=== PATIENT | male | born 1960 | race Caucasian/White ===

== ENCOUNTER → 2019-11-09 08:27 | Outpatient (BNVA) | payer OTHER, SELFPAY | PROVIDERS: PCP Internal Medicine; Referring Provider Internal Medicine; Visit Provider Nurse Practitioner Gerontology | DX: Z76.89 Persons encountering health services in other specified circumstances (principal) ==

== ENCOUNTER 2019-11-09 09:15 | Outpatient (REF) | payer OTHER, SELFPAY | END 2019-11-09 09:16 | disposition home or self-care (01) | LOC: HO.LNP 09:15 | PROVIDERS: Visit Provider Nurse Practitioner Gerontology | DX: E11.21 Type 2 diabetes mellitus with diabetic nephropathy (principal) | CPT/HCPCS: 82947 ==

== ENCOUNTER → 2020-02-12 09:04 | Outpatient (BNVA) | payer OTHER, SELFPAY | PROVIDERS: PCP Internal Medicine; Visit Provider Nurse Practitioner Gerontology | DX: Z76.89 Persons encountering health services in other specified circumstances (principal) ==

== ENCOUNTER 2020-02-20 08:28 | Outpatient (REF) | payer OTHER, SELFPAY ==
[2020-02-20 09:41] LABS: Estimated Average Glucose 255 mg/dL; Hemoglobin A1c % 10.5 %
== END 2020-02-20 08:29 | disposition home or self-care (01) ==
LOC: HO.LAB 08:28
PROVIDERS: PCP Internal Medicine; Visit Provider Nurse Practitioner Gerontology
DX: E11.21 Type 2 diabetes mellitus with diabetic nephropathy (principal)
CPT/HCPCS: 36415; 83036

== ENCOUNTER 2020-05-04 08:01 | Outpatient (REF) | payer OTHER, SELFPAY ==
[2020-05-04 08:38] LABS: MANUAL DIFF FLAG NO
[2020-05-04 08:43] LABS: Basophils Percent Auto 0.5 % (0-2); Eosinophils Absolute Auto 0.2 X10*3/uL (0.0-0.4); Eosinophils Percent Auto 2.2 % (0-4); Hematocrit 41.5 % (42-52); Hemoglobin 13.7 g/dl (14.0-18.0); Imm Gran Abs Auto 0.02 X10*3/uL (0.00-0.03); Imm Gran Pct Auto 0.2 % (0.0-0.4); Lymphocytes Absolute Auto 3.4 X10*3/uL (1.2-4.9); Lymphocytes Percent Auto 40.7 % (20-40); Mean Corpuscular Hemoglobin 28.6 pg (27.0-33.0); Mean Corpuscular Volume 86.6 fL (80-98); Mean Platelet Volume 10.6 fL (9.4-12.4); Monocytes Absolute Auto 0.8 X10*3/uL (0.1-1.2); Monocytes Percent Auto 9.2 % (2-11); Neutrophils Absolute Auto 3.9 X10*3/uL (2.0-8.3); Neutrophils Percent Auto 47.2 % (45-73); Platelet Count 188 X10*3/uL (160-400); Red Blood Count 4.79 X10*6/uL (4.60-5.80); Red Cell Distribution Width 12.8 % (11.0-16.0); White Blood Count 8.2 X10*3/uL (4.8-10.8)
[2020-05-04 08:52] LABS: Appearance Urine CLEAR; Color Urine YELLOW; Glucose Urine UA NEG (NEG); Leukocyte Esterase Urine NEG (NEG); Nitrite Urine NEG (NEG); PH 5.5 (5.0-8.0); Specific Gravity - Urine 1.015 (1.005-1.025); Urine Blood NEG (NEG); Urine Ketones NEG (NEG); Urine Protein TRACE MG/DL (NEG-TRACE)
[2020-05-04 08:53] LABS: Estimated Average Glucose 255 mg/dL; Hemoglobin A1c % 10.5 %
[2020-05-04 09:20] LABS: Alanine Aminotransferase 40 U/L (0-40); Albumin Level 4.3 g/dL (3.5-5.0); Alkaline Phosphatase 46 U/L (39-117); Anion Gap 13 (12-20); Aspartate Amino Transferase 23 U/L (5-37); Bilirubin Total 0.7 mg/dL (0.0-1.0); Blood Urea Nitrogen 16 mg/dL (9-16); Calcium 9.8 mg/dL (8.4-10.2); Carbon Dioxide 29 mmol/L (22-29); Chloride 102 mmol/L (96-108); Cholesterol 109 mg/dL; Estimated Glomerular Filt Rate > 60; Glucose Fasting 145 mg/dL (60-99); HDL Cholesterol 43 mg/dL; LDL Cholesterol Calculated 52 mg/dl; Potassium 4.4 mmol/L (3.3-5.1); Sodium 140 mmol/L (135-145); Triglycerides 72 mg/dL
[2020-05-04 09:21] LABS: Creatinine Urine 66.56 mg/dL; Microalbum/Creatinine Ratio Ur 297.4 ug/mg cr
[2020-05-04 09:23] LABS: Alanine Aminotransferase 41 U/L (0-40); Albumin Level 4.4 g/dL (3.5-5.0); Alkaline Phosphatase 44 U/L (39-117); Anion Gap 14 (12-20); Aspartate Amino Transferase 23 U/L (5-37); Bilirubin Total 0.7 mg/dL (0.0-1.0); Blood Urea Nitrogen 16 mg/dL (9-16); Carbon Dioxide 27 mmol/L (22-29); Chloride 103 mmol/L (96-108); Cholesterol 109 mg/dL; Creatinine Urine 66.09 mg/dL; Estimated Glomerular Filt Rate > 60; Glucose Fasting 150 mg/dL (60-99); HDL Cholesterol 44 mg/dL; LDL Cholesterol Calculated 50 mg/dl; Microalbum/Creatinine Ratio Ur 304.1 ug/mg cr; Potassium 4.4 mmol/L (3.3-5.1); Sodium 140 mmol/L (135-145); Total Protein 7.1 g/dL (6.5-8.0); Triglycerides 75 mg/dL
[2020-05-04 09:41] LABS: Vitamin D 25-OH Total 29.8 ng/mL (>30)
== END 2020-05-04 08:02 | disposition home or self-care (01) ==
LOC: HO.LAB 08:01
PROVIDERS: Absent Provider Internal Medicine; PCP Internal Medicine; Visit Provider Nurse Practitioner Gerontology
DX: E11.21 Type 2 diabetes mellitus with diabetic nephropathy (principal); E11.29 Type 2 diabetes mellitus with other diabetic kidney complication; I10 Essential (primary) hypertension; K21.9 Gastro-esophageal reflux disease without esophagitis; I25.10 Atherosclerotic heart disease of native coronary artery without angina pectoris; E78.00 Pure hypercholesterolemia, unspecified; E55.9 Vitamin D deficiency, unspecified; E66.9 Obesity, unspecified
CPT/HCPCS: 36415; 80053; 80061; 81003; 82043; 82306; 83036; 84443; 85025

== ENCOUNTER → 2020-05-13 09:45 | Outpatient (BNVA) | payer OTHER, SELFPAY | PROVIDERS: PCP Internal Medicine; Visit Provider Nurse Practitioner Gerontology | DX: E11.21 Type 2 diabetes mellitus with diabetic nephropathy (principal); E78.5 Hyperlipidemia, unspecified; I10 Essential (primary) hypertension; E66.9 Obesity, unspecified | CPT/HCPCS: 82947 ==

== ENCOUNTER → 2020-06-04 07:37 | Outpatient (BNVA) | payer OTHER, SELFPAY | PROVIDERS: Visit Provider Nurse Practitioner Gerontology ==

== ENCOUNTER → 2020-06-24 09:23 | Outpatient (BNVA) | payer OTHER, SELFPAY | PROVIDERS: PCP Internal Medicine; Visit Provider Nurse Practitioner Gerontology | DX: E11.21 Type 2 diabetes mellitus with diabetic nephropathy (principal); E78.5 Hyperlipidemia, unspecified; I10 Essential (primary) hypertension; E66.9 Obesity, unspecified | CPT/HCPCS: 82947 ==

== ENCOUNTER 2020-08-13 08:00 | Outpatient (REF) | payer OTHER, SELFPAY ==
[2020-08-13 09:09] LABS: MANUAL DIFF FLAG NO
[2020-08-13 09:13] LABS: Basophils Percent Auto 0.4 % (0-2); Eosinophils Absolute Auto 0.2 X10*3/uL (0.0-0.4); Eosinophils Percent Auto 2.5 % (0-4); Hemoglobin 13.3 g/dl (14.0-18.0); Imm Gran Abs Auto 0.01 X10*3/uL (0.00-0.03); Imm Gran Pct Auto 0.1 % (0.0-0.4); Lymphocytes Absolute Auto 3.2 X10*3/uL (1.2-4.9); Lymphocytes Percent Auto 40.2 % (20-40); Mean Corpuscular HGB Conc 33.3 g/dl (31.0-36.0); Mean Corpuscular Hemoglobin 28.4 pg (27.0-33.0); Mean Corpuscular Volume 85.3 fL (80-98); Mean Platelet Volume 10.5 fL (9.4-12.4); Monocytes Absolute Auto 0.6 X10*3/uL (0.1-1.2); Monocytes Percent Auto 7.6 % (2-11); Neutrophils Absolute Auto 3.9 X10*3/uL (2.0-8.3); Neutrophils Percent Auto 49.2 % (45-73); Platelet Count 191 X10*3/uL (160-400); Red Blood Count 4.69 X10*6/uL (4.60-5.80); Red Cell Distribution Width 13.2 % (11.0-16.0)
[2020-08-13 09:19] LABS: Estimated Average Glucose 214 mg/dL; Hemoglobin A1c % 9.1 %
[2020-08-13 09:37] LABS: Alanine Aminotransferase 39 U/L (0-40); Albumin Level 4.2 g/dL (3.5-5.0); Alkaline Phosphatase 51 U/L (39-117); Anion Gap 14 (12-20); Aspartate Amino Transferase 23 U/L (5-37); Bilirubin Total 0.7 mg/dL (0.0-1.0); Blood Urea Nitrogen 12 mg/dL (9-16); Calcium 9.9 mg/dL (8.4-10.2); Carbon Dioxide 25 mmol/L (22-29); Chloride 104 mmol/L (96-108); Cholesterol 114 mg/dL; Estimated Glomerular Filt Rate > 60; Glucose Fasting 158 mg/dL (60-99); HDL Cholesterol 43 mg/dL; LDL Cholesterol Calculated 58 mg/dl; Potassium 4.4 mmol/L (3.3-5.1); Sodium 139 mmol/L (135-145); Triglycerides 67 mg/dL
[2020-08-13 09:48] LABS: TSH reflex Free T4 1.19 uIU/mL (0.32-4.0); Vitamin D 25-OH Total 42.4 ng/mL (>30)
[2020-08-13 10:46] LABS: Glucose Urine UA NEG (NEG); Leukocyte Esterase Urine NEG (NEG); Nitrite Urine NEG (NEG); Specific Gravity - Urine 1.015 (1.005-1.025); Urine Blood NEG (NEG); Urine Ketones NEG (NEG); Urine Protein 1+ MG/DL (NEG-TRACE)
[2020-08-13 10:47] LABS: Creatinine Urine 66.45 mg/dL; Microalbum/Creatinine Ratio Ur 440.9 ug/mg cr
[2020-08-13 10:49] LABS: Appearance Urine CLEAR; Color Urine YELLOW
[2020-08-13 11:04] LABS: RBC Urine 0-2 /HPF (0); WBC Urine 0-2 /HPF (0-4)
== END 2020-08-13 08:01 | disposition home or self-care (01) ==
LOC: HO.LAB 08:00
PROVIDERS: PCP Internal Medicine; Visit Provider Internal Medicine
DX: Z00.00 Encounter for general adult medical examination without abnormal findings (principal); Z12.5 Encounter for screening for malignant neoplasm of prostate; I10 Essential (primary) hypertension; I25.10 Atherosclerotic heart disease of native coronary artery without angina pectoris; K21.9 Gastro-esophageal reflux disease without esophagitis; E55.9 Vitamin D deficiency, unspecified; E78.00 Pure hypercholesterolemia, unspecified; N40.0 Benign prostatic hyperplasia without lower urinary tract symptoms; E11.29 Type 2 diabetes mellitus with other diabetic kidney complication
CPT/HCPCS: 36415; 80053; 80061; 81001; 82043; 82306; 83036; 84153; 84443; 85025

== ENCOUNTER → 2020-09-06 10:12 | Outpatient (BNVA) | payer OTHER, SELFPAY | PROVIDERS: PCP Internal Medicine; Visit Provider Nurse Practitioner Gerontology ==

== ENCOUNTER → 2020-10-07 09:20 | Outpatient (BNVA) | payer OTHER, SELFPAY | PROVIDERS: PCP Internal Medicine; Visit Provider Nurse Practitioner Gerontology | DX: E11.21 Type 2 diabetes mellitus with diabetic nephropathy (principal); E78.5 Hyperlipidemia, unspecified; E66.9 Obesity, unspecified; I10 Essential (primary) hypertension | CPT/HCPCS: 82947 ==

== ENCOUNTER → 2021-02-12 10:28 | Outpatient (BNVA) | payer OTHER, SELFPAY | PROVIDERS: PCP Internal Medicine; Visit Provider Nurse Practitioner Gerontology | DX: E11.21 Type 2 diabetes mellitus with diabetic nephropathy (principal); E78.5 Hyperlipidemia, unspecified; E66.9 Obesity, unspecified; I10 Essential (primary) hypertension; Z68.30 Body mass index [BMI] 30.0-30.9, adult | CPT/HCPCS: 82947 ==

== ENCOUNTER 2021-05-05 07:57 | Outpatient (REF) | payer OTHER, SELFPAY ==
[2021-05-05 08:30] LABS: MANUAL DIFF FLAG NO
[2021-05-05 08:44] LABS: Basophils Percent Auto 0.3 % (0-2); Eosinophils Absolute Auto 0.2 X10*3/uL (0.0-0.4); Eosinophils Percent Auto 2.1 % (0-4); Hematocrit 41.1 % (42.0-52.0); Hemoglobin 13.3 g/dl (14.0-18.0); Imm Gran Abs Auto 0.01 X10*3/uL (0.00-0.03); Imm Gran Pct Auto 0.1 % (0.0-0.4); Lymphocytes Absolute Auto 2.7 X10*3/uL (1.2-4.9); Lymphocytes Percent Auto 35.5 % (20-40); Mean Corpuscular HGB Conc 32.4 g/dl (31.0-36.0); Mean Corpuscular Volume 86.5 fL (80.0-98.0); Mean Platelet Volume 10.4 fL (9.4-12.4); Monocytes Absolute Auto 0.7 X10*3/uL (0.1-1.2); Monocytes Percent Auto 8.7 % (2-11); Neutrophils Absolute Auto 4.1 x10*3/uL (2.0-8.3); Neutrophils Percent Auto 53.3 % (45-73); Platelet Count 187 X10*3/uL (160-400); Red Blood Count 4.75 X10*6/uL (4.60-5.80); Red Cell Distribution Width 13.2 % (11.0-16.0); White Blood Count 7.6 X10*3/uL (4.8-10.8)
[2021-05-05 08:51] LABS: Estimated Average Glucose 246 mg/dL; Hemoglobin A1c % 10.2 %
[2021-05-05 09:30] LABS: Appearance Urine CLEAR; Color Urine YELLOW; Glucose Urine UA 500 MG/DL (NEG); Leukocyte Esterase Urine NEG (NEG); Nitrite Urine NEG (NEG); Specific Gravity - Urine >= 1.030 (1.005-1.025); UACC Culture Trigger NO; Urine Blood NEG (NEG); Urine Ketones NEG (NEG); Urine Protein 2+ MG/DL (NEG-TRACE)
[2021-05-05 09:39] LABS: RBC Urine 0 /HPF (0); WBC Urine 0 /HPF (0-4)
[2021-05-05 10:13] LABS: Creatinine Urine 118.96 mg/dL
[2021-05-05 10:23] LABS: Microalbum/Creatinine Ratio Ur 554.8 ug/mg cr
[2021-05-05 14:51] LABS: Alanine Aminotransferase 48 U/L (0-40); Albumin Level 4.3 g/dL (3.5-5.0); Alkaline Phosphatase 48 U/L (39-117); Anion Gap 12 (12-20); Aspartate Amino Transferase 32 U/L (5-37); Bilirubin Total 0.7 mg/dL (0.0-1.0); Blood Urea Nitrogen 18 mg/dL (9-16); Calcium 9.7 mg/dL (8.4-10.2); Carbon Dioxide 26 mmol/L (22-29); Chloride 104 mmol/L (96-108); Cholesterol 149 mg/dL; Estimated Glomerular Filt Rate > 60; Glucose Fasting 163 mg/dL (60-99); HDL Cholesterol 47 mg/dL; LDL Cholesterol Calculated 84 mg/dl; Potassium 4.2 mmol/L (3.3-5.1); Sodium 138 mmol/L (135-145); Total Protein 7.1 g/dL (6.5-8.0); Triglycerides 93 mg/dL
[2021-05-05 15:12] LABS: TSH reflex Free T4 1.95 uIU/mL (0.32-4.0); Vitamin D 25-OH Total 32.1 ng/mL (>30)
== END 2021-05-05 07:58 | disposition home or self-care (01) ==
LOC: HO.LAB 07:57
PROVIDERS: PCP Internal Medicine; Visit Provider Internal Medicine
DX: I10 Essential (primary) hypertension (principal); E78.00 Pure hypercholesterolemia, unspecified; E11.9 Type 2 diabetes mellitus without complications; E55.9 Vitamin D deficiency, unspecified
CPT/HCPCS: 36415; 80053; 80061; 81001; 82043; 82306; 83036; 84443; 85025

== ENCOUNTER → 2021-05-07 10:57 | Outpatient (BNVA) | payer OTHER, SELFPAY | PROVIDERS: PCP Internal Medicine; Visit Provider Registered Nurse Diabetes Educator | DX: E11.9 Type 2 diabetes mellitus without complications (principal) | CPT/HCPCS: 95250 ==

== ENCOUNTER → 2021-05-21 10:50 | Outpatient (BNVA) | payer OTHER, SELFPAY | PROVIDERS: PCP Internal Medicine; Visit Provider Nurse Practitioner Gerontology | DX: E11.21 Type 2 diabetes mellitus with diabetic nephropathy (principal); E11.29 Type 2 diabetes mellitus with other diabetic kidney complication; R80.9 Proteinuria, unspecified; I21.4 Non-ST elevation (NSTEMI) myocardial infarction; I10 Essential (primary) hypertension; E78.5 Hyperlipidemia, unspecified; E78.00 Pure hypercholesterolemia, unspecified; E55.9 Vitamin D deficiency, unspecified; E66.3 Overweight; K21.9 Gastro-esophageal reflux disease without esophagitis; Z68.30 Body mass index [BMI] 30.0-30.9, adult; Z98.890 Other specified postprocedural states; Z79.82 Long term (current) use of aspirin; Z79.4 Long term (current) use of insulin; Z79.899 Other long term (current) drug therapy | CPT/HCPCS: 82947 ==

== ENCOUNTER 2021-08-12 08:29 | Outpatient (REF) | payer OTHER, SELFPAY ==
[2021-08-12 08:45] LABS: MANUAL DIFF FLAG NO
[2021-08-12 09:16] LABS: Basophils Percent Auto 0.5 % (0-2); Eosinophils Absolute Auto 0.2 X10*3/uL (0.0-0.4); Hematocrit 41.4 % (42.0-52.0); Hemoglobin 13.8 g/dl (14.0-18.0); Imm Gran Abs Auto 0.02 X10*3/uL (0.00-0.03); Imm Gran Pct Auto 0.2 % (0.0-0.4); Lymphocytes Absolute Auto 3.2 X10*3/uL (1.2-4.9); Mean Corpuscular HGB Conc 33.3 g/dl (31.0-36.0); Mean Corpuscular Hemoglobin 28.3 pg (27.0-33.0); Mean Platelet Volume 11.2 fL (9.4-12.4); Monocytes Absolute Auto 0.7 X10*3/uL (0.1-1.2); Monocytes Percent Auto 8.4 % (2-11); Neutrophils Absolute Auto 4.3 x10*3/uL (2.0-8.3); Neutrophils Percent Auto 50.9 % (45-73); Platelet Count 201 X10*3/uL (160-400); Red Blood Count 4.87 X10*6/uL (4.60-5.80); Red Cell Distribution Width 13.7 % (11.0-16.0); White Blood Count 8.5 X10*3/uL (4.8-10.8)
[2021-08-12 09:33] LABS: Estimated Average Glucose 255 mg/dL; Hemoglobin A1c % 10.5 %
[2021-08-12 09:48] LABS: Alanine Aminotransferase 30 U/L (0-40); Albumin Level 4.5 g/dL (3.5-5.0); Alkaline Phosphatase 49 U/L (39-117); Anion Gap 12 (12-20); Aspartate Amino Transferase 21 U/L (5-37); Bilirubin Total 0.5 mg/dL (0.0-1.0); Blood Urea Nitrogen 20 mg/dL (9-16); Calcium 9.8 mg/dL (8.4-10.2); Carbon Dioxide 25 mmol/L (22-29); Chloride 104 mmol/L (96-108); Cholesterol 100 mg/dL; Estimated Glomerular Filt Rate > 60; Glucose Fasting 147 mg/dL (60-99); HDL Cholesterol 43 mg/dL; LDL Cholesterol Calculated 41 mg/dl; Potassium 4.3 mmol/L (3.3-5.1); Sodium 137 mmol/L (135-145); Total Protein 7.4 g/dL (6.5-8.0); Triglycerides 82 mg/dL
[2021-08-12 09:59] LABS: TSH reflex Free T4 1.79 uIU/mL (0.32-4.0); Vitamin D 25-OH Total 35.3 ng/mL (>30)
[2021-08-12 10:02] LABS: Appearance Urine CLEAR; Color Urine YELLOW; Glucose Urine UA >=1000 MG/DL (NEG); Leukocyte Esterase Urine NEG (NEG); Nitrite Urine NEG (NEG); PH 5.5 (5.0-8.0); UACC Culture Trigger NO; Urine Blood NEG (NEG); Urine Ketones NEG (NEG); Urine Protein 2+ MG/DL (NEG-TRACE)
[2021-08-12 10:16] LABS: Microalbum/Creatinine Ratio Ur 558.6 ug/mg cr; RBC Urine 0-2 /HPF (0); Squamous Epithelial Cell Urine TRACE /LPF; WBC Urine 0 /HPF (0-4)
== END 2021-08-12 08:30 | disposition home or self-care (01) ==
LOC: HO.LAB 08:29
PROVIDERS: PCP Internal Medicine; Visit Provider Internal Medicine
DX: I10 Essential (primary) hypertension (principal); E78.00 Pure hypercholesterolemia, unspecified; E55.9 Vitamin D deficiency, unspecified; E11.9 Type 2 diabetes mellitus without complications
CPT/HCPCS: 36415; 80053; 80061; 81001; 81003; 82043; 82306; 83036; 84443; 85025

== ENCOUNTER → 2021-10-20 10:04 | Outpatient (BNVA) | payer OTHER, SELFPAY | PROVIDERS: PCP Internal Medicine; Visit Provider Dietitian, Registered | DX: E11.29 Type 2 diabetes mellitus with other diabetic kidney complication (principal) | CPT/HCPCS: 97802 ==

== ENCOUNTER 2021-10-29 08:25 | Outpatient (REF) | payer OTHER, SELFPAY ==
[2021-10-29 09:01] LABS: COVID-19 Test Positive (Negative); IDNOW Serial# 9DB6401D
== END 2021-10-29 08:26 | disposition home or self-care (01) ==
LOC: HO.LAB 08:25
PROVIDERS: Visit Provider Internal Medicine
DX: Z20.822 Contact with and (suspected) exposure to COVID-19 (principal)
CPT/HCPCS: 87635; C9803

== ENCOUNTER 2021-12-13 08:08 | Outpatient (REF) | payer OTHER, SELFPAY ==
[2021-12-13 08:31] LABS: MANUAL DIFF FLAG NO
[2021-12-13 08:47] LABS: Basophils Percent Auto 0.4 % (0-2); Eosinophils Absolute Auto 0.2 X10*3/uL (0.0-0.4); Eosinophils Percent Auto 2.2 % (0-4); Hematocrit 41.1 % (42.0-52.0); Hemoglobin 13.4 g/dl (14.0-18.0); Imm Gran Abs Auto 0.02 X10*3/uL (0.00-0.03); Imm Gran Pct Auto 0.3 % (0.0-0.4); Lymphocytes Absolute Auto 2.6 X10*3/uL (1.2-4.9); Lymphocytes Percent Auto 34.3 % (20-40); Mean Corpuscular HGB Conc 32.6 g/dl (31.0-36.0); Mean Corpuscular Hemoglobin 27.6 pg (27.0-33.0); Mean Corpuscular Volume 84.6 fL (80.0-98.0); Mean Platelet Volume 10.4 fL (9.4-12.4); Monocytes Absolute Auto 0.6 X10*3/uL (0.1-1.2); Monocytes Percent Auto 8.1 % (2-11); Neutrophils Absolute Auto 4.1 x10*3/uL (2.0-8.3); Neutrophils Percent Auto 54.7 % (45-73); Platelet Count 202 X10*3/uL (160-400); Red Blood Count 4.86 X10*6/uL (4.60-5.80); Red Cell Distribution Width 14.2 % (11.0-16.0); White Blood Count 7.6 X10*3/uL (4.8-10.8)
[2021-12-13 08:54] LABS: Estimated Average Glucose 200 mg/dL; Hemoglobin A1c % 8.6 %
[2021-12-13 09:07] LABS: Appearance Urine Clear; Color Urine Yellow; Glucose Urine UA Negative (Negative); Leukocyte Esterase Urine Negative (Negative); Nitrite Urine Negative (Negative); PH 5.5 (5.0-9.0); UMIC TRIGGER UACC YES; Urine Blood Negative (Negative); Urine Ketones Negative (Negative); Urine Protein 30 (1+) mg/dL (Neg-Trace)
[2021-12-13 09:10] LABS: Alanine Aminotransferase 41 U/L (0-40); Albumin Level 4.5 g/dL (3.5-5.0); Alkaline Phosphatase 49 U/L (39-117); Anion Gap 16 (12-20); Aspartate Amino Transferase 24 U/L (5-37); Bilirubin Total 0.4 mg/dL (0.0-1.0); Blood Urea Nitrogen 13 mg/dL (9-16); Carbon Dioxide 24 mmol/L (22-29); Chloride 105 mmol/L (96-108); Cholesterol 181 mg/dL; Estimated Glomerular Filt Rate > 60; Glucose Fasting 148 mg/dL (60-99); HDL Cholesterol 49 mg/dL; LDL Cholesterol Calculated 110 mg/dl; Potassium 4.6 mmol/L (3.3-5.1); Sodium 140 mmol/L (135-145); Total Protein 7.4 g/dL (6.5-8.0); Triglycerides 110 mg/dL
[2021-12-13 09:24] LABS: Bacteria Urine None Seen (None Seen); Hyaline Casts Urine 0-2 /LPF (0-2); RBC Urine 0-2 /HPF (0-2); Squamous Epithelial Cell Urine 0-2 /HPF (0-2); WBC Urine 0-5 /HPF (0-5)
[2021-12-13 09:33] LABS: TSH reflex Free T4 1.93 uIU/mL (0.32-4.0); Vitamin D 25-OH Total 29.5 ng/mL (>30)
[2021-12-13 09:37] LABS: Microalbum/Creatinine Ratio Ur 442.2 ug/mg cr
== END 2021-12-13 08:09 | disposition home or self-care (01) ==
LOC: HO.LAB 08:08
PROVIDERS: PCP Internal Medicine; Visit Provider Internal Medicine
DX: I10 Essential (primary) hypertension (principal); E55.9 Vitamin D deficiency, unspecified; E11.9 Type 2 diabetes mellitus without complications; E78.00 Pure hypercholesterolemia, unspecified
CPT/HCPCS: 36415; 80053; 80061; 81001; 81003; 82043; 82306; 83036; 84443; 85025

== ENCOUNTER → 2021-12-19 08:56 | Outpatient (BNVA) | payer OTHER, SELFPAY | PROVIDERS: PCP Internal Medicine; Visit Provider Dietitian, Registered | DX: E11.29 Type 2 diabetes mellitus with other diabetic kidney complication (principal); E11.21 Type 2 diabetes mellitus with diabetic nephropathy; Z79.4 Long term (current) use of insulin; Z71.3 Dietary counseling and surveillance | CPT/HCPCS: 97803 ==

== ENCOUNTER → 2021-12-25 14:58 | Outpatient (BNVA) | payer OTHER, SELFPAY | PROVIDERS: PCP Internal Medicine; Visit Provider Internal Medicine Endocrinology, Diabetes & Metabolism | DX: E11.65 Type 2 diabetes mellitus with hyperglycemia (principal); E11.21 Type 2 diabetes mellitus with diabetic nephropathy; E78.5 Hyperlipidemia, unspecified; E55.9 Vitamin D deficiency, unspecified; K21.9 Gastro-esophageal reflux disease without esophagitis; I10 Essential (primary) hypertension; I21.4 Non-ST elevation (NSTEMI) myocardial infarction; Z79.4 Long term (current) use of insulin | CPT/HCPCS: 82947 ==

== ENCOUNTER 2022-01-02 10:07 | Outpatient (REF) | payer OTHER, SELFPAY ==
[2022-01-02 10:51] LABS: COVID-19 Test Negative (Negative); IDNOW Serial# 16C4AD1C
== END 2022-01-02 10:08 | disposition home or self-care (01) ==
LOC: HO.LAB 10:07
PROVIDERS: Visit Provider Internal Medicine
DX: Z20.822 Contact with and (suspected) exposure to COVID-19 (principal)
CPT/HCPCS: 87635; C9803

== ENCOUNTER 2022-01-02 17:56 | Emergency (ER) | payer OTHER, SELFPAY ==
--- NOTE | ~2022-01-02 | XR_ITS ---
EXAMINATION: XR CHEST CLINICAL INFORMATION: Chest pain and shortness of breath COMPARISON: Chest x-ray on 07/19/2019 TECHNIQUE: 2 views of the chest were obtained. FINDINGS: No significant abnormality is noted involving the heart, lungs, mediastinum, bony thorax or soft tissues. XR/XR chest 2V IMPRESSION: Unremarkable examination.
--- NOTE | 2022-01-02 19:06 | ED_ITS ---
HPI - SOB/Dyspnea General Chief Complaint: Upper Respiratory Symptoms <Christel Dooley CNP - Last Filed: 01/02/22 19:12> Stated Complaint: sob, Fever,cough,bodyaches,chest pain <Christel Dooley CNP - Last Filed: 01/02/22 19:12> Time Seen by Provider: 01/02/22 21:49 <Christel Dooley CNP - Last Filed: 01/02/22 19:12> Source: patient <Len Cervantes MD - Last Filed: 01/02/22 22:57> Mode of arrival: ambulatory <Len Cervantes MD - Last Filed: 01/02/22 22:57> Limitations: no limitations <Len Cervantes MD - Last Filed: 01/02/22 22:57> History of Present Illness HPI Narrative: Patient been feeling sick with upper respiratory symptoms cough fever for last 1 week worse for the last few days has not received flu shot no other family members seen his PCP who gave him Tessalon patient is still coughing <Len Cervantes MD - Last Filed: 01/02/22 22:57> Related Data Home Medications: Home Medications Medication Instructions Recorded Confirmed aspirin 81 mg tablet,delayed 81 mg PO DAILY 11/09/19 12/25/21 release (Adult Low Dose Aspirin) insulin aspart U-100 100 unit/mL 8 unit subcut TID 08/22/21 12/25/21 (3 mL) subcutaneous pen (Novolog Flexpen U-100 Insulin aspart) Previous Rx's Medication Instructions Recorded pen needle, diabetic 32 gauge x #150 ea 02/12/20 benzonatate 200 mg capsule 200 mg PO BID PRN cough 15 days 05/24/20 #30 caps nystatin-triamcinolone 100,000 1 appl topical BID 10 days #30 06/05/20 unit/g-0.1 % topical cream grams lancets 28 gauge (FreeStyle 28 gauge topical TID #100 caps 08/05/20 Lancets) clobetasol 0.05 % topical cream 1 appl topical BID PRN rash #60 10/17/20 grams insulin glargine 100 unit/mL (3 28 unit (0.28 mL) subcut QPM #15 mL 02/12/21 mL) subcutaneous pen (Lantus Solostar U-100 Insulin) omeprazole 20 mg capsule,delayed 20 mg PO DAILY #90 caps 02/18/21 release amlodipine 2.5 mg tablet 2.5 mg PO DAILY #90 tabs 06/12/21 dulaglutide 4.5 mg/0.5 mL 4.5 mg (0.5 mL) subcut QWEEK #2 mL 07/04/21 subcutaneous pen injector (Trulicity) metformin 1,000 mg tablet 1,000 mg PO BID 90 days #180 tabs 08/20/21 rosuvastatin 40 mg tablet 40 mg PO DAILY #90 tabs 09/12/21 blood sugar diagnostic (FreeStyle See Rx Instructions .Route TID 09/30/21 Lite Strips) #300 strips isosorbide mononitrate 30 mg 30 mg PO DAILY #90 tabs 10/01/21 tablet,extended release 24 hr metoprolol succinate 50 mg 50 mg PO DAILY #90 tabs 10/15/21 tablet,extended release 24 hr benzonatate 100 mg capsule 100 mg PO BID-TID PRN cough 30 10/29/21 days #90 caps ergocalciferol (vitamin D2) 1,250 1,250 mcg PO QWEEK #12 caps 11/21/21 mcg (50,000 unit) capsule losartan 100 mg tablet 100 mg PO DAILY #90 tabs 11/21/21 Jardiance 25 mg tablet 25 mg PO QAM 90 days #90 tabs 12/19/21 (empagliflozin) flash glucose scanning reader #1 ea 12/22/21 (FreeStyle Senait 14 Day [place]) flash glucose sensor (FreeStyle #1 ea 12/22/21 Senait 14 Day Sensor kit) codeine 10 mg-guaifenesin 100 mg/5 10 ml PO Q6H PRN cough #237 mL 01/02/22 mL oral liquid <Christel Dooley CNP - Last Filed: 01/02/22 19:12> Allergies/Adverse Reactions: Allergies Allergy/AdvReac Type Severity Reaction Status Date / Time No Known Allergies Allergy Verified 12/25/21 15:06 [No Known Allergies*] <Christel Dooley CNP - Last Filed: 01/02/22 19:12> Review of Systems Review of Systems: Yes all other systems are reviewed and are negative <Len Cervantes MD - Last Filed: 01/02/22 22:57> [facility] Past Medical History Medical History: Medical History Atherosclerotic heart disease of [place] coronary artery without angina pectoris Benign essential hypertension Cataract Coronary artery disease Depression Dermatosis External hemorrhoid GERD (gastroesophageal reflux disease) GERD without esophagitis Hyperlipidemia Hyperlipidemia LDL goal <70 Hypertension NSTEMI (non-ST elevated myocardial infarction) Obesity (BMI 30-39.9) Overweight Psoriasis Pure hypercholesterolemia 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 Mother Diabetes mellitus CVD (cardiovascular disease) Hypertension <Christel Dooley CNP - Last Filed: 01/02/22 19:12> Social History Social History: Social History Household Members: Spouse Housing: House Alcohol intake: never Patient Tobacco Use Status: Never used Tobacco Second Hand Smoke Exposure: No Advance Directives: No Advance Directives Information Provided: No service: No Current occupational status: employed Cognitive needs: No Hearing needs: No Vision needs: Yes <Christel Dooley CNP - Last Filed: 01/02/22 19:12> Physical Exam Vital Signs: Vital Signs: Last Vital Signs Temp 99.2 F 01/02/22 20:45 Pulse 88 01/02/22 20:45 Resp 15 01/02/22 20:45 BP 150/82 H 01/02/22 20:45 Pulse Ox 95 01/02/22 20:45 O2 Del Method 01/02/22 20:45 BMI result Body Mass Index 31.0 <Christel Dooley CNP - Last Filed: 01/02/22 19:12> Vital Signs: Last Vital Signs Temp 99.2 F 01/02/22 20:45 Pulse 88 01/02/22 20:45 Resp 15 01/02/22 20:45 BP 150/82 H 01/02/22 20:45 Pulse Ox 95 01/02/22 20:45 O2 Del Method 01/02/22 20:45 BMI result Body Mass Index 31.0 <Len Cervantes MD - Last Filed: 01/02/22 22:57> Appearance: Alert. Oriented X3. No acute distress. ENT: Pharynx normal. Oral Mucosa moist Neck: Normal inspection. Neck supple. CVS: Normal heart rate and rhythm. Pulses normal. Respiratory: No respiratory distress. Equal air entry bilateral, no wheezing/rales/rhonchi Abdomen: Soft and nontender. Bowel sounds are present, Skin: Skin warm and dry. Normal skin color. Normal skin turgor. Extremities: No lower extremity edema. No calf tenderness Neuro: Oriented X 3. No motor deficit. <Len Cervantes MD - Last Filed: 01/02/22 22:57> Course Course Course Narrative: RME: Patient is a 61-year-old male with a past medical history hypertension, hypercholesterolemia, ASCVD, GERD, type 2 diabetes neuropathy hypertension who presents department for evaluation of upper respiratory symptoms. symptoms onset 3-4 days ago; cough, diffuse chest pain that is reproducible to cough, movement, body aches. Had COVID-19 testing outpatient today which was negative. PE: LS diminished at bases, no rales. rhonchi, wheezing. No increased work of breathing. Mildly tachycardic without hypoxia or tachypnea. Plan: Influenza testing, CBC, CMP, EKG, troponin, BNP, chest x-ray <Christel Dooley CNP - Last Filed: 01/02/22 19:12> MDM - SOB/Dyspnea MDM Narrative Medical decision making narrative: Patient with influenza a discharge on codeine cough syrup patient has seen his PCP 2 days ago taking Tessalon which was not working, chest x-ray negative <Len Cervantes MD - Last Filed: 01/02/22 22:57> Lab Data Attestation: I reviewed the patient's lab results. <Len Cervantes MD - Last Filed: 01/02/22 22:57> Result diagrams: : 01/02/22 19:30 01/02/22 19:30 <Christel Dooley CNP - Last Filed: 01/02/22 19:12> Labs: Lab Results 01/02/22 01/02/22 01/02/22 Range/Units 19:30 19:30 19:30 WBC 6.3 (4.8-10.8) X10*3/uL RBC 4.63 (4.60-5.80) X10*6/uL Hgb 12.9 L (14.0-18.0) g/dl Hct 37.9 L (42.0-52.0) % MCV 81.9 (80.0-98.0) fL MCH 27.9 (27.0-33.0) pg MCHC 34.0 (31.0-36.0) g/dl RDW 14.1 (11.0-16.0) % Plt Count 195 (160-400) X10*3/uL MPV 9.9 (9.4-12.4) fL Immature Gran % (Auto) 0.2 (0.0-0.4) % Neut % (Auto) 67.7 (45-73) % Lymph % (Auto) 20.8 (20-40) % [place] % (Auto) 10.5 (2-11) % Eos % (Auto) 0.5 (0-4) % Baso % (Auto) 0.3 (0-2) % Lymph # (Auto) 1.3 (1.2-4.9) X10*3/uL [place] # (Auto) 0.7 (0.1-1.2) X10*3/uL Eos # (Auto) 0.0 (0.0-0.4) X10*3/uL Baso # (Auto) 0.0 (0.0-0.2) X10*3/uL Abs Immat Gran (auto) 0.01 (0.00-0.03) X10*3/uL Absolute Neuts (auto) 4.3 (2.0-8.3) x10*3/uL Absolute Nucleated RBC 0.000 (0.0-0.012) X10*3/uL Nucleated RBC % (auto) 0.0 (0.0-0.2) /100WBC Sodium 131 L (135-145) mmol/L Potassium 4.3 (3.3-5.1) mmol/L Chloride 99 (96-108) mmol/L Carbon Dioxide 23 (22-29) mmol/L Anion Gap 13 (12-20) BUN 11 (9-16) mg/dL Creatinine 0.83 (0.5-1.4) mg/dL Estim Creat Clear Calc 88.0 Estimated GFR > 60 Random Glucose 165 H (60-115) mg/dL Calcium 9.0 D (8.4-10.2) mg/dL Total Bilirubin 0.5 (0.0-1.0) mg/dL AST 22 (5-37) U/L ALT 30 (0-40) U/L Alkaline Phosphatase 37 L (39-117) U/L Troponin I High Sens 5.2 (<3.5-35.0) ng/L B-Natriuretic Peptide (<100) pg/mL Total Protein 6.7 (6.5-8.0) g/dL Albumin 4.0 (3.5-5.0) g/dL Influenza Type A (ARIK) (Negative) Influenza Type B (ARIK) (Negative) Influenza A & B Note 01/02/22 01/02/22 Range/Units 19:30 19:30 WBC (4.8-10.8) X10*3/uL RBC (4.60-5.80) X10*6/uL Hgb (14.0-18.0) g/dl Hct (42.0-52.0) % MCV (80.0-98.0) fL MCH (27.0-33.0) pg MCHC (31.0-36.0) g/dl RDW (11.0-16.0) % Plt Count (160-400) X10*3/uL MPV (9.4-12.4) fL Immature Gran % (Auto) (0.0-0.4) % Neut % (Auto) (45-73) % Lymph % (Auto) (20-40) % [place] % (Auto) (2-11) % Eos % (Auto) (0-4) % Baso % (Auto) (0-2) % Lymph # (Auto) (1.2-4.9) X10*3/uL [place] # (Auto) (0.1-1.2) X10*3/uL Eos # (Auto) (0.0-0.4) X10*3/uL Baso # (Auto) (0.0-0.2) X10*3/uL Abs Immat Gran (auto) (0.00-0.03) X10*3/uL Absolute Neuts (auto) (2.0-8.3) x10*3/uL Absolute Nucleated RBC (0.0-0.012) X10*3/uL Nucleated RBC % (auto) (0.0-0.2) /100WBC Sodium (135-145) mmol/L Potassium (3.3-5.1) mmol/L Chloride (96-108) mmol/L Carbon Dioxide (22-29) mmol/L Anion Gap (12-20) BUN (9-16) mg/dL Creatinine (0.5-1.4) mg/dL Estim Creat Clear Calc Estimated GFR Random Glucose (60-115) mg/dL Calcium (8.4-10.2) mg/dL Total Bilirubin (0.0-1.0) mg/dL AST (5-37) U/L ALT (0-40) U/L Alkaline Phosphatase (39-117) U/L Troponin I High Sens (<3.5-35.0) ng/L B-Natriuretic Peptide 19 (<100) pg/mL Total Protein (6.5-8.0) g/dL Albumin (3.5-5.0) g/dL Influenza Type A (ARIK) Positive A (Negative) Influenza Type B (ARIK) Negative (Negative) Influenza A & B Note See Note <Christel Dooley CNP - Last Filed: 01/02/22 19:12> Lab Results 01/02/22 01/02/22 01/02/22 Range/Units 19:30 19:30 19:30 WBC 6.3 (4.8-10.8) X10*3/uL RBC 4.63 (4.60-5.80) X10*6/uL Hgb 12.9 L (14.0-18.0) g/dl Hct 37.9 L (42.0-52.0) % MCV 81.9 (80.0-98.0) fL MCH 27.9 (27.0-33.0) pg MCHC 34.0 (31.0-36.0) g/dl RDW 14.1 (11.0-16.0) % Plt Count 195 (160-400) X10*3/uL MPV 9.9 (9.4-12.4) fL Immature Gran % (Auto) 0.2 (0.0-0.4) % Neut % (Auto) 67.7 (45-73) % Lymph % (Auto) 20.8 (20-40) % [place] % (Auto) 10.5 (2-11) % Eos % (Auto) 0.5 (0-4) % Baso % (Auto) 0.3 (0-2) % Lymph # (Auto) 1.3 (1.2-4.9) X10*3/uL [place] # (Auto) 0.7 (0.1-1.2) X10*3/uL Eos # (Auto) 0.0 (0.0-0.4) X10*3/uL Baso # (Auto) 0.0 (0.0-0.2) X10*3/uL Abs Immat Gran (auto) 0.01 (0.00-0.03) X10*3/uL Absolute Neuts (auto) 4.3 (2.0-8.3) x10*3/uL Absolute Nucleated RBC 0.000 (0.0-0.012) X10*3/uL Nucleated RBC % (auto) 0.0 (0.0-0.2) /100WBC Sodium 131 L (135-145) mmol/L Potassium 4.3 (3.3-5.1) mmol/L Chloride 99 (96-108) mmol/L Carbon Dioxide 23 (22-29) mmol/L Anion Gap 13 (12-20) BUN 11 (9-16) mg/dL Creatinine 0.83 (0.5-1.4) mg/dL Estim Creat Clear Calc 88.0 Estimated GFR > 60 Random Glucose 165 H (60-115) mg/dL Calcium 9.0 D (8.4-10.2) mg/dL Total Bilirubin 0.5 (0.0-1.0) mg/dL AST 22 (5-37) U/L ALT 30 (0-40) U/L Alkaline Phosphatase 37 L (39-117) U/L Troponin I High Sens 5.2 (<3.5-35.0) ng/L B-Natriuretic Peptide (<100) pg/mL Total Protein 6.7 (6.5-8.0) g/dL Albumin 4.0 (3.5-5.0) g/dL Influenza Type A (ARIK) (Negative) Influenza Type B (ARIK) (Negative) Influenza A & B Note 01/02/22 01/02/22 Range/Units 19:30 19:30 WBC (4.8-10.8) X10*3/uL RBC (4.60-5.80) X10*6/uL Hgb (14.0-18.0) g/dl Hct (42.0-52.0) % MCV (80.0-98.0) fL MCH (27.0-33.0) pg MCHC (31.0-36.0) g/dl RDW (11.0-16.0) % Plt Count (160-400) X10*3/uL MPV (9.4-12.4) fL Immature Gran % (Auto) (0.0-0.4) % Neut % (Auto) (45-73) % Lymph % (Auto) (20-40) % [place] % (Auto) (2-11) % Eos % (Auto) (0-4) % Baso % (Auto) (0-2) % Lymph # (Auto) (1.2-4.9) X10*3/uL [place] # (Auto) (0.1-1.2) X10*3/uL Eos # (Auto) (0.0-0.4) X10*3/uL Baso # (Auto) (0.0-0.2) X10*3/uL Abs Immat Gran (auto) (0.00-0.03) X10*3/uL Absolute Neuts (auto) (2.0-8.3) x10*3/uL Absolute Nucleated RBC (0.0-0.012) X10*3/uL Nucleated RBC % (auto) (0.0-0.2) /100WBC Sodium (135-145) mmol/L Potassium (3.3-5.1) mmol/L Chloride (96-108) mmol/L Carbon Dioxide (22-29) mmol/L Anion Gap (12-20) BUN (9-16) mg/dL Creatinine (0.5-1.4) mg/dL Estim Creat Clear Calc Estimated GFR Random Glucose (60-115) mg/dL Calcium (8.4-10.2) mg/dL Total Bilirubin (0.0-1.0) mg/dL AST (5-37) U/L ALT (0-40) U/L Alkaline Phosphatase (39-117) U/L Troponin I High Sens (<3.5-35.0) ng/L B-Natriuretic Peptide 19 (<100) pg/mL Total Protein (6.5-8.0) g/dL Albumin (3.5-5.0) g/dL Influenza Type A (ARIK) Positive A (Negative) Influenza Type B (ARIK) Negative (Negative) Influenza A & B Note See Note <Len Cervantes MD - Last Filed: 01/02/22 22:57> Discharge Plan Discharge Clinical Impression: Influenza <Christel Dooley CNP - Last Filed: 01/02/22 19:12> Patient Disposition: Home, Self-Care <Christel Dooley CNP - Last Filed: 01/02/22 19:12> Instructions: Influenza (ED) <Christel Dooley CNP - Last Filed: 01/02/22 19:12> Additional Instructions: Drink plenty of fluids Cough syrup advised Tylenol/Motrin for fever and body aches <Christel Dooley CNP - Last Filed: 01/02/22 19:12> Prescriptions: New codeine-guaifenesin 10-100 mg/5 mL liquid 10 ml PO Q6H PRN (Reason: cough) Qty: 237 0RF No Action nystatin-triamcinolone 100,000-0.1 unit/g-% cream 1 appl topical BID 10 Days Qty: 30 1RF lancets [FreeStyle Lancets] 28 gauge misc 28 gauge topical TID Qty: 100 11RF clobetasol 0.05 % cream 1 appl topical BID PRN (Reason: rash) Qty: 60 1RF omeprazole 20 mg capsule,delayed release(DR/EC) 20 mg PO DAILY Qty: 90 1RF amlodipine 2.5 mg tablet 2.5 mg PO DAILY Qty: 90 1RF Trulicity 4.5 mg/0.5 mL pen injector 4.5 mg subcut QWEEK Qty: 2 6RF metformin 1,000 mg tablet 1,000 mg PO BID 90 Days Qty: 180 1RF rosuvastatin 40 mg tablet 40 mg PO DAILY Qty: 90 1RF FreeStyle Lite Strips Strip See Rx Instructions .ROUTE TID Qty: 300 11RF Rx Instructions: 3 times a day; isosorbide mononitrate 30 mg tablet extended release 24 hr 30 mg PO DAILY Qty: 90 0RF metoprolol succinate 50 mg tablet extended release 24 hr 50 mg PO DAILY Qty: 90 3RF benzonatate 100 mg capsule 100 mg PO BID-TID PRN (Reason: cough) 30 Days Qty: 90 0RF losartan 100 mg tablet 100 mg PO DAILY Qty: 90 1RF (DME) FreeStyle Senait 14 Day Sensor Kit See Rx Instructions .Route Qty: 1 5RF Rx Instructions: As directed (DME) FreeStyle Senait 14 Day [place] Misc See Rx Instructions .Route Qty: 1 5RF Rx Instructions: As directed benzonatate 200 mg capsule 200 mg PO BID PRN (Reason: cough) 15 Days Qty: 30 0RF insulin aspart U-100 [Novolog Flexpen U-100 Insulin] 100 unit/mL (3 mL) insulin pen 8 unit subcut TID Jardiance 25 mg tablet 25 mg PO QAM 90 Days Qty: 90 1RF ergocalciferol (vitamin D2) 1,250 mcg (50,000 unit) capsule 1,250 mcg PO QWEEK Qty: 12 0RF aspirin [Adult Low Dose Aspirin] 81 mg tablet,delayed release (DR/EC) 81 mg PO DAILY (DME) pen needle, diabetic 32 gauge x 5/32 needle See Rx Instructions subcut TID Qty: 150 11RF Rx Instructions: As directed five times a day Lantus Solostar U-100 Insulin 100 unit/mL (3 mL) insulin pen 28 unit subcut QPM Qty: 15 4RF <Christel Dooley, ADIA - Last Filed: 01/02/22 19:12>
[2022-01-02 19:07] VITALS: BP 129/79; PULSE 105; RESP 16; TEMP 37.2; O2SAT 95; BMI 31.0
--- NOTE | 2022-01-02 19:12 | ECG_ITS ---
Test Reason : SOB Blood Pressure : / mmHG Vent. Rate : 097 BPM Atrial Rate : 097 BPM P-R Int : 132 ms QRS Dur : 096 ms QT Int : 330 ms P-R-T Axes : 044 -23 044 degrees QTc Int : 419 ms Sinus rhythm with occasional Premature ventricular complexes poor R-wave progress Left axis deviation Abnormal ECG When compared with ECG of 21-JUL-2019 13:05, Premature ventricular complexes are now Present Heart rate has increased Referred By: Christel Dooley Electronically Signed By:LEVAR BHAT MD
[2022-01-02 19:37] LABS: MANUAL DIFF FLAG NO
[2022-01-02 19:44] LABS: Basophils Percent Auto 0.3 % (0-2); Eosinophils Percent Auto 0.5 % (0-4); Hematocrit 37.9 % (42.0-52.0); Hemoglobin 12.9 g/dl (14.0-18.0); Imm Gran Abs Auto 0.01 X10*3/uL (0.00-0.03); Imm Gran Pct Auto 0.2 % (0.0-0.4); Lymphocytes Absolute Auto 1.3 X10*3/uL (1.2-4.9); Lymphocytes Percent Auto 20.8 % (20-40); Mean Corpuscular Hemoglobin 27.9 pg (27.0-33.0); Mean Corpuscular Volume 81.9 fL (80.0-98.0); Mean Platelet Volume 9.9 fL (9.4-12.4); Monocytes Absolute Auto 0.7 X10*3/uL (0.1-1.2); Monocytes Percent Auto 10.5 % (2-11); Neutrophils Absolute Auto 4.3 x10*3/uL (2.0-8.3); Neutrophils Percent Auto 67.7 % (45-73); Platelet Count 195 X10*3/uL (160-400); Red Blood Count 4.63 X10*6/uL (4.60-5.80); Red Cell Distribution Width 14.1 % (11.0-16.0); White Blood Count 6.3 X10*3/uL (4.8-10.8)
[2022-01-02 20:01] LABS: IDNOW Serial# 9DB6401D; Influenza A Positive (Negative); Influenza B2 Negative (Negative)
[2022-01-02 20:03] LABS: Alanine Aminotransferase 30 U/L (0-40); Alkaline Phosphatase 37 U/L (39-117); Anion Gap 13 (12-20); Aspartate Amino Transferase 22 U/L (5-37); Bilirubin Total 0.5 mg/dL (0.0-1.0); Blood Urea Nitrogen 11 mg/dL (9-16); Carbon Dioxide 23 mmol/L (22-29); Chloride 99 mmol/L (96-108); Estimated Glomerular Filt Rate > 60; Glucose Random 165 mg/dL (60-115); Potassium 4.3 mmol/L (3.3-5.1); Sodium 131 mmol/L (135-145); Total Protein 6.7 g/dL (6.5-8.0)
[2022-01-02 20:10] LABS: B Type Natriuretic Peptide 19 pg/mL (<100); Troponin-I High Sensitivity 5.2 ng/L (<3.5-35.0)
[2022-01-02 20:45] VITALS: BP 150/82; PULSE 88; RESP 15; TEMP 37.3; O2SAT 95
--- NOTE | 2022-01-02 22:47 | ED.URI ---
HPI - URI/Sore Throat General Chief Complaint: Upper Respiratory Symptoms Stated Complaint: sob, Fever,cough,bodyaches,chest pain Time Seen by Provider: 01/02/22 21:49 Source: patient Mode of arrival: ambulatory Limitations: no limitations History of Present Illness HPI Narrative: Patient coughing been sick for last 1 week other family member also sick feel tired low-grade fever saturating 95% at room air Related Data Home Medications Medication Instructions Recorded Confirmed aspirin 81 mg tablet,delayed 81 mg PO DAILY 11/09/19 12/25/21 release (Adult Low Dose Aspirin) insulin aspart U-100 100 unit/mL 8 unit subcut TID 08/22/21 12/25/21 (3 mL) subcutaneous pen (Novolog Flexpen U-100 Insulin aspart) Previous Rx's Medication Instructions Recorded pen needle, diabetic 32 gauge x #150 ea 02/12/20 benzonatate 200 mg capsule 200 mg PO BID PRN cough 15 days 05/24/20 #30 caps nystatin-triamcinolone 100,000 1 appl topical BID 10 days #30 06/05/20 unit/g-0.1 % topical cream grams lancets 28 gauge (FreeStyle 28 gauge topical TID #100 caps 08/05/20 Lancets) clobetasol 0.05 % topical cream 1 appl topical BID PRN rash #60 10/17/20 grams insulin glargine 100 unit/mL (3 28 unit (0.28 mL) subcut QPM #15 mL 02/12/21 mL) subcutaneous pen (Lantus Solostar U-100 Insulin) omeprazole 20 mg capsule,delayed 20 mg PO DAILY #90 caps 02/18/21 release amlodipine 2.5 mg tablet 2.5 mg PO DAILY #90 tabs 06/12/21 dulaglutide 4.5 mg/0.5 mL 4.5 mg (0.5 mL) subcut QWEEK #2 mL 07/04/21 subcutaneous pen injector (Trulicity) metformin 1,000 mg tablet 1,000 mg PO BID 90 days #180 tabs 08/20/21 rosuvastatin 40 mg tablet 40 mg PO DAILY #90 tabs 09/12/21 blood sugar diagnostic (FreeStyle See Rx Instructions .Route TID 09/30/21 Lite Strips) #300 strips isosorbide mononitrate 30 mg 30 mg PO DAILY #90 tabs 10/01/21 tablet,extended release 24 hr metoprolol succinate 50 mg 50 mg PO DAILY #90 tabs 10/15/21 tablet,extended release 24 hr benzonatate 100 mg capsule 100 mg PO BID-TID PRN cough 30 10/29/21 days #90 caps ergocalciferol (vitamin D2) 1,250 1,250 mcg PO QWEEK #12 caps 11/21/21 mcg (50,000 unit) capsule losartan 100 mg tablet 100 mg PO DAILY #90 tabs 11/21/21 Jardiance 25 mg tablet 25 mg PO QAM 90 days #90 tabs 12/19/21 (empagliflozin) flash glucose scanning reader #1 ea 12/22/21 (FreeStyle Senait 14 Day [place]) flash glucose sensor (FreeStyle #1 ea 12/22/21 Senait 14 Day Sensor kit) codeine 10 mg-guaifenesin 100 mg/5 10 ml PO Q6H PRN cough #237 mL 01/02/22 mL oral liquid Allergies Allergy/AdvReac Type Severity Reaction Status Date / Time No Known Allergies Allergy Verified 12/25/21 15:06 [No Known Allergies*] Review of Systems Review of Systems: Yes all other systems are reviewed and are negative [facility] Past Medical History Medical History Atherosclerotic heart disease of [place] coronary artery without angina pectoris Benign essential hypertension Cataract Coronary artery disease Depression Dermatosis External hemorrhoid GERD (gastroesophageal reflux disease) GERD without esophagitis Hyperlipidemia Hyperlipidemia LDL goal <70 Hypertension NSTEMI (non-ST elevated myocardial infarction) Obesity (BMI 30-39.9) Overweight Psoriasis Pure hypercholesterolemia 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 Mother Diabetes mellitus CVD (cardiovascular disease) Hypertension Social History Social History Household Members: Spouse Housing: House Alcohol intake: never Patient Tobacco Use Status: Never used Tobacco Second Hand Smoke Exposure: No Advance Directives: No Advance Directives Information Provided: No service: No Current occupational status: employed Cognitive needs: No Hearing needs: No Vision needs: Yes Physical Exam Vital Signs: Vital Signs: Last Vital Signs Temp 99.2 F 01/02/22 20:45 Pulse 88 01/02/22 20:45 Resp 15 01/02/22 20:45 BP 150/82 H 01/02/22 20:45 Pulse Ox 95 01/02/22 20:45 O2 Del Method 01/02/22 20:45 BMI result Body Mass Index 31.0 Appearance: Alert. Oriented X3. No acute distress. Eyes: PERRLA, No Nystagmus ENT: Pharynx normal. Oral Mucosa moist clear rhinorrhea Neck: Normal inspection. Neck supple. CVS: Normal heart rate and rhythm. Pulses normal. Respiratory: No respiratory distress. Equal air entry bilateral, but did prolonged expiration frequent cough Abdomen: Soft and nontender. Bowel sounds are present, no mass palpable, no CVA tenderness Skin: Skin warm and dry. Normal skin color. Normal skin turgor. Extremities: No lower extremity edema. No calf tenderness Neuro: Oriented X 3. No motor deficit. No sensory deficit.No cerebellar signs , cranial nerves II-XII intact Medications Administered Discontinued Medications Generic Name Dose Route Start Last Admin Trade Name Freq PRN Reason Stop Dose Admin Guaifenesin/Codeine Phosphate 10 ml 01/02/22 22:36 01/02/22 23:07 Guaifen/Codeine Sf 200/20/10ml 10 Ml Liquid PO 01/02/22 22:37 10 ml ONCE ONE Administration MDM - URI/Sore Throat MDM Narrative Medical decision making narrative: Patient with influenza a been sick for last 7 days will discharge patient home on cough syrup chest x-ray negative for any infiltrate Differential Diagnosis Differential diagnosis: Likely upper respiratory infection Lab Data Attestation: I reviewed the patient's lab results. Result diagrams: 01/02/22 19:30 01/02/22 19:30 Labs: Lab Results 01/02/22 01/02/22 01/02/22 Range/Units 19:30 19:30 19:30 WBC 6.3 (4.8-10.8) X10*3/uL RBC 4.63 (4.60-5.80) X10*6/uL Hgb 12.9 L (14.0-18.0) g/dl Hct 37.9 L (42.0-52.0) % MCV 81.9 (80.0-98.0) fL MCH 27.9 (27.0-33.0) pg MCHC 34.0 (31.0-36.0) g/dl RDW 14.1 (11.0-16.0) % Plt Count 195 (160-400) X10*3/uL MPV 9.9 (9.4-12.4) fL Immature Gran % (Auto) 0.2 (0.0-0.4) % Neut % (Auto) 67.7 (45-73) % Lymph % (Auto) 20.8 (20-40) % [place] % (Auto) 10.5 (2-11) % Eos % (Auto) 0.5 (0-4) % Baso % (Auto) 0.3 (0-2) % Lymph # (Auto) 1.3 (1.2-4.9) X10*3/uL [place] # (Auto) 0.7 (0.1-1.2) X10*3/uL Eos # (Auto) 0.0 (0.0-0.4) X10*3/uL Baso # (Auto) 0.0 (0.0-0.2) X10*3/uL Abs Immat Gran (auto) 0.01 (0.00-0.03) X10*3/uL Absolute Neuts (auto) 4.3 (2.0-8.3) x10*3/uL Absolute Nucleated RBC 0.000 (0.0-0.012) X10*3/uL Nucleated RBC % (auto) 0.0 (0.0-0.2) /100WBC Sodium 131 L (135-145) mmol/L Potassium 4.3 (3.3-5.1) mmol/L Chloride 99 (96-108) mmol/L Carbon Dioxide 23 (22-29) mmol/L Anion Gap 13 (12-20) BUN 11 (9-16) mg/dL Creatinine 0.83 (0.5-1.4) mg/dL Estim Creat Clear Calc 88.0 Estimated GFR > 60 Random Glucose 165 H (60-115) mg/dL Calcium 9.0 D (8.4-10.2) mg/dL Total Bilirubin 0.5 (0.0-1.0) mg/dL AST 22 (5-37) U/L ALT 30 (0-40) U/L Alkaline Phosphatase 37 L (39-117) U/L Troponin I High Sens 5.2 (<3.5-35.0) ng/L B-Natriuretic Peptide (<100) pg/mL Total Protein 6.7 (6.5-8.0) g/dL Albumin 4.0 (3.5-5.0) g/dL Influenza Type A (ARIK) (Negative) Influenza Type B (ARIK) (Negative) Influenza A & B Note 01/02/22 01/02/22 Range/Units 19:30 19:30 WBC (4.8-10.8) X10*3/uL RBC (4.60-5.80) X10*6/uL Hgb (14.0-18.0) g/dl Hct (42.0-52.0) % MCV (80.0-98.0) fL MCH (27.0-33.0) pg MCHC (31.0-36.0) g/dl RDW (11.0-16.0) % Plt Count (160-400) X10*3/uL MPV (9.4-12.4) fL Immature Gran % (Auto) (0.0-0.4) % Neut % (Auto) (45-73) % Lymph % (Auto) (20-40) % [place] % (Auto) (2-11) % Eos % (Auto) (0-4) % Baso % (Auto) (0-2) % Lymph # (Auto) (1.2-4.9) X10*3/uL [place] # (Auto) (0.1-1.2) X10*3/uL Eos # (Auto) (0.0-0.4) X10*3/uL Baso # (Auto) (0.0-0.2) X10*3/uL Abs Immat Gran (auto) (0.00-0.03) X10*3/uL Absolute Neuts (auto) (2.0-8.3) x10*3/uL Absolute Nucleated RBC (0.0-0.012) X10*3/uL Nucleated RBC % (auto) (0.0-0.2) /100WBC Sodium (135-145) mmol/L Potassium (3.3-5.1) mmol/L Chloride (96-108) mmol/L Carbon Dioxide (22-29) mmol/L Anion Gap (12-20) BUN (9-16) mg/dL Creatinine (0.5-1.4) mg/dL Estim Creat Clear Calc Estimated GFR Random Glucose (60-115) mg/dL Calcium (8.4-10.2) mg/dL Total Bilirubin (0.0-1.0) mg/dL AST (5-37) U/L ALT (0-40) U/L Alkaline Phosphatase (39-117) U/L Troponin I High Sens (<3.5-35.0) ng/L B-Natriuretic Peptide 19 (<100) pg/mL Total Protein (6.5-8.0) g/dL Albumin (3.5-5.0) g/dL Influenza Type A (ARIK) Positive A (Negative) Influenza Type B (ARIK) Negative (Negative) Influenza A & B Note See Note Discharge Plan Discharge Clinical Impression: Influenza Patient Disposition: Home, Self-Care Instructions: Influenza (ED) Additional Instructions: Drink plenty of fluids Cough syrup advised Tylenol/Motrin for fever and body aches Prescriptions: New codeine-guaifenesin 10-100 mg/5 mL liquid 10 ml PO Q6H PRN (Reason: cough) Qty: 237 0RF No Action nystatin-triamcinolone 100,000-0.1 unit/g-% cream 1 appl topical BID 10 Days Qty: 30 1RF lancets [FreeStyle Lancets] 28 gauge misc 28 gauge topical TID Qty: 100 11RF clobetasol 0.05 % cream 1 appl topical BID PRN (Reason: rash) Qty: 60 1RF omeprazole 20 mg capsule,delayed release(DR/EC) 20 mg PO DAILY Qty: 90 1RF amlodipine 2.5 mg tablet 2.5 mg PO DAILY Qty: 90 1RF Trulicity 4.5 mg/0.5 mL pen injector 4.5 mg subcut QWEEK Qty: 2 6RF metformin 1,000 mg tablet 1,000 mg PO BID 90 Days Qty: 180 1RF rosuvastatin 40 mg tablet 40 mg PO DAILY Qty: 90 1RF FreeStyle Lite Strips Strip See Rx Instructions .ROUTE TID Qty: 300 11RF Rx Instructions: 3 times a day; isosorbide mononitrate 30 mg tablet extended release 24 hr 30 mg PO DAILY Qty: 90 0RF metoprolol succinate 50 mg tablet extended release 24 hr 50 mg PO DAILY Qty: 90 3RF benzonatate 100 mg capsule 100 mg PO BID-TID PRN (Reason: cough) 30 Days Qty: 90 0RF losartan 100 mg tablet 100 mg PO DAILY Qty: 90 1RF (DME) FreeStyle Senait 14 Day Sensor Kit See Rx Instructions .Route Qty: 1 5RF Rx Instructions: As directed (DME) FreeStyle Senait 14 Day [place] Misc See Rx Instructions .Route Qty: 1 5RF Rx Instructions: As directed benzonatate 200 mg capsule 200 mg PO BID PRN (Reason: cough) 15 Days Qty: 30 0RF insulin aspart U-100 [Novolog Flexpen U-100 Insulin] 100 unit/mL (3 mL) insulin pen 8 unit subcut TID Jardiance 25 mg tablet 25 mg PO QAM 90 Days Qty: 90 1RF ergocalciferol (vitamin D2) 1,250 mcg (50,000 unit) capsule 1,250 mcg PO QWEEK Qty: 12 0RF aspirin [Adult Low Dose Aspirin] 81 mg tablet,delayed release (DR/EC) 81 mg PO DAILY (DME) pen needle, diabetic 32 gauge x 5/32 needle See Rx Instructions subcut TID Qty: 150 11RF Rx Instructions: As directed five times a day Lantus Solostar U-100 Insulin 100 unit/mL (3 mL) insulin pen 28 unit subcut QPM Qty: 15 4RF Stand Alone Forms: Work/School Release Interventions: ED Discharge Assessment Last Done: 01/02/22 23:14 Discharge Date/Time: 01/02/22 23:15
[2022-01-02] MEDS: guaiFEN/Codeine SF 200/20/10ML 10 ML LIQUID PO (23:07)
== END 2022-01-02 23:15 | disposition home or self-care (01) ==
PROVIDERS: Nurse Practitioner Family; Emergency Provider Internal Medicine; PCP Internal Medicine
DX: J11.1 Influenza due to unidentified influenza virus with other respiratory manifestations (principal); R50.9 Fever, unspecified; E11.9 Type 2 diabetes mellitus without complications; I10 Essential (primary) hypertension; E78.5 Hyperlipidemia, unspecified; E66.9 Obesity, unspecified; Z68.31 Body mass index [BMI] 31.0-31.9, adult; Z79.4 Long term (current) use of insulin; Z79.82 Long term (current) use of aspirin; Z79.02 Long term (current) use of antithrombotics/antiplatelets
CPT/HCPCS: 71046; 80053; 83880; 84484; 85025; 87502; 93005; 99283; 99284

== ENCOUNTER → 2022-02-11 07:52 | Outpatient (BNVA) | payer OTHER, SELFPAY | PROVIDERS: PCP Internal Medicine; Visit Provider Registered Nurse Diabetes Educator | DX: E11.29 Type 2 diabetes mellitus with other diabetic kidney complication (principal) ==

== ENCOUNTER 2022-03-24 07:45 | Outpatient (REF) | payer OTHER, SELFPAY ==
[2022-03-24 07:58] LABS: MANUAL DIFF FLAG NO
[2022-03-24 09:19] LABS: Basophils Percent Auto 0.5 % (0-2); Eosinophils Absolute Auto 0.1 X10*3/uL (0.0-0.4); Eosinophils Percent Auto 1.7 % (0-4); Hematocrit 40.9 % (42.0-52.0); Imm Gran Abs Auto 0.02 X10*3/uL (0.00-0.03); Imm Gran Pct Auto 0.2 % (0.0-0.4); Lymphocytes Absolute Auto 3.3 X10*3/uL (1.2-4.9); Lymphocytes Percent Auto 39.5 % (20-40); Mean Corpuscular HGB Conc 31.8 g/dl (31.0-36.0); Mean Corpuscular Hemoglobin 27.2 pg (27.0-33.0); Mean Corpuscular Volume 85.6 fL (80.0-98.0); Mean Platelet Volume 11.2 fL (9.4-12.4); Monocytes Absolute Auto 0.7 X10*3/uL (0.1-1.2); Monocytes Percent Auto 8.4 % (2-11); Neutrophils Absolute Auto 4.2 x10*3/uL (2.0-8.3); Neutrophils Percent Auto 49.7 % (45-73); Platelet Count 214 X10*3/uL (160-400); Red Blood Count 4.78 X10*6/uL (4.60-5.80); Red Cell Distribution Width 14.4 % (11.0-16.0); White Blood Count 8.5 X10*3/uL (4.8-10.8)
[2022-03-24 09:31] LABS: Estimated Average Glucose 189 mg/dL; Hemoglobin A1c % 8.2 %
[2022-03-24 10:30] LABS: Appearance Urine Clear; Color Urine Yellow; Glucose Urine UA >=1000 mg/dL (Negative); Leukocyte Esterase Urine Negative (Negative); Nitrite Urine Negative (Negative); PH 6.5 (5.0-9.0); UMIC TRIGGER UACC YES; Urine Blood Negative (Negative); Urine Ketones Negative (Negative); Urine Protein 30 (1+) mg/dL (Neg-Trace)
[2022-03-24 10:31] LABS: Alanine Aminotransferase 31 U/L (0-40); Albumin Level 4.2 g/dL (3.5-5.0); Alkaline Phosphatase 42 U/L (39-117); Anion Gap 13 (12-20); Aspartate Amino Transferase 22 U/L (5-37); Bilirubin Total 0.6 mg/dL (0.0-1.0); Blood Urea Nitrogen 17 mg/dL (9-16); Calcium 9.4 mg/dL (8.4-10.2); Carbon Dioxide 25 mmol/L (22-29); Chloride 106 mmol/L (96-108); Cholesterol 91 mg/dL; Estimated Glomerular Filt Rate > 60; Glucose Fasting 118 mg/dL (60-99); HDL Cholesterol 39 mg/dL; LDL Cholesterol Calculated 40 mg/dl; Potassium 4.4 mmol/L (3.3-5.1); Sodium 140 mmol/L (135-145); TSH reflex Free T4 2.82 uIU/mL (0.32-4.0); Total Protein 6.6 g/dL (6.5-8.0); Triglycerides 60 mg/dL; Vitamin D 25-OH Total 25.9 ng/mL (>30)
[2022-03-24 10:36] LABS: Bacteria Urine None Seen (None Seen); Hyaline Casts Urine 0-2 /LPF (0-2); RBC Urine 0-2 /HPF (0-2); Squamous Epithelial Cell Urine 0-2 /HPF (0-2); WBC Urine 0-5 /HPF (0-5)
[2022-03-24 11:33] LABS: Creatinine Urine 41.33 mg/dL; Microalbum/Creatinine Ratio Ur 353.2 ug/mg cr
== END 2022-03-24 07:46 | disposition home or self-care (01) ==
LOC: HO.LAB 07:45
PROVIDERS: PCP Internal Medicine; Visit Provider Internal Medicine
DX: E11.9 Type 2 diabetes mellitus without complications (principal); R30.0 Dysuria; I10 Essential (primary) hypertension; E78.00 Pure hypercholesterolemia, unspecified; E55.9 Vitamin D deficiency, unspecified
CPT/HCPCS: 36415; 80053; 80061; 81001; 82043; 82306; 83036; 84443; 85025

== ENCOUNTER → 2022-03-27 09:30 | Outpatient (BNVA) | payer OTHER, SELFPAY | PROVIDERS: PCP Internal Medicine; Visit Provider Internal Medicine Endocrinology, Diabetes & Metabolism | DX: E11.21 Type 2 diabetes mellitus with diabetic nephropathy (principal) | CPT/HCPCS: 82947 ==

== ENCOUNTER → 2022-04-06 09:48 | Outpatient (BNVA) | payer OTHER, SELFPAY | PROVIDERS: PCP Internal Medicine; Visit Provider Dietitian, Registered | DX: E11.29 Type 2 diabetes mellitus with other diabetic kidney complication (principal) | CPT/HCPCS: 97803 ==

== ENCOUNTER → 2022-05-06 14:51 | Outpatient (BNVA) | payer OTHER, SELFPAY | PROVIDERS: PCP Internal Medicine; Visit Provider Internal Medicine Cardiovascular Disease | DX: R07.9 Chest pain, unspecified (principal) | CPT/HCPCS: 93005 ==

== ENCOUNTER → 2022-05-13 07:50 | Outpatient (REF) | payer OTHER, SELFPAY ==
--- NOTE | 2022-05-13 07:53 | CA_ITS ---
Transthoracic Echocardiogram Amended Patient (Last, First, Middle): Tomas Flores, Gender: Male Date of : 1960 Age: 62 Procedure Date: 05/13/2022 Procedure Type: Transthoracic Echocardiogram Location: OP Height: 162.56 cm Weight: 77.57 kg BSA: 1.83 m2 Heart Rate: bpm BP: 124 / 80 mmHg Transcription Manager: Referring MD: Karl Franco MD Orthopaedic Technologist: Karl Franco MD Symptoms: R07.9 - Chest pain, unspecified Study Quality: Adequate ECG Rhythm: Sinus with extra beats Conclusions: - 1. Normal LV systolic function with impaired relaxation filling pattern 2. Trivial aortic regurgitation 3. Normal RV systolic pressure 4. No pericardial effusion Findings Left Ventricle Normal left ventricular size, thickness, and systolic function. The visually estimated ejection fraction is between 55-60%. Spectral Doppler is indicative of an impaired relaxation filling pattern. E/E prime ratio is between 8 and 15 consistent with indeterminate filling pressures. Peak GLS is -17%, borderline normal Right Ventricle Normal right ventricular cavity size and systolic function. Atria The left atrium is likely dilated. There is no evidence of interatrial shunt. The right atrium is normal in size. Aortic Valve Normal aortic valve structure and function. There is no aortic valve stenosis. There is trace (trivial) aortic valve regurgitation. Mitral Valve Normal mitral valve structure and function. There is trace mitral valve regurgitation. There is no mitral valve stenosis. Pulmonic Valve The pulmonic valve is likely normal. Tricuspid Valve Normal tricuspid valve structure. There is trace tricuspid valve regurgitation. The right ventricular systolic pressure is normal. The right ventricular systolic pressure is 16 mmHg. Normal right atrial pressure. Great Vessels All visible segments of the aorta are normal in size. The pulmonary artery was not well visualized. Venous The inferior vena cava is normal in size and collapses greater than 50% with inspiration. Pericardium/Pleural There is no evidence of pericardial effusion. Prior Study Comparison No significant change compared to prior study dated: 07/30/2015. Measurements 2D Linear Measurements IVSd: 1.12 0.6-0.9/0.6-1.0 cm LVIDd: 3.97 3.9-5.3/4.2-5.9 cm LVIDd Index: 2.17 2.4-3.2/2.2-3.1 cm/m2 LVIDs: 2.91 2.0-3.6 cm LVPWd: 1.18 0.7-1.1 cm Ao Root: 3.40 2.1-3.5 cm LA Diam: 3.90 2.7-3.8/3.0-4.0 cm LAIDs Index: 2.13 1.5-2.3 cm/m2 LV Mass: 191.28 67-162/88-224 g LV Mass Index: 104.52 43-95/49-115 g/m2 LVOT Diam: 2.00 3.0+(-)1.3 cm 2D Volumes LA Vol: 30.50 2D Systolic Function EF 4C: 58.80 >55% EF 2C: 61.90 >55% EF BiP: 59.70 >55% Mitral Valve MV Pk E: 0.91 MV PK A: 1.14 MV Decel Time: 99.00 E/A: 0.80 E'Lateral: 9.90 E'Medial: 7.83 E/E' Med: 11.70 E/E' Lat: 9.20 PHT: 29.00 MVA PHT: 7.59 Decel [place]: 9.26 Aortic Valve AoV Pk [place]: 1.25 AoV Mn [place]: 0.77 AoV VTI: 0.30 AoV Pk Grad: 6.00 Aov Mn Grad: 3.00 SILVIA Cont.VTI: 2.37 LVOT LVOT Pk [place]: 0.89 LVOT Mn [place]: 0.54 LVOT VTI: 0.22 LVOT Pk Grad: 3.00 LVOT Mn Grad: 2.00 LVOT Diam: 2.00 LVOT Area: 3.14 Diastolic Function MV Pk E: 0.91 MV Pk A: 1.14 E/A: 0.80 E'Medial: 7.83 E/E' Med: 11.70 E' Laterial: 9.90 E/E' Lat: 9.20 Right Ventricle TAPSE (mm): 20.00 TVS' Jaylan: 10.00 Tricuspid Valve TR Pk Jaylan: 1.81 TR Pk Grad: 13.00 RA Press: 3.00 RVSP: 16.00 Great Vessels Aorta Ao Root-2D: 3.40 2.0-3.7 cm Ao Asc: 3.10 2.1-3.4 cm Pulmonary Valve PV Pk [place]: 0.87 Peak PV Grad: 3.00 Updated in Other Vendor System with Status of Final Karl Franco MD electronically signed on 05/13/2022 12:17:18 PM with status of Final
== END ==
LOC: HO.CARD 07:50
PROVIDERS: PCP Internal Medicine; Visit Provider Internal Medicine Cardiovascular Disease
DX: R07.9 Chest pain, unspecified (principal)
CPT/HCPCS: 93306; 93356

== ENCOUNTER → 2022-05-18 08:23 | Outpatient (REF) | payer OTHER, SELFPAY ==
--- NOTE | ~2022-05-18 | NM_ITS ---
EXERCISE MYOCARDIAL PERFUSION STUDY INDICATION: Chest pain, assess for coronary disease and ischemia TECHNIQUE: The patient was brought in for an exercise perfusion study on 05/18/2022. Patient performed exercise as per Romaine protocol and was injected 25 mCi of sestamibi once target heart rate was achieved. Images were obtained using the SPECT gamma camera interlaced with the gating device. Images were obtained in supine position. Resting perfusion study was performed on 05/25/2022. Patient was administered 25 mCi of sestamibi intravenously at rest. Images were then obtained in supine position. Images were processed with the software and compared side to side in short axis, horizontal long axis and vertical long axis views. Total DLP 93mGy-cm. FINDINGS: Raw images were reviewed. The stress perfusion study showed diminished tracer uptake along the basal to mid anteroseptal wall and basal inferior wall. There is improvement with CT attenuation correction and hence could have components of soft tissue or diaphragmatic attenuation artifact. The gated study shows normal low LV systolic function with calculated LVEF of 51%. LV cavity is normal in size. The gated study shows diminished wall thickening and contractility in the basal anterior/anteroseptal wall. Resting study shows diminished tracer uptake along the inferior wall. There is also reduced uptake in the distal anteroseptal wall. Overall, there is improvement with CT attenuation correction and hence could all be artifactual. Gating at rest reveals normal wall motion with ejection fraction at 59%. The findings are consistent with reversible defect in the basal part of anteroseptal wall. Fixed inferior defect, possibly artifactual. NM/NM cardiolite stress test IMPRESSION: 1. Myocardial perfusion imaging study shows probable ischemia of mild to moderate intensity in the basal anteroseptal wall. Less likely artifactual. 2. Gated LVEF is 51% during stress and 59% during rest. 3. Transient ischemic dilatation not present. EKG component of the test reported separately.
--- NOTE | 2022-05-18 08:25 | CA_ITS ---
Acquisition Time: 2022-05-18 08:52:00 Total Exercise Time: 00:04:31 Test Indications: CHEST PAIN Medications: ALBUTEROL AMLODIPINE ASA Protocol: ROMERO Max HR: 162 BPM 103% of Pred: 156 BPM Max BP: 168/090 mmHG Max Work Load: 4.6 METS Exercise stress test with exercise 4 min 31 sec of Romero stage 1 ( stage held due to reported5 inability to walk at faster speed), achieving 103% of MPHR, with mild sob, no chest discomfort, with isolated PVC and ventricular cuplets, with normotensive response to exercise, with EKG changes meeting criteria for ischemia, [address] V3- V5 which improves in recovery. Nuclear images pending. Test reviewed with Dr Franco Referred By: Karl Franco Overread By: JUD BUSTILLOS
== END ==
LOC: HO.CARD 08:23
PROVIDERS: PCP Internal Medicine; Visit Provider Internal Medicine Cardiovascular Disease
DX: R07.9 Chest pain, unspecified (principal)
CPT/HCPCS: 78452; 93017; A9500; J0280; J2785

== ENCOUNTER → 2022-06-03 10:23 | Outpatient (BNVA) | payer OTHER, SELFPAY | PROVIDERS: PCP Internal Medicine; Referring Provider Internal Medicine; Visit Provider Internal Medicine Cardiovascular Disease | DX: Z13.89 Encounter for screening for other disorder (principal) ==

== ENCOUNTER → 2022-06-17 07:53 | Outpatient (BNVA) | payer OTHER, SELFPAY | PROVIDERS: PCP Internal Medicine; Visit Provider Registered Nurse Diabetes Educator ==

== ENCOUNTER 2022-07-29 07:25 | Outpatient (REF) | payer OTHER, SELFPAY ==
[2022-07-29 07:36] LABS: MANUAL DIFF FLAG NO
[2022-07-29 08:37] LABS: Basophils Percent Auto 0.5 % (0-2); Eosinophils Absolute Auto 0.2 X10*3/uL (0.0-0.4); Eosinophils Percent Auto 1.7 % (0-4); Hematocrit 38.8 % (42.0-52.0); Hemoglobin 12.8 g/dl (14.0-18.0); Imm Gran Abs Auto 0.03 X10*3/uL (0.00-0.03); Imm Gran Pct Auto 0.3 % (0.0-0.4); Lymphocytes Percent Auto 33.9 % (20-40); Mean Corpuscular Volume 84.9 fL (80.0-98.0); Monocytes Absolute Auto 0.7 X10*3/uL (0.1-1.2); Monocytes Percent Auto 7.9 % (2-11); Neutrophils Percent Auto 55.7 % (45-73); Platelet Count 207 X10*3/uL (160-400); Red Blood Count 4.57 X10*6/uL (4.60-5.80); White Blood Count 8.9 X10*3/uL (4.8-10.8)
[2022-07-29 09:06] LABS: Estimated Average Glucose 200 mg/dL; Hemoglobin A1c % 8.6 %
[2022-07-29 09:20] LABS: Alanine Aminotransferase 27 U/L (0-40); Albumin Level 4.2 g/dL (3.5-5.0); Alkaline Phosphatase 42 U/L (39-117); Anion Gap 15 (12-20); Aspartate Amino Transferase 21 U/L (5-37); Bilirubin Total 0.4 mg/dL (0.0-1.0); Blood Urea Nitrogen 19 mg/dL (9-16); Calcium 10.1 mg/dL (8.4-10.2); Carbon Dioxide 25 mmol/L (22-29); Chloride 106 mmol/L (96-108); Cholesterol 197 mg/dL; Estimated Glomerular Filt Rate > 60; Glucose Fasting 104 mg/dL (60-99); HDL Cholesterol 43 mg/dL; LDL Cholesterol Calculated 135 mg/dl; Potassium 3.7 mmol/L (3.3-5.1); Sodium 142 mmol/L (135-145); Total Protein 7.3 g/dL (6.5-8.0); Triglycerides 98 mg/dL
[2022-07-29 09:30] LABS: Appearance Urine Clear; Color Urine Yellow; Glucose Urine UA >=1000 mg/dL (Negative); Leukocyte Esterase Urine Negative (Negative); Nitrite Urine Negative (Negative); UMIC TRIGGER UACC YES; Urine Blood Negative (Negative); Urine Ketones Negative (Negative); Urine Protein 30 (1+) mg/dL (Neg-Trace)
[2022-07-29 09:36] LABS: Bacteria Urine None Seen (None Seen); Hyaline Casts Urine 0-2 /LPF (0-2); RBC Urine 0-2 /HPF (0-2); Squamous Epithelial Cell Urine 0-2 /HPF (0-2); WBC Urine 0-5 /HPF (0-5)
[2022-07-29 09:39] LABS: TSH reflex Free T4 1.82 uIU/mL (0.32-4.0); Vitamin D 25-OH Total 31.9 ng/mL (>30)
[2022-07-29 09:49] LABS: Creatinine Urine 57.03 mg/dL; Microalbum/Creatinine Ratio Ur 248.9 ug/mg cr
== END 2022-07-29 07:26 | disposition home or self-care (01) ==
LOC: HO.LAB 07:25
PROVIDERS: PCP Internal Medicine; Visit Provider Internal Medicine
DX: E11.9 Type 2 diabetes mellitus without complications (principal); E55.9 Vitamin D deficiency, unspecified; E78.00 Pure hypercholesterolemia, unspecified; I10 Essential (primary) hypertension; R30.0 Dysuria
CPT/HCPCS: 36415; 80053; 80061; 81001; 82043; 82306; 83036; 84443; 85025

== ENCOUNTER → 2022-08-12 09:45 | Outpatient (BNVA) | payer OTHER, SELFPAY | PROVIDERS: PCP Internal Medicine; Visit Provider Registered Nurse Diabetes Educator ==

== ENCOUNTER 2022-08-16 21:56 | Inpatient (IN) | payer OTHER, SELFPAY ==
[2022-08-16 22:02] VITALS: BP 158/93; PULSE 77; RESP 18; TEMP 36.5; O2SAT 97; BMI 29.2
[2022-08-16 23:39] VITALS: BP 157/86; PULSE 68; RESP 13; TEMP 36.8; O2SAT 96
--- NOTE | 2022-08-16 23:43 | PC.NURSE ---
Pt aox4 with family at the bedside. Reports intermittent chest pain, 0/10, for the past 3 days. Denies sob or radiating pain. VSS. NSR on monitor with PVC'S. HR 68. Breaths even regular and unlabored. No apparent distress noted. Pending physician eval.
--- NOTE | 2022-08-16 23:54 | ED.CHESTPAIN ---
HPI - Chest Pain General Chief Complaint: Chest Pain Stated Complaint: Chest Pain Time Seen by Provider: 08/16/22 23:53 Source: patient Mode of arrival: ambulatory Limitations: no limitations History of Present Illness HPI narrative: Patient is 62 years old diabetic high cholesterol hypertension with history of coronary artery disease had cardiac catheterization 5 years ago which showed occluded ramus decided not to any procedure advise medical treatment in 04/30 in 05/18/2022 patient had a stress test which showed septal infarct, patient did not have any exertional chest pain for last 2 months since he was started on metoprolol and amlodipine for last 3 days patient has been having left-sided chest pain on exertion while mowing the lawn. Since early today patient noticed pain even while resting and not doing any exertion dull pain lasting for several minutes no diaphoresis no shortness of breath no nausea vomiting Related Data Home Medications Medication Instructions Recorded Confirmed aspirin 81 mg tablet,delayed 81 mg PO DAILY 11/09/19 08/03/22 release (Adult Low Dose Aspirin) tamsulosin 0.4 mg capsule 0.4 mg PO BEDTIME 06/03/22 08/03/22 Previous Rx's Medication Instructions Recorded pen needle, diabetic 32 gauge x #150 ea 02/12/20 nystatin-triamcinolone 100,000 1 appl topical BID 10 days #30 06/05/20 unit/g-0.1 % topical cream grams lancets 28 gauge (FreeStyle 28 gauge topical TID #100 caps 08/05/20 Lancets) clobetasol 0.05 % topical cream 1 appl topical BID PRN rash #60 10/17/20 grams dulaglutide 4.5 mg/0.5 mL 4.5 mg (0.5 mL) subcut QWEEK #2 mL 07/04/21 subcutaneous pen injector (treadalong) blood sugar diagnostic (FreeStyle See Rx Instructions .Route TID 09/30/21 Lite Strips) #300 strips metoprolol succinate 50 mg 50 mg PO DAILY #90 tabs 10/15/21 tablet,extended release 24 hr losartan 100 mg tablet 100 mg PO DAILY #90 tabs 11/21/21 flash glucose scanning reader #1 ea 12/22/21 (FreeStyle Senait 14 Day [place]) flash glucose sensor (FreeStyle #1 ea 12/22/21 Senait 14 Day Sensor kit) Flexichamber (inhalational spacing #1 ea 01/09/22 device) ergocalciferol (vitamin D2) 1,250 1,250 mcg PO QWEEK #12 caps 01/21/22 mcg (50,000 unit) capsule insulin glargine 100 unit/mL (3 28 unit (0.28 mL) subcut QPM #15 mL 02/20/22 mL) subcutaneous pen (Lantus Solostar U-100 Insulin) omeprazole 20 mg capsule,delayed 20 mg PO DAILY #90 caps 02/21/22 release isosorbide mononitrate 30 mg 30 mg PO DAILY #90 tabs 03/30/22 tablet,extended release 24 hr nitroglycerin 0.4 mg sublingual 0.4 mg sublingual Q5M PRN chest 05/06/22 tablet pain #20 tabs metformin 1,000 mg tablet 1,000 mg PO BID 90 days #180 tabs 05/07/22 Ozempic 2 mg/dose (8 mg/3 mL) 2 mg (0.75 mL) subcut QWEEK 4 05/25/22 subcutaneous pen injector weeks #3 mL (semaglutide) amlodipine 2.5 mg tablet 2.5 mg PO DAILY #90 tabs 06/29/22 insulin aspart U-100 100 unit/mL 8 unit (0.08 mL) subcut TID #15 mL 07/17/22 (3 mL) subcutaneous pen (Novolog FlexPen U-100 Insulin aspart) Humalog KwikPen Insulin 100 See Rx Instructions subcut 07/24/22 unit/mL subcutaneous (insulin .COMPLEX 30 days #15 mL lispro) rosuvastatin 40 mg tablet 40 mg PO DAILY #90 tabs 08/03/22 Allergies Allergy/AdvReac Type Severity Reaction Status Date / Time No Known Allergies Allergy Verified 08/03/22 10:13 [No Known Allergies*] Review of Systems Review of Systems: Yes all other systems are reviewed and are negative PMFSH Past Medical History Medical History Atherosclerotic heart disease of [place] coronary artery without angina pectoris Benign essential hypertension Cataract Coronary artery disease Depression Dermatosis External hemorrhoid GERD (gastroesophageal reflux disease) GERD without esophagitis Hyperlipidemia Hyperlipidemia LDL goal <70 Hypertension NSTEMI (non-ST elevated myocardial infarction) Obesity (BMI 30-39.9) Overweight Psoriasis Pure hypercholesterolemia 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 Mother Diabetes mellitus CVD (cardiovascular disease) Hypertension Social History Social History Household Members: Spouse Housing: House Alcohol intake: never Patient Tobacco Use Status: Never used Tobacco Smoked in Last 30 Days: No e-Cigarette/Vaping Use: Never Used Second Hand Smoke Exposure: No Use of substances other than those prescribed or required for medical reasons: No Advance Directives: No Advance Directives Information Provided: No service: No Current occupational status: employed Cognitive needs: No Hearing needs: No Vision needs: Yes Physical Exam Vital Signs: Vital Signs: Last Vital Signs Temp 98.2 F 08/16/22 23:39 Pulse 68 08/16/22 23:39 Resp 13 08/16/22 23:39 BP 157/86 H 08/16/22 23:39 Pulse Ox 96 08/16/22 23:39 O2 Del Method Room Air 08/16/22 23:39 BMI result Body Mass Index 29.2 Appearance: Alert. Oriented X3. No acute distress. Eyes: PERRLA, No Nystagmus ENT: Pharynx normal. Oral Mucosa moist Neck: Normal inspection. Neck supple. CVS: Normal heart rate and rhythm. Pulses normal. Respiratory: No respiratory distress. Equal air entry bilateral, no wheezing/rales/rhonchi Abdomen: Soft and nontender. Bowel sounds are present, no mass palpable, no CVA tenderness Skin: Skin warm and dry. Normal skin color. Normal skin turgor. Extremities: No lower extremity edema. No calf tenderness Neuro: Oriented X 3. No motor deficit. No sensory deficit.No cerebellar signs , cranial nerves II-XII intact Medications Administered Discontinued Medications Generic Name Dose Route Start Last Admin Trade Name Freq PRN Reason Stop Dose Admin Aspirin 162 mg 08/17/22 00:13 08/17/22 00:19 Aspirin 81 Mg Tab.Chew PO 08/17/22 00:14 162 mg ONCE ONE Administration Medical Decision Making Medical Decision Making [facility] Narrative: Patient with chest pain with background of CAD with occluded ramus and septal infarct with delta change in troponin no significant ST elevation will admit patient for further evaluation patient chest pain-free while in the ER vital stable. Will start patient on heparin drip with serial EKGs and troponin Consult Healthcare Provider Management of the patient was discussed with: Hospitalist Lab Data [facility] Lab Attestation statement: I reviewed the patient's lab results. 08/16/22 22:13 08/16/22 22:13 Labs: Lab Results 08/16/22 08/16/22 08/16/22 Range/Units 22:13 22:13 22:13 WBC 8.9 (4.8-10.8) X10*3/uL RBC 4.55 L (4.60-5.80) X10*6/uL Hgb 12.6 L (14.0-18.0) g/dl Hct 38.1 L (42.0-52.0) % MCV 83.7 (80.0-98.0) fL MCH 27.7 (27.0-33.0) pg MCHC 33.1 (31.0-36.0) g/dl RDW 14.1 (11.0-16.0) % Plt Count 213 (160-400) X10*3/uL MPV 9.7 (9.4-12.4) fL Immature Gran % (Auto) 0.2 (0.0-0.4) % Neut % (Auto) 53.9 (45-73) % Lymph % (Auto) 35.3 (20-40) % [place] % (Auto) 8.5 (2-11) % Eos % (Auto) 1.8 (0-4) % Baso % (Auto) 0.3 (0-2) % Lymph # (Auto) 3.2 (1.2-4.9) X10*3/uL [place] # (Auto) 0.8 (0.1-1.2) X10*3/uL Eos # (Auto) 0.2 (0.0-0.4) X10*3/uL Baso # (Auto) 0.0 (0.0-0.2) X10*3/uL Abs Immat Gran (auto) 0.02 (0.00-0.03) X10*3/uL Absolute Neuts (auto) 4.8 (2.0-8.3) x10*3/uL Absolute Nucleated RBC 0.000 (0.0-0.012) X10*3/uL Nucleated RBC % (auto) 0.0 (0.0-0.2) /100WBC Sodium 134 L (135-145) mmol/L Potassium 4.6 D (3.3-5.1) mmol/L Chloride 103 (96-108) mmol/L Carbon Dioxide 23 (22-29) mmol/L Anion Gap 13 (12-20) BUN 20 H (9-16) mg/dL Creatinine 0.87 (0.5-1.4) mg/dL Estim Creat Clear Calc 80.5 Estimated GFR > 60 Random Glucose 224 H (60-115) mg/dL Calcium 10.1 (8.4-10.2) mg/dL Troponin I High Sens 24.1 (<3.5-35.0) ng/L 08/17/22 Range/Units 01:07 WBC (4.8-10.8) X10*3/uL RBC (4.60-5.80) X10*6/uL Hgb (14.0-18.0) g/dl Hct (42.0-52.0) % MCV (80.0-98.0) fL MCH (27.0-33.0) pg MCHC (31.0-36.0) g/dl RDW (11.0-16.0) % Plt Count (160-400) X10*3/uL MPV (9.4-12.4) fL Immature Gran % (Auto) (0.0-0.4) % Neut % (Auto) (45-73) % Lymph % (Auto) (20-40) % [place] % (Auto) (2-11) % Eos % (Auto) (0-4) % Baso % (Auto) (0-2) % Lymph # (Auto) (1.2-4.9) X10*3/uL [place] # (Auto) (0.1-1.2) X10*3/uL Eos # (Auto) (0.0-0.4) X10*3/uL Baso # (Auto) (0.0-0.2) X10*3/uL Abs Immat Gran (auto) (0.00-0.03) X10*3/uL Absolute Neuts (auto) (2.0-8.3) x10*3/uL Absolute Nucleated RBC (0.0-0.012) X10*3/uL Nucleated RBC % (auto) (0.0-0.2) /100WBC Sodium (135-145) mmol/L Potassium (3.3-5.1) mmol/L Chloride (96-108) mmol/L Carbon Dioxide (22-29) mmol/L Anion Gap (12-20) BUN (9-16) mg/dL Creatinine (0.5-1.4) mg/dL Estim Creat Clear Calc Estimated GFR Random Glucose (60-115) mg/dL Calcium (8.4-10.2) mg/dL Troponin I High Sens 56.9 H D (<3.5-35.0) ng/L Independent Interpretation I performed an independent interpretation of an: EKG Interpretation: Normal sinus rhythm heart rate 75 per minute occasional PVCs no acute ST wave changes no acute ischemia Critical Care Time Critical Care Time Critical Care Time: Yes Total Critical Care Time: 45 Attestation: The patient was critically ill with a high probability of imminent or life threatening deterioration. I spent greater than 55 minutes of discontinuous time evaluating the patient,delivering critical care at the bedside, discussing and evaluating pertinent data with consultants. Critical care time does not include time spent performing separately billable procedures or teaching. Total time spent performing critical care was 45 minutes. Discharge Plan Discharge Clinical Impression: Non-ST elevated myocardial infarction (non-STEMI) Patient Disposition: Admitted As Inpatient
--- NOTE | 2022-08-17 00:21 | PC.NURSE ---
Medicated po as ordered. Tolerated well. Able to ambulate to the restroom independently.
--- NOTE | 2022-08-17 01:59 | PM.IMHP ---
History of Present Illness Date of Service: 08/17/22 Chief Complaint: Chest pain This is a 62-year-old male with pertinent history of insulin-dependent diabetes mellitus, essential hypertension, mixed hyperlipidemia, BPH, gastroesophageal reflux disease, coronary artery disease presents to the emergency department for evaluation of chest discomfort. Patient states he has been having exertional chest pain for the last 3 days. It is better with rest and sublingual nitroglycerin. On the day of presentation, patient had chest pain even at rest and hence decided to present to the ER. Patient states he had a cardiac catheterization 5 years ago which revealed coronary artery disease but no intervention was done. Patient had a stress test done about 3 months ago which showed ischemia and he was initiated on beta-stepan. He denies fever, chills, palpitations, shortness of breath, abdominal pain, changes in urinary or bowel habits. In the emergency department, troponin was found to be elevated and patient was initiated on IV heparin Review of Systems Constitutional: Constitutional: Reports no additional constitutional complaints Cardiovascular: Cardiovascular: Reports chest pain at rest and Reports chest pain with activity Respiratory: Respiratory: Reports no additional respiratory complaints Gastrointestinal: Gastrointestinal: Reports no additional gastrointestinal complaints Genitourinary: Genitourinary: Reports no additional male genitourinary complaints [facility] Medical History Atherosclerotic heart disease of [place] coronary artery without angina pectoris Benign essential hypertension Cataract Coronary artery disease Depression Dermatosis External hemorrhoid GERD (gastroesophageal reflux disease) GERD without esophagitis Hyperlipidemia Hyperlipidemia LDL goal <70 Hypertension NSTEMI (non-ST elevated myocardial infarction) Obesity (BMI 30-39.9) Overweight Psoriasis Pure hypercholesterolemia 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 Mother Diabetes mellitus CVD (cardiovascular disease) Hypertension Surgical History Hx of cardiac catheterization Hx of circumcision Hx of colonoscopy Hx of right cataract extraction Social History Household Members: Spouse Housing: House Alcohol intake: never Patient Tobacco Use Status: Never used Tobacco e-Cigarette/Vaping Use: Never Used Second Hand Smoke Exposure: No service: No Current occupational status: employed Cognitive needs: No Hearing needs: No Vision needs: Yes Meds Allergies Allergy/AdvReac Type Severity Reaction Status Date / Time No Known Allergies Allergy Verified 08/03/22 10:13 [No Known Allergies*] Active Medications: Current Medications Heparin Sodium (Porcine) (Heparin Sodium,Porcine 5,000 Unit/Ml Vial) 3,100 unit 40 unit/kg (3100 unit) IVPUSH PROTOCOL BOLUS PRN; Protocol PRN Reason: 40 unit/kg - Heparin Protocol Heparin Sodium (Porcine) (Heparin Sodium,Porcine 5,000 Unit/Ml Vial) 6,200 unit 80 unit/kg (6200 unit) IVPUSH PROTOCOL BOLUS PRN; Protocol PRN Reason: 80 unit/kg - Heparin Protocol Heparin Sodium/Sodium Chloride (Heparin Sodium,Porcine/1/2ns) 25,000 unit in 250 mls @ 0 mls/hr IVCONT .Q0M LOLY; Protocol Home Medications Medication Instructions Recorded Confirmed Last Taken Type aspirin 81 mg tablet,delayed 81 mg PO DAILY 11/09/19 08/03/22 Unknown History release (Adult Low Dose Aspirin) tamsulosin 0.4 mg capsule 0.4 mg PO BEDTIME 06/03/22 08/03/22 Unknown History Physical Exam Vital Signs and Narrative: Vital Signs: Last Vital Signs Temp 98.2 F 08/16/22 23:39 Pulse 68 08/16/22 23:39 Resp 13 08/16/22 23:39 BP 157/86 H 08/16/22 23:39 Pulse Ox 96 08/16/22 23:39 O2 Del Method Room Air 08/16/22 23:39 BMI result Body Mass Index 29.2 Middle-aged male lying in bed in no distress Neck supple, no JVD Regular rate and rhythm, S1-S2 heard Regular breath sounds bilaterally, no wheezing or crackles appreciated Abdomen soft nontender, no guarding, no rigidity Patient is awake, alert and oriented to self, place, time and person ; no focal motor deficit Psych: Normal mood No pedal edema Results Labs 08/16/22 22:13 08/16/22 22:13 Labs: Laboratory Results - last 24 hr 08/16/22 08/16/22 08/16/22 22:13 22:13 22:13 MCV 83.7 MCH 27.7 MCHC 33.1 RDW 14.1 Plt Count 213 MPV 9.7 Immature Gran % (Auto) 0.2 Neut % (Auto) 53.9 Lymph % (Auto) 35.3 Ray % (Auto) 8.5 Eos % (Auto) 1.8 Baso % (Auto) 0.3 Lymph # (Auto) 3.2 Ray # (Auto) 0.8 Eos # (Auto) 0.2 Baso # (Auto) 0.0 Abs Immat Gran (auto) 0.02 Absolute Neuts (auto) 4.8 Absolute Nucleated RBC 0.000 Nucleated RBC % (auto) 0.0 Anion Gap 13 Estim Creat Clear Calc 80.5 Estimated GFR > 60 Random Glucose 224 H Calcium 10.1 Troponin I High Sens 24.1 08/17/22 01:07 MCV MCH MCHC RDW Plt Count MPV Immature Gran % (Auto) Neut % (Auto) Lymph % (Auto) Ray % (Auto) Eos % (Auto) Baso % (Auto) Lymph # (Auto) Ray # (Auto) Eos # (Auto) Baso # (Auto) Abs Immat Gran (auto) Absolute Neuts (auto) Absolute Nucleated RBC Nucleated RBC % (auto) Anion Gap Estim Creat Clear Calc Estimated GFR Random Glucose Calcium Troponin I High Sens 56.9 H D Assessment and Plan (1) Non-ST elevated myocardial infarction (non-STEMI): Status: Acute Plan This is a 62-year-old male with pertinent history of insulin-dependent diabetes mellitus, essential hypertension, mixed hyperlipidemia, BPH, gastroesophageal reflux disease, coronary artery disease presents to the emergency department for evaluation of chest discomfort. #. NSTEMI. Will admit patient with library monitor. Initiated IV heparin. Patient received aspirin in the ER. On beta-stepan. Consulting Cardiology, appreciate assistance. Obtaining repeat echocardiogram #. Insulin-dependent diabetes mellitus with hyperglycemia. Initiating Accu-Cheks with sliding scale insulin. Reduce home basal regimen #. Essential hypertension. Continue home antihypertensives #. Mixed hyperlipidemia. On statin #. BPH. On Flomax #. Gastroesophageal reflux disease. On PPI Med rec pending DVT prophylaxis: Heparin Full code Cardiac diet Admit as inpatient and will require two night minimum hospital stay for IV heparin. Specialist consult pending Time Spent With Patient Time: Total time managing care of this patient today ____ minutes. Quality Stroke Does the patient have a stroke diagnosis?: No VTE Prior VTE?: No VTE Risk Level:: Medical - moderate - high VTE Device Contraindication: Treatment Not Indicated VTE Drug Contraindication: N/A - Med Ordered
[2022-08-17 02:26] VITALS: BMI 30.4
[2022-08-17 02:39] LABS: Anion Gap 14 (12-20); Blood Urea Nitrogen 19 mg/dL (9-16); Calcium 10.7 mg/dL (8.4-10.2); Carbon Dioxide 28 mmol/L (22-29); Chloride 104 mmol/L (96-108); Estimated Glomerular Filt Rate > 60; Glucose Random 125 mg/dL (60-115); Potassium 4.6 mmol/L (3.3-5.1); Sodium 141 mmol/L (135-145)
--- NOTE | 2022-08-17 03:22 | PC.NURSE ---
Heparin drip started at 12u/kg/hr as ordered per protocol. Tolerating well. Pt reports no pain at this time. No bleeding noted. VSS. Next PTT-HD ordered for 914 today. Pt is aware of plan of care and is waiting for a bed assignment.
[2022-08-17 03:25] VITALS: BP 143/88; PULSE 67; RESP 14; O2SAT 96
[2022-08-17 05:45] VITALS: BP 144/85; PULSE 69; RESP 17; TEMP 36.6; O2SAT 95
--- NOTE | 2022-08-17 06:51 | PC.NURSE ---
Med req completed
--- NOTE | 2022-08-17 07:00 | CA_ITS ---
Transthoracic Echocardiogram Patient (Last, First, Middle): Tomas Flores, Gender: Male Date of : 1960 Age: 62 Procedure Date: 08/17/2022 Procedure Type: Transthoracic Echocardiogram Location: ER Height: 162.56 cm Weight: 80.29 kg BSA: 1.86 m2 Heart Rate: 76 bpm BP: 129 / 74 mmHg Director Of Enterprise Strategy: CELINA Referring MD: Annabel Ly MD Adult School Teacher: Karl Franco MD Symptoms: ACS Study Quality: Adequate/Contrast ECG Rhythm: Sinus Conclusions: - 1. [id number] LV systolic dysfunction with LVEF of 40-45% with regional wall motion abnormality 2. Normal cardiac valvular Doppler 3. Mildly dilated ascending aorta at 3.8 cm 4. No gross pericardial effusion Findings Left Ventricle Normal left ventricular cavity size. There is normal left ventricular wall thickness. The left ventricular systolic function is mild to moderately decreased. The visually estimated ejection fraction is between 40-45%. Spectral Doppler is indicative of an impaired relaxation filling pattern. E/E prime ratio is between 8 and 15 consistent with indeterminate filling pressures. Wall Motion Rest Echo Findings The apex, apical anterior, apical septum, basal anterolateral, and basal inferolateral segments are hypokinetic. All other scored wall segments showed normal motion. Right Ventricle Normal right ventricular cavity size and systolic function. Atria Both atria are normal in size. There is no evidence of interatrial shunt. Aortic Valve Normal aortic valve structure and function. There is no aortic valve stenosis. There is no aortic valve regurgitation. Mitral Valve Normal mitral valve structure and function. There is trace mitral valve regurgitation. There is no mitral valve stenosis. Pulmonic Valve The pulmonic valve is likely normal. Tricuspid Valve Normal tricuspid valve structure. Tricuspid regurgitation envelope is inadequate for calculation of right ventricular systolic pressure. Normal right atrial pressure. Great Vessels
--- NOTE | 2022-08-17 07:14 | PC.NURSE ---
assumed care of pt at 0700. heparin drip running at 12 units-confirmed with overnight nurse, breakfast given to pt, pt reports no chest pain at this time.
[2022-08-17 08:25] VITALS: BP 135/80; PULSE 79; RESP 17; TEMP 36.7; O2SAT 96
--- NOTE | 2022-08-17 08:44 | PHA.MEDREC ---
Pharmacy Consult ? Medication Reconciliation Pharmacy has completed the medication reconciliation. spoke with patient and . Patient was prescribed Ozempic in May however he has not used it in a couple of weeks. The told me it did not make him feel well and they're waiting to see the doctor. They both confirmed tamsulosin and vitamin D2 despite claim history showing last fills in January.
--- NOTE | 2022-08-17 09:03 | PM.DS ---
DS: Providers Provider Date of Service: 08/17/22 Date of admission: 08/17/22 01:57 Date of discharge: 08/17/22 Primary care physician: Aram Murphy MD Consults: 08/17/22 02:01 Consult to Cardiology Routine Consulting Provider: [facility] [place] Cardiovascular Services Reason for consultation: NSTEMI DS: Diagnosis Discharge Diagnosis (1) Non-ST elevated myocardial infarction (non-STEMI): Status: Acute (2) Atherosclerotic heart disease of [place] coronary artery without angina pectoris: Status: Acute DS: Summary Hospital Course Hospital Course: from admission H+P by hospitalist Federico Ly MD, 08/17/22: This is a 62-year-old male with pertinent history of insulin-dependent diabetes mellitus, essential hypertension, mixed hyperlipidemia, BPH, gastroesophageal reflux disease, coronary artery disease presents to the emergency department for evaluation of chest discomfort.? Patient states he has been having exertional chest pain for the last 3 days.? It is better with rest and sublingual nitroglycerin.? On the day of presentation, patient had chest pain even at rest and hence decided to present to the ER.? Patient states he had a cardiac catheterization 5 years ago which revealed coronary artery disease but no intervention was done.? Patient had a stress test done about 3 months ago which showed ischemia and he was initiated on beta-stepan.? He denies fever, chills, palpitations, shortness of breath, abdominal pain, changes in urinary or bowel habits. In the emergency department, troponin was found to be elevated and patient was initiated on IV heparin 62yo M with DM2, HTN, HLD, and prior UT with nonobstructive disease in the past, followed by Dr Franco, with recent stress test positive for ischemia by EKG criteria and septal ischemia by nuclear study. Symptoms previously resolved on anti-anginal thearpy with metoprolol and amlodipine but then developed exertional and rest chest pain over the past 3 days. Found to have troponin-leak and started on heparin drip. Seen by Dr Franco and transferred to [facility] for cardiac catheterization. Time Spent with Patient Time attestation: Total time managing care of this patient today __40__ minutes. Discharge coordination time: Greater than 30 minutes Quality: Safe Use of Opioids Does Pt have an Active Cancer Diagnosis on the Problem List?: No Quality: Stroke Does the patient have a stroke diagnosis?: No Physical Exam Vital Signs: Vital Signs: Last Vital Signs Temp 98.1 F 08/17/22 08:25 Pulse 79 08/17/22 08:25 Resp 17 08/17/22 08:25 BP 135/80 08/17/22 08:25 Pulse Ox 96 08/17/22 08:25 O2 Del Method Room Air 08/17/22 08:25 BMI result Body Mass Index 30.4 Gen: in no acute distress HEENT: sclera anicteric, moist mucus membranes Neck: supple Lungs: clear to auscultation bilaterally Heart: regular rate and rhythm, no murmurs Abd: soft, non-tender, non-distended Ext: no edema Skin: warm/well-perfused Neuro: alert and oriented x3, no focal findings Psych: appropriate affect DS: Data Data Completed and Pending Completed studies during hospitalization [Text1]: Laboratory Results WBC 8.2 X10*3/uL (4.8-10.8) 08/17/22 02:16 RBC 4.83 X10*6/uL (4.60-5.80) 08/17/22 02:16 Hgb 13.3 g/dl (14.0-18.0) L 08/17/22 02:16 Hct 40.7 % (42.0-52.0) L 08/17/22 02:16 MCV 84.3 fL (80.0-98.0) 08/17/22 02:16 MCH 27.5 pg (27.0-33.0) 08/17/22 02:16 MCHC 32.7 g/dl (31.0-36.0) 08/17/22 02:16 RDW 14.1 % (11.0-16.0) 08/17/22 02:16 Plt Count 220 X10*3/uL (160-400) 08/17/22 02:16 MPV 9.5 fL (9.4-12.4) 08/17/22 02:16 Immature Gran % (Auto) 0.2 % (0.0-0.4) 08/17/22 02:16 Neut % (Auto) 52.6 % (45-73) 08/17/22 02:16 Lymph % (Auto) 36.1 % (20-40) 08/17/22 02:16 [place] % (Auto) 8.9 % (2-11) 08/17/22 02:16 Eos % (Auto) 1.7 % (0-4) 08/17/22 02:16 Baso % (Auto) 0.5 % (0-2) 08/17/22 02:16 Lymph # (Auto) 3.0 X10*3/uL (1.2-4.9) 08/17/22 02:16 [place] # (Auto) 0.7 X10*3/uL (0.1-1.2) 08/17/22 02:16 Eos # (Auto) 0.1 X10*3/uL (0.0-0.4) 08/17/22 02:16 Baso # (Auto) 0.0 X10*3/uL (0.0-0.2) 08/17/22 02:16 Abs Immat Gran (auto) 0.02 X10*3/uL (0.00-0.03) 08/17/22 02:16 Absolute Neuts (auto) 4.3 x10*3/uL (2.0-8.3) 08/17/22 02:16 Absolute Nucleated RBC 0.000 X10*3/uL (0.0-0.012) 08/17/22 02:16 Nucleated RBC % (auto) 0.0 /100WBC (0.0-0.2) 08/17/22 02:16 PT 10.6 SEC (10.0-13.1) 08/17/22 02:16 INR 0.9 (0.9-1.1) 08/17/22 02:16 APTT 26.7 SEC (26.0-36.4) 08/17/22 02:16 Sodium 141 mmol/L (135-145) 08/17/22 02:16 Potassium 4.6 mmol/L (3.3-5.1) 08/17/22 02:16 Chloride 104 mmol/L (96-108) 08/17/22 02:16 Carbon Dioxide 28 mmol/L (22-29) 08/17/22 02:16 Anion Gap 14 (12-20) 08/17/22 02:16 BUN 19 mg/dL (9-16) H 08/17/22 02:16 Creatinine 0.86 mg/dL (0.5-1.4) 08/17/22 02:16 Estim Creat Clear Calc 83.0 08/17/22 02:16 Estimated GFR > 60 08/17/22 02:16 POC Glucose 197 mg/dL (60-115) H 08/17/22 08:23 Random Glucose 125 mg/dL (60-115) H 08/17/22 02:16 Calcium 10.7 mg/dL (8.4-10.2) H 08/17/22 02:16 Troponin I High Sens 144.8 ng/L (<3.5-35.0) H* D 08/17/22 05:59 Discharge Plan Discharge Anticipated Discharge Date/Time: 08/17/22 09:00 Patient Disposition: Xfer Acute Care Hospital Discharge Diagnosis: NSTEMI, CAD Referrals: Aram Murphy MD [Primary Care Provider] - 1 Week Karl Franco MD [Physician] - 1 Week Discharge Medications: New heparin (porcine) 5,000 unit/mL Solution 6,400 unit IVPUSH PROTOCOL BOLUS PRN (Reason: 80 Unit/Kg - Heparin Protocol) Qty: 1 0RF heparin (porcine) 5,000 unit/mL Solution 3,200 unit IVPUSH PROTOCOL BOLUS PRN (Reason: 40 Unit/Kg - Heparin Protocol) Qty: 1 0RF heparin(porcine) in 0.45% NaCl 25,000 unit/250 mL Parenteral Solution 25,000 unit continuous IV infusion .Q0M Qty: 1 0RF Continued metoprolol succinate 50 mg tablet extended release 24 hr 50 mg PO DAILY Qty: 90 3RF losartan 100 mg tablet 100 mg PO DAILY Qty: 90 1RF (DME) FreeStyle Senait 14 Day Sensor Kit See Rx Instructions .Route Qty: 1 5RF Rx Instructions: As directed (DME) FreeStyle Senait 14 Day [place] Misc See Rx Instructions .Route Qty: 1 5RF Rx Instructions: As directed (DME) Flexichamber Spacer See Rx Instructions .Route Qty: 1 0RF Rx Instructions: use with Albuterol inhaler as directed ergocalciferol (vitamin D2) 1,250 mcg (50,000 unit) capsule 1,250 mcg PO QWEEK Qty: 12 3RF Lantus Solostar U-100 Insulin 100 unit/mL (3 mL) insulin pen 28 unit subcut QPM Qty: 15 3RF omeprazole 20 mg capsule,delayed release(DR/EC) 20 mg PO DAILY Qty: 90 1RF isosorbide mononitrate 30 mg tablet extended release 24 hr 30 mg PO DAILY Qty: 90 1RF Ozempic 2 mg/dose (8 mg/3 mL) pen injector 2 mg subcut QWEEK 28 Days Qty: 3 5RF amlodipine 2.5 mg tablet 2.5 mg PO DAILY Qty: 90 1RF insulin lispro [Humalog KwikPen Insulin] 100 unit/mL insulin pen See Rx Instructions subcut .COMPLEX 30 Days Qty: 15 3RF Rx Instructions: Inject 10 to 12 units as instructed 3 times a day with meals dosed per sliding scale subcutaneously; Jardiance 25 mg tablet 25 mg PO QAM multivitamin Tablet 1 tab PO DAILY [place]-3 350 mg-235 mg- 90 mg-597 mg Capsule,Delayed Release(Dr/Ec) 1 cap PO DAILY rosuvastatin 40 mg tablet 40 mg PO DAILY Qty: 90 1RF aspirin [Adult Low Dose Aspirin] 81 mg tablet,delayed release (DR/EC) 81 mg PO DAILY (DME) pen needle, diabetic 32 gauge x 5/32 needle See Rx Instructions subcut TID Qty: 150 11RF Rx Instructions: As directed five times a day tamsulosin 0.4 mg capsule 0.4 mg PO BEDTIME nitroglycerin 0.4 mg tablet, sublingual 0.4 mg sublingual Q5M PRN (Reason: chest pain) Qty: 20 1RF Rx Instructions: do not exceed 3 doses per episode Discontinued metformin 1,000 mg tablet 1,000 mg PO BID 90 Days Qty: 180 1RF Discharge Orders: Discharge Order (Routine); Ordered 08/17/22 Ordered By: René Silver Diet: Diabetic diet Activity on Discharge: As tolerated Stand Alone Forms: Patient Portal Discharge page Care Plan Goals: cardiac health Health Concerns: NSTEMI Plan of Treatment: transfer to [facility] for cardiac catheterization Assessment: See Discharge Summary.
[2022-08-17 09:11] VITALS: BP 129/74; PULSE 79; RESP 15; O2SAT 94
--- NOTE | 2022-08-17 09:16 | PC.NURSE ---
morning meds given to pt per order, vss BP 129/74 HR 79. pts reports no pain at this time.
--- NOTE | 2022-08-17 10:15 | PM.CNCAR ---
History of Present Illness History of Present Illness Date of Service: 08/17/22 Requesting physician: René Silver Consult reason: other (Acute coronary syndrome) Chief complaint: Chest Pain Narrative: I was consulted to see Tomas in cardiology consultation today for symptoms consistent with acute coronary syndrome. He is a 62-year-old pleasant male with prior history of exertional chest pain being seen by him in the clinic with abnormal stress test with septal ischemia being managed medically with symptoms resolve with dual antianginal therapy. 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 Subsequently he was working and then was relaxing many at rest had chest discomfort which resolved after 10 minutes. The event home and after 21:00 while he was resting had another episode of chest discomfort where he decided to come to the emergency room put in in the emergency room the EKG is unrevealing for ischemia. However symptoms had resolved however is cardiac markers of positives consistent with myocardial injury. He has been admitted for acute coronary syndrome start on IV heparin. His remained chest pain-free. Cardiology consult was sought for further management plan. Review of Systems Constitutional: Constitutional: Reports no additional constitutional complaints ENT: Reports system reviewed and no additional complaints, except as documented Cardiovascular: Cardiovascular: Reports chest pain at rest, Reports chest pain with activity, Denies leg edema, Denies lightheadedness, Denies Loss of Consciousness, Denies palpitations and Denies dyspnea Respiratory: Respiratory: Reports no additional respiratory complaints and Denies dyspnea Gastrointestinal: Gastrointestinal: Reports no additional gastrointestinal complaints Genitourinary: Genitourinary: Reports no additional male genitourinary complaints Musculoskeletal: Musculoskeletal: Reports no additional musculoskeletal complaints Integumentary/Breasts: Skin/Breast: Reports system reviewed and no additional complaints, except as docu Neurologic: Reports system reviewed and no additional complaints, except as documented Psychiatric: Psychiatric: Reports no additional psychiatric complaints Endocrine: Endocrine: Denies palpitations PMFSH Past Medical History Medical History Atherosclerotic heart disease of [place] coronary artery without angina pectoris Benign essential hypertension Cataract Coronary artery disease Depression Dermatosis External hemorrhoid GERD (gastroesophageal reflux disease) GERD without esophagitis Hyperlipidemia Hyperlipidemia LDL goal <70 Hypertension NSTEMI (non-ST elevated myocardial infarction) Obesity (BMI 30-39.9) Overweight Psoriasis Pure hypercholesterolemia 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 Mother Diabetes mellitus CVD (cardiovascular disease) Hypertension Surgical History Surgical History Hx of cardiac catheterization Hx of circumcision Hx of colonoscopy Hx of right cataract extraction Social History Social History Household Members: Spouse Housing: House Alcohol intake: never Patient Tobacco Use Status: Never used Tobacco Smoked in Last 30 Days: No e-Cigarette/Vaping Use: Never Used Second Hand Smoke Exposure: No Use of substances other than those prescribed or required for medical reasons: No Advance Directives: No Advance Directives Information Provided: No Nutrition Risks: No Nutritional Risk service: No Current occupational status: employed Cognitive needs: No Hearing needs: No Vision needs: Yes Meds Allergies Allergy/AdvReac Type Severity Reaction Status Date / Time No Known Allergies Allergy Verified 08/03/22 10:13 [No Known Allergies*] Active Medications: Current Medications Acetaminophen (Acetaminophen 325 Mg Tablet) 650 mg PO Q6H PRN PRN Reason: Pain, Mild (Pain Scale 1-3) Amlodipine Besylate (Amlodipine Besylate 2.5 Mg Tablet) 2.5 mg PO DAILY [facility]; Protocol Last Admin: 08/17/22 09:13 Dose: 2.5 mg Aspirin (Aspirin Enteric Coated 81 Mg Tablet.) 81 mg PO DAILY [facility] Last Admin: 08/17/22 09:12 Dose: 81 mg Atorvastatin Calcium (Atorvastatin Calcium 80 Mg Tablet) 80 mg PO BEDTIME [facility] Dextrose (Dextrose 50 % 25 Gm/50 Ml Syringe) 25 gm IVPUSH Q15M PRN; Protocol PRN Reason: per Hypoglycemia Standing Ord. Empagliflozin (Empagliflozin 25 Mg Tablet) 25 mg PO DAILY [facility] Glucose (Glucose Gel 15 Gm Gel..Gram.) 15 gm PO Q15M PRN; Protocol PRN Reason: per Hypoglycemia Standing Ord. Heparin Sodium (Porcine) (Heparin Sodium,Porcine 5,000 Unit/Ml Vial) 3,200 unit IVPUSH PROTOCOL BOLUS PRN; Protocol PRN Reason: 40 unit/kg - Heparin Protocol Heparin Sodium (Porcine) (Heparin Sodium,Porcine 5,000 Unit/Ml Vial) 6,400 unit IVPUSH PROTOCOL BOLUS PRN; Protocol PRN Reason: 80 unit/kg - Heparin Protocol Heparin Sodium/Sodium Chloride (Heparin Sodium,Porcine/1/2ns) 25,000 unit in 250 mls @ 0 mls/hr IVCONT .Q0M [facility]; Protocol Last Admin: 08/17/22 03:14 Dose: 12 units/kg/hr, 9.65 mls/hr Insulin Glargine (Insulin Glargine,Hum.Rec.Anlog 100 Unit/Ml 10 Ml Vial) 20 unit SUBCUT BEDTIME [facility] Last Admin: 08/17/22 03:40 Dose: 20 unit Insulin Human Lispro (Insulin Lispro 100 Unit/Ml 3 Ml Vial) 0 unit SUBCUT QIDACHS [facility]; Protocol Last Admin: 08/17/22 07:28 Dose: Not Given Isosorbide Mononitrate (Isosorbide Mononitrate 30 Mg Tab.Er.24h) 30 mg PO DAILY [facility]; Protocol Last Admin: 08/17/22 09:13 Dose: 30 mg Losartan Potassium (Losartan Potassium 50 Mg Tablet) 100 mg PO DAILY [facility]; Protocol Last Admin: 08/17/22 09:13 Dose: 100 mg Melatonin (Melatonin 3 Mg Tablet) 6 mg PO BEDTIME PRN PRN Reason: Insomnia Metoprolol Succinate (Metoprolol Succinate Er 50 Mg Tab.Er.24h) 50 mg PO DAILY [facility]; Protocol Last Admin: 08/17/22 09:13 Dose: 50 mg Nitroglycerin (Nitroglycerin 0.4 Mg Tab.Subl) 0.4 mg SUBLINGUAL Q5MX3 PRN PRN Reason: Chest Pain Omeprazole (Omeprazole 20 Mg Capsule.Dr) 20 mg PO DAILY@0630 [facility] Last Admin: 08/17/22 09:13 Dose: 20 mg Ondansetron HCl (Ondansetron Hcl 4 Mg/2 Ml Vial) 4 mg IVPUSH Q8H PRN PRN Reason: Nausea and Vomiting Pharmacy Consult (Consult Rx Perform Med Rec) 1 each MISCELLANE ONCE PRN PRN Reason: Consult order Sodium Chloride (0.9 % Sodium Chloride Flush 3 Ml Syringe) 3 ml IVFLUSH QSHIFT [facility] Last Admin: 08/17/22 07:29 Dose: Not Given Tamsulosin HCl (Tamsulosin Hcl 0.4 Mg Capsule) 0.4 mg PO BEDTIME [facility] Home Medications Medication Instructions Recorded Confirmed Last Taken Type aspirin 81 mg tablet,delayed 81 mg PO DAILY 11/09/19 08/17/22 Unknown History release (Adult Low Dose Aspirin) tamsulosin 0.4 mg capsule 0.4 mg PO BEDTIME 06/03/22 08/17/22 Unknown History empagliflozin 25 mg tablet 25 mg PO QAM 08/17/22 08/17/22 Unknown History (Jardiance) multivitamin 1 tab PO DAILY 08/17/22 08/17/22 Unknown History omega 3 350 mg-dha 235 mg-epa 90 1 cap PO DAILY 08/17/22 08/17/22 Unknown History mg-fish oil 597 mg capsule,delay rel ([place]-3) Physical Exam Vital Signs: Vital Signs: Last Vital Signs Temp 98.1 F 08/17/22 08:25 Pulse 79 08/17/22 09:11 Resp 15 08/17/22 09:11 BP 129/74 08/17/22 09:11 Pulse Ox 94 08/17/22 09:11 O2 Del Method Room Air 08/17/22 09:11 BMI result Body Mass Index 30.4 Const: General: cooperative, comfortable, no acute distress, alert and awake Nutritional Appearance: overweight Orientation/consciousness: patient oriented x3 Limitations: no limitations HEENT: Head: Yes normocephalic and Yes atraumatic Neck: Neck: Yes trachea midline, Yes supple and Yes no JVD Resp: Effort & Inspection: normal respiratory effort Auscultation: clear to auscultation bilaterally Cardio: Jugular venous distension: no JVD Palpation: normal PMI Rate: regular rate Rhythm: regular rhythm Heart sounds: S1 normal heart sound present, S2 normal heart sound present, no click, no gallops, no murmurs and no rubs GI: Auscultation: normal bowel sounds Skin: General skin exam: no rashes or lesions noted Neuro: General: patient oriented x3 and no focal motor deficits Extrem: General: Yes no clubbing, cyanosis or edema Psych: Appearance: grossly normal Objective Labs and Meds 08/17/22 02:16 08/17/22 02:16 Lab results: Laboratory Results - last 24 hr 08/16/22 08/16/22 08/16/22 22:13 22:13 22:13 WBC 8.9 RBC 4.55 L Hgb 12.6 L Hct 38.1 L MCV 83.7 MCH 27.7 MCHC 33.1 RDW 14.1 Plt Count 213 MPV 9.7 Immature Gran % (Auto) 0.2 Neut % (Auto) 53.9 Lymph % (Auto) 35.3 [place] % (Auto) 8.5 Eos % (Auto) 1.8 Baso % (Auto) 0.3 Lymph # (Auto) 3.2 [place] # (Auto) 0.8 Eos # (Auto) 0.2 Baso # (Auto) 0.0 Abs Immat Gran (auto) 0.02 Absolute Neuts (auto) 4.8 Absolute Nucleated RBC 0.000 Nucleated RBC % (auto) 0.0 PT INR APTT aPTT Heparin Protocol Sodium 134 L Potassium 4.6 D Chloride 103 Carbon Dioxide 23 Anion Gap 13 BUN 20 H Creatinine 0.87 Estim Creat Clear Calc 80.5 Estimated GFR > 60 POC Glucose Random Glucose 224 H Calcium 10.1 Troponin I High Sens 24.1 COVID-19 (BIRD) COVID-appssavvy 08/17/22 08/17/22 08/17/22 01:07 02:16 02:16 WBC 8.2 RBC 4.83 Hgb 13.3 L Hct 40.7 L MCV 84.3 MCH 27.5 MCHC 32.7 RDW 14.1 Plt Count 220 MPV 9.5 Immature Gran % (Auto) 0.2 Neut % (Auto) 52.6 Lymph % (Auto) 36.1 [place] % (Auto) 8.9 Eos % (Auto) 1.7 Baso % (Auto) 0.5 Lymph # (Auto) 3.0 [place] # (Auto) 0.7 Eos # (Auto) 0.1 Baso # (Auto) 0.0 Abs Immat Gran (auto) 0.02 Absolute Neuts (auto) 4.3 Absolute Nucleated RBC 0.000 Nucleated RBC % (auto) 0.0 PT INR APTT aPTT Heparin Protocol Sodium 141 Potassium 4.6 Chloride 104 Carbon Dioxide 28 Anion Gap 14 BUN 19 H Creatinine 0.86 Estim Creat Clear Calc 83.0 Estimated GFR > 60 POC Glucose Random Glucose 125 H Calcium 10.7 H Troponin I High Sens 56.9 H D COVID-19 (BIRD) COVID-19 IPexpert 08/17/22 08/17/2208/17/23 02:16 05:59 07:23 WBC RBC Hgb Hct MCV MCH MCHC RDW Plt Count MPV Immature Gran % (Auto) Neut % (Auto) Lymph % (Auto) [place] % (Auto) Eos % (Auto) Baso % (Auto) Lymph # (Auto) [place] # (Auto) Eos # (Auto) Baso # (Auto) Abs Immat Gran (auto) Absolute Neuts (auto) Absolute Nucleated RBC Nucleated RBC % (auto) PT 10.6 INR 0.9 APTT 26.7 aPTT Heparin Protocol Sodium Potassium Chloride Carbon Dioxide Anion Gap BUN Creatinine Estim Creat Clear Calc Estimated GFR POC Glucose 113 Random Glucose Calcium Troponin I High Sens 144.8 H* D COVID-19 (BIRD) COVID-19 IPexpert 08/17/22 08/17/22 08/17/22 08:23 09:27 09:27 WBC RBC Hgb Hct MCV MCH MCHC RDW Plt Count MPV Immature Gran % (Auto) Neut % (Auto) Lymph % (Auto) [place] % (Auto) Eos % (Auto) Baso % (Auto) Lymph # (Auto) [place] # (Auto) Eos # (Auto) Baso # (Auto) Abs Immat Gran (auto) Absolute Neuts (auto) Absolute Nucleated RBC Nucleated RBC % (auto) PT INR APTT aPTT Heparin Protocol 75.8 Sodium Potassium Chloride Carbon Dioxide Anion Gap BUN Creatinine Estim Creat Clear Calc Estimated GFR POC Glucose 197 H Random Glucose Calcium Troponin I High Sens COVID-19 (BIRD) Negative COVID-19 Clin [facility] See Note Assessment and Plan (1) Non-ST elevated myocardial infarction (non-STEMI): Status: Acute Patient present with symptoms at rest with findings consistent with high risk for acute coronary syndrome. He has prior coronary artery disease with remote seclusion. Was him exertional symptoms with recent stress test which is abnormal both by electrocardiography and with septal ischemia suggestive LAD territory ischemia. He is currently chest pain-free. He needs cardiac catheterization to evaluate for coronary anatomy and further treatment with stenting if so mm nipple. Continue IV heparin drip. Continue aspirin. Continue high-intensity statin therapy. Continue current dual antianginal therapy with amlodipine and metoprolol. Discussed with him the need for cardiac catheterization. Discussed in details about the procedure including risk, benefits, alternatives. He is agreeable. Arrangements have been made to be transferred to [facility]. Please perform a COVID rapid testing. Will follow-up as outpatient after discharge from [facility] Time Spent With Patient Time: Total time managing care of this patient today ____ minutes. Procedures Date of Service Date of Service: 08/17/22
--- NOTE | 2022-08-17 10:25 | MHC.CM.PN ---
Met with patient in regards to discharge planning. Patient lives with his , ambulates independently and had no services prior to coming to the hospital. No services anticipated to be needed because patient is not homebound. PCP verified. Patient received 4 Pfizer vaccines. Patient will be transferred to [facility] for cardiac cath. Patient's , Tasneem, made aware via telephone at [phone] at patient's request. Continue to monitor for d/c needs.
--- NOTE | 2022-08-17 10:46 | PC.NURSE ---
Jardiance given late due to down time, aPTT 75.8 no bolus, no rate change per protocol, next PTT-HD due in 6 hours.
--- NOTE | 2022-08-17 13:15 | PC.NURSE ---
pt POC 129. No insulin coverage needed.
[2022-08-17 14:54] VITALS: BP 131/80; PULSE 76; RESP 17; TEMP 36.7; O2SAT 95
--- NOTE | 2022-08-17 17:03 | PC.NURSE ---
report given to EMS for transport to [facility]. Called [phone] for nurse to nurse, no answer.
== END 2022-08-17 18:00 | disposition short-term general hospital (02) | DRG 190 ==
LOC: HO.ED 08-17 01:57 → HO.EDOVER 08-17 02:02
PROVIDERS: Admitting Provider Student in an Organized Health Care Education/Training Program; Emergency Provider Internal Medicine; PCP Internal Medicine; Visit Provider Family Medicine
DX: I21.4 Non-ST elevation (NSTEMI) myocardial infarction (principal); E11.9 Type 2 diabetes mellitus without complications; E78.2 Mixed hyperlipidemia; K21.9 Gastro-esophageal reflux disease without esophagitis; I25.2 Old myocardial infarction; Z20.822 Contact with and (suspected) exposure to COVID-19; I10 Essential (primary) hypertension; N40.0 Benign prostatic hyperplasia without lower urinary tract symptoms; Z79.4 Long term (current) use of insulin; Z79.82 Long term (current) use of aspirin; Z79.899 Other long term (current) drug therapy
CPT/HCPCS: 36415; 80048; 82947; 84484; 85025; 85610; 85730; 87635; 93005; 93306; 99285; J1643; Q9957

== ENCOUNTER → 2022-08-16 22:04 | Outpatient (BNV) | payer OTHER, SELFPAY | PROVIDERS: Admitting Provider Student in an Organized Health Care Education/Training Program; Emergency Provider Internal Medicine; PCP Internal Medicine; Visit Provider Internal Medicine Cardiovascular Disease | DX: I49.3 Ventricular premature depolarization (principal) | CPT/HCPCS: 93010 ==

== ENCOUNTER → 2022-08-17 01:57 | Outpatient (BNV) | payer OTHER, SELFPAY | PROVIDERS: Admitting Provider Student in an Organized Health Care Education/Training Program; Emergency Provider Internal Medicine; PCP Internal Medicine; Visit Provider Internal Medicine Cardiovascular Disease | DX: I21.4 Non-ST elevation (NSTEMI) myocardial infarction (principal) | CPT/HCPCS: 93306; 99222 ==

== ENCOUNTER → 2022-08-18 23:59 | Outpatient (BNV) | payer OTHER, SELFPAY | PROVIDERS: PCP Internal Medicine; Visit Provider Internal Medicine Cardiovascular Disease | DX: I21.4 Non-ST elevation (NSTEMI) myocardial infarction (principal) | CPT/HCPCS: 93458; 93571; 93572; 99152 ==

== ENCOUNTER 2022-09-08 10:12 | Outpatient (AMB) | payer OTHER, SELFPAY ==
--- NOTE | 2022-09-08 11:34 | AM.OFFWIN_ITS ---
Intake Vital Signs 09/08/22 11:42 Height 5 ft 4 in BP 118/64 Blood Pressure Location Lt brachial Position Sitting Pulse 90 Pulse Source Pulse Oximeter Temp 97.7 F Temp Source Temporal Artery Scan Pulse Oximetry (%) 97 Oxygen Delivery Method Room Air Intake Visit Reasons: EP LT Middle finger swelling [phone] Intake Note: Pt is here c/o left middle finger swelling for the last three days. Pt states no injuries or bangs. Patient Tobacco Use Status: Never used Tobacco Allergies No Known Allergies [No Known Allergies*] Allergy (Verified 09/08/22 12:19) Medication List - Last Reconciled 09/08/22 by Jose Miguel Blakely MD amlodipine 2.5 mg PO DAILY aspirin (Adult Low Dose Aspirin) 81 mg PO DAILY empagliflozin (Jardiance) 25 mg PO QAM ergocalciferol (vitamin D2) 1,250 mcg PO QWEEK flash glucose scanning reader (Vtag[employer]tyle Senait 14 Day [place]) As directed flash glucose sensor (FreeStyle Senait 14 Day Sensor kit) As directed Flexichamber (inhalational spacing device) use with Albuterol inhaler as directed NS heparin (porcine) 6,400 units (1.28 mL) IVPUSH PROTOCOL BOLUS PRN heparin (porcine) 3,200 units (0.64 mL) IVPUSH PROTOCOL BOLUS PRN heparin(porcine) in 0.45% NaCl 25,000 unit/250 mL 25,000 units (250 mL) continuous IV infusion .Q0M Humalog KwikPen Insulin (insulin lispro) Inject 10 to 12 units as instructed 3 times a day with meals dosed per sliding scale subcutaneously; 30 days NS insulin glargine (Lantus Solostar U-100 Insulin) 28 units (0.28 mL) subcut QPM isosorbide mononitrate ER 30 mg PO DAILY losartan 100 mg PO DAILY metoprolol succinate ER 50 mg PO DAILY multivitamin 1 tab PO DAILY nitroglycerin 0.4 mg sublingual Q5M PRN omega 7-ogu-bse-fish oil 350 mg-235 mg- 90 mg-597 mg ([place]-3) 1 cap PO DAILY omeprazole 20 mg PO DAILY Ozempic (semaglutide) 2 mg (0.75 mL) subcut QWEEK 4 weeks NS pen needle, diabetic As directed five times a day rosuvastatin 40 mg PO DAILY sulfamethoxazole-trimethoprim 800-160 mg (Bactrim DS) 1 tab PO BID 7 days tamsulosin 0.4 mg PO BEDTIME Do you need a note to return to daycare/school/sports/work: Yes HPI EP LT Middle finger swelling [phone] HPI Details 62-year-old male presents to the office for a sick visit. Patient has a swollen finger in the left hand. He is a diabetic. 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 Mother Diabetes mellitus CVD (cardiovascular disease) Hypertension Social History Household Members: Spouse Housing: House Alcohol intake: never Patient Tobacco Use Status: Never used Tobacco e-Cigarette/Vaping Use: Never Used Second Hand Smoke Exposure: No service: No Current occupational status: employed Cognitive needs: No Hearing needs: No Vision needs: Yes Physical Exam Vital Signs: Last Vital Signs Temp 97.7 F 09/08/22 11:42 Pulse 90 09/08/22 11:42 BP 118/64 09/08/22 11:42 Pulse Ox 97 09/08/22 11:42 Oxygen Delivery Method Room Air 09/08/22 11:42 Extrem Other: Left hand: 3rd digit: Erythema at the base of the nail with tenderness and slight purulent discharge. Assessment & Plan Assessment & Plan (1) Paronychia of finger: Code(s): L03.019 - Cellulitis of unspecified finger Plan: Bactrim twice a day. If sx not better to follow up here. Medications: New sulfamethoxazole-trimethoprim 800-160 mg (Bactrim DS) 1 tab PO BID 7 days 14 tabs 0RF Discontinued insulin aspart U-100 8 units (0.08 mL) subcut TID 15 mL 0RF E11.21 - Type 2 diabetes mellitus with diabetic nephropathy, E11.29 - Type 2 diabetes mellitus with other diabetic kidney complication Coding Level of Care Code Est Pt Level 3 (57873) Diagnoses Paronychia of finger L03.019
[2022-09-08 11:42] VITALS: BP 118/64; PULSE 90; TEMP 36.5; O2SAT 97
== END 2022-09-08 12:37 | disposition home or self-care (01) ==
PROVIDERS: PCP Internal Medicine; Visit Provider Internal Medicine
DX: L03.019 Cellulitis of unspecified finger (principal)
CPT/HCPCS: 99213

== ENCOUNTER 2022-09-21 14:46 | Outpatient (AMB) | payer OTHER, SELFPAY ==
[2022-09-21 14:52] VITALS: BP 118/76; PULSE 78; BMI 29.9
--- NOTE | 2022-09-21 14:52 | A.OFFVIS_ITS ---
Intake Vital Signs 09/21/22 14:52 Height 5 ft 4 in Weight 174 lb 2.643 oz BMI 29.9 BP 118/76 Blood Pressure Location Lt brachial Position Sitting Pulse 78 Intake Visit Reasons: follow up testing Intake Note: Follow-up after cardiac cath c/o chest pressure at times [employer]er Required: No Allergies No Known Allergies [No Known Allergies*] Allergy (Verified 09/08/22 12:19) Medication List - Last Reconciled 09/21/22 by Karl Franco MD amlodipine 2.5 mg PO DAILY aspirin (Adult Low Dose Aspirin) 81 mg PO DAILY clopidogrel 75 mg PO DAILY empagliflozin (Jardiance) 25 mg PO QAM ergocalciferol (vitamin D2) 1,250 mcg PO QWEEK flash glucose scanning reader ([employer]af[employer]Style Senait 14 Day [place]) As directed flash glucose sensor ([employer]Style Senait 14 Day Sensor kit) As directed Flexichamber (inhalational spacing device) use with Albuterol inhaler as directed NS Humalog KwikPen Insulin (insulin lispro) Inject 10 to 12 units as instructed 3 times a day with meals dosed per sliding scale subcutaneously; 30 days NS insulin glargine (Lantus Solostar U-100 Insulin) 28 units (0.28 mL) subcut QPM isosorbide mononitrate ER 30 mg PO DAILY losartan 100 mg PO DAILY metformin 1,000 mg PO BID metoprolol succinate ER 50 mg PO DAILY multivitamin 1 tab PO DAILY nitroglycerin 0.4 mg sublingual Q5M PRN omega 0-yum-wtf-fish oil 350 mg-235 mg- 90 mg-597 mg ([place]-3) 1 cap PO DAILY omeprazole 20 mg PO DAILY Ozempic (semaglutide) 2 mg (0.75 mL) subcut QWEEK 4 weeks NS pen needle, diabetic As directed five times a day rosuvastatin 40 mg PO DAILY tamsulosin 0.4 mg PO BEDTIME HPI HPI Comments History of Present Illness Details Tomas comes for follow-up after cardiac catheterization after recent admission with acute coronary syndrome. He came with symptoms at rest. Subsequently noted to have elevated troponin subsequently was transferred due to prior abnormal myocardial perfusion imaging for cardiac catheterization. Patient id cardiac catheterization which showed subtotal occlusion of the 1st diagonal branch with moderate disease in the LAD and circumflex which were both FFR negative. He was therefore prescribed medical therapy including dual antiplatelet therapy. No interventions were performed. He has been taking all his medications. Taking high-intensity statin therapy as well as aggressive diabetes management. Since discharge he has had no recurrent symptoms. He is currently on triple antianginal therapy with isosorbide, amlodipine as well as metoprolol. 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 Mother Diabetes mellitus CVD (cardiovascular disease) Hypertension Social History Household Members: Spouse Housing: House Alcohol intake: never Patient Tobacco Use Status: Never used Tobacco e-Cigarette/Vaping Use: Never Used Second Hand Smoke Exposure: No service: No Current occupational status: employed Cognitive needs: No Hearing needs: No Vision needs: Yes Review of Systems Const Denies chills, Denies fatigue, Denies fever(s), Denies frequent falls, Denies weakness, Denies weight gain and Denies weight loss ENT Denies dizziness Card Denies chest pain, Denies leg edema, Denies lightheadedness, Denies palpitations, Denies dyspnea, Denies dyspnea on exertion, Denies orthopnea and Denies other (loss of consciousness) Resp Denies cough, Denies dyspnea and Denies dyspnea on exertion GI Denies hematochezia and Denies change in stool character Musc Denies abnormal gait, Denies muscle weakness, Denies numbness, Denies radiating pain into limb and Denies tingling Neuro Denies Abnormal speech present, Denies abnormal gait, Denies dizziness, Denies frequent falls, Denies numbness, Denies tingling and Denies weakness Endo Denies fatigue and Denies palpitations Physical Exam Vital Signs: Last Vital Signs Pulse 78 09/21/22 14:52 BP 118/76 09/21/22 14:52 BMI result Body Mass Index 29.9 Const General: cooperative, comfortable, no acute distress, well developed, alert, awake and Physically active Nutritional Appearance: overweight Orientation/consciousness: patient oriented x3 Limitations: no limitations Neck Neck: Yes trachea midline, Yes supple and Yes no JVD Carotids: no bruits Resp Effort & Inspection: normal respiratory effort Auscultation: clear to auscultation bilaterally Cardio Jugular venous distension: no JVD Palpation: normal PMI Rate: regular rate Rhythm: regular rhythm Heart sounds: S1 normal heart sound present, S2 normal heart sound present, no c lick, no gallops, no murmurs and no rubs GI Auscultation: normal bowel sounds Neuro General: patient oriented x3 and no focal motor deficits Speech: No Abnormal speech present Extrem General: Yes no clubbing, cyanosis or edema Assessment & Plan Assessment & Plan (1) Atherosclerotic heart disease of [place] coronary artery without angina pectoris: Comment: S/P STEMI in 2016 - cardiac cath showed a non-intervenable lesion and recommended aggressive medical Mx to modify risk factors as much as possible Code(s): I25.10 - Atherosclerotic heart disease of [place] coronary artery without angina pectoris Qualifiers: [place] vs. transplanted heart: [place] heart Qualified Code(s): I25.10 - Atherosclerotic heart disease of [place] coronary artery without angina pectoris Plan: CAD with recurrent recent acute coronary syndrome without any intervenable lesion. He has significant stenosis in the branch was in the diagonal territory. Nonobstructive disease in the LAD and the OM territory. To be treated medically. Continue dual antiplatelet therapy for total of 6 months. Consider cardiac rehabilitation. Continue aggressive risk factor modification. Currently having no clear symptoms of angina on triple antianginal therapy. Blood pressure is well optimized see below. Continue aggressive risk factor modification. Goal hemoglobin A1c less than 7% being pursue through office. Goal LDL closer to 60 mg/dL. Follow-up lipid panel near future. (2) Hypertension: Code(s): I10 - Essential (primary) hypertension Qualifiers: Hypertension type: essential hypertension Qualified Code(s): I10 - Essential (primary) hypertension Plan: Hypertension which is currently well optimized advised to monitor blood pressure at home maintain a log. Goal blood pressure less than 130/84. Advised low-salt diet. Advised to maintain activity level as tolerated. Continue current therapy. Importance of medical therapy was discussed. Follow up in the clinic in 6 months time, sooner p.r.n.. Thank you for allowing me to partake in his care Medications: New isosorbide mononitrate ER 60 mg PO DAILY 30 tabs 5RF Discontinued isosorbide mononitrate ER Discontinued Reason: Doctor's Order 30 mg PO DAILY 90 tabs 1RF insulin aspart U-100 8 units (0.08 mL) subcut TID 15 mL 0RF E11.21 - Type 2 diabetes mellitus with diabetic nephropathy, E11.29 - Type 2 diabetes mellitus with other diabetic kidney complication Coding Level of Care Code Est Pt Level 4 (98250) Diagnoses Atherosclerotic heart disease of [place] coronary artery without angina pectoris I25.10 [place] vs. transplanted heart: [place] heart Hypertension I10 Hypertension type: essential hypertension
== END 2022-09-21 15:18 | disposition home or self-care (01) ==
PROVIDERS: PCP Internal Medicine; Referring Provider Internal Medicine; Visit Provider Internal Medicine Cardiovascular Disease
DX: I25.10 Atherosclerotic heart disease of native coronary artery without angina pectoris (principal); I10 Essential (primary) hypertension
CPT/HCPCS: 99214

== ENCOUNTER → 2022-09-21 14:46 | Outpatient (BNVA) | payer OTHER, SELFPAY | PROVIDERS: PCP Internal Medicine; Referring Provider Internal Medicine; Visit Provider Internal Medicine Cardiovascular Disease ==

== ENCOUNTER 2022-10-01 19:48 | Emergency (ER) | payer OTHER, SELFPAY ==
[2022-10-01] VITALS (9 sets, daily range): BP systolic 140–165; BP diastolic 71–90; PULSE 79–88; RESP 15–19; TEMP 36.8–36.9; O2SAT 96–98; BMI 29.3
--- NOTE | ~2022-10-01 | XR_ITS ---
EXAMINATION: XR CHEST CLINICAL INFORMATION: Chest pain. COMPARISON: Chest radiograph 01/02/2022. TECHNIQUE: Frontal view of the chest was obtained. FINDINGS: Stable appearance of the cardiomediastinal silhouette. Low lung volumes with mild diffuse bronchovascular crowding. No new focal airspace opacities, pleural effusion or pneumothorax. No acute osseous findings. The visualized upper abdomen is within normal limits. XR/XR chest 1V IMPRESSION: No acute cardiopulmonary findings.
--- NOTE | 2022-10-01 19:53 | ECG_ITS ---
Test Reason : ELEVATED TROP Blood Pressure : / mmHG Vent. Rate : 089 BPM Atrial Rate : 089 BPM P-R Int : 118 ms QRS Dur : 096 ms QT Int : 370 ms P-R-T Axes : 051 -05 076 degrees QTc Int : 450 ms Sinus rhythm with occasional Premature ventricular complexes Otherwise normal ECG When compared with ECG of 01-OCT-2022 19:53, No significant change was found Referred By: Africa Hudson Electronically Signed By:JOHNSON HSU
--- NOTE | 2022-10-01 19:57 | ED.GENADULT ---
HPI - General Adult General Chief complaint: Chest Pain Stated complaint: chest pain Time Seen by Provider: 10/01/22 20:58 Source: patient and family () Mode of arrival: ambulatory History of Present Illness HPI narrative: 62-year-old male with history of diabetes and hypertension you presents with transient substernal chest pain 2 days ago while exerting himself and resolved with rest and then states that today at 11:00 he began experiencing substernal chest pain that occasionally radiates into the right neck and is not associated with dizziness, headache, shortness of breath but has remained constant since 11:00. He states that the pain would not go way by 1600 this afternoon which prompted him to be seen in the emergency room. Patient still reports significant chest discomfort. Related Data Home Medications Medication Instructions Recorded Confirmed aspirin 81 mg tablet,delayed 81 mg PO DAILY 11/09/19 09/21/22 release (Adult Low Dose Aspirin) tamsulosin 0.4 mg capsule 0.4 mg PO BEDTIME 06/03/22 09/21/22 empagliflozin 25 mg tablet 25 mg PO QAM 08/17/22 09/21/22 (Jardiance) multivitamin 1 tab PO DAILY 08/17/22 09/21/22 omega 3 350 mg-dha 235 mg-epa 90 1 cap PO DAILY 08/17/22 09/21/22 mg-fish oil 597 mg capsule,delay rel ([place]-3) Previous Rx's Medication Instructions Recorded pen needle, diabetic 32 gauge x #150 ea 02/12/20 metoprolol succinate 50 mg 50 mg PO DAILY #90 tabs 10/15/21 tablet,extended release 24 hr flash glucose scanning reader #1 ea 12/22/21 (FreeStyle Senait 14 Day [place]) flash glucose sensor (FreeStyle #1 ea 12/22/21 Senait 14 Day Sensor kit) Flexichamber (inhalational spacing #1 ea 01/09/22 device) ergocalciferol (vitamin D2) 1,250 1,250 mcg PO QWEEK #12 caps 01/21/22 mcg (50,000 unit) capsule insulin glargine 100 unit/mL (3 28 unit (0.28 mL) subcut QPM #15 mL 02/20/22 mL) subcutaneous pen (Lantus Solostar U-100 Insulin) nitroglycerin 0.4 mg sublingual 0.4 mg sublingual Q5M PRN chest 05/06/22 tablet pain #20 tabs Ozempic 2 mg/dose (8 mg/3 mL) 2 mg (0.75 mL) subcut QWEEK 4 05/25/22 subcutaneous pen injector weeks #3 mL (semaglutide) amlodipine 2.5 mg tablet 2.5 mg PO DAILY #90 tabs 06/29/22 Humalog KwikPen Insulin 100 See Rx Instructions subcut 07/24/22 unit/mL subcutaneous (insulin .COMPLEX 30 days #15 mL lispro) rosuvastatin 40 mg tablet 40 mg PO DAILY #90 tabs 08/03/22 omeprazole 20 mg capsule,delayed 20 mg PO DAILY #90 caps 08/19/22 release losartan 100 mg tablet 100 mg PO DAILY #90 tabs 08/24/22 isosorbide mononitrate 60 mg 60 mg PO DAILY #30 tabs 09/21/22 tablet,extended release 24 hr metformin 1,000 mg tablet 1,000 mg PO BID #180 tabs 09/21/22 clopidogrel 75 mg tablet 75 mg PO DAILY #30 tabs 09/24/22 Allergies Allergy/AdvReac Type Severity Reaction Status Date / Time No Known Allergies Allergy Verified 09/08/22 12:19 [No Known Allergies*] Review of Systems Review of Systems: Pertinent positives and negatives as stated in HPI [facility] Past Medical History Source: nursing notes reviewed Medical History Atherosclerotic heart disease of [place] coronary artery without angina pectoris Benign essential hypertension Cataract Coronary artery disease Depression Dermatosis External hemorrhoid GERD (gastroesophageal reflux disease) GERD without esophagitis Hyperlipidemia Hyperlipidemia LDL goal <70 Hypertension NSTEMI (non-ST elevated myocardial infarction) Obesity (BMI 30-39.9) Overweight Psoriasis Pure hypercholesterolemia 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 Mother Diabetes mellitus CVD (cardiovascular disease) Hypertension Social History Social History Household Members: Spouse Housing: House Alcohol intake: never Patient Tobacco Use Status: Never used Tobacco Smoked in Last 30 Days: No e-Cigarette/Vaping Use: Never Used Second Hand Smoke Exposure: No Use of substances other than those prescribed or required for medical reasons: No Advance Directives: No Advance Directives Information Provided: Yes service: No Current occupational status: employed Cognitive needs: No Hearing needs: No Vision needs: Yes Physical Exam ED Vital Signs: Vital Signs - 24 hr 10/01/22 20:00 10/01/22 21:16 10/01/22 21:37 Temperature 98.3 F 98.5 F Pulse Rate 86 79 83 Respiratory Rate 16 18 Blood Pressure 165/90 H 142/71 H 153/85 H Pulse Oximetry 98 96 Oxygen Delivery Method Room Air Room Air 10/01/22 21:41 10/01/22 22:21 10/01/22 22:23 Temperature Pulse Rate 83 81 83 Respiratory Rate Blood Pressure 153/85 H 144/80 H 144/80 H Pulse Oximetry Oxygen Delivery Method 10/01/22 22:24 10/01/22 23:06 10/01/22 23:07 Temperature 98.2 F Pulse Rate 81 88 84 Respiratory Rate 15 19 Blood Pressure 146/82 H 140/78 H 140/79 H Pulse Oximetry 96 Oxygen Delivery Method Room Air BMI result Body Mass Index 29.3 VITAL SIGNS: Reviewed. GENERAL: Well developed, well nourished, in no acute distress. HEAD: Normocephalic/atraumatic EYES: PERRLA, EOMI EARS: Ext canals without abnormality NOSE: Nares patent bilateral OROPHARYNX: no oral lesions noted, posterior pharynx clear NECK: Supple, no adenopathy LUNGS: Normal breath sounds. No adventitious sounds or accessory muscle use. SpO2<98> CARDIOVASCULAR: Regular rate and rhythm without noted murmurs, no JVD or lower extremity edema. ABDOMEN: Soft, non-tender, non-distended with bowel sounds. MUSCULOSKELETAL: No tenderness, deformities, or effusions noted on gross inspection. EXTREMITIES: No cyanosis, clubbing or edema. SKIN: Inspection of the skin reveals no rashes NEUROLOGIC: Alert and oriented x 4. Strength and sensation to light touch were grossly intact x 4. Course Course Course Narrative: 62-year-old male past medical history significant for coronary artery disease, diabetes, GERD, hypertension, hyperlipidemia presents for evaluation of chest pain x2 days. Plan for EKG, labs, chest x-ray. Patient was admitted to the [facility] the beginning of August, a month and half ago for NSTEMI Medications Administered Generic Name Dose Route Start Last Admin Trade Name Freq PRN Reason Stop Dose Admin Heparin Sodium/Sodium Chloride 25,000 unit in 250 mls @ 0 mls/hr 10/01/22 21:30 10/01/22 21:51 Heparin Sodium,Porcine/1/2ns IVCONT 12 units/kg/hr .Q0M LOLY 9.29 mls/hr Administration Protocol Per Protocol Discontinued Medications Generic Name Dose Route Start Last Admin Trade Name Freq PRN Reason Stop Dose Admin Nitroglycerin 0.5 inch 10/01/22 21:27 10/01/22 21:41 Nitroglycerin 2 % Oint 1 Gm Packet TRANSDERMA 10/01/22 21:28 0.5 inch ONCE ONE Administration Nitroglycerin 0.4 mg 10/01/22 21:27 10/01/22 21:37 Nitroglycerin 0.4 Mg Tab.Subl SUBLINGUAL 10/01/22 21:28 0.4 mg ONCE ONE Administration Nitroglycerin 0.4 mg 10/01/22 22:08 10/01/22 22:21 Nitroglycerin 0.4 Mg Tab.Subl SUBLINGUAL 10/01/22 22:09 0.4 mg ONCE ONE Administration Nitroglycerin 2 inch 10/01/22 22:17 10/01/22 22:23 Nitroglycerin 2 % Oint 1 Gm Packet TRANSDERMA 10/01/22 22:18 2 inch ONCE ONE Administration Nitroglycerin 0.4 mg 10/01/22 23:01 10/01/22 23:07 Nitroglycerin 0.4 Mg Tab.Subl SUBLINGUAL 10/01/22 23:02 0.4 mg ONCE ONE Administration Medical Decision Making Medical Decision Making [facility] Narrative: 2105: this is a 62-year-old male with history and clinical presentation, DDX: ACS, unstable angina, NSTEMI and low likelihood for PE/ dissection. HEART Score: 8 I was notified that troponin is 1916 and on review of EKG there is no ST elevation, will repeat EKG obtain weight of patient an start on heparin. There is a call out to senior consumer insights consultant but patient will be transferred to [facility]. 2110: I reviewed all investigations and there is no leukocytosis/left shift, there is a stable normocytic anemia likely of chronic disease, no thrombocytopenia. Coagulation studies are not at the upper limits of derangement. Chemistry studies are negative for electrolyte derangements, there is no UGO, liver enzyme values show mild elevation of AST -58 of unclear significance. 2114: I discussed case with Dr. Avila, cardiology, who agrees with initiating heparin drip and transfer to [facility]. Patient and are aware of the plan. 2119: I spoke with [facility] transfer center who will be contacting the clerical support specialist with patient's information. 2124: I spoke with Dr Haynes who recommends attempting to control chest pain and will call back in 15 minutes with results after 1/2 inch nitro and 1 sublingual. If not chest pain control pt will go on nitro drip and transfer to PCU. 2140: Lab called to inform me that patient's 2nd troponin is 3430. 2218: Dr Haynes recommend 2 inches nitro and an additional SL 0.4mg 2300: Chest pain 2/10, giving a 3rd SL nitro. 2348: I discussed the patient with [facility] cardiology once again who recommends initiating nitro drip and starting at 30 mics, patient will be transferred to PCU and we are awaiting bed placement. Patient's pain is currently 2/10 and he states that he is feeling much better. Differential Diagnosis Differential Diagnoses: The differential diagnosis associated with the presentation includes Please see the discussion above Admission/Observation Consideration of admission/observation: Escalation of care including admission/observation considered please see the discussion above Consult Healthcare Provider Management of the patient was discussed with: Media Arts Professor please see the discussion above Lab Data MDM Lab Attestation statement: I reviewed the patient's lab results. please see the discussion above 10/01/22 20:12 10/01/22 20:12 Labs: Lab Results 10/01/22 10/01/22 10/01/22 Range/Units 20:12 20:12 20:12 WBC 9.0 (4.8-10.8) X10*3/uL RBC 4.86 (4.60-5.80) X10*6/uL Hgb 13.2 L (14.0-18.0) g/dl Hct 40.5 L (42.0-52.0) % MCV 83.3 (80.0-98.0) fL MCH 27.2 (27.0-33.0) pg MCHC 32.6 (31.0-36.0) g/dl RDW 13.2 (11.0-16.0) % Plt Count 221 (160-400) X10*3/uL MPV 9.7 (9.4-12.4) fL Immature Gran % (Auto) 0.3 (0.0-0.4) % Neut % (Auto) 61.6 (45-73) % Lymph % (Auto) 28.3 (20-40) % [place] % (Auto) 8.2 (2-11) % Eos % (Auto) 1.3 (0-4) % Baso % (Auto) 0.3 (0-2) % Lymph # (Auto) 2.6 (1.2-4.9) X10*3/uL [place] # (Auto) 0.7 (0.1-1.2) X10*3/uL Eos # (Auto) 0.1 (0.0-0.4) X10*3/uL Baso # (Auto) 0.0 (0.0-0.2) X10*3/uL Abs Immat Gran (auto) 0.03 (0.00-0.03) X10*3/uL Absolute Neuts (auto) 5.6 (2.0-8.3) x10*3/uL Absolute Nucleated RBC 0.000 (0.0-0.012) X10*3/uL Nucleated RBC % (auto) 0.0 (0.0-0.2) /100WBC PT 10.7 L (11.1-13.3) SEC INR 0.9 (0.9-1.1) APTT 25.3 L (26.0-36.4) SEC aPTT Heparin Protocol (53-77.9) SEC Sodium 139 (135-145) mmol/L Potassium 4.3 (3.3-5.1) mmol/L Chloride 104 (96-108) mmol/L Carbon Dioxide 25 (22-29) mmol/L Anion Gap 14 (12-20) BUN 16 (9-16) mg/dL Creatinine 0.88 (0.5-1.4) mg/dL Estim Creat Clear Calc 79.6 Estimated GFR > 60 Random Glucose 192 H (60-115) mg/dL Calcium 9.7 D (8.4-10.2) mg/dL Total Bilirubin 0.5 (0.0-1.0) mg/dL AST 58 H (5-37) U/L ALT 39 (0-40) U/L Alkaline Phosphatase 50 (39-117) U/L Troponin I High Sens (<3.5-35.0) ng/L B-Natriuretic Peptide (<100) pg/mL Total Protein 7.2 (6.5-8.0) g/dL Albumin 4.0 (3.5-5.0) g/dL Lipase 29 (8-78) U/L COVID-19 (BIRD) (Negative) COVID-19 Clin Com 10/01/22 10/01/22 10/01/22 Range/Units 20:12 20:12 21:07 WBC (4.8-10.8) X10*3/uL RBC (4.60-5.80) X10*6/uL Hgb (14.0-18.0) g/dl Hct (42.0-52.0) % MCV (80.0-98.0) fL MCH (27.0-33.0) pg MCHC (31.0-36.0) g/dl RDW (11.0-16.0) % Plt Count (160-400) X10*3/uL MPV (9.4-12.4) fL Immature Gran % (Auto) (0.0-0.4) % Neut % (Auto) (45-73) % Lymph % (Auto) (20-40) % [place] % (Auto) (2-11) % Eos % (Auto) (0-4) % Baso % (Auto) (0-2) % Lymph # (Auto) (1.2-4.9) X10*3/uL [place] # (Auto) (0.1-1.2) X10*3/uL Eos # (Auto) (0.0-0.4) X10*3/uL Baso # (Auto) (0.0-0.2) X10*3/uL Abs Immat Gran (auto) (0.00-0.03) X10*3/uL Absolute Neuts (auto) (2.0-8.3) x10*3/uL Absolute Nucleated RBC (0.0-0.012) X10*3/uL Nucleated RBC % (auto) (0.0-0.2) /100WBC PT (11.1-13.3) SEC INR (0.9-1.1) APTT (26.0-36.4) SEC aPTT Heparin Protocol (53-77.9) SEC Sodium (135-145) mmol/L Potassium (3.3-5.1) mmol/L Chloride (96-108) mmol/L Carbon Dioxide (22-29) mmol/L Anion Gap (12-20) BUN (9-16) mg/dL Creatinine (0.5-1.4) mg/dL Estim Creat Clear Calc Estimated GFR Random Glucose (60-115) mg/dL Calcium (8.4-10.2) mg/dL Total Bilirubin (0.0-1.0) mg/dL AST (5-37) U/L ALT (0-40) U/L Alkaline Phosphatase (39-117) U/L Troponin I High Sens 1913.0 H* D 3430.9 H* D (<3.5-35.0) ng/L B-Natriuretic Peptide 77 (<100) pg/mL Total Protein (6.5-8.0) g/dL Albumin (3.5-5.0) g/dL Lipase (8-78) U/L COVID-19 (BIRD) (Negative) COVID-19 Clin Com 10/01/22 10/01/22 10/01/22 Range/Units 21:26 21:26 21:26 WBC 8.2 (4.8-10.8) X10*3/uL RBC 4.69 (4.60-5.80) X10*6/uL Hgb 12.7 L (14.0-18.0) g/dl Hct 38.9 L (42.0-52.0) % MCV 82.9 (80.0-98.0) fL MCH 27.1 (27.0-33.0) pg MCHC 32.6 (31.0-36.0) g/dl RDW 13.3 (11.0-16.0) % Plt Count 200 (160-400) X10*3/uL MPV 9.7 (9.4-12.4) fL Immature Gran % (Auto) (0.0-0.4) % Neut % (Auto) (45-73) % Lymph % (Auto) (20-40) % [place] % (Auto) (2-11) % Eos % (Auto) (0-4) % Baso % (Auto) (0-2) % Lymph # (Auto) (1.2-4.9) X10*3/uL [place] # (Auto) (0.1-1.2) X10*3/uL Eos # (Auto) (0.0-0.4) X10*3/uL Baso # (Auto) (0.0-0.2) X10*3/uL Abs Immat Gran (auto) (0.00-0.03) X10*3/uL Absolute Neuts (auto) (2.0-8.3) x10*3/uL Absolute Nucleated RBC 0.000 (0.0-0.012) X10*3/uL Nucleated RBC % (auto) 0.0 (0.0-0.2) /100WBC PT 10.6 L (11.1-13.3) SEC INR 0.9 (0.9-1.1) APTT (26.0-36.4) SEC aPTT Heparin Protocol 27.6 L D (53-77.9) SEC Sodium (135-145) mmol/L Potassium (3.3-5.1) mmol/L Chloride (96-108) mmol/L Carbon Dioxide (22-29) mmol/L Anion Gap (12-20) BUN (9-16) mg/dL Creatinine (0.5-1.4) mg/dL Estim Creat Clear Calc Estimated GFR Random Glucose (60-115) mg/dL Calcium (8.4-10.2) mg/dL Total Bilirubin (0.0-1.0) mg/dL AST (5-37) U/L ALT (0-40) U/L Alkaline Phosphatase (39-117) U/L Troponin I High Sens (<3.5-35.0) ng/L B-Natriuretic Peptide (<100) pg/mL Total Protein (6.5-8.0) g/dL Albumin (3.5-5.0) g/dL Lipase (8-78) U/L COVID-19 (BIRD) Negative (Negative) COVID-19 Clin Com See Note 10/01/22 Range/Units 21:35 WBC (4.8-10.8) X10*3/uL RBC (4.60-5.80) X10*6/uL Hgb (14.0-18.0) g/dl Hct (42.0-52.0) % MCV (80.0-98.0) fL MCH (27.0-33.0) pg MCHC (31.0-36.0) g/dl RDW (11.0-16.0) % Plt Count (160-400) X10*3/uL MPV (9.4-12.4) fL Immature Gran % (Auto) (0.0-0.4) % Neut % (Auto) (45-73) % Lymph % (Auto) (20-40) % [place] % (Auto) (2-11) % Eos % (Auto) (0-4) % Baso % (Auto) (0-2) % Lymph # (Auto) (1.2-4.9) X10*3/uL [place] # (Auto) (0.1-1.2) X10*3/uL Eos # (Auto) (0.0-0.4) X10*3/uL Baso # (Auto) (0.0-0.2) X10*3/uL Abs Immat Gran (auto) (0.00-0.03) X10*3/uL Absolute Neuts (auto) (2.0-8.3) x10*3/uL Absolute Nucleated RBC (0.0-0.012) X10*3/uL Nucleated RBC % (auto) (0.0-0.2) /100WBC PT (11.1-13.3) SEC INR (0.9-1.1) APTT (26.0-36.4) SEC aPTT Heparin Protocol 24.2 L (53-77.9) SEC Sodium (135-145) mmol/L Potassium (3.3-5.1) mmol/L Chloride (96-108) mmol/L Carbon Dioxide (22-29) mmol/L Anion Gap (12-20) BUN (9-16) mg/dL Creatinine (0.5-1.4) mg/dL Estim Creat Clear Calc Estimated GFR Random Glucose (60-115) mg/dL Calcium (8.4-10.2) mg/dL Total Bilirubin (0.0-1.0) mg/dL AST (5-37) U/L ALT (0-40) U/L Alkaline Phosphatase (39-117) U/L Troponin I High Sens (<3.5-35.0) ng/L B-Natriuretic Peptide (<100) pg/mL Total Protein (6.5-8.0) g/dL Albumin (3.5-5.0) g/dL Lipase (8-78) U/L COVID-19 (BIRD) (Negative) COVID-19 Clin Com Independent Interpretation I performed an independent interpretation of an: EKG Interpretation: 1952: sinus rhythm with PVCs, ST changes which when compared to 08/16/2022 are changed in V2/V3, DE/QRS /QTC is within normal limits. 2109: Sinus rhythm with PVCs, no acute ST changes from 1912, DE/QRS /QTC remains within normal limits. Radiology Impression Radiologist Impression: No evidence pneumonia and otherwise my interpretation is in agreement with radiology's impression. External Record Review External record reviewed: Inpatient record, Outpatient record, Prior outpatient labs and Prior outpatient radiology Chronic Conditions Patient?s care impacted by: Diabetes and Hypertension Critical Care Time Critical Care Time Critical Care Time: Yes Total Critical Care Time: 45 Attestation: I personally attest to this time spent taking care of the patient. Discharge Plan Discharge Clinical Impression: Myocardial infarction Patient Disposition: Xfer Acute Care Hospital Transfer Details: urgent cardiology intervention Prescriptions: No Action metoprolol succinate 50 mg tablet extended release 24 hr 50 mg PO DAILY Qty: 90 3RF (DME) FreeStyle Senait 14 Day Sensor Kit See Rx Instructions .Route Qty: 1 5RF Rx Instructions: As directed (DME) FreeStyle Senait 14 Day [place] Misc See Rx Instructions .Route Qty: 1 5RF Rx Instructions: As directed (DME) Flexichamber Spacer See Rx Instructions .Route Qty: 1 0RF Rx Instructions: use with Albuterol inhaler as directed ergocalciferol (vitamin D2) 1,250 mcg (50,000 unit) capsule 1,250 mcg PO QWEEK Qty: 12 3RF Lantus Solostar U-100 Insulin 100 unit/mL (3 mL) insulin pen 28 unit subcut QPM Qty: 15 3RF Ozempic 2 mg/dose (8 mg/3 mL) pen injector 2 mg subcut QWEEK 28 Days Qty: 3 5RF amlodipine 2.5 mg tablet 2.5 mg PO DAILY Qty: 90 1RF insulin lispro [Humalog KwikPen Insulin] 100 unit/mL insulin pen See Rx Instructions subcut .COMPLEX 30 Days Qty: 15 3RF Rx Instructions: Inject 10 to 12 units as instructed 3 times a day with meals dosed per sliding scale subcutaneously; omeprazole 20 mg capsule,delayed release(DR/EC) 20 mg PO DAILY Qty: 90 1RF losartan 100 mg tablet 100 mg PO DAILY Qty: 90 1RF metformin 1,000 mg tablet 1,000 mg PO BID Qty: 180 1RF clopidogrel 75 mg tablet 75 mg PO DAILY Qty: 30 0RF Jardiance 25 mg tablet 25 mg PO QAM multivitamin Tablet 1 tab PO DAILY [place]-3 350 mg-235 mg- 90 mg-597 mg Capsule,Delayed Release(Dr/Ec) 1 cap PO DAILY rosuvastatin 40 mg tablet 40 mg PO DAILY Qty: 90 1RF aspirin [Adult Low Dose Aspirin] 81 mg tablet,delayed release (DR/EC) 81 mg PO DAILY (DME) pen needle, diabetic 32 gauge x 5/32 needle See Rx Instructions subcut TID Qty: 150 11RF Rx Instructions: As directed five times a day tamsulosin 0.4 mg capsule 0.4 mg PO BEDTIME isosorbide mononitrate 60 mg tablet extended release 24 hr 60 mg PO DAILY Qty: 30 5RF nitroglycerin 0.4 mg tablet, sublingual 0.4 mg sublingual Q5M PRN (Reason: chest pain) Qty: 20 1RF Rx Instructions: do not exceed 3 doses per episode
[2022-10-01 20:21] LABS: MANUAL DIFF FLAG NO
[2022-10-01 20:26] LABS: Basophils Percent Auto 0.3 % (0-2); Eosinophils Absolute Auto 0.1 X10*3/uL (0.0-0.4); Eosinophils Percent Auto 1.3 % (0-4); Hematocrit 40.5 % (42.0-52.0); Hemoglobin 13.2 g/dl (14.0-18.0); Imm Gran Abs Auto 0.03 X10*3/uL (0.00-0.03); Imm Gran Pct Auto 0.3 % (0.0-0.4); Lymphocytes Absolute Auto 2.6 X10*3/uL (1.2-4.9); Lymphocytes Percent Auto 28.3 % (20-40); Mean Corpuscular HGB Conc 32.6 g/dl (31.0-36.0); Mean Corpuscular Hemoglobin 27.2 pg (27.0-33.0); Mean Corpuscular Volume 83.3 fL (80.0-98.0); Mean Platelet Volume 9.7 fL (9.4-12.4); Monocytes Absolute Auto 0.7 X10*3/uL (0.1-1.2); Monocytes Percent Auto 8.2 % (2-11); Neutrophils Absolute Auto 5.6 x10*3/uL (2.0-8.3); Neutrophils Percent Auto 61.6 % (45-73); Platelet Count 221 X10*3/uL (160-400); Red Blood Count 4.86 X10*6/uL (4.60-5.80); Red Cell Distribution Width 13.2 % (11.0-16.0)
[2022-10-01 20:39] LABS: Alanine Aminotransferase 39 U/L (0-40); Alkaline Phosphatase 50 U/L (39-117); Anion Gap 14 (12-20); Aspartate Amino Transferase 58 U/L (5-37); Bilirubin Total 0.5 mg/dL (0.0-1.0); Blood Urea Nitrogen 16 mg/dL (9-16); Calcium 9.7 mg/dL (8.4-10.2); Carbon Dioxide 25 mmol/L (22-29); Chloride 104 mmol/L (96-108); Creatinine Clr Calc Pharmacy 79.6; Estimated Glomerular Filt Rate > 60; Glucose Random 192 mg/dL (60-115); Lipase 29 U/L (8-78); Potassium 4.3 mmol/L (3.3-5.1); Sodium 139 mmol/L (135-145); Total Protein 7.2 g/dL (6.5-8.0)
[2022-10-01 20:41] LABS: B Type Natriuretic Peptide 77 pg/mL (<100)
[2022-10-01 20:43] LABS: INTERNATIONAL NORM RATIO 0.9 (0.9-1.1); Prothrombin Time 10.7 SEC (11.1-13.3)
[2022-10-01 20:45] LABS: Partial Thromboplastin Time 25.3 SEC (26.0-36.4)
--- NOTE | 2022-10-01 21:03 | ECG_ITS ---
Test Reason : Chest pain Blood Pressure : / mmHG Vent. Rate : 091 BPM Atrial Rate : 091 BPM P-R Int : 134 ms QRS Dur : 090 ms QT Int : 352 ms P-R-T Axes : 046 -20 080 degrees QTc Int : 432 ms Sinus rhythm with occasional Premature ventricular complexes Otherwise normal ECG When compared with ECG of 16-AUG-2022 22:04, No significant change was found Referred By: [facility] Electronically Signed By:JOHNSON HSU
--- NOTE | 2022-10-01 21:24 | PC.NURSE ---
Pt a&ox3, pt looks pale, skin is cool and dry, no sign of distress able to speak in full sentences, pt reports 6/10 CP that radiates to the back. IVs placed 20G LAC, 20G left forearm. Will medicate per MAR. Pt aware of plan of care.
[2022-10-01 21:36] LABS: Hematocrit 38.9 % (42.0-52.0); Hemoglobin 12.7 g/dl (14.0-18.0); Mean Corpuscular HGB Conc 32.6 g/dl (31.0-36.0); Mean Corpuscular Hemoglobin 27.1 pg (27.0-33.0); Mean Corpuscular Volume 82.9 fL (80.0-98.0); Mean Platelet Volume 9.7 fL (9.4-12.4); Platelet Count 200 X10*3/uL (160-400); Red Blood Count 4.69 X10*6/uL (4.60-5.80); Red Cell Distribution Width 13.3 % (11.0-16.0); White Blood Count 8.2 X10*3/uL (4.8-10.8)
[2022-10-01] MEDS: Nitroglycerin 0.4 MG TAB.SUBL SUBLINGUAL ×3 (21:37→23:07)
[2022-10-01] MEDS: Nitroglycerin 2 % Oint 1 GM Packet 0.5 INCH TRANSDERMA (21:41)
[2022-10-01 21:42] LABS: Troponin-I High Sensitivity 3430.9 ng/L (<3.5-35.0)
[2022-10-01 21:45] LABS: INTERNATIONAL NORM RATIO 0.9 (0.9-1.1); Prothrombin Time 10.6 SEC (11.1-13.3)
[2022-10-01 21:47] LABS: PTT Heparin Drip 27.6 SEC (53-77.9)
[2022-10-01 21:48] LABS: COVID-19 Test Negative (Negative); IDNOW Serial# BCCEAD1C
[2022-10-01] MEDS: Heparin Sodium,Porcine/1/2NS 25,000 UNIT/250 ML IV.SOLN 9.29 UNIT IVCONT (21:51)
[2022-10-01 21:55] LABS: PTT Heparin Drip 24.2 SEC (53-77.9)
--- NOTE | 2022-10-01 22:08 | PC.NURSE ---
Pt a&ox3, resting with no apparent distress, normal sinus rythm with occasional PVCs, VSS, Pt reports CP 4/10 after nitro given. Meds given per mar, morphine not given per provider, bolus of heparin cancel due to pt being on anticoag therpy, per Doctor [facility]. Heparin drip started at 12 units/kg as per protocol, pt tolerating well. Per Dr. Jon order removed 0.5 in nitro and replaced with 2 in nitro patch. PT aware of plan.
[2022-10-01] MEDS: Nitroglycerin 2 % Oint 1 GM Packet 2 INCH TRANSDERMA (22:23)
--- NOTE | 2022-10-01 23:10 | PC.NURSE ---
Pt aox4 resting at the bedside. No apparent distress noted. Medicated as ordered. Tolerated well. Reports improved chest pain, 2/. Will continue to monitor. Pt aware of plan of care.
--- NOTE | 2022-10-02 00:02 | MHC.EDTECH ---
Call out to [facility] transfer line @[phone], requested to speak to accepting provider .
[2022-10-02 00:04] VITALS: BP 144/78; PULSE 81
[2022-10-02] MEDS: Nitroglycerin/D5W 100 MG/250 ML INFUS..BTL IVCONT (00:04)
--- NOTE | 2022-10-02 00:07 | MHC.EDTECH ---
[facility]5 ROOM 3 NURSE to NURSE [phone] Accepting
--- NOTE | 2022-10-02 00:08 | PC.NURSE ---
Addendum entered by Krystle Auguste 10/02/22 00:13: Nitro patch removed per Dr. Jon order. Original Note: Pt a&ox3, resting quietly in no apparent distress, Pt reports CP 2/10, Nitroglycerin drip infusion started at 30 mcg/min, per Dr. [facility]'s order. Pt tolerating well.
--- NOTE | 2022-10-02 00:42 | MHC.EDTECH ---
Call out to [facility] @0016, to book ALS transport to [facility]. Spoke to Anne from dispatch who gave me an ETA of [phone]
[2022-10-02 01:08] VITALS: BP 126/81; PULSE 83; RESP 18; O2SAT 96
--- NOTE | 2022-10-02 01:18 | PC.NURSE ---
RN to RN report given to Earl at [facility]. Ambulance on there way for 013, Pt aware of plan, family notified.
== END 2022-10-02 01:29 | disposition short-term general hospital (02) ==
PROVIDERS: Physician Assistant; Emergency Provider Student in an Organized Health Care Education/Training Program; PCP Internal Medicine
DX: I21.9 Acute myocardial infarction, unspecified (principal); Z20.822 Contact with and (suspected) exposure to COVID-19; R06.02 Shortness of breath; I10 Essential (primary) hypertension; E78.5 Hyperlipidemia, unspecified; Z79.82 Long term (current) use of aspirin; Z79.899 Other long term (current) drug therapy; Z79.4 Long term (current) use of insulin
CPT/HCPCS: 36415; 71045; 80053; 83690; 83880; 84484; 85025; 85027; 85610; 85730; 87635; 93005; 96374; 96375; 99285; J1643

== ENCOUNTER 2022-10-06 09:46 | Outpatient (AMB) | payer OTHER, SELFPAY ==
--- NOTE | 2022-10-06 09:47 | MHC.OFFVIS ---
Intake Vital Signs 10/06/22 09:48 Height 5 ft 4 in Weight 173 lb 4.533 oz BMI 29.7 BP 112/60 Blood Pressure Location Lt brachial Position Sitting Pulse 73 Pulse Source Pulse Oximeter Intake Visit Reasons: F/Up T2DM Intake Note: Patient present today to follow up on Type 2 Diabetes Mellitus. 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 Required: No Accompanied by: Spouse Allergies No Known Allergies [No Known Allergies*] Allergy (Verified 10/06/22 09:53) Medication List - Last Reconciled 10/06/22 by Vargas Calvillo MD amlodipine 2.5 mg PO DAILY aspirin (Adult Low Dose Aspirin) 81 mg PO DAILY clopidogrel 75 mg PO DAILY empagliflozin (Jardiance) 25 mg PO QAM ergocalciferol (vitamin D2) 1,250 mcg PO QWEEK flash glucose scanning reader (Makepolo.comStyle Senait 14 Day [place]) As directed flash glucose sensor (FreeStyle Senait 14 Day Sensor kit) As directed Flexichamber (inhalational spacing device) use with Albuterol inhaler as directed NS Humalog KwikPen Insulin (insulin lispro) Inject 10 to 12 units as instructed 3 times a day with meals dosed per sliding scale subcutaneously; 30 days NS insulin glargine (Lantus Solostar U-100 Insulin) 28 units (0.28 mL) subcut QPM isosorbide mononitrate ER 60 mg PO DAILY losartan 100 mg PO DAILY metformin 1,000 mg PO BID metoprolol succinate ER 50 mg PO DAILY multivitamin 1 tab PO DAILY nitroglycerin 0.4 mg sublingual Q5M PRN omega 0-rzg-ehu-fish oil 350 mg-235 mg- 90 mg-597 mg ([place]-3) 1 cap PO DAILY omeprazole 20 mg PO DAILY Ozempic (semaglutide) 2 mg (0.75 mL) subcut QWEEK 4 weeks NS pen needle, diabetic As directed five times a day rosuvastatin 40 mg PO DAILY tamsulosin 0.4 mg PO BEDTIME HPI HPI Comments History of Present Illness Details Patient is a 62 year old male with DM type 2 diagnosed approximately 15 years ago who presents for continued management of diabetes. Past medical history includes : HLD, vitamin D deficiency, GERD, hypertension, non-ST elevated AL. Micro and macrovascular complications: + retinopathy, + nephropathy, + neuropathy, + CAD, Diabetes medications: Lantus 22 units Humalog 10 units small meals, 12 units large meals , metformin 500 er 2 pills twice daily, Invokana 300mg,Ozempic 2 mg . Could not tolerate Invenshure download from 2022-2022 shows average glucose to be 202 with G mi of 8.1%. 36% are in range with 46% hyperglycemia and 18% very hyperglycemic and no hypoglycemia but tends to trend overnight downward with post-prandial increases after breakfast and supper Symptoms reported: no numbness, tingling and cramping in lower extremities Hypoglycemia: No Hyperglycemia: denies polyuria . 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 Eye exam: 2 wks ago - ou preproliferative diabetic retinopathy Laboratory Tests 01/21/21 05/05/21 05/05/21 14:28 08:02 08:25 Creatinine 0.83 Estimated GFR > 60 Hgb A1c (Clinic) 8.5 H Hemoglobin A1c % Triglycerides 93 Cholesterol 149 D LDL Cholesterol, C alc 84 HDL Cholesterol 47 25-OH Vitamin D To darrell 32.1 TSH 1.95 Microalb/Creat Rat io 554.8 05/05/21 08:28 Creatinine Estimated GFR Hgb A1c (Clinic) Hemoglobin A1c % 10.2 Triglycerides Cholesterol LDL Cholesterol, C alc HDL Cholesterol 25-OH Vitamin D To darrell TSH Microalb/Creat Rat io 08/13/20 08/13/20 08/13/20 08:16 08:16 Unknown Creatinine 0.82 Estimated GFR > 60 Hemoglobin A1c % 9.1 Triglycerides 67 Cholesterol 114 LDL Cholesterol, C alc 58 HDL Cholesterol 43 25-OH Vitamin D To darrell 42.4 TSH 1.19 Microalb/Creat Rat io 440.9 [facility] Medical History (Updated 10/03/22 @ 00:01 by Background Daemon) Atherosclerotic heart disease of [place] coronary artery without angina pectoris Benign essential hypertension Cataract Coronary artery disease Depression Dermatosis External hemorrhoid GERD (gastroesophageal reflux disease) GERD without esophagitis Hyperlipidemia Hyperlipidemia LDL goal <70 Hypertension NSTEMI (non-ST elevated myocardial infarction) Obesity (BMI 30-39.9) Overweight Psoriasis Pure hypercholesterolemia Type 2 diabetes mellitus with other diabetic kidney complication Type 2 diabetes with nephropathy Vitamin D deficiency Surgical History H/O heart surgery Hx of cardiac catheterization Hx of circumcision Hx of colonoscopy Hx of right cataract extraction Family History Father No problems noted. Mother Diabetes mellitus CVD (cardiovascular disease) Hypertension Social History Household Members: Spouse Housing: House Alcohol intake: never Patient Tobacco Use Status: Never used Tobacco e-Cigarette/Vaping Use: Never Used Second Hand Smoke Exposure: No service: No Current occupational status: employed Cognitive needs: No Hearing needs: No Vision needs: Yes Physical Exam Vital Signs: Last Vital Signs Pulse 73 10/06/22 09:48 BP 112/60 10/06/22 09:48 BMI result Body Mass Index 29.7 Absence of Cushingoid features. Absence of acromegalic features. Neck exam reveals nl size thyroid about 15 gms. No thyroid nodules palpable. No carotid bruits present. Lungs CTA. Heart S1 S2, Reg R/R. No M/R/ G. Skin exam reveals absence of vitiligo or acanthosis nigricans. Abdominal exam reveals Soft NT/ND with NA BS. No organomegaly present. Neck Other: . Extrem Other: Visual exam of foot performed. No ulcerations or open lesions. No onchomycosis, no callouses.Pulses 2 + distally Sensation intact to monofilament exam. Vibratory sensation sensed is intact with 128 Hz tuning fork Assessment & Plan Assessment & Plan (1) Type 2 diabetes with nephropathy: Comment: (+) proteinuria Code(s): E11.21 - Type 2 diabetes mellitus with diabetic nephropathy Plan: This 61-year-old male with history of type 2 diabetes being treated with metformin, Trulicity, Jardiance and basal-bolus insulin with poor deteriorated glycemic control and known microvascular and macrovascular complication namely: + retinopathy, + nephropathy, + neuropathy, + CAD, The plan is switch the Ozempic to Mounjaro 2.5 mg Qwkly. Technically, patient has a history of CAD and my in general has a secondary cardiac prevention indication but patient needs Mounjaro for additional glycemic control as he is not optimized on either Trulicity or Ozempic.. Patient will follow up with certified breastfeeding educator. He was advised to report any hypoglycemia for adjustment of the insulin. Side effects of Mounjaro were discussed including but not limited to nausea, vomiting rare risk pancreatitis Mounjaro 2.5 mg samples were given to the patient lot number [id number] C expiration date 02/12/2024 Medications: Discontinued insulin aspart U-100 8 units (0.08 mL) subcut TID 15 mL 0RF E11.21 - Type 2 diabetes mellitus with diabetic nephropathy, E11.29 - Type 2 diabetes mellitus with other diabetic kidney complication Coding Level of Care Code Est Pt Level 4 (41613) Diagnoses Type 2 diabetes with nephropathy E11.21
[2022-10-06 09:48] VITALS: BP 112/60; PULSE 73; BMI 29.7
[2022-10-06 10:05] LABS: Glucose, Whole Blood 209 mg/dL (60-115)
== END 2022-10-06 10:30 | disposition home or self-care (01) ==
PROVIDERS: PCP Internal Medicine; Visit Provider Internal Medicine Endocrinology, Diabetes & Metabolism
DX: E11.21 Type 2 diabetes mellitus with diabetic nephropathy (principal)
CPT/HCPCS: 99214

== ENCOUNTER → 2022-10-06 09:46 | Outpatient (BNVA) | payer OTHER, SELFPAY | PROVIDERS: Visit Provider Internal Medicine Endocrinology, Diabetes & Metabolism | DX: E11.65 Type 2 diabetes mellitus with hyperglycemia (principal); E11.21 Type 2 diabetes mellitus with diabetic nephropathy; E11.29 Type 2 diabetes mellitus with other diabetic kidney complication; E11.3593 Type 2 diabetes mellitus with proliferative diabetic retinopathy without macular edema, bilateral; Z79.4 Long term (current) use of insulin | CPT/HCPCS: 82947 ==

== ENCOUNTER 2022-10-16 10:50 | Outpatient (AMB) | payer OTHER, SELFPAY ==
[2022-10-16 10:56] VITALS: BP 110/78; PULSE 85; O2SAT 96; BMI 29.6
--- NOTE | 2022-10-16 10:56 | MHC.PC.OV ---
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 Required: No Accompanied by: Self / Same As Patient Allergies No Known Allergies [No Known Allergies*] Allergy (Verified 10/19/22 02:58) Medication List - Last Reconciled 10/19/22 by Aram Murphy MD amlodipine 2.5 mg PO DAILY aspirin (Adult Low Dose Aspirin) 81 mg PO DAILY clobetasol 0.05% 1 appl topical BID PRN clopidogrel 75 mg PO DAILY empagliflozin (Jardiance) 25 mg PO QAM ergocalciferol (vitamin D2) 1,250 mcg PO QWEEK flash glucose scanning reader (Bootstrap SoftwareStyle Senait 14 Day [place]) As directed flash glucose sensor (Bootstrap SoftwareStyle Senait 14 Day Sensor kit) As directed Flexichamber (inhalational spacing device) use with Albuterol inhaler as directed NS Humalog KwikPen Insulin (insulin lispro) Inject 10 to 12 units as instructed 3 times a day with meals dosed per sliding scale subcutaneously; 30 days NS insulin glargine (Lantus Solostar U-100 Insulin) 28 units (0.28 mL) subcut QPM isosorbide mononitrate ER 60 mg PO DAILY losartan 100 mg PO DAILY metformin 1,000 mg PO BID metoprolol succinate ER 50 mg PO DAILY multivitamin 1 tab PO DAILY nitroglycerin 0.4 mg sublingual ONCE omega 8-dzz-fur-fish oil 350 mg-235 mg- 90 mg-597 mg ([place]-3) 1 cap PO DAILY pen needle, diabetic As directed five times a day rosuvastatin 40 mg PO DAILY tamsulosin 0.4 mg PO BEDTIME tirzepatide (Mounjaro) 2.5 mg subcut QWEEK Tobacco use date assessed: 10/16/22 Fall risk assessment: No Falls in past year Last assessed Fall Risk: 10/16/22 Dental Screening Dental Screen Date: 10/16/22 Did you have a dental visit in the last 12 months?: No Did you have a dental problem in the last 6 months where you did not have access to dental care?: No Was dental information given to patient?: No HPI [facility] [facility] [place]Chest pain HPI Details Patient comes in today for his HDF follow up visit Patient initially presented to the ER here at [facility] a couple of weeks ago on 10/01/2022 for substernal chest pains Workups done revealed elevated serum troponin level; EKG showed no acute changes Patient was started on heparin drip and arrangements were made to immediately transfer him to [facility] for further management of his NSTEMI Patient underwent cardiac catheterization which revealed 50% stenosis at the proximal RCA, 60% stenosis of the proximal circumflex and 70% ostial OM1 stenosis; there is severe 100% stenosis of diagonal 1 branch of the left anterior descending coronary arteries which is likely the culprit lesion and which was stented Patient also underwent cardiac catheterization a couple of months ago on 08/17/2022 also for NSTEMI - procedure at the time revealed multivessel disease with 99% stenosis at the ostial high diagonal that was occluded on previous CT in 2012 and this was deemed to be a non-intervenable vessel Patient was started on Ticagrelor 90 mg BID x 12 months, continued on all his other previous medications and was emphasized that he needs to control his risk factors, including blood pressure, cholesterol and blood sugar He is currently also still going to cardiac rehab His last HgbA1c back on 10/02/2022 was at 8.4% He was last seen by Dr. Calvillo for his diabetes last week and was switch from Ozempic to Mounjaro 2.5 mg once a week He is continued on his Jardiance 25 mg once a day, Metformin 1000 mg BID and Lantus 28 units Q PM He was also advised to continue following with the hospital educator to help him control his blood sugar better Patient states that he currently feels okay and has noticed that his blood sugar has been gradually improving since he was started on Mounjaro by Dr. Calvillo last week He denies any headaches or dizziness Denies any chest pains or increased shortness of breath at present No nausea / vomiting, no abdominal pain no line no change in bowel habits noted Needs his Clobetasol 0.05% cream Rx refilled He is also scheduled to undergo cataract extraction on November [address] Malone [facility] Medical History (Updated 10/19/22 @ 03:50 by Aram Murphy MD) Overweight (BMI 25.0-29.9) Cataract Obesity (BMI 30-39.9) Dermatosis GERD without esophagitis Benign essential hypertension Pure hypercholesterolemia Atherosclerotic heart disease of [place] coronary artery without angina pectoris Type 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 Mother Diabetes mellitus CVD (cardiovascular disease) Hypertension Social History Household Members: Spouse Housing: House Alcohol intake: never Patient Tobacco Use Status: Never used Tobacco e-Cigarette/Vaping Use: Never Used Second Hand Smoke Exposure: No service: No Current occupational status: employed Cognitive needs: No Hearing needs: No Vision needs: Yes Questionnaire PHQ-9 Over the last 2 weeks, how often have you been bothered by any of the following problems? 1. Little interest or pleasure in doing things: not at all 2. Feeling down, depressed, or hopeless: not at all 3. Trouble falling or staying asleep, or sleeping too much: not at all 4. Feeling tired or having little energy: not at all 5. Poor appetite or overeating: not at all 6. Feeling bad about yourself - or that you are a failure or have let yourself or your family down: not at all 7. Trouble concentrating on things, such as reading the newspaper or watching television: not at all 8. Moving or speaking so slowly that other people could have noticed. Or the opposite - being so fidgety or restless that you have been moving around a lot more than usual: not at all 9. Thoughts that you would be better off or of hurting yourself in some way: not at all Total score: 0 Depression Screening Interpretation: Negative 33825 - PHQ-9 Billing: Yes Source: Developed by Drs. Vargas Pope, Harjinder Marie and colleagues, with an educational aubree from [employer]. Thrive Questionnaire Date Thrive assessed: 10/16/22 I am a: Patient What is your living situation today?: I have a steady place to live Within the past 12 months, did the food you bought not last and you didn't have the money to get more?: Never true Within the past 12 months, did you worry whether your food would run out before you got money to buy more?: Never true Do you have trouble paying for medicines?: No Do you have trouble getting transportation to medical appointments?: No Do you have trouble paying your heating and electricity bill?: No Do you have trouble taking care of your child, family member or friend?: No Do you have trouble with day-to-day activities such as bathing, preparing meals, shopping, managing finances, etc.?: No Are you currently unemployed and looking for a job?: No Are you interested in more education?: No Please select the resources that you would like help with: None Currently or been in a relationship where the following occur: no concerns reported AUDIT C Alcohol Use Questionnaire (AUDIT-C) 1. How often do you have a drink containing alcohol?: Never 3. How often do you have six or more drinks on one occasion?: Never Total Score: 0 Score Reviewed/Action Taken: Yes SHIREEN-7 AMB Questionnaire SHIREEN-7 Date SHIREEN - 7 assessed: 10/16/22 Feeling nervous, anxious, or on edge: 0 = Not at all Not being able to stop or control worryin = Not at all Worrying too much about different things: 0 = Not at all Trouble relaxin = Not at all Being so restless that it is hard to sit still: 0 = Not at all Becoming easily annoyed or irritable: 0 = Not at all Feeling afraid as if something awful might happen: 0 = Not at all Total SHIREEN-7 score (0-4 normal; 5-9 mild; 10-14 moderate; 15-21 severe): 0 Source: Developed by Valerie Prince Kurt Kroenke and colleagues, with an educational aubree from [employer]. Review of Systems Const Denies fatigue, Denies fever(s) and Denies headache(s) ENT Denies dysphagia, Denies dizziness, Denies otalgia, Denies headache(s), Denies neck pain, Denies odynophagia and Denies sore throat Card Denies chest pain, Denies chest pain with activity, Denies palpitations and Reports dyspnea on exertion (mild, chronic) Resp Denies chest congestion, Denies cough, Reports dyspnea on exertion (mild, chronic) and Denies wheezing GI Denies abdominal pain, Denies constipation, Denies dysphagia, Denies heartburn, Denies diarrhea, Denies nausea, Denies odynophagia and Denies vomiting Denies dysuria, Denies nocturia and Reports urinary frequency Musc Denies neck pain Neuro Denies dizziness and Denies headache(s) Endo Denies fatigue and Denies palpitations Aller/Immun Denies wheezing Physical exam (Primary Care) Vital Signs: Last Vital Signs Pulse 85 10/16/22 10:56 BP 110/78 10/16/22 10:56 Pulse Ox 96 10/16/22 10:56 Oxygen Delivery Method Room Air 10/16/22 10:56 BMI result Body Mass Index 29.6 Tobacco/Smoking Status: Tobacco use Status Tobacco use date assessed 10/16/22 10/16/22 11:02 Patient Tobacco Use Status Never used Tobacco 10/16/22 11:02 e-Cigarette/Vaping Use Never Used 10/16/22 11:02 PHQ-9: PHQ-9 Score PHQ-9: Total score 0 10/16/22 11:51 Depression Screening Interpretation: Negative Thrive Assessment: Date of Thrive Assessment Date Thrive assessed 10/16/22 10/16/22 11:02 Currently or been in a relationship where the following occur: no concerns reported Const General: no acute distress and alert HENMT Ears: TM's normal bilaterally and EAC's normal Throat: Yes posterior oropharynx normal and Yes tonsils normal (no TP congestion noted) Neck Neck: Yes no lymphadenopathy and Yes supple Resp Auscultation: clear to auscultation bilaterally, no rales and no wheezes Cardio Rate: regular rate Rhythm: regular rhythm Heart sounds: no murmurs GI Palpation (GI): Soft to palpation and nontender Auscultation: normal bowel sounds Extrem General: Yes no clubbing, cyanosis or edema Right upper extremity: Extremity exam: right hand Details: tenderness (over the fingers) and swelling (over the IP joints of several fingers) Left upper extremity: hand Details: tenderness (over the fingers) and swelling (over the IP joints of multiple fingers) Assessment and Plan Assessment & Plan (1) Atherosclerotic heart disease of [place] coronary artery without angina pectoris: Comment: S/P STEMI in 2016 - cardiac cath showed a non-intervenable lesion and recommended aggressive medical Mx to modify risk factors as much as possible Code(s): I25.10 - Atherosclerotic heart disease of [place] coronary artery without angina pectoris Qualifiers: [place] vs. transplanted heart: [place] heart Qualified Code(s): I25.10 - Atherosclerotic heart disease of [place] coronary artery without angina pectoris Plan: Patient had NSTEMI last week and [place] [facility] [place] [facility] [place] Cardiac cath revealed severe stenosis at diagnonal 1 and he underwent PCI of culprit lesion Continue low dose Aspirin 81 mg QD, Isosorbide Mononitrate ER 30 mg QD, Metoprolol ER 50 mg QD and Ticagrelor 90 mg BID Patient has sublingual Nitroglycerin tablets that he takes as needed for chest pain He is currently still going to cardiac rehab Follow up with cardiology as scheduled (2) Type 2 diabetes with nephropathy: Comment: (+) proteinuria Code(s): E11.21 - Type 2 diabetes mellitus with diabetic nephropathy Plan: HgbA1c was at 8.4% when last checked at [facility] a couple of weeks ago - goal is <7.0% Reinforced diabetic diet Continue Lantus 20 units Q HS, Humalog 10 units with small meals and 12 units with large meals 3 times a day, Metformin ER 1000 mg BID and Jardiance 25 mg QD (insurance previously denied covering Invokana) He was switched from Trulicity over to Mounjaro 2.5 mg once a week by Dr. Calvillo last week Follow up with endocrinology (Dr. 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 (3) Diabetic nephropathy: Code(s): E11.21 - Type 2 diabetes mellitus with diabetic nephropathy Qualifiers: Diabetes mellitus type: type 2 Qualified Code(s): E11.21 - Type 2 diabetes mellitus with diabetic nephropathy Plan: Stable lately; follow up with nephrology as scheduled Reminded again that better control of his diabetes is the best way to slow down the progression of his kidney disease (4) Pure hypercholesterolemia: Code(s): E78.00 - Pure hypercholesterolemia, unspecified Plan: Reinforced low cholesterol diet Continue Rosuvastatin 40 mg QD (5) Benign essential hypertension: Code(s): I10 - Essential (primary) hypertension Plan: Reinforced low sodium diet - goal is systolic BP of at least 130 mm or less Continue Losartan 100 mg QD; is also on Metoprolol ER 50 mg QD (6) GERD without esophagitis: Code(s): K21.9 - Gastro-esophageal reflux disease without esophagitis Plan: Dietary restrictions reinforced (7) Vitamin D deficiency: Code(s): E55.9 - Vitamin D deficiency, unspecified Plan: Continue Vitamin D2 02106 once a week (8) Dermatitis: Code(s): L30.9 - Dermatitis, unspecified Plan: Continue Clobetasol 0.05% cream apply to rash BID PRN - Rx refilled (9) Overweight (BMI 25.0-29.9): Code(s): E66.3 - Overweight Plan: Reinforced diet /exercise as tolerated /lose weight Plan To return in 2-3 weeks for his preop medical examination for his upcoming cataract surgery next month Orders: Orders AMB Hemoglobin A1c 10/16/22 Z13.9 - Encounter for screening, unspecified Medications: Refilled clobetasol 0.05% 1 appl topical BID PRN 60 grams 1RF rash Discontinued omeprazole Discontinued Reason: No Longer Medically Relevant 20 mg PO DAILY 90 caps 1RF Coding Level of Care Code Est Pt Level 4 (87233) Diagnoses Atherosclerosis of [place] coronary artery of [place] heart without angina pectoris I25.10 [place] vs. transplanted heart: [place] heart Type 2 diabetes with nephropathy E11.21 Diabetic nephropathy associated with type 2 diabetes mellitus E11.21 Diabetes mellitus type: type 2 Pure hypercholesterolemia E78.00 Benign essential hypertension I10 GERD without esophagitis K21.9 Vitamin D deficiency E55.9 Dermatitis L30.9 Overweight (BMI 25.0-29.9) E66.3
== END 2022-10-16 11:52 | disposition home or self-care (01) ==
PROVIDERS: PCP Internal Medicine; Visit Provider Internal Medicine
DX: E11.21 Type 2 diabetes mellitus with diabetic nephropathy (principal); I10 Essential (primary) hypertension; K21.9 Gastro-esophageal reflux disease without esophagitis; E55.9 Vitamin D deficiency, unspecified; I25.10 Atherosclerotic heart disease of native coronary artery without angina pectoris; E78.00 Pure hypercholesterolemia, unspecified; L30.9 Dermatitis, unspecified; E66.3 Overweight
CPT/HCPCS: 99214

== ENCOUNTER 2022-10-20 09:32 | Outpatient (AMB) | payer OTHER, SELFPAY ==
--- NOTE | 2022-10-20 09:40 | A.OFFVIS_ITS ---
Intake Intake Visit Reasons: dm Allergies No Known Allergies [No Known Allergies*] Allergy (Verified 10/19/22 02:58) HPI Comprehensive Diabetes Asmnt Most Recent Diabetes Results: Creatinine 0.88 mg/dL (0.5-1.4) 10/01/22 Blood Urea Nitrogen 16 mg/dL (9-16) 10/01/22 Sodium 139 mmol/L (135-145) 10/01/22 Potassium 4.3 mmol/L (3.3-5.1) 10/01/22 Chloride 104 mmol/L (96-108) 10/01/22 Carbon Dioxide 25 mmol/L (22-29) 10/01/22 Calcium 9.7 mg/dL (8.4-10.2) 10/01/22 AST 58 U/L (5-37) H 10/01/22 ALT 39 U/L (0-40) 10/01/22 Total Protein 7.2 g/dL (6.5-8.0) 10/01/22 Albumin 4.0 g/dL (3.5-5.0) 10/01/22 [facility] Medical History (Updated 10/19/22 @ 03:50 by Aram Murphy MD) Overweight (BMI 25.0-29.9) Cataract Obesity (BMI 30-39.9) Dermatosis GERD without esophagitis Benign essential hypertension Pure hypercholesterolemia 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 Mother Diabetes mellitus CVD (cardiovascular disease) Hypertension Social History Household Members: Spouse Housing: House Alcohol intake: never Patient Tobacco Use Status: Never used Tobacco e-Cigarette/Vaping Use: Never Used Second Hand Smoke Exposure: No service: No Current occupational status: employed Cognitive needs: No Hearing needs: No Vision needs: Yes Assessment & Plan Assessment & Plan (1) Type 2 diabetes mellitus with other diabetic kidney complication: Code(s): E11.29 - Type 2 diabetes mellitus with other diabetic kidney complication Plan: Learning objectives: The patient was provided with verbal and written education on the following topics as outlined below. Patient questions/concerns, Pt has started Mounjaro 2.5 mg, after stopping Ozempic Patient reports he is taking Lantus 22 units daily Humalog 10 units prior to meals Metformin 1000 mg b.i.d. Patient using Projectioneering Senait 2 to check glucose number Average glucose for the past 2 weeks 153 mg/dL Patient above target 21% Patient below target 0% Patient at target 79% The patient has 0% below target there are episodes of hypoglycemia on daily glucose download Reviewed with patient how to use the rule of 15s To treat hypoglycemia Instructed patient that The patient met all learning objectives and was able to verbalize understanding and provide teach back of education topics discussed . The patient was provided with the opportunity to ask questions and all questions were answered. Topics covered in today?s session included: Medications (If applicable) ? Name of medication? Dosing/administration instructions? Mechanism of action? Potential side effects? Potential adverse reaction and appropriate treatment? Review onset, peak, duration Assess for concerns re: insurance coverage, cost, barriers to compliance Insulin/Injectables (If applicable) ? Storage/care of insulin? Injection sites? Site rotation? Onset, peak, duration ? Drawing up insulin? Injecting insulin/other injectables? Sharps disposal Continuous blood glucose monitoring (if applicable) Hypoglycemia and Hyperglycemia ? Signs and symptoms? Causes? Treatment? Preventing hypoglycemia? When to seek medical attention ?Blood glucose targets and how you feel when your blood glucose is in and out of your target ranges. ?Monitoring and knowing your A1C. ?What can make blood glucose go up and down and preventing high and low blood glucose. ?Review of blood sugar targets in expected goal range and outside of ex pected goal range. ?Problem solving and preventing hyper/hypoglycemia. ?Sick day management of diabetes. ?Using blood sugar results in decision making process in managing diabetes. ?Patient was receptive to information provided and participated in the discussion. Asked?appropriate questions and demonstrated good understanding of the topics discussed.? ? Educational Materials: The patient was provided with the following written educational materials: Hypoglycemia handout in [place] given Smart Goal: Pt will use rule of 15s to treat low glucose Patient Response to instructions: Comprehension of Instructions: Fair Readiness to make changes:? Contemplation How confident they feel about making changes: Fair Patient Instructions: Reduce Lantus from 22 units to 20 units Follow up with consumer educator in 2 month Call if low glucose events increase Coding Level of Care Code Est Pt Level 1 (29913) Diagnoses Type 2 diabetes mellitus with other diabetic kidney complication E11.29
== END 2022-10-20 09:58 | disposition home or self-care (01) ==
PROVIDERS: PCP Internal Medicine; Visit Provider Registered Nurse Diabetes Educator
DX: E11.29 Type 2 diabetes mellitus with other diabetic kidney complication (principal)

== ENCOUNTER → 2022-10-20 09:32 | Outpatient (BNVA) | payer OTHER, SELFPAY | PROVIDERS: PCP Internal Medicine; Visit Provider Registered Nurse Diabetes Educator | DX: E11.29 Type 2 diabetes mellitus with other diabetic kidney complication (principal); Z79.4 Long term (current) use of insulin | CPT/HCPCS: 99211 ==

== ENCOUNTER 2022-11-04 14:26 | Outpatient (AMB) | payer OTHER, SELFPAY ==
[2022-10-22 07:38] VITALS: BP 126/68; BP 138/68; BMI 29.7
--- NOTE | 2022-11-04 14:29 | MHC.PC.OV ---
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 Hand Required: No Accompanied by: Self / Same As Patient Allergies No Known Allergies [No Known Allergies*] Allergy (Verified 11/04/22 15:05) Medication List - Last Reconciled 11/04/22 by Aram Murphy MD amlodipine 2.5 mg PO DAILY aspirin (Adult Low Dose Aspirin) 81 mg PO DAILY clobetasol 0.05% 1 appl topical BID PRN clopidogrel 75 mg PO DAILY empagliflozin (Jardiance) 25 mg PO QAM ergocalciferol (vitamin D2) 1,250 mcg PO QWEEK flash glucose scanning reader (Touch BionicsStyle Senait 14 Day [place]) As directed flash glucose sensor (FreeStyle Senait 14 Day Sensor kit) As directed Flexichamber (inhalational spacing device) use with Albuterol inhaler as directed NS Humalog KwikPen Insulin (insulin lispro) Inject 10 to 12 units as instructed 3 times a day with meals dosed per sliding scale subcutaneously; 30 days NS insulin glargine (Lantus Solostar U-100 Insulin) 28 units (0.28 mL) subcut QPM isosorbide mononitrate ER 60 mg PO DAILY losartan 100 mg PO DAILY metformin 1,000 mg PO BID metoprolol succinate ER 50 mg PO DAILY multivitamin 1 tab PO DAILY nitroglycerin 0.4 mg sublingual ONCE omega 3-rel-rdc-fish oil 350 mg-235 mg- 90 mg-597 mg ([place]-3) 1 cap PO DAILY pen needle, diabetic As directed five times a day rosuvastatin 40 mg PO DAILY tamsulosin 0.4 mg PO BEDTIME tirzepatide (Mounjaro) 2.5 mg (0.5 mL) subcut QWEEK Tobacco use date assessed: 11/04/22 Fall risk assessment: 1 Fall in past year Last assessed Fall Risk: 11/04/22 Dental Screening Dental Screen Date: 11/04/22 Did you have a dental visit in the last 12 months?: No Did you have a dental problem in the last 6 months where you did not have access to dental care?: No Was dental information given to patient?: Patient has dentist HPI Pre-Op Cataract 11/24/22 HPI Details Patient comes in today at the request of [facility] for a preoperative medical examination for clearance for surgery He is scheduled for cataract extraction/phacoemulsification with IOL under MAC of the left eye on 11/24/2022 Patient states that he feels okay He denies any headaches or dizziness Denies any chest pains, no SOB No nausea/vomiting, no abdominal pain No change in bowel habits noted PFSH Medical History Overweight (BMI 25.0-29.9) Cataract Obesity (BMI 30-39.9) Dermatosis GERD without esophagitis Benign essential hypertension Pure hypercholesterolemia Atherosclerotic heart disease of [place] coronary artery without angina pectoris Type 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 Mother Diabetes mellitus CVD (cardiovascular disease) Hypertension Social History Household Members: Spouse Housing: House Alcohol intake: never Patient Tobacco Use Status: Never used Tobacco e-Cigarette/Vaping Use: Never Used Second Hand Smoke Exposure: No service: No Current occupational status: employed Cognitive needs: No Hearing needs: No Vision needs: Yes Questionnaire PHQ-9 Over the last 2 weeks, how often have you been bothered by any of the following problems? 1. Little interest or pleasure in doing things: not at all 2. Feeling down, depressed, or hopeless: not at all 3. Trouble falling or staying asleep, or sleeping too much: not at all 4. Feeling tired or having little energy: not at all 5. Poor appetite or overeating: not at all 6. Feeling bad about yourself - or that you are a failure or have let yourself or your family down: not at all 7. Trouble concentrating on things, such as reading the newspaper or watching television: not at all 8. Moving or speaking so slowly that other people could have noticed. Or the opposite - being so fidgety or restless that you have been moving around a lot more than usual: not at all 9. Thoughts that you would be better off or of hurting yourself in some way: not at all Total score: 0 Depression Screening Interpretation: Negative 47262 - PHQ-9 Billing: Yes Source: Developed by Drs. Vargas Pope, Valerie Carpenter, Harjinder Erazo and colleagues, with an educational aubree from [address] Thrive Questionnaire Date Thrive assessed: 11/04/22 I am a: Patient What is your living situation today?: I have a steady place to live Within the past 12 months, did the food you bought not last and you didn't have the money to get more?: Never true Within the past 12 months, did you worry whether your food would run out before you got money to buy more?: Never true Do you have trouble paying for medicines?: No Do you have trouble getting transportation to medical appointments?: No Do you have trouble paying your heating and electricity bill?: No Do you have trouble taking care of your child, family member or friend?: No Do you have trouble with day-to-day activities such as bathing, preparing meals, shopping, managing finances, etc.?: No Are you currently unemployed and looking for a job?: No Are you interested in more education?: No Please select the resources that you would like help with: None Currently or been in a relationship where the following occur: no concerns reported AUDIT C Alcohol Use Questionnaire (AUDIT-C) 1. How often do you have a drink containing alcohol?: Never 3. How often do you have six or more drinks on one occasion?: Never Total Score: 0 Score Reviewed/Action Taken: Yes SHIREEN-7 AMB Questionnaire SHIREEN-7 Date SHIREEN - 7 assessed: 11/11/22 Feeling nervous, anxious, or on edge: 0 = Not at all Not being able to stop or control worryin = Not at all Worrying too much about different things: 0 = Not at all Trouble relaxin = Not at all Being so restless that it is hard to sit still: 0 = Not at all Becoming easily annoyed or irritable: 0 = Not at all Feeling afraid as if something awful might happen: 0 = Not at all Total SHIREEN-7 score (0-4 normal; 5-9 mild; 10-14 moderate; 15-21 severe): 0 Source: Developed by Drs. Vargas Pope, Valerie Carpenter, Harijnder Erazo and colleagues, with an educational aubree from [address] Review of Systems Const Denies chills, Denies fatigue, Denies fever(s) and Denies headache(s) Eyes Reports blurry vision ENT Denies dysphagia, Denies dizziness, Denies otalgia, Denies headache(s), Denies neck pain, Denies odynophagia and Denies sore throat Card Denies chest pain, Denies palpitations and Reports dyspnea on exertion (mild, chronic) Resp Denies cough, Reports dyspnea on exertion (mild, chronic) and Denies wheezing GI Denies abdominal pain, Denies constipation, Denies dysphagia, Denies heartburn, Denies diarrhea, Denies nausea, Denies odynophagia and Denies vomiting Denies dysuria, Denies nocturia and Reports urinary frequency Musc Denies neck pain Neuro Denies dizziness and Denies headache(s) Endo Denies fatigue and Denies palpitations Aller/Immun Denies wheezing Physical exam (Primary Care) Vital Signs: Last Vital Signs Pulse 87 11/04/22 14:30 BP 114/78 11/04/22 14:30 Pulse Ox 97 11/04/22 14:30 Oxygen Delivery Method Room Air 11/04/22 14:30 BMI result Body Mass Index 29.6 Tobacco/Smoking Status: Tobacco use Status Tobacco use date assessed 11/04/22 11/04/22 14:39 Patient Tobacco Use Status Never used Tobacco 11/04/22 14:39 e-Cigarette/Vaping Use Never Used 11/04/22 14:39 PHQ-9: PHQ-9 Score PHQ-9: Total score 0 11/04/22 15:08 Depression Screening Interpretation: Negative Thrive Assessment: Date of Thrive Assessment Date Thrive assessed 11/04/22 11/04/22 14:39 Currently or been in a relationship where the following occur: no concerns reported Const General: no acute distress and alert HENMT Ears: TM's normal bilaterally and EAC's normal Throat: Yes posterior oropharynx normal and Yes tonsils normal (no TP congestion noted) Neck Neck: Yes no lymphadenopathy and Yes supple Resp Auscultation: clear to auscultation bilaterally, no rales and no wheezes Cardio Rate: regular rate Rhythm: regular rhythm Heart sounds: no murmurs GI Palpation (GI): Soft to palpation and nontender Auscultation: normal bowel sounds Extrem General: Yes no clubbing, cyanosis or edema Right upper extremity: Extremity exam: right hand Details: tenderness (over the fingers) and swelling (over the IP joints of several fingers) Left upper extremity: hand Details: tenderness (over the fingers) and swelling (over the IP joints of multiple fingers) Results AMB Hemoglobin A1c AMB Hemoglobin A1c 7.9 % Last Edit by Kevin Muhammad on 11/04/22 14:57 Results Reviewed Results Reviewed: Laboratory Last Values Hgb A1c (Clinic) 7.9 % (4.0-6.0) H 11/04/22 14:56 Laboratory Tests 10/01/22 10/01/22 10/01/22 20:12 20:12 20:12 WBC Hgb Hct Plt Count PT INR APTT 25.3 L Sodium 139 Potassium 4.3 Creatinine 0.88 Estimated GFR > 60 Glucose (Clinic) Calcium 9.7 D AST ALT 10/01/22 10/01/22 10/01/22 20:12 21:26 21:26 WBC 8.2 Hgb 12.7 L Hct 38.9 L Plt Count PT 10.6 L INR 0.9 APTT Sodium Potassium Creatinine Estimated GFR Glucose (Clinic) Calcium AST 58 H ALT 39 10/01/22 10/06/22 21:26 10:01 WBC Hgb Hct Plt Count 200 PT INR APTT Sodium Potassium Creatinine Estimated GFR Glucose (Clinic) 209 H Calcium AST ALT Assessment and Plan Assessment & Plan (1) Preoperative examination: Code(s): Z01.818 - Encounter for other preprocedural examination Plan: Patient presents with acceptable risks for planned low cardiac risk procedure Results of his labs done last month reviewed and discussed with patient - results of these are included above for review EKG done last month showed sinus rhythm with occasional PVCs; no acute ST-T wave changes noted (copy attached) (2) Cataract: Code(s): H26.9 - Unspecified cataract Qualifiers: Cataract type: age-related Age-related cataract type: unspecified Laterality: left Qualified Code(s): H25.9 - Unspecified age-related cataract Plan: He is scheduled for cataract extraction/phacoemulsification with IOL under MAC of the left eye on 11/24/[address] Charly Malone (3) Atherosclerotic heart disease of [place] coronary artery without angina pectoris: Comment: S/P STEMI in 2016 - cardiac cath showed a non-intervenable lesion and recommended aggressive medical Mx to modify risk factors as much as possible Code(s): I25.10 - Atherosclerotic heart disease of [place] coronary artery without angina pectoris Qualifiers: [place] vs. transplanted heart: [place] heart Qualified Code(s): I25.10 - Atherosclerotic heart disease of [place] coronary artery without angina pectoris Plan: Patient apparently had NSTEMI last month and was transferred from [facility] to [facility] for further management Cardiac cath revealed severe stenosis at diagnonal 1 and he underwent PCI of culprit lesion Continue low dose Aspirin 81 mg QD, Clopidogrel 75 mg QD, Isosorbide Mononitrate ER 60 mg QD, Metoprolol ER 50 mg QD Patient has sublingual Nitroglycerin tablets that he takes as needed for chest pain He is currently still going to cardiac rehab Follow up with cardiology as scheduled As modern cataract surgeries rarely cause any bleeding, he is advised that he should continue on his low dose Aspirin 81 mg QD; he should also be able to continue on his Clopidogrel 75 mg QD but is advised that I will leave it up to the discretion of the booking prizer performing the procedure if he is comfortable with patient being on Clopidogrel or not for his eye surgery If Dr. Malone prefers patient to stop Clopidogrel before his cataract surgery, he should STOP taking Clopidogrel 5 days before his surgery and resume taking it the day after his surgery; conversely, if he has no concerns, then patient is to continue on both his Aspirin 81 mg QD and Clopidogrel 75 mg QD uninterrupted (4) Type 2 diabetes with nephropathy: Comment: (+) proteinuria Code(s): E11.21 - Type 2 diabetes mellitus with diabetic nephropathy Plan: In-office HgbA1c done today is at 7.9% (HgbA1c was at 8.4% when last checked at [facility] a few weeks ago) - goal is <7.0% Reinforced diabetic diet Continue Lantus 20 units Q HS, Humalog 10 units with small meals and 12 units with large meals 3 times a day, Metformin ER 1000 mg BID, Jardiance 25 mg QD (insurance previously denied covering [employer]) and Mounjaro 2.5 mg once a week (he was switched from Trulicity over to Mounjaro by Dr. Calvillo last month) Follow up with endocrinology (Dr. Calvillo) and diabetic plasma table operator as scheduled (5) Diabetic nephropathy: Code(s): E11.21 - Type 2 diabetes mellitus with diabetic nephropathy Qualifiers: Diabetes mellitus type: type 2 Qualified Code(s): E11.21 - Type 2 diabetes mellitus with diabetic nephropathy Plan: Stable lately; follow up with nephrology as scheduled Reminded again that better control of his diabetes is the best way to slow down the progression of his kidney disease (6) Pure hypercholesterolemia: Code(s): E78.00 - Pure hypercholesterolemia, unspecified Plan: Reinforced low cholesterol diet Continue Rosuvastatin 40 mg QD - goal is LDL of less than 70 mg/dl due to his CAD (7) Benign essential hypertension: Code(s): I10 - Essential (primary) hypertension Plan: Reinforced low sodium diet - goal is systolic BP of at least 130 mm or less Continue Losartan 100 mg QD; is also on Metoprolol ER 50 mg QD (8) GERD without esophagitis: Code(s): K21.9 - Gastro-esophageal reflux disease without esophagitis Plan: Dietary restrictions reinforced (9) Vitamin D deficiency: Code(s): E55.9 - Vitamin D deficiency, unspecified Plan: Continue Vitamin D2 00457 once a week (10) Overweight (BMI 25.0-29.9): Code(s): E66.3 - Overweight Plan: Reinforced diet /exercise as tolerated /lose weight Plan Patient currently appears medically optimized and has no contraindication to undergo planned cataract surgery under MAC of the left eye on 11/24/[address] Malone - he is MEDICALLY CLEARED for surgery As mentioned above, I will leave it up to the discretion of the booking prizer performing the procedure if he is comfortable with patient being on Clopidogrel or not for his eye surgery - further instructions are noted above if needed Follow up in 2 months Orders: Orders AMB Hemoglobin A1c Today Z13.9 - Encounter for screening, unspecified Coding Level of Care Code Est Pt Level 4 (90953) Diagnoses Preoperative examination Z01.818 Senile cataract of left eye, unspecified age-related cataract type H25.9 Cataract type: age-related Age-related cataract type: unspecified Laterality: left Atherosclerosis of [place] coronary artery of [place] heart without angina pectoris I25.10 [place] vs. transplanted heart: [place] heart Type 2 diabetes with nephropathy E11.21 Diabetic nephropathy associated with type 2 diabetes mellitus E11.21 Diabetes mellitus type: type 2 Pure hypercholesterolemia E78.00 Benign essential hypertension I10 GERD without esophagitis K21.9 Vitamin D deficiency E55.9 Overweight (BMI 25.0-29.9) E66.3
[2022-11-04 14:30] VITALS: BP 114/78; PULSE 87; O2SAT 97; BMI 29.6
== END 2022-11-04 15:15 | disposition home or self-care (01) ==
PROVIDERS: PCP Internal Medicine; Visit Provider Internal Medicine
DX: E11.21 Type 2 diabetes mellitus with diabetic nephropathy (principal); Z01.818 Encounter for other preprocedural examination; H25.9 Unspecified age-related cataract; I25.10 Atherosclerotic heart disease of native coronary artery without angina pectoris; E78.00 Pure hypercholesterolemia, unspecified; I10 Essential (primary) hypertension; K21.9 Gastro-esophageal reflux disease without esophagitis; E55.9 Vitamin D deficiency, unspecified; E66.3 Overweight
CPT/HCPCS: 83036; 99214

== ENCOUNTER 2022-11-20 14:34 | Outpatient (AMB) | payer OTHER, SELFPAY ==
[2022-10-22 07:38] VITALS: BP 126/68; BP 138/68; BMI 29.7
[2022-11-19 14:25] VITALS: BP 126/68; BP 138/68; BMI 29.7
--- NOTE | 2022-11-20 14:40 | MHC.OFFVIS ---
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 Accompanied by: Allergies No Known Allergies [No Known Allergies*] Allergy (Verified 11/04/22 15:05) Medication List - Last Reconciled 11/20/22 by Nati Brown NP amlodipine 2.5 mg PO DAILY aspirin (Adult Low Dose Aspirin) 81 mg PO DAILY clobetasol 0.05% 1 appl topical BID PRN clopidogrel 75 mg PO DAILY empagliflozin (Jardiance) 25 mg PO QAM ergocalciferol (vitamin D2) 1,250 mcg PO QWEEK flash glucose scanning reader (SartaStyle Senait 14 Day [place]) As directed flash glucose sensor (SartaStyle Senait 14 Day Sensor kit) As directed Flexichamber (inhalational spacing device) use with Albuterol inhaler as directed NS Humalog KwikPen Insulin (insulin lispro) Inject 10 to 12 units as instructed 3 times a day with meals dosed per sliding scale subcutaneously; 30 days NS insulin glargine (Lantus Solostar U-100 Insulin) 28 units (0.28 mL) subcut QPM isosorbide mononitrate ER 60 mg PO DAILY losartan 100 mg PO DAILY metformin 1,000 mg PO BID metoprolol succinate ER 50 mg PO DAILY multivitamin 1 tab PO DAILY nitroglycerin 0.4 mg sublingual ONCE omega 3-gvl-yaf-fish oil 350 mg-235 mg- 90 mg-597 mg (Otoe-3) 1 cap PO DAILY pen needle, diabetic As directed five times a day rosuvastatin 40 mg PO DAILY tamsulosin 0.4 mg PO BEDTIME tirzepatide (Mounjaro) 2.5 mg (0.5 mL) subcut QWEEK HPI HPI Comments History of Present Illness Details 62-year-old male presents for a Hospital discharge following NSTEMI in Sep. He has been continuing with cardiac rehab and been doing well. Noted to have PVCs frequently when there. Patient denies any symptoms since being discharge and wishes to return to work soon. reports she sees a great improvement in him since being back home. He reports compliance with his medications with no issues. Echo at [facility] on 10/02/2022 showed EF of 30-35%. Cath was performed in right femoral artery and is healing well. Drug eluting stent placed Cardiac Arteries and Lesion Findings LMCA: Normal. LAD: Lesion in 1st Dia% stenosis .Culprit lesion. Lesion in Mid LAD: Mid subsection.40% stenosis . LCx: Lesion in Prox CX: Mid subsection.60% stenosis . Lesion in 1st Ob Ofelia: Proximal subsection.70% stenosis . RCA: Lesion in Prox RCA: 50% stenosis . 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 Mother Diabetes mellitus CVD (cardiovascular disease) Hypertension Social History Household Members: Spouse Housing: House Alcohol intake: never Patient Tobacco Use Status: Never used Tobacco e-Cigarette/Vaping Use: Never Used Second Hand Smoke Exposure: No service: No Current occupational status: employed Cognitive needs: No Hearing needs: No Vision needs: Yes Review of Systems Const Denies chills, Denies fatigue, Denies fever(s), Denies frequent falls, Denies weakness, Denies weight gain and Denies weight loss ENT Denies dizziness Card Denies chest pain, Denies leg edema, Denies lightheadedness, Denies palpitations, Denies dyspnea, Denies dyspnea on exertion, Denies orthopnea and Denies other (loss of consciousness) Resp Denies cough, Denies dyspnea and Denies dyspnea on exertion GI Denies hematochezia and Denies change in stool character Musc Denies abnormal gait, Denies muscle weakness, Denies numbness, Denies radiating pain into limb and Denies tingling Neuro Denies abnormal gait, Denies dizziness, Denies frequent falls, Denies numbness, Denies tingling and Denies weakness Endo Denies fatigue and Denies palpitations Physical Exam Vital Signs: Last Vital Signs Pulse 96 11/20/22 14:42 BP 126/70 11/20/22 14:42 BMI result Body Mass Index 28.8 Const General: healthy appearing and no acute distress Orientation/consciousness: patient oriented x3 HEENT Head: Yes normal to inspection Eyes General: appearance normal, both eyes and all related structures Neck Neck: Yes normal visual inspection Chest Chest palpation & inspection: normal inspection of the chest Resp Effort & Inspection: normal respiratory effort Auscultation: clear to auscultation bilaterally Cardio Jugular venous distension: no JVD Palpation: normal PMI Rate: regular rate Rhythm: regular rhythm Heart sounds: S1 normal heart sound present, S2 normal heart sound present, no click, no gallops, no murmurs and no rubs GI Inspection: Yes normal to inspection Palpation (GI): Soft to palpation Skin Other: Right femoral - cath site healed well with no bruising or redness noted. Pules present. General skin exam: no rashes or lesions noted Neuro General: patient oriented x3 Extrem General: Yes normal to inspection Psych Appearance: grossly normal Assessment & Plan Assessment & Plan (1) PVCs (premature ventricular contractions): Code(s): I49.3 - Ventricular premature depolarization (2) Atherosclerotic heart disease of [place] coronary artery without angina pectoris: Comment: S/P STEMI in 2016 - cardiac cath showed a non-intervenable lesion and recommended aggressive medical Mx to modify risk factors as much as possible Code(s): I25.10 - Atherosclerotic heart disease of [place] coronary artery without angina pectoris Qualifiers: [place] vs. transplanted heart: [place] heart Qualified Code(s): I25.10 - Atherosclerotic heart disease of [place] coronary artery without angina pectoris (3) Non-ST elevated myocardial infarction (non-STEMI): Code(s): I21.4 - Non-ST elevation (NSTEMI) myocardial infarction (4) Hypertension: Code(s): I10 - Essential (primary) hypertension Qualifiers: Hypertension type: essential hypertension Qualified Code(s): I10 - Essential (primary) hypertension Plan Blood pressure within goal today. Coninue all medications as prescribed - Plavix must be for 12 months. Continue Cardiac Rehab. Low sodium diet emphasized and getting diabetes tightly controlled. Any recurrent chest pain advised to go immedately to ED for care. Will get a holter to assess burden of PVCs. He reports not feeling them. Will have him return in [address] Franco - sooner if needed/. Orders: Orders ECG 3 day holter monitor Today I49.3 - Ventricular premature depolarization Coding Level of Care Code Est Pt Level 3 (72224) Diagnoses PVCs (premature ventricular contractions) I49.3 Atherosclerosis of [place] coronary artery of [place] heart without angina pectoris I25.10 [place] vs. transplanted heart: [place] heart Non-ST elevated myocardial infarction (non-STEMI) I21.4 Essential hypertension I10 Hypertension type: essential hypertension
[2022-11-20 14:42] VITALS: BP 126/70; PULSE 96; BMI 28.8
== END 2022-11-20 15:19 | disposition home or self-care (01) ==
PROVIDERS: PCP Internal Medicine; Visit Provider Nurse Practitioner
DX: I49.3 Ventricular premature depolarization (principal); I25.10 Atherosclerotic heart disease of native coronary artery without angina pectoris; I21.4 Non-ST elevation (NSTEMI) myocardial infarction; I10 Essential (primary) hypertension
CPT/HCPCS: 99213

== ENCOUNTER → 2022-11-20 14:34 | Outpatient (BNVA) | payer OTHER, SELFPAY ==
[2022-11-19 14:25] VITALS: BP 126/68; BP 138/68
[2022-11-19 16:15] VITALS: BP 114/54; BMI 29.7
== END ==
PROVIDERS: PCP Internal Medicine; Visit Provider Nurse Practitioner

== ENCOUNTER → 2022-11-25 08:52 | Outpatient (REF) | payer OTHER, SELFPAY ==
[2022-11-19 14:25] VITALS: BP 126/68; BP 138/68
[2022-11-19 16:15] VITALS: BP 114/54; BMI 29.7
--- NOTE | 2022-11-25 08:56 | CA_ITS ---
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 The calculated ejection fraction is 46% by biplane method. Findings Procedure Information Contrast agent, definity, is being given per protocol without apparent complications. Left Ventricle Normal left ventricular cavity size. The left ventricular systolic function is mildly decreased. The calculated ejection fraction is 46% by biplane method. There is mild global hypokinesis. There is mild septal asymmetric hypertrophy. Venous The inferior vena cava is normal in size and collapses greater than 50% with inspiration. Prior Study Comparison No significant change compared to prior study dated: 08/17/2022. Measurements 2D Linear Measurements IVSd: 1.15 0.6-0.9/0.6-1.0 cm LVIDd: 4.90 3.9-5.3/4.2-5.9 cm LVIDd Index: 2.65 2.4-3.2/2.2-3.1 cm/m2 LVIDs: 3.58 2.0-3.6 cm LVPWd: 0.84 0.7-1.1 cm LV Mass: 218.11 67-162/88-224 g LV Mass Index: 117.90 43-95/49-115 g/m2 LVOT Diam: 2.00 3.0+(-)1.3 cm 2D Systolic Function EF 4C: 43.10 >55% EF 2C: 49.00 >55% EF BiP: 45.50 >55% LVOT LVOT Pk Jaylan: 0.92 LVOT Mn Jaylan: 0.61 LVOT VTI: 0.16 LVOT Pk Grad: 3.00 LVOT Mn Grad: 2.00 LVOT Diam: 2.00 LVOT Area: 3.14 Tricuspid Valve RA Press: 3.00 Updated in Other Vendor System with Status of Final Julio Avila MD electronically signed on 11/27/2022 10:57:04 AM with status of Final
--- NOTE | 2022-11-25 08:56 | HM_ITS ---
Conclusion: 1. Patient was monitored for total period of 3 days 2. Baseline was normal sinus rhythm with average heart of 85 beats per minute 3. No significant pauses noted 4. Frequent PVCs noted with total burden of 2.5% with 2 episodes of 3 beat salvos noted at 111 beats per minute 5. No patient reported events MTDD
== END ==
LOC: HO.CARD 08:52
PROVIDERS: PCP Internal Medicine; Visit Provider Nurse Practitioner
DX: I21.4 Non-ST elevation (NSTEMI) myocardial infarction (principal); I49.3 Ventricular premature depolarization
CPT/HCPCS: 93242; 93308; Q9957

== ENCOUNTER → 2022-11-25 08:56 | Outpatient (BNV) | payer OTHER, SELFPAY ==
[2022-11-19 14:25] VITALS: BP 126/68; BP 138/68
[2022-11-19 16:15] VITALS: BP 114/54; BMI 29.7
== END ==
PROVIDERS: PCP Internal Medicine; Visit Provider Internal Medicine
DX: I49.3 Ventricular premature depolarization (principal)
CPT/HCPCS: 93244; 93308

== ENCOUNTER 2022-12-17 09:53 | Outpatient (AMB) | payer OTHER, SELFPAY ==
[2022-11-19 14:25] VITALS: BP 126/68; BP 138/68
[2022-11-19 16:15] VITALS: BP 114/54; BMI 29.7
[2022-12-16 07:48] VITALS: BP 124/58; BMI 29.7
--- NOTE | 2022-12-17 10:22 | A.OFFVIS_ITS ---
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 Mother Diabetes mellitus CVD (cardiovascular disease) Hypertension Social History Household Members: Spouse Housing: House Alcohol intake: never Patient Tobacco Use Status: Never used Tobacco e-Cigarette/Vaping Use: Never Used Second Hand Smoke Exposure: No service: No Current occupational status: employed Cognitive needs: No Hearing needs: No Vision needs: Yes Assessment & Plan Assessment & Plan (1) Type 2 diabetes mellitus with other diabetic kidney complication: Code(s): E11.29 - Type 2 diabetes mellitus with other diabetic kidney complication Plan: Personal Continuous Glucose Monitor: Patients CGM information reviewed Reviewed patient's sensor data: Hypoglycemia: ? 0% Hyperglycemia:? 43% Time in Range:? 57% Average glucose for the last 2 weeks? 178 mg/dL patient is currently Mounjaro 2.5 mg, but stated his co-pay has become too expensive. patient does have commercial insurance and reports he is not currently using co-pay card, co-pay card given to patient. message sent to Dr. Calvillo to increase Mounjaro from 2.5 mg to 5 mg dose weeky patient denies episodes of hypoglycemia Reviewed how to interpret trend arrows Reminded patient that to check finger sticks if symptoms do not match sensor reading. Discussed lag time between finger stick and sensor data.? Patient able to insert sensor independently at home without issue.? Medications: Discontinued tirzepatide (Mounjaro) Discontinued Reason: Doctor's Order 2.5 mg (0.5 mL) subcut QWEEK 2 mL 0RF Patient Instructions: patient will follow-up with Diabetes Education nurse in 3 mo Coding Level of Care Code Est Pt Level 1 (58583) Diagnoses Type 2 diabetes mellitus with other diabetic kidney complication E11.29
== END 2022-12-17 10:26 | disposition home or self-care (01) ==
PROVIDERS: PCP Internal Medicine; Visit Provider Registered Nurse Diabetes Educator
DX: E11.29 Type 2 diabetes mellitus with other diabetic kidney complication (principal)

== ENCOUNTER → 2022-12-17 09:53 | Outpatient (BNVA) | payer OTHER, SELFPAY ==
[2022-11-19 14:25] VITALS: BP 126/68; BP 138/68
[2022-12-16 07:48] VITALS: BP 124/58; BMI 29.7
== END ==
PROVIDERS: PCP Internal Medicine; Visit Provider Registered Nurse Diabetes Educator
DX: E11.21 Type 2 diabetes mellitus with diabetic nephropathy (principal); E11.29 Type 2 diabetes mellitus with other diabetic kidney complication; Z79.4 Long term (current) use of insulin
CPT/HCPCS: 99211

== ENCOUNTER 2022-12-25 08:05 | Outpatient (REF) | payer OTHER, SELFPAY ==
[2022-11-19 14:25] VITALS: BP 126/68; BP 138/68
[2022-12-16 07:48] VITALS: BP 124/58; BMI 29.7
[2022-12-25 08:27] LABS: MANUAL DIFF FLAG NO
[2022-12-25 08:38] LABS: Basophils Percent Auto 0.4 % (0-2); Eosinophils Absolute Auto 0.2 X10*3/uL (0.0-0.4); Hematocrit 40.5 % (42.0-52.0); Hemoglobin 12.9 g/dl (14.0-18.0); Imm Gran Abs Auto 0.01 X10*3/uL (0.00-0.03); Imm Gran Pct Auto 0.1 % (0.0-0.4); Lymphocytes Absolute Auto 2.3 X10*3/uL (1.2-4.9); Lymphocytes Percent Auto 31.6 % (20-40); Mean Corpuscular HGB Conc 31.9 g/dl (31.0-36.0); Mean Corpuscular Hemoglobin 26.5 pg (27.0-33.0); Mean Corpuscular Volume 83.3 fL (80.0-98.0); Mean Platelet Volume 10.2 fL (9.4-12.4); Monocytes Absolute Auto 0.6 X10*3/uL (0.1-1.2); Monocytes Percent Auto 8.2 % (2-11); Neutrophils Absolute Auto 4.2 x10*3/uL (2.0-8.3); Neutrophils Percent Auto 57.7 % (45-73); Platelet Count 219 X10*3/uL (160-400); Red Blood Count 4.86 X10*6/uL (4.60-5.80); Red Cell Distribution Width 16.2 % (11.0-16.0); White Blood Count 7.3 X10*3/uL (4.8-10.8)
[2022-12-25 08:41] LABS: Appearance Urine Clear; Color Urine Yellow; Glucose Urine UA >=1000 mg/dL (Negative); Leukocyte Esterase Urine Negative (Negative); Nitrite Urine Negative (Negative); PH 5.5 (5.0-9.0); Specific Gravity - Urine 1.025 (1.005-1.025); UMIC TRIGGER UACC YES; Urine Blood Negative (Negative); Urine Ketones Negative (Negative); Urine Protein 30 (1+) mg/dL (Neg-Trace)
[2022-12-25 08:46] LABS: Bacteria Urine None Seen (None Seen); Hyaline Casts Urine 0-2 /LPF (0-2); RBC Urine 0-2 /HPF (0-2); Squamous Epithelial Cell Urine 0-2 /HPF (0-2); WBC Urine 0-5 /HPF (0-5)
[2022-12-25 08:50] LABS: Estimated Average Glucose 189 mg/dL; Hemoglobin A1c % 8.2 % (<6.0)
[2022-12-25 09:19] LABS: Alanine Aminotransferase 27 U/L (0-40); Albumin Level 4.2 g/dL (3.5-5.0); Alkaline Phosphatase 47 U/L (39-117); Anion Gap 11 (12-20); Aspartate Amino Transferase 25 U/L (5-37); Bilirubin Total 0.5 mg/dL (0.0-1.0); Blood Urea Nitrogen 21 mg/dL (9-16); Calcium 9.6 mg/dL (8.4-10.2); Carbon Dioxide 26 mmol/L (22-29); Chloride 106 mmol/L (96-108); Cholesterol 114 mg/dL (<200); Estimated Glomerular Filt Rate > 60; Glucose Fasting 135 mg/dL (60-99); HDL Cholesterol 50 mg/dL (>40); LDL Cholesterol Calculated 43 mg/dL (<100); Potassium 4.2 mmol/L (3.3-5.1); Sodium 139 mmol/L (135-145); Total Protein 7.3 g/dL (6.5-8.0); Triglycerides 108 mg/dL (<150)
[2022-12-25 09:32] LABS: Vitamin B12 321 pg/mL (200-900)
[2022-12-25 09:36] LABS: TSH reflex Free T4 1.95 uIU/mL (0.32-4.0); Vitamin D 25-OH Total 22.9 ng/mL (>30)
[2022-12-25 10:47] LABS: Creatinine Urine 55.98 mg/dL; Microalbum/Creatinine Ratio Ur 301.8 ug/mg cr (<30)
== END 2022-12-25 08:06 | disposition home or self-care (01) ==
LOC: HO.LAB 08:05
PROVIDERS: PCP Internal Medicine; Visit Provider Internal Medicine
DX: I10 Essential (primary) hypertension (principal); E78.00 Pure hypercholesterolemia, unspecified; E11.9 Type 2 diabetes mellitus without complications; E53.8 Deficiency of other specified B group vitamins; E55.9 Vitamin D deficiency, unspecified
CPT/HCPCS: 36415; 80053; 80061; 81001; 82043; 82306; 82570; 82607; 82746; 83036; 84443; 85025

== ENCOUNTER 2022-12-28 12:44 | Outpatient (AMB) | payer OTHER, SELFPAY ==
[2022-10-22 07:38] VITALS: BP 126/68; BP 138/68; BMI 29.7
[2022-11-19 14:25] VITALS: BP 126/68; BP 138/68
[2022-12-16 07:48] VITALS: BP 124/58; BMI 29.7
[2022-12-28 13:06] VITALS: BP 110/70; PULSE 95; O2SAT 96; BMI 29.7
--- NOTE | 2022-12-28 13:06 | A.OFFPC_ITS ---
Vital Signs 12/28/22 13:06 Height 5 ft 4 in Weight 173 lb BMI 29.7 BP 110/70 Blood Pressure Location Lt brachial Position Sitting Pulse 95 Pulse Source Pulse Oximeter Pulse Oximetry (%) 96 Oxygen Delivery Method Room Air Intake Visit Reasons: CAD, hyperlipidemia, DM, HTN Mirror Machine Feeder Required: No Accompanied by: Self / Same As Patient Allergies No Known Allergies [No Known Allergies*] Allergy (Verified 12/28/22 13:37) Medication List - Last Reconciled 12/28/22 by Aram Murphy MD amlodipine 2.5 mg PO DAILY aspirin (Adult Low Dose Aspirin) 81 mg PO DAILY clobetasol 0.05% 1 appl topical BID PRN clopidogrel 75 mg PO DAILY empagliflozin (Jardiance) 25 mg PO QAM ergocalciferol (vitamin D2) 1,250 mcg PO QWEEK flash glucose scanning reader ([employer] Senait 14 Day [place]) As directed flash glucose sensor ([employer] Senait 14 Day Sensor kit) As directed Flexichamber (inhalational spacing device) use with Albuterol inhaler as directed NS Humalog KwikPen Insulin (insulin lispro) Inject 10 to 12 units as instructed 3 times a day with meals dosed per sliding scale subcutaneously; 30 days NS insulin glargine (Lantus Solostar U-100 Insulin) 28 units (0.28 mL) subcut QPM isosorbide mononitrate ER 60 mg PO DAILY liraglutide (Victoza 2-Juan A) 0.6 mg (0.1 mL) subcut DAILY losartan 100 mg PO DAILY metformin 1,000 mg PO BID metoprolol succinate ER 100 mg PO DAILY 90 days multivitamin 1 tab PO DAILY nitroglycerin 0.4 mg sublingual ONCE omega 2-soo-kjg-fish oil 350 mg-235 mg- 90 mg-597 mg ([place]-3) 1 cap PO DAILY pen needle, diabetic As directed five times a day rosuvastatin 40 mg PO DAILY tamsulosin 0.4 mg PO BEDTIME Tobacco use date assessed: 12/28/22 Fall risk assessment: No Falls in past year Last assessed Fall Risk: 12/28/22 Dental Screening Dental Screen Date: 12/28/22 Did you have a dental visit in the last 12 months?: No Did you have a dental problem in the last 6 months where you did not have access to dental care?: No Was dental information given to patient?: No HPI CAD, hyperlipidemia, DM, HTN HPI Details Patient comes in today for his follow up visit States that he currently feels okay Relates that Dr. Malone ended up cancelling his cataract surgery that he was supposed to have done last month due to the fact that he just had a NSTEMI and underwent PCI back in October 2022 - was advised that they will reschedule him for cataract surgery once he is at least 6 months or preferably a year out from his PCI States that he is currently still on Mounjaro 2.5 mg once a week for his diabetes but his insurance is declining to cover his Rx and he is being switched over to Victoza 0.[address] Calvillo although he still has about 2 weeks left on his Mounjaro and he has not yet made the switch He continues on Metformin 1000 mg BID, Lantus 28 units QD and Jardiance 25 mg QD He is scheduled to see Dr. Calvillo for follow up of his diabetes in a couple of weeks States that he currently feels okay and is still going to cardiac rehab, which he has been doing so for a few weeks now He denies any headaches or dizziness Denies any chest pains, no increased SOB No nausea/vomiting, no abdominal pain No change in bowel habits noted Had his follow up labs done a few days ago - to discuss his results [facility] Medical History (Updated 12/28/22 @ 14:04 by Aram Murphy MD) PVCs (premature ventricular contractions) Overweight (BMI 25.0-29.9) Cataract Obesity (BMI 30-39.9) Dermatosis GERD without esophagitis Benign essential hypertension Pure hypercholesterolemia Atherosclerotic heart disease of [place] coronary artery without angina pectoris Type 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 Mother Diabetes mellitus CVD (cardiovascular disease) Hypertension Social History Household Members: Spouse Housing: House Alcohol intake: never Patient Tobacco Use Status: Never used Tobacco e-Cigarette/Vaping Use: Never Used Second Hand Smoke Exposure: No service: No Current occupational status: employed Cognitive needs: No Hearing needs: No Vision needs: Yes Questionnaire PHQ-9 Over the last 2 weeks, how often have you been bothered by any of the following problems? 1. Little interest or pleasure in doing things: not at all 2. Feeling down, depressed, or hopeless: not at all 3. Trouble falling or staying asleep, or sleeping too much: not at all 4. Feeling tired or having little energy: not at all 5. Poor appetite or overeating: not at all 6. Feeling bad about yourself - or that you are a failure or have let yourself or your family down: not at all 7. Trouble concentrating on things, such as reading the newspaper or watching television: not at all 8. Moving or speaking so slowly that other people could have noticed. Or the opposite - being so fidgety or restless that you have been moving around a lot more than usual: not at all 9. Thoughts that you would be better off or of hurting yourself in some way: not at all Total score: 0 Depression Screening Interpretation: Negative Depression Screening Done: Yes 59062 - PHQ-9 Billing: Yes Source: Developed by Drs. Vargas Pope, Valerie Carpenter, Harjinder Erazo and colleagues, with an educational aubree from [employer]. Thrive Questionnaire Date Thrive assessed: 12/28/22 I am a: Patient What is your living situation today?: I have a steady place to live Within the past 12 months, did the food you bought not last and you didn't have the money to get more?: Never true Within the past 12 months, did you worry whether your food would run out before you got money to buy more?: Never true Do you have trouble paying for medicines?: No Do you have trouble getting transportation to medical appointments?: No Do you have trouble paying your heating and electricity bill?: No Do you have trouble taking care of your child, family member or friend?: No Do you have trouble with day-to-day activities such as bathing, preparing meals, shopping, managing finances, etc.?: No Are you currently unemployed and looking for a job?: No Are you interested in more education?: No Please select the resources that you would like help with: None Currently or been in a relationship where the following occur: no concerns reported AUDIT C Alcohol Use Questionnaire (AUDIT-C) 1. How often do you have a drink containing alcohol?: Never 3. How often do you have six or more drinks on one occasion?: Never Total Score: 0 Score Reviewed/Action Taken: Yes SHIREEN-7 AMB Questionnaire SHIREEN-7 Date SHIREEN - 7 assessed: 12/28/22 Feeling nervous, anxious, or on edge: 0 = Not at all Not being able to stop or control worryin = Not at all Worrying too much about different things: 0 = Not at all Trouble relaxin = Not at all Being so restless that it is hard to sit still: 0 = Not at all Becoming easily annoyed or irritable: 0 = Not at all Feeling afraid as if something awful might happen: 0 = Not at all Total SHIREEN-7 score (0-4 normal; 5-9 mild; 10-14 moderate; 15-21 severe): 0 Source: Developed by Drs. Vargas Pope, Valerie Carpenter, Harjinder Erazo and colleagues, with an educational aubree from [employer]. Review of Systems Const Denies chills, Denies fatigue, Denies fever(s) and Denies headache(s) ENT Denies dysphagia, Denies dizziness, Denies otalgia, Denies headache(s), Denies neck pain, Denies odynophagia and Denies sore throat Card Denies chest pain, Denies palpitations and Reports dyspnea on exertion (mild, chronic) Resp Denies chest congestion, Denies cough, Reports dyspnea on exertion (mild, chronic) and Denies wheezing GI Denies abdominal pain, Denies constipation, Denies dysphagia, Denies heartburn, Denies diarrhea, Denies nausea, Denies odynophagia and Denies vomiting Denies dysuria, Denies nocturia and Reports urinary frequency Musc Denies neck pain Skin/Breast Denies rash Neuro Denies dizziness and Denies headache(s) Endo Denies fatigue and Denies palpitations Aller/Immun Denies wheezing Physical exam (Primary Care) Vital Signs: Last Vital Signs Pulse 95 12/28/22 13:06 BP 110/70 12/28/22 13:06 Pulse Ox 96 12/28/22 13:06 Oxygen Delivery Method Room Air 12/28/22 13:06 BMI result Body Mass Index 29.7 Tobacco/Smoking Status: Tobacco use Status Tobacco use date assessed 12/28/22 12/28/22 13:15 Patient Tobacco Use Status Never used Tobacco 12/28/22 13:15 e-Cigarette/Vaping Use Never Used 12/28/22 13:15 PHQ-9: PHQ-9 Score PHQ-9: Total score 0 12/28/22 13:15 Depression Screening Interpretation: Negative Thrive Assessment: Date of Thrive Assessment Date Thrive assessed 12/28/22 12/28/22 13:15 Currently or been in a relationship where the following occur: no concerns reported Const General: no acute distress and alert HENMT Ears: TM's normal bilaterally and EAC's normal Throat: Yes posterior oropharynx normal and Yes tonsils normal (no TP congestion noted) Neck Neck: Yes no lymphadenopathy and Yes supple Resp Auscultation: clear to auscultation bilaterally, no rales and no wheezes Cardio Rate: regular rate Rhythm: regular rhythm Heart sounds: no murmurs GI Palpation (GI): Soft to palpation and nontender Auscultation: normal bowel sounds Extrem General: Yes no clubbing, cyanosis or edema Right upper extremity: Extremity exam: right hand Details: tenderness (over the fingers) and swelling (over the IP joints of several fingers) Left upper extremity: hand Details: tenderness (over the fingers) and swelling (over the IP joints of multiple fingers) Results Reviewed Results Reviewed: Laboratory Tests 12/25/22 12/25/22 12/25/22 08:10 08:26 08:26 WBC 7.3 Hgb 12.9 L Hct 40.5 L Plt Count 219 Sodium 139 Potassium 4.2 Creatinine 0.78 Estimated GFR > 60 Fasting Glucose 135 H Hemoglobin A1c % 8.2 H Calcium 9.6 AST 25 ALT 27 Triglycerides 108 Cholesterol 114 LDL Cholesterol, Calc 43 HDL Cholesterol 50 Vitamin B12 321 25-OH Vitamin D Total 22.9 L TSH 1.95 Ur Specific [place] 1.025 Urine Protein 30 (1+) H Urine Glucose (UA) >=1000 H Urine Blood Negative Microalb/Creat Ratio 301.8 H Assessment and Plan Assessment & Plan (1) Atherosclerotic heart disease of [place] coronary artery without angina pectoris: Comment: S/P STEMI in 2015 - cardiac cath showed a non-intervenable lesion and recommended aggressive medical Mx to modify risk factors as much as possible; S/P NSTEMI in September 2022 - [place] [facility] [place] [facility] where cardiac cath revealed severe stenosis at diagnonal 1 and he underwent PCI of culprit lesion Code(s): I25.10 - Atherosclerotic heart disease of [place] coronary artery without angina pectoris Qualifiers: [place] vs. transplanted heart: [place] heart Qualified Code(s): I25.10 - Atherosclerotic heart disease of [place] coronary artery without angina pectoris Plan: Patient had NSTEMI back in September 2022 and [place] [facility] [place] [facility] where coronary angiogram revealed (+) severe stenosis at diagonal 1 and he underwent PCI of culprit lesion Continue low dose Aspirin 81 mg QD, Clopidogrel 75 mg QD, Isosorbide Mononitrate ER 60 mg QD and Metoprolol ER 100 mg QD Patient also has sublingual Nitroglycerin tablets that he takes as needed for chest pain He is currently still going to cardiac rehab Follow up with cardiology as scheduled (2) Type 2 diabetes with nephropathy: Comment: (+) proteinuria Code(s): E11.21 - Type 2 diabetes mellitus with diabetic nephropathy Plan: HgbA1c was at 8.2% on his labs done a few days ago (in-office HgbA1c was at 7.9% previously) - goal is at least <7.0% Reinforced diabetic diet Continue Lantus 28 units Q HS, Metformin ER 1000 mg BID and Jardiance 25 mg QD (insurance previously denied covering Invokana) He is currently also on Mounjaro 2.5 mg once a week (he was switched from Trulicity over to Mounjaro by Dr. Calvillo a few months ago) and appears to be doing well but not surprisingly, his insurance does not want to cover the Rx and he is now being switched over to Victoza 0.6 mg QD Follow up with endocrinology (Dr. Calvillo) and diabetic completion supervisor as scheduled (3) Diabetic nephropathy: Code(s): E11.21 - Type 2 diabetes mellitus with diabetic nephropathy Qualifiers: Diabetes mellitus type: type 2 Qualified Code(s): E11.21 - Type 2 diabetes mellitus with diabetic nephropathy Plan: Stable lately; follow up with nephrology as scheduled Reminded again that better control of his diabetes is the best way to slow down the progression of his kidney disease (4) Pure hypercholesterolemia: Code(s): E78.00 - Pure hypercholesterolemia, unspecified Plan: Results of his labs done a few days ago reviewed and discussed with patient Reinforced low cholesterol diet Continue Rosuvastatin 40 mg QD - goal is LDL of less than 70 mg/dl due to his CAD Will recheck his labs and fasting lipids in 3 months for follow up (5) Benign essential hypertension: Code(s): I10 - Essential (primary) hypertension Plan: Reinforced low sodium diet - goal is systolic BP of at least 130 mm or less Continue Losartan 100 mg QD and Amlodipine 2.5 mg QD; is also on Metoprolol ER 100 mg QD (6) GERD without esophagitis: Code(s): K21.9 - Gastro-esophageal reflux disease without esophagitis Plan: Dietary restrictions reinforced (7) Vitamin D deficiency: Code(s): E55.9 - Vitamin D deficiency, unspecified Plan: Continue Vitamin D2 38747 once a week - he admits that he has been taking this when he remembers to take it Have advised him that his Vitamin D level dropped on his recent labs and he should try to remember to take it regularly (8) Overweight (BMI 25.0-29.9): Code(s): E66.3 - Overweight Plan: Reinforced diet /exercise as tolerated /lose weight Plan Follow up in 3 months Orders: Orders Complete Blood Count Auto Diff 3 Months I10 - Essential (primary) hypertension TSH reflex Free T4 3 Months E78.00 - Pure hypercholesterolemia, unspecified Vitamin D 25-OH Total 3 Months E55.9 - Vitamin D deficiency, unspecified Comprehensive [place]. Panel Fast 3 Months E78.00 - Pure hypercholesterolemia, unspecified Lipid Panel 3 Months E78.00 - Pure hypercholesterolemia, unspecified UA CC w/rflx Micro + Cult 3 Months R30.0 - Dysuria Microalbumin, Random (w Creat) 3 Months E11.9 - Type 2 diabetes mellitus without complications Hemoglobin A1c 3 Months E11.9 - Type 2 diabetes mellitus without complications Coding Level of Care Code Est Pt Level 4 (76064) Diagnoses Atherosclerosis of [place] coronary artery of [place] heart without angina pectoris I25.10 [place] vs. transplanted heart: [place] heart Type 2 diabetes with nephropathy E11.21 Diabetic nephropathy associated with type 2 diabetes mellitus E11.21 Diabetes mellitus type: type 2 Pure hypercholesterolemia E78.00 Benign essential hypertension I10 GERD without esophagitis K21.9 Vitamin D deficiency E55.9 Overweight (BMI 25.0-29.9) E66.3
== END 2022-12-28 13:53 | disposition home or self-care (01) ==
PROVIDERS: PCP Internal Medicine; Visit Provider Internal Medicine
DX: I25.10 Atherosclerotic heart disease of native coronary artery without angina pectoris (principal); E11.21 Type 2 diabetes mellitus with diabetic nephropathy; E78.00 Pure hypercholesterolemia, unspecified; I10 Essential (primary) hypertension; K21.9 Gastro-esophageal reflux disease without esophagitis; E55.9 Vitamin D deficiency, unspecified; E66.3 Overweight
CPT/HCPCS: 99214

== ENCOUNTER 2023-01-13 09:31 | Outpatient (AMB) | payer OTHER, SELFPAY ==
[2022-11-19 14:25] VITALS: BP 126/68; BP 138/68
[2022-12-16 07:48] VITALS: BP 124/58; BMI 29.7
--- NOTE | 2023-01-13 09:33 | A.OFFVIS_ITS ---
Intake Vital Signs 01/13/23 09:34 Height 5 ft 4 in Weight 171 lb 11.841 oz BMI 29.5 BP 110/80 Blood Pressure Location Lt brachial Position Sitting Pulse 88 Pulse Source Pulse Oximeter Intake Visit Reasons: f/u Type 2 DM Intake Note: Patient present today to follow up on Type 2 Diabetes Mellitus. Patient receives DME supplies through: Pharmacy Last Diabetic Eye exam: 09/25/22 [facility] Last Podiatry Visit: Does not see a Machinery Rigger Random Glucose: 138 mg/dl HgA1C: 8.2% 12/25/22 Gaming Cashier Required: Yes Gaming Cashier Language: Health Care Specialist Name: Zenia medical staff Information Interpreted: non-clinical & clinical Accompanied by: Spouse Allergies No Known Allergies [No Known Allergies*] Allergy (Verified 01/13/23 09:39) HPI HPI Comments History of Present Illness Details Patient is a 62 year old male with DM type 2 diagnosed approximately 15 years ago who presents for continued management of diabetes. Past medical history includes : HLD, vitamin D deficiency, GERD, hypertension, non-ST elevated [place]. Micro and macrovascular complications: + retinopathy, + nephropathy, + neuropathy, + CAD, Diabetes medications: Lantus 22 units Humalog 10 units small meals, 12 units large meals , metformin 500 er 2 pills twice daily, Invokana 300mg,Ozempic 2 mg . Could not tolerate Uepaa download from 12/31/2022-01/13/2023 shows average glucose to be 200 with G mi of 8.1%. 39% are in range with 44% hyperglycemia and 17% very hyperglycemic and no hypoglycemia but tends to trend overnight downward with post-prandial increases after breakfast and supper Symptoms reported: no numbness, tingling and cramping in lower extremities Hypoglycemia: No Hyperglycemia: denies polyuria . 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 Eye exam: 2 mos ago - ou preproliferative diabetic retinopathy Laboratory Tests 01/21/21 05/05/21 05/05/21 14:28 08:02 08:25 Creatinine 0.83 Estimated GFR > 60 Hgb A1c (Clinic) 8.5 H Hemoglobin A1c % Triglycerides 93 Cholesterol 149 D LDL Cholesterol, C alc 84 HDL Cholesterol 47 25-OH Vitamin D To darrell 32.1 TSH 1.95 Microalb/Creat Rat io 554.8 05/05/21 08:28 Creatinine Estimated GFR Hgb A1c (Clinic) Hemoglobin A1c % 10.2 Triglycerides Cholesterol LDL Cholesterol, C alc HDL Cholesterol 25-OH Vitamin D To darrell TSH Microalb/Creat Rat io 08/13/20 08/13/20 08/13/20 08:16 08:16 Unknown Creatinine 0.82 Estimated GFR > 60 Hemoglobin A1c % 9.1 Triglycerides 67 Cholesterol 114 LDL Cholesterol, C alc 58 HDL Cholesterol 43 25-OH Vitamin D To darrell 42.4 TSH 1.19 Microalb/Creat Rat io 440.9 [facility] Medical History (Updated 12/28/22 @ 14:04 by Aram Murphy MD) PVCs (premature ventricular contractions) Overweight (BMI 25.0-29.9) Cataract Obesity (BMI 30-39.9) Dermatosis GERD without esophagitis Benign essential hypertension Pure hypercholesterolemia Atherosclerotic heart disease of [place] coronary artery without angina pectoris Type 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 Mother Diabetes mellitus CVD (cardiovascular disease) Hypertension Social History Household Members: Spouse Housing: House Alcohol intake: never Patient Tobacco Use Status: Never used Tobacco e-Cigarette/Vaping Use: Never Used Second Hand Smoke Exposure: No service: No Current occupational status: employed Cognitive needs: No Hearing needs: No Vision needs: Yes Physical Exam Vital Signs: Last Vital Signs Pulse 88 01/13/23 09:34 BP 110/80 01/13/23 09:34 BMI result Body Mass Index 29.5 Absence of Cushingoid features. Absence of acromegalic features. Neck exam reveals nl size thyroid about 15 gms. No thyroid nodules palpable. No carotid bruits present. Lungs CTA. Heart S1 S2, Reg R/R. No M/R/ G. Skin exam reveals absence of vitiligo or acanthosis nigricans. Abdominal exam reveals Soft NT/ND with NA BS. No organomegaly present. Neck Other: . Extrem Other: Visual exam of foot performed. No ulcerations or open lesions. No onchomycosis, no callouses.Pulses 2 + distally Sensation intact to monofilament exam. Vibratory sensation sensed is intact with 128 Hz tuning fork Assessment & Plan Assessment & Plan (1) Type 2 diabetes with nephropathy: Comment: (+) proteinuria Code(s): E11.21 - Type 2 diabetes mellitus with diabetic nephropathy Plan: This 61-year-old male with history of type 2 diabetes being treated with metformin, Ozempic , Jardiance and basal-bolus insulin with poor glycemic control and known microvascular and macrovascular complication namely: + retinopathy, + nephropathy, + neuropathy, + CAD, The plan is switch the Ozempic to Mounjaro 2.5 mg Qwkly. He did well with Mounjaro samples and has failed Trulicity, Ozempic and Victoza Mounjaro 2.5 mg samples were given to the patient LOT [id number] EXP 06/14/24 Orders: Referrals Podiatry Referral E11.21 - Type 2 diabetes mellitus with diabetic nephropathy Medications: New tirzepatide (Mounjaro) 2.5 mg (0.5 mL) subcut QWEEK 4 weeks 2 mL 0RF Discontinued liraglutide (Victoza 2-Juan A) Discontinued Reason: Doctor's Order 0.6 mg (0.1 mL) subcut DAILY 6 mL 4RF Coding Level of Care Code Est Pt Level 4 (97562) Diagnoses Type 2 diabetes with nephropathy E11.21
[2023-01-13 09:34] VITALS: BP 110/80; PULSE 88; BMI 29.5
[2023-01-13 09:47] LABS: Glucose, Whole Blood 138 mg/dL (60-115)
== END 2023-01-13 10:07 | disposition home or self-care (01) ==
PROVIDERS: PCP Internal Medicine; Visit Provider Internal Medicine Endocrinology, Diabetes & Metabolism
DX: E11.21 Type 2 diabetes mellitus with diabetic nephropathy (principal)
CPT/HCPCS: 99214

== ENCOUNTER → 2023-01-13 09:31 | Outpatient (BNVA) | payer OTHER, SELFPAY ==
[2022-11-19 14:25] VITALS: BP 126/68; BP 138/68
[2022-12-16 07:48] VITALS: BP 124/58; BMI 29.7
== END ==
PROVIDERS: PCP Internal Medicine; Visit Provider Internal Medicine Endocrinology, Diabetes & Metabolism
DX: E11.21 Type 2 diabetes mellitus with diabetic nephropathy (principal); E11.319 Type 2 diabetes mellitus with unspecified diabetic retinopathy without macular edema; E11.40 Type 2 diabetes mellitus with diabetic neuropathy, unspecified; Z79.4 Long term (current) use of insulin
CPT/HCPCS: 82947

== ENCOUNTER 2023-02-25 10:10 | Outpatient (AMB) | payer OTHER, SELFPAY ==
[2022-11-19 14:25] VITALS: BP 126/68; BP 138/68
[2022-11-19 16:15] VITALS: BP 114/54; BMI 29.7
[2023-01-22 13:17] VITALS: BP 100/54; BP 104/54; BP 120/64; BMI 29.7
[2023-02-25 10:15] VITALS: BP 120/80; PULSE 95; BMI 29.1
--- NOTE | 2023-02-25 10:15 | MHC.OFFVIS ---
Intake Vital Signs 02/25/23 10:15 Height 5 ft 4 in Weight 169 lb 12.095 oz BMI 29.1 BP 120/80 Blood Pressure Location Lt brachial Position Sitting Pulse 95 Intake Visit Reasons: follow up Intake Note: Follow-up dx CAD feeling good Public Relations Associate Required: No Home Weatherizing Worker: Home Weatherizing Worker Present Accompanied by: Spouse Allergies No Known Allergies [No Known Allergies*] Allergy (Verified 01/13/23 09:39) Medication List - Last Reconciled 02/25/23 by Karl Franco MD amlodipine 2.5 mg PO DAILY aspirin (Adult Low Dose Aspirin) 81 mg PO DAILY clobetasol 0.05% 1 appl topical BID PRN clopidogrel 75 mg PO DAILY empagliflozin (Jardiance) 25 mg PO QAM ergocalciferol (vitamin D2) 1,250 mcg PO QWEEK flash glucose scanning reader (AppiterateStyle Senait 14 Day [place]) As directed flash glucose sensor (AppiterateStyle Senait 14 Day Sensor kit) As directed Flexichamber (inhalational spacing device) use with Albuterol inhaler as directed NS Humalog KwikPen Insulin (insulin lispro) Inject 10 to 12 units as instructed 3 times a day with meals dosed per sliding scale subcutaneously; 30 days NS insulin glargine (Lantus Solostar U-100 Insulin) 28 units (0.28 mL) subcut QPM isosorbide mononitrate ER 60 mg PO DAILY losartan 100 mg PO DAILY metformin 1,000 mg PO BID metoprolol succinate ER 100 mg PO DAILY 90 days multivitamin 1 tab PO DAILY nitroglycerin 0.4 mg sublingual ONCE pen needle, diabetic As directed five times a day rosuvastatin 40 mg PO DAILY tamsulosin 0.4 mg PO BEDTIME tirzepatide (Mounjaro) 2.5 mg (0.5 mL) subcut QWEEK 4 weeks HPI HPI Comments History of Present Illness Details Tomas comes for follow-up. He has been doing well from cardiac perspective. Had some chest pain after whole day of shoveling. However he says the chest pain was mild and then went away. Does not get chest pain with his usual day-to-day activity. Takes all his medications. Denies any prolonged palpitation irregular heartbeat. Occasional skipped heartbeats. Denies any heart failure symptoms. His last LDL was well optimized at 43. Last hemoglobin A1c is 8.2. Blood pressure is well controlled today, he does not measure on a regular basis. 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 Mother Diabetes mellitus CVD (cardiovascular disease) Hypertension Social History Household Members: Spouse Housing: House Alcohol intake: never Patient Tobacco Use Status: Never used Tobacco e-Cigarette/Vaping Use: Never Used Second Hand Smoke Exposure: No service: No Current occupational status: employed Cognitive needs: No Hearing needs: No Vision needs: Yes Review of Systems Const Denies chills, Denies fatigue, Denies fever(s), Denies frequent falls, Denies weakness, Denies weight gain and Denies weight loss ENT Denies dizziness Card Denies chest pain, Denies leg edema, Denies lightheadedness, Denies palpitations, Denies dyspnea, Denies dyspnea on exertion, Denies orthopnea and Denies other (loss of consciousness) Resp Denies cough, Denies dyspnea and Denies dyspnea on exertion GI Denies hematochezia and Denies change in stool character Musc Denies abnormal gait, Denies muscle weakness, Denies numbness, Denies radiating pain into limb and Denies tingling Neuro Denies Abnormal speech present, Denies abnormal gait, Denies dizziness, Denies frequent falls, Denies numbness, Denies tingling and Denies weakness Endo Denies fatigue and Denies palpitations Physical Exam Vital Signs: Last Vital Signs Pulse 95 02/25/23 10:15 BP 120/80 02/25/23 10:15 BMI result Body Mass Index 29.1 Const General: cooperative, comfortable, no acute distress, well developed, alert, awake and Physically active Nutritional Appearance: overweight Orientation/consciousness: patient oriented x3 Limitations: no limitations Neck Neck: Yes trachea midline, Yes supple and Yes no JVD Carotids: no bruits Resp Effort & Inspection: normal respiratory effort Auscultation: clear to auscultation bilaterally Cardio Jugular venous distension: no JVD Palpation: normal PMI Rate: regular rate Rhythm: regular rhythm Heart sounds: S1 normal heart sound present, S2 normal heart sound present, no click, no gallops, no murmurs and no rubs GI Auscultation: normal bowel sounds Neuro General: patient oriented x3 and no focal motor deficits Speech: No Abnormal speech present Extrem General: Yes no clubbing, cyanosis or edema Assessment & Plan Assessment & Plan (1) Atherosclerotic heart disease of [place] coronary artery without angina pectoris: Comment: S/P STEMI in 2015 - cardiac cath showed a non-intervenable lesion and recommended aggressive medical Mx to modify risk factors as much as possible; S/P NSTEMI in September 2022 - was transferred from [facility] to [facility], where cardiac cath revealed severe stenosis at diagnonal 1 and he underwent PCI of culprit lesion Code(s): I25.10 - Atherosclerotic heart disease of [place] coronary artery without angina pectoris Qualifiers: [place] vs. transplanted heart: [place] heart Qualified Code(s): I25.10 - Atherosclerotic heart disease of [place] coronary artery without angina pectoris Plan: CAD with symptoms of angina with heavy exertional activity. Advised to avoid sudden strenuous exertional activity or prolonged heart work to reduce risk of acute coronary syndrome. This was discussed with him. Continue low-dose aspirin therapy. Continue high-intensity statin therapy with well optimized LDL at current point time. His diabetes not well control and target goal hemoglobin A1c should be less than 7%, being pursue through your office. Blood pressure is currently well optimized. Advised to call me if there is worsening symptoms of angina with minimal activity that may require further workup. Emergency care as required. (2) Hypertension: Code(s): I10 - Essential (primary) hypertension Qualifiers: Hypertension type: essential hypertension Qualified Code(s): I10 - Essential (primary) hypertension Plan: Hypertension which is currently well optimized advised to monitor blood pressure at home maintain a log. Goal blood pressure less than 130/84. Low-salt diet was discussed. Advised to maintain heart healthy lifestyle which is currently doing and maintain activity level. Will follow up in the clinic in 1 year's time, sooner p.r.n.. Thank you for allowing me to partake in his care Coding Level of Care Code Est Pt Level 4 (52289) Diagnoses Atherosclerosis of [place] coronary artery of [place] heart without angina pectoris I25.10 [place] vs. transplanted heart: [place] heart Essential hypertension I10 Hypertension type: essential hypertension
== END 2023-02-25 10:35 | disposition home or self-care (01) ==
PROVIDERS: PCP Internal Medicine; Visit Provider Internal Medicine Cardiovascular Disease
DX: I25.10 Atherosclerotic heart disease of native coronary artery without angina pectoris (principal); I10 Essential (primary) hypertension
CPT/HCPCS: 99214

== ENCOUNTER → 2023-02-25 10:10 | Outpatient (BNVA) | payer OTHER, SELFPAY ==
[2023-01-22 13:17] VITALS: BP 100/54; BP 104/54; BP 120/64; BMI 29.7
== END ==
PROVIDERS: PCP Internal Medicine; Visit Provider Internal Medicine Cardiovascular Disease

== ENCOUNTER 2023-04-10 08:00 | Outpatient (REF) | payer OTHER, SELFPAY ==
[2023-01-22 13:17] VITALS: BP 100/54; BP 104/54; BP 120/64; BMI 29.7
[2023-04-10 08:19] LABS: MANUAL DIFF FLAG NO
[2023-04-10 08:40] LABS: Basophils Percent Auto 0.2 % (0-2); Eosinophils Absolute Auto 0.1 X10*3/uL (0.0-0.4); Eosinophils Percent Auto 1.5 % (0-4); Hematocrit 41.8 % (42.0-52.0); Hemoglobin 13.4 g/dl (14.0-18.0); Imm Gran Abs Auto 0.02 X10*3/uL (0.00-0.03); Imm Gran Pct Auto 0.2 % (0.0-0.4); Lymphocytes Absolute Auto 2.8 X10*3/uL (1.2-4.9); Lymphocytes Percent Auto 34.4 % (20-40); Mean Corpuscular HGB Conc 32.1 g/dl (31.0-36.0); Mean Corpuscular Volume 84.3 fL (80.0-98.0); Mean Platelet Volume 10.5 fL (9.4-12.4); Monocytes Absolute Auto 0.6 X10*3/uL (0.1-1.2); Monocytes Percent Auto 7.8 % (2-11); Neutrophils Absolute Auto 4.5 x10*3/uL (2.0-8.3); Neutrophils Percent Auto 55.9 % (45-73); Platelet Count 204 X10*3/uL (160-400); Red Blood Count 4.96 X10*6/uL (4.60-5.80); Red Cell Distribution Width 14.6 % (11.0-16.0); White Blood Count 8.1 X10*3/uL (4.8-10.8)
[2023-04-10 08:53] LABS: Estimated Average Glucose 209 mg/dL; Hemoglobin A1c % 8.9 % (<6.0)
[2023-04-10 09:08] LABS: Appearance Urine Clear; Color Urine Yellow; Glucose Urine UA >=1000 mg/dL (Negative); Leukocyte Esterase Urine Negative (Negative); Nitrite Urine Negative (Negative); PH 5.5 (5.0-9.0); Specific Gravity - Urine >= 1.030 (1.005-1.025); UMIC TRIGGER UACC YES; Urine Blood Negative (Negative); Urine Ketones Negative (Negative); Urine Protein 100 (2+) mg/dL (Neg-Trace)
[2023-04-10 09:11] LABS: Alanine Aminotransferase 35 U/L (0-40); Albumin Level 4.2 g/dL (3.5-5.0); Alkaline Phosphatase 43 U/L (39-117); Anion Gap 15 (12-20); Aspartate Amino Transferase 27 U/L (5-37); Bilirubin Total 0.5 mg/dL (0.0-1.0); Blood Urea Nitrogen 21 mg/dL (9-16); Calcium 9.7 mg/dL (8.4-10.2); Carbon Dioxide 26 mmol/L (22-29); Chloride 105 mmol/L (96-108); Cholesterol 117 mg/dL (<200); Estimated Glomerular Filt Rate > 60; Glucose Fasting 127 mg/dL (60-99); HDL Cholesterol 52 mg/dL (>40); LDL Cholesterol Calculated 46 mg/dL (<100); Sodium 142 mmol/L (135-145); Total Protein 7.3 g/dL (6.5-8.0); Triglycerides 95 mg/dL (<150)
[2023-04-10 09:16] LABS: Bacteria Urine None Seen (None Seen); Hyaline Casts Urine 0-2 /LPF (0-2); RBC Urine 0-2 /HPF (0-2); Squamous Epithelial Cell Urine 0-2 /HPF (0-2); WBC Urine 0-5 /HPF (0-5)
[2023-04-10 09:29] LABS: TSH reflex Free T4 2.67 uIU/mL (0.32-4.0); Vitamin D 25-OH Total 29.2 ng/mL (>30)
[2023-04-10 09:50] LABS: Creatinine Urine 84.59 mg/dL; Microalbum/Creatinine Ratio Ur 438.5 ug/mg cr (<30)
== END 2023-04-10 08:01 | disposition home or self-care (01) ==
LOC: HO.LAB 08:00
PROVIDERS: PCP Internal Medicine; Visit Provider Internal Medicine
DX: E78.00 Pure hypercholesterolemia, unspecified (principal); E11.9 Type 2 diabetes mellitus without complications; E55.9 Vitamin D deficiency, unspecified; I10 Essential (primary) hypertension
CPT/HCPCS: 36415; 80053; 80061; 81001; 82043; 82306; 82570; 83036; 84443; 85025

== ENCOUNTER 2023-04-13 09:48 | Outpatient (AMB) | payer OTHER, SELFPAY ==
[2022-11-19 14:25] VITALS: BP 126/68; BP 138/68
[2022-12-16 07:48] VITALS: BP 124/58; BMI 29.7
[2023-01-22 13:17] VITALS: BP 100/54; BP 104/54; BP 120/64; BMI 29.7
[2023-04-13 09:51] VITALS: BP 122/80; PULSE 89; O2SAT 96; BMI 29.3
--- NOTE | 2023-04-13 09:51 | MHC.PC.OV ---
Vital Signs 04/13/23 09:51 Height 5 ft 4 in Weight 171 lb BMI 29.3 BP 122/80 Blood Pressure Location Lt brachial Position Sitting Pulse 89 Pulse Source Pulse Oximeter Pulse Oximetry (%) 96 Oxygen Delivery Method Room Air Intake Visit Reasons: DM, CAD, hyperlipidemia Art Gilder Required: No Accompanied by: Self / Same As Patient Allergies No Known Allergies [No Known Allergies*] Allergy (Verified 04/13/23 10:31) Medication List - Last Reconciled 04/13/23 by Aram Murphy MD amlodipine 2.5 mg PO DAILY aspirin (Adult Low Dose Aspirin) 81 mg PO DAILY clobetasol 0.05% 1 appl topical BID PRN clopidogrel 75 mg PO DAILY empagliflozin (Jardiance) 25 mg PO QAM ergocalciferol (vitamin D2) 1,250 mcg PO QWEEK flash glucose scanning reader (GreycorkStyle Senait 14 Day [place]) As directed flash glucose sensor (GreycorkStyle Senait 14 Day Sensor kit) As directed Flexichamber (inhalational spacing device) use with Albuterol inhaler as directed NS Humalog KwikPen Insulin (insulin lispro) Inject 10 to 12 units as instructed 3 times a day with meals dosed per sliding scale subcutaneously; 30 days NS insulin glargine (Lantus Solostar U-100 Insulin) 28 units (0.28 mL) subcut QPM isosorbide mononitrate ER 60 mg PO DAILY losartan 100 mg PO DAILY metformin 1,000 mg PO BID metoprolol succinate ER 100 mg PO DAILY 90 days multivitamin 1 tab PO DAILY nitroglycerin 0.4 mg sublingual ONCE nystatin-triamcinolone 100,000-0.1 unit/g-% 1 appl topical BID 10 days pen needle, diabetic As directed five times a day rosuvastatin 40 mg PO DAILY tamsulosin 0.4 mg PO BEDTIME tirzepatide (Mounjaro) 2.5 mg (0.5 mL) subcut QWEEK 4 weeks Tobacco use date assessed: 04/13/23 Fall risk assessment: No Falls in past year Last assessed Fall Risk: 04/13/23 Dental Screening Dental Screen Date: 04/13/23 Did you have a dental visit in the last 12 months?: No Did you have a dental problem in the last 6 months where you did not have access to dental care?: No Was dental information given to patient?: No HPI DM, CAD, hyperlipidemia HPI Details Patient comes in today for his follow up visit States that he feels okay He denies any headaches or dizziness Denies any chest pains, no increased SOB No nausea/vomiting, no abdominal pain No change in bowel habits noted Had his follow up labs done a few days ago - to discuss his results [facility] Medical History PVCs (premature ventricular contractions) Overweight (BMI 25.0-29.9) Cataract Obesity (BMI 30-39.9) Dermatosis GERD without esophagitis Benign essential hypertension Pure hypercholesterolemia Atherosclerotic heart disease of [place] coronary artery without angina pectoris Type 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 Mother Diabetes mellitus CVD (cardiovascular disease) Hypertension Social History Household Members: Spouse Housing: House Alcohol intake: never Patient Tobacco Use Status: Never used Tobacco e-Cigarette/Vaping Use: Never Used Second Hand Smoke Exposure: No service: No Current occupational status: employed Cognitive needs: No Hearing needs: No Vision needs: Yes Questionnaire PHQ-9 Over the last 2 weeks, how often have you been bothered by any of the following problems? 1. Little interest or pleasure in doing things: not at all 2. Feeling down, depressed, or hopeless: not at all 3. Trouble falling or staying asleep, or sleeping too much: not at all 4. Feeling tired or having little energy: not at all 5. Poor appetite or overeating: not at all 6. Feeling bad about yourself - or that you are a failure or have let yourself or your family down: not at all 7. Trouble concentrating on things, such as reading the newspaper or watching television: not at all 8. Moving or speaking so slowly that other people could have noticed. Or the opposite - being so fidgety or restless that you have been moving around a lot more than usual: not at all 9. Thoughts that you would be better off or of hurting yourself in some way: not at all Total score: 0 Depression Screening Interpretation: Negative Depression Screening Done: Yes 98124 - PHQ-9 Billing: Yes Source: Developed by Drs. Vargas Pope, Valerie Carpenter, Harjinder Erazo and colleagues, with an educational aubree from [employer]. Thrive Questionnaire Date Thrive assessed: 04/13/23 I am a: Patient What is your living situation today?: I have a steady place to live Within the past 12 months, did the food you bought not last and you didn't have the money to get more?: Never true Within the past 12 months, did you worry whether your food would run out before you got money to buy more?: Never true Do you have trouble paying for medicines?: No Do you have trouble getting transportation to medical appointments?: No Do you have trouble paying your heating and electricity bill?: No Do you have trouble taking care of your child, family member or friend?: No Do you have trouble with day-to-day activities such as bathing, preparing meals, shopping, managing finances, etc.?: No Are you currently unemployed and looking for a job?: No Are you interested in more education?: No Please select the resources that you would like help with: None Currently or been in a relationship where the following occur: no concerns reported THRIVE Score: 0 AUDIT C Alcohol Use Questionnaire (AUDIT-C) 1. How often do you have a drink containing alcohol?: Never 3. How often do you have six or more drinks on one occasion?: Never Total Score: 0 Score Reviewed/Action Taken: Yes SHIREEN-7 AMB Questionnaire SHIREEN-7 Date SHIREEN - 7 assessed: 04/13/23 Feeling nervous, anxious, or on edge: 0 = Not at all Not being able to stop or control worryin = Not at all Worrying too much about different things: 0 = Not at all Trouble relaxin = Not at all Being so restless that it is hard to sit still: 0 = Not at all Becoming easily annoyed or irritable: 0 = Not at all Feeling afraid as if something awful might happen: 0 = Not at all Total SHIREEN-7 score (0-4 normal; 5-9 mild; 10-14 moderate; 15-21 severe): 0 Source: Developed by Drs. Vargas Pope, Valerie Carpenter, Harjinder Erazo and colleagues, with an educational aubree from [employer]. Review of Systems Const Denies chills, Denies fatigue, Denies fever(s) and Denies headache(s) ENT Denies dysphagia, Denies dizziness, Denies otalgia, Denies headache(s), Denies neck pain, Denies odynophagia and Denies sore throat Card Denies chest pain, Denies palpitations and Reports dyspnea on exertion (mild, chronic) Resp Denies chest congestion, Denies cough, Reports dyspnea on exertion (mild, chronic) and Denies wheezing GI Denies abdominal pain, Denies constipation, Denies dysphagia, Denies heartburn, Denies diarrhea, Denies nausea, Denies odynophagia and Denies vomiting Denies dysuria, Denies nocturia and Reports urinary frequency Musc Denies back pain and Denies neck pain Skin/Breast Denies rash Neuro Denies dizziness and Denies headache(s) Endo Denies fatigue and Denies palpitations Aller/Immun Denies wheezing Physical exam (Primary Care) Vital Signs: Last Vital Signs Pulse 89 04/13/23 09:51 BP 122/80 04/13/23 09:51 Pulse Ox 96 04/13/23 09:51 Oxygen Delivery Method Room Air 04/13/23 09:51 BMI result Body Mass Index 29.3 Tobacco/Smoking Status: Tobacco use Status Tobacco use date assessed 04/13/23 04/13/23 09:56 Patient Tobacco Use Status Never used Tobacco 04/13/23 09:56 e-Cigarette/Vaping Use Never Used 04/13/23 09:56 PHQ-9: PHQ-9 Score PHQ-9: Total score 0 04/13/23 09:56 Depression Screening Interpretation: Negative Thrive Assessment: Date of Thrive Assessment Date Thrive assessed 04/13/23 04/13/23 09:56 Currently or been in a relationship where the following occur: no concerns reported Const General: no acute distress and alert HENMT Ears: TM's normal bilaterally and EAC's normal Throat: Yes posterior oropharynx normal and Yes tonsils normal (no TP congestion noted) Neck Neck: Yes no lymphadenopathy and Yes supple Resp Auscultation: clear to auscultation bilaterally, no rales and no wheezes Cardio Rate: regular rate Rhythm: regular rhythm Heart sounds: no murmurs GI Palpation (GI): Soft to palpation and nontender Auscultation: normal bowel sounds Extrem General: Yes no clubbing, cyanosis or edema Right upper extremity: Extremity exam: right hand Details: tenderness (over the fingers) and swelling (over the IP joints of several fingers) Left upper extremity: hand Details: tenderness (over the fingers) and swelling (over the IP joints of multiple fingers) Results Reviewed Results Reviewed: Laboratory Tests 04/10/23 04/10/23 08:17 08:18 WBC 8.1 Hgb 13.4 L Hct 41.8 L Plt Count 204 Sodium 142 Potassium 4.0 Creatinine 0.85 Estimated GFR > 60 Fasting Glucose 127 H Hemoglobin A1c % 8.9 H Calcium 9.7 AST 27 ALT 35 Triglycerides 95 Cholesterol 117 LDL Cholesterol, Calc 46 HDL Cholesterol 52 25-OH Vitamin D Total 29.2 L TSH 2.67 Ur Specific [place] >= 1.030 H Urine Protein 100 (2+) H Urine Glucose (UA) >=1000 H Urine Blood Negative Urine Nitrite Negative Ur Leukocyte Esterase Negative Microalb/Creat Ratio 438.5 H Assessment and Plan Assessment & Plan (1) Atherosclerotic heart disease of [place] coronary artery without angina pectoris: Comment: S/P STEMI in 2015 - cardiac cath showed a non-intervenable lesion and recommended aggressive medical Mx to modify risk factors as much as possible; S/P NSTEMI in September 2022 - was transferred from [facility] [facility] to [facility], where cardiac cath revealed severe stenosis at diagnonal 1 and he underwent PCI of culprit lesion Code(s): I25.10 - Atherosclerotic heart disease of [place] coronary artery without angina pectoris Qualifiers: [place] vs. transplanted heart: [place] heart Qualified Code(s): I25.10 - Atherosclerotic heart disease of [place] coronary artery without angina pectoris Plan: S/P NSTEMI in September 2022 - patient was transferred from [facility] [facility] to [facility] and had coronary angiogram done which revealed (+) severe stenosis at diagonal 1 and he subsequently underwent PCI of the culprit lesion Continue low dose Aspirin 81 mg QD, Clopidogrel 75 mg QD, Isosorbide Mononitrate ER 60 mg QD and Metoprolol ER 100 mg QD Patient also has sublingual Nitroglycerin tablets that he takes as needed for chest pain He has been mostly asymptomatic for a while now Follow up with cardiology as scheduled (2) Type 2 diabetes with nephropathy: Comment: (+) proteinuria Code(s): E11.21 - Type 2 diabetes mellitus with diabetic nephropathy Plan: HgbA1c was at 8.9% on his labs done a few days ago (was at 8.2% a few months ago) - goal is at least <7.0% Reinforced diabetic diet - patient admits to drinking juices often lately Continue Lantus 28 units Q HS, Humalog 10 units with small meals and 12 units with large meals, Metformin ER 1000 mg BID and Jardiance 25 mg QD (insurance previously denied covering [employer]) He is currently also on Mounjaro 2.5 mg once a week (could not tolerate Trulicity and failed to respond to Ozempic) Follow up with endocrinology (Dr. 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 Calvillo coming up next month (3) Diabetic nephropathy: Code(s): E11.21 - Type 2 diabetes mellitus with diabetic nephropathy Qualifiers: Diabetes mellitus type: type 2 Qualified Code(s): E11.21 - Type 2 diabetes mellitus with diabetic nephropathy Plan: Stable lately; follow up with nephrology as scheduled Reminded again that better control of his diabetes is the best way to slow down the progression of his kidney disease (4) Pure hypercholesterolemia: Code(s): E78.00 - Pure hypercholesterolemia, unspecified Plan: Results of his labs done a few days ago reviewed and discussed with patient Reinforced low cholesterol diet Continue Rosuvastatin 40 mg QD - goal is LDL of less than 70 mg/dl due to his CAD Will recheck his labs and fasting lipids in 3 months for follow up (5) Benign essential hypertension: Code(s): I10 - Essential (primary) hypertension Plan: Reinforced low sodium diet - goal is systolic BP of at least 130 mm or less Continue Losartan 100 mg QD and Amlodipine 2.5 mg QD; is also on Metoprolol ER 100 mg QD (6) GERD without esophagitis: Code(s): K21.9 - Gastro-esophageal reflux disease without esophagitis Plan: Dietary restrictions reinforced (7) Vitamin D deficiency: Code(s): E55.9 - Vitamin D deficiency, unspecified Plan: Continue Vitamin D2 71209 once a week (8) Overweight (BMI 25.0-29.9): Code(s): E66.3 - Overweight Plan: Reinforced diet /exercise as tolerated /lose weight Plan Follow up in 3 months Orders: Orders Lipid Panel 3 Months E78.00 - Pure hypercholesterolemia, unspecified Comprehensive [place]. Panel Fast 3 Months E78.00 - Pure hypercholesterolemia, unspecified Microalbumin, Random (w Creat) 3 Months E11.9 - Type 2 diabetes mellitus without complications Hemoglobin A1c 3 Months E11.9 - Type 2 diabetes mellitus without complications Vitamin B12 and Folate 3 Months E53.8 - Deficiency of other specified B group vitamins Complete Blood Count Auto Diff 3 Months D64.9 - Anemia, unspecified TSH reflex Free T4 3 Months E78.00 - Pure hypercholesterolemia, unspecified UA CC w/rflx Micro + Cult 3 Months R30.0 - Dysuria Vitamin D 25-OH Total 3 Months E55.9 - Vitamin D deficiency, unspecified Coding Level of Care Code Est Pt Level 4 (57480) Diagnoses Atherosclerosis of [place] coronary artery of [place] heart without angina pectoris I25.10 [place] vs. transplanted heart: [place] heart Type 2 diabetes with nephropathy E11.21 Diabetic nephropathy associated with type 2 diabetes mellitus E11.21 Diabetes mellitus type: type 2 Pure hypercholesterolemia E78.00 Benign essential hypertension I10 GERD without esophagitis K21.9 Vitamin D deficiency E55.9 Overweight (BMI 25.0-29.9) E66.3
== END 2023-04-13 10:35 | disposition home or self-care (01) ==
PROVIDERS: PCP Internal Medicine; Visit Provider Internal Medicine
DX: I25.10 Atherosclerotic heart disease of native coronary artery without angina pectoris (principal); E11.21 Type 2 diabetes mellitus with diabetic nephropathy; E78.00 Pure hypercholesterolemia, unspecified; I10 Essential (primary) hypertension; K21.9 Gastro-esophageal reflux disease without esophagitis; E55.9 Vitamin D deficiency, unspecified; E66.3 Overweight
CPT/HCPCS: 99214

== ENCOUNTER 2023-05-01 23:55 | Emergency (ER) | payer OTHER, SELFPAY ==
[2023-01-22 13:17] VITALS: BP 100/54; BP 104/54; BP 120/64; BMI 29.7
--- NOTE | ~2023-05-01 | XR_ITS ---
EXAMINATION: XR CHEST CLINICAL INFORMATION: Chest pain. Cough. COMPARISON: 10/01/2022 TECHNIQUE: Frontal view of the chest was obtained. FINDINGS: Normal lung volumes. No consolidation, pneumothorax, or pleural effusion. Cardiac and mediastinal contours are normal. Pulmonary vasculature is normal. Mild bilateral glenohumeral osteoarthritis. XR/XR chest 1V IMPRESSION: No acute pulmonary disease.
[2023-05-01 23:57] VITALS: BP 83/57; PULSE 75; RESP 19; TEMP 37.7; O2SAT 95; BMI 30.5
--- NOTE | 2023-05-02 00:09 | ECG_ITS ---
Test Reason : LOW BP Blood Pressure : / mmHG Vent. Rate : 091 BPM Atrial Rate : 091 BPM P-R Int : 126 ms QRS Dur : 088 ms QT Int : 364 ms P-R-T Axes : 035 -18 073 degrees QTc Int : 447 ms Sinus rhythm with sinus arrhythmia with occasional Premature ventricular complexes Otherwise normal ECG When compared with ECG of 01-OCT-2022 21:10, No significant change was found Referred By: Generic ED Physician Electronically Signed By:ERIN COTA
[2023-05-02 00:47] LABS: MANUAL DIFF FLAG NO
[2023-05-02 00:49] LABS: Appearance Urine Clear; Color Urine Yellow; Glucose Urine UA 250 mg/dL (Negative); Leukocyte Esterase Urine Negative (Negative); Nitrite Urine Negative (Negative); PH 5.5 (5.0-9.0); Specific Gravity - Urine >= 1.030 (1.005-1.025); UMIC TRIGGER UACC YES; Urine Blood Negative (Negative); Urine Ketones Negative (Negative); Urine Protein 100 (2+) mg/dL (Neg-Trace)
[2023-05-02 00:52] LABS: Basophils Percent Auto 0.1 % (0-2); Eosinophils Percent Auto 0.4 % (0-4); Hematocrit 39.8 % (42.0-52.0); Hemoglobin 13.2 g/dl (14.0-18.0); Imm Gran Abs Auto 0.02 X10*3/uL (0.00-0.03); Imm Gran Pct Auto 0.3 % (0.0-0.4); Lymphocytes Absolute Auto 2.1 X10*3/uL (1.2-4.9); Lymphocytes Percent Auto 31.4 % (20-40); Mean Corpuscular HGB Conc 33.2 g/dl (31.0-36.0); Mean Corpuscular Hemoglobin 27.2 pg (27.0-33.0); Mean Corpuscular Volume 81.9 fL (80.0-98.0); Mean Platelet Volume 10.7 fL (9.4-12.4); Monocytes Absolute Auto 0.8 X10*3/uL (0.1-1.2); Monocytes Percent Auto 11.9 % (2-11); Neutrophils Absolute Auto 3.7 x10*3/uL (2.0-8.3); Neutrophils Percent Auto 55.9 % (45-73); Platelet Count 170 X10*3/uL (160-400); Red Blood Count 4.86 X10*6/uL (4.60-5.80); White Blood Count 6.7 X10*3/uL (4.8-10.8)
[2023-05-02 00:58] LABS: Lactic Acid 1.6 mmol/L (0.5-2.0)
[2023-05-02 01:02] LABS: Alanine Aminotransferase 43 U/L (0-40); Albumin Level 3.8 g/dL (3.5-5.0); Alkaline Phosphatase 50 U/L (39-117); Anion Gap 17 (12-20); Aspartate Amino Transferase 29 U/L (5-37); Bilirubin Total 0.4 mg/dL (0.0-1.0); Blood Urea Nitrogen 21 mg/dL (9-16); Calcium 8.9 mg/dL (8.4-10.2); Carbon Dioxide 19 mmol/L (22-29); Chloride 102 mmol/L (96-108); Creatinine Clr Calc Pharmacy 80.2; Estimated Glomerular Filt Rate > 60; Glucose Random 215 mg/dL (60-115); Potassium 4.6 mmol/L (3.3-5.1); Sodium 133 mmol/L (135-145); Total Protein 6.9 g/dL (6.5-8.0)
[2023-05-02 01:07] LABS: Bacteria Urine None Seen (None Seen); Hyaline Casts Urine 0-2 /LPF (0-2); RBC Urine 0-2 /HPF (0-2); Squamous Epithelial Cell Urine 0-2 /HPF (0-2); WBC Urine 0-5 /HPF (0-5)
[2023-05-02 01:08] LABS: Troponin-I High Sensitivity 8.1 ng/L (<3.5-35.0)
[2023-05-02 01:24] LABS: Influenza A PCR NEGATIVE (Negative); Influenza B PCR POSITIVE (Negative); Resp Syncy Virus RNA Qual PCR NEGATIVE (Negative); SARS COV2 PCR INHOUSE NEGATIVE (Negative)
[2023-05-02 02:24] LABS: Glucose, Whole Blood 192 mg/dL (60-115)
--- NOTE | 2023-05-02 02:33 | ED.GENADULT ---
HPI - General Adult General Chief complaint: Upper Respiratory Symptoms Stated complaint: body weakness, cough Time Seen by Provider: 05/02/23 02:13 History of Present Illness HPI narrative: The patient has felt unwell with a cough for the last 2 weeks. He is felt considerably worse over the last day and a half. 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 He left work early yesterday on Wednesday which is very unusual for him. He has had a cough, nasal congestion, generalized weakness, and nausea. He is vomited once. No significant abdominal pain. Related Data Home Medications Medication Instructions Recorded Confirmed aspirin 81 mg tablet,delayed 81 mg PO DAILY 11/09/19 04/13/23 release (Adult Low Dose Aspirin) tamsulosin 0.4 mg capsule 0.4 mg PO BEDTIME 06/03/22 04/13/23 multivitamin 1 tab PO DAILY 08/17/22 04/13/23 Previous Rx's Medication Instructions Recorded pen needle, diabetic 32 gauge x #150 ea 02/12/20 flash glucose scanning reader #1 ea 12/22/21 (FreeStyle Senait 14 Day [place]) flash glucose sensor (FreeStyle #1 ea 12/22/21 Senait 14 Day Sensor kit) Flexichamber (inhalational spacing #1 ea 01/09/22 device) ergocalciferol (vitamin D2) 1,250 1,250 mcg PO QWEEK #12 caps 01/21/22 mcg (50,000 unit) capsule Humalog KwikPen Insulin 100 See Rx Instructions subcut 07/24/22 unit/mL subcutaneous (insulin .COMPLEX 30 days #15 mL lispro) rosuvastatin 40 mg tablet 40 mg PO DAILY #90 tabs 08/03/22 metformin 1,000 mg tablet 1,000 mg PO BID #180 tabs 09/21/22 nitroglycerin 0.4 mg sublingual 0.4 mg sublingual ONCE #25 tabs 10/13/22 tablet clobetasol 0.05 % topical cream 1 appl topical BID PRN rash #60 10/16/22 grams empagliflozin 25 mg tablet 25 mg PO QAM #90 tabs 10/22/22 (Jardiance) insulin glargine 100 unit/mL (3 28 unit (0.28 mL) subcut QPM #15 mL 11/09/22 mL) subcutaneous pen (Lantus Solostar U-100 Insulin) metoprolol succinate 100 mg 100 mg PO DAILY 90 days #90 tabs 12/15/22 tablet,extended release 24 hr amlodipine 2.5 mg tablet 2.5 mg PO DAILY #90 tabs 01/07/23 tirzepatide 2.5 mg/0.5 mL 2.5 mg (0.5 mL) subcut QWEEK 4 01/13/23 subcutaneous pen injector weeks #2 mL (Mounjaro) clopidogrel 75 mg tablet 75 mg PO DAILY #30 tabs 01/25/23 isosorbide mononitrate 60 mg 60 mg PO DAILY #30 tabs 03/11/23 tablet,extended release 24 hr losartan 100 mg tablet 100 mg PO DAILY #90 tabs 03/11/23 nystatin-triamcinolone 100,000 1 appl topical BID 10 days #30 04/01/23 unit/g-0.1 % topical cream grams oseltamivir 75 mg capsule 75 mg PO BID 5 days #10 caps 05/02/23 Allergies Allergy/AdvReac Type Severity Reaction Status Date / Time No Known Allergies Allergy Verified 04/13/23 10:31 [No Known Allergies*] [facility] Past Medical History Medical History PVCs (premature ventricular contractions) Overweight (BMI 25.0-29.9) Cataract Obesity (BMI 30-39.9) Dermatosis GERD without esophagitis Benign essential hypertension Pure hypercholesterolemia Atherosclerotic heart disease of [place] coronary artery without angina 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 Mother Diabetes mellitus CVD (cardiovascular disease) Hypertension Social History Social History Household Members: Spouse Housing: House Alcohol intake: never Patient Tobacco Use Status: Never used Tobacco Smoked in Last 30 Days: No e-Cigarette/Vaping Use: Never Used Second Hand Smoke Exposure: No Use of substances other than those prescribed or required for medical reasons: No Any prior treatment program specific to substance use: No Advance Directives: No Advance Directives Information Provided: No service: No Current occupational status: employed Cognitive needs: No Hearing needs: No Vision needs: Yes Physical Exam ED Vital Signs: Vital Signs - 24 hr 05/01/23 23:57 05/02/23 02:52 05/02/23 03:42 Temperature 99.8 F 98.4 F Pulse Rate 75 100 Respiratory Rate 19 20 Blood Pressure 83/57 L 104/62 Pulse Oximetry 95 98 99 Oxygen Delivery Method Room Air Room Air Room Air BMI result Body Mass Index 30.5 Const Other: The patient is awake and alert. He had an occasional cough but did not seem in any distress. HENMT Other: Face is symmetrical. Mucous membranes moist Eyes Other: Pupils are round equal, conjunctivae are clear, extraocular movements intact Neck Other: No JVD Resp Effort & Inspection: normal respiratory effort Auscultation: clear to auscultation bilaterally Cardio Rate: regular rate Rhythm: regular rhythm Heart sounds: S1 normal heart sound present and S2 normal heart sound present GI Other: Abdomen is soft and nontender. Skin Other: Skin is pale and dry Neuro Other: The patient is awake, alert, pleasant, cooperative. Mental status normal. Cranial nerves grossly intact. Moving his extremities normally. Grossly neurologically intact. 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 He reports feeling mildly unwell for approximately 2 weeks but considerably more unwell over the last 1-2 days. He has tested positive for influenza B. I think this is his primary problem today. I do not think he has any significant additional problem. CBC and differential are unremarkable. Troponin is normal. CRP is normal. Metabolic panel is unremarkable. Urine shows no sign of infection or ketones. EKG shows no significant change from previous. The patient will be started on oseltamivir. I think he looks well enough for outpatient management. Lab Data 05/02/23 00:41 05/02/23 00:41 Labs: Lab Results 05/02/23 05/02/23 Range/Units 00:22 00:41 WBC 6.7 (4.8-10.8) X10*3/uL RBC 4.86 (4.60-5.80) X10*6/uL Hgb 13.2 L (14.0-18.0) g/dl Hct 39.8 L (42.0-52.0) % MCV 81.9 (80.0-98.0) fL MCH 27.2 (27.0-33.0) pg MCHC 33.2 (31.0-36.0) g/dl RDW 15.0 (11.0-16.0) % Plt Count 170 (160-400) X10*3/uL MPV 10.7 (9.4-12.4) fL Immature Gran % (Auto) 0.3 (0.0-0.4) % Neut % (Auto) 55.9 (45-73) % Lymph % (Auto) 31.4 (20-40) % [place] % (Auto) 11.9 H (2-11) % Eos % (Auto) 0.4 (0-4) % Baso % (Auto) 0.1 (0-2) % Lymph # (Auto) 2.1 (1.2-4.9) X10*3/uL [place] # (Auto) 0.8 (0.1-1.2) X10*3/uL Eos # (Auto) 0.0 (0.0-0.4) X10*3/uL Baso # (Auto) 0.0 (0.0-0.2) X10*3/uL Abs Immat Gran (auto) 0.02 (0.00-0.03) X10*3/uL Absolute Neuts (auto) 3.7 (2.0-8.3) x10*3/uL Absolute Nucleated RBC 0.000 (0.0-0.012) X10*3/uL Nucleated RBC % (auto) 0.0 (0.0-0.2) /100WBC Sodium 133 L (135-145) mmol/L Potassium 4.6 (3.3-5.1) mmol/L Chloride 102 (96-108) mmol/L Carbon Dioxide 19 L (22-29) mmol/L Anion Gap 17 (12-20) BUN 21 H (9-16) mg/dL Creatinine 0.88 (0.5-1.4) mg/dL Estim Creat Clear Calc 80.2 Estimated GFR > 60 POC Glucose 192 H (60-115) mg/dL Random Glucose 215 H (60-115) mg/dL Lactic Acid 1.6 (0.5-2.0) mmol/L Calcium 8.9 D (8.4-10.2) mg/dL Total Bilirubin 0.4 (0.0-1.0) mg/dL AST 29 (5-37) U/L ALT 43 H (0-40) U/L Alkaline Phosphatase 50 (39-117) U/L Troponin I High Sens 8.1 D (<3.5-35.0) ng/L C-Reactive Protein 0.12 (< or = 0.50) mg/dL Total Protein 6.9 (6.5-8.0) g/dL Albumin 3.8 (3.5-5.0) g/dL Urine Color Yellow Urine Appearance Clear Urine pH 5.5 (5.0-9.0) Ur Specific [place] >= 1.030 H (1.005-1.025) Urine Protein 100 (2+) H (Neg-Trace) mg/dL Urine Glucose (UA) 250 H (Negative) mg/dL Urine Ketones Negative (Negative) mg/dL Urine Blood Negative (Negative) Urine Nitrite Negative (Negative) Ur Leukocyte Esterase Negative (Negative) Urine RBC 0-2 (0-2) /HPF Urine WBC 0-5 (0-5) /HPF Ur Squamous Epith Cells 0-2 (0-2) /HPF Urine Bacteria None Seen (None Seen) Hyaline Casts 0-2 (0-2) /LPF Influenza Type A (PCR) NEGATIVE (Negative) Influenza Type B (PCR) POSITIVE A (Negative) RSV RNA Qual (PCR) NEGATIVE (Negative) SARS-CoV-2 RNA (RT-PCR) NEGATIVE (Negative) Independent Interpretation I performed an independent interpretation of an: EKG Interpretation: EKG at 00:26 shows sinus rhythm at 91 beats per minute. No definite acute ischemic changes. No significant change from previous Discharge Plan Discharge Clinical Impression: Influenza Patient Disposition: Home, Self-Care Instructions: Influenza (ED) Additional Instructions: You have tested positive for the flu today. Other testing is reassuring. You have been started on a medication which is intended to help treat the flu. This is called oseltamivir, also known as Tamiflu. Please take this medication 2 times a day, approximately every 12 hours. You may use acetaminophen (Tylenol) as needed for discomfort. Rest and take it easy. Drink lot of fluids. I think you should probably not work until at the earliest. Please stay in touch with your regular doctor for additional advice as needed. Return to the emergency room if you feel significantly worse. Prescriptions: New oseltamivir 75 mg capsule 75 mg PO BID 5 Days Qty: 10 0RF No Action (DME) FreeStyle Senait 14 Day Sensor Kit See Rx Instructions .Route Qty: 1 5RF Rx Instructions: As directed (DME) FreeStyle Senait 14 Day [place] Misc See Rx Instructions .Route Qty: 1 5RF Rx Instructions: As directed (DME) Flexichamber Spacer See Rx Instructions .Route Qty: 1 0RF Rx Instructions: use with Albuterol inhaler as directed ergocalciferol (vitamin D2) 1,250 mcg (50,000 unit) capsule 1,250 mcg PO QWEEK Qty: 12 3RF insulin lispro [Humalog KwikPen Insulin] 100 unit/mL insulin pen See Rx Instructions subcut .COMPLEX 30 Days Qty: 15 3RF Rx Instructions: Inject 10 to 12 units as instructed 3 times a day with meals dosed per sliding scale subcutaneously; metformin 1,000 mg tablet 1,000 mg PO BID Qty: 180 1RF nitroglycerin 0.4 mg tablet, sublingual 0.4 mg sublingual ONCE Qty: 25 1RF Rx Instructions: TAke 1 tablet every 5 minutes as needed for chest pain. Do not exceed 3 tablets. Jardiance 25 mg tablet 25 mg PO QAM Qty: 90 1RF insulin glargine [Lantus Solostar U-100 Insulin] 100 unit/mL (3 mL) insulin pen 28 unit subcut QPM Qty: 15 3RF metoprolol succinate 100 mg tablet extended release 24 hr 100 mg PO DAILY 90 Days Qty: 90 3RF amlodipine 2.5 mg tablet 2.5 mg PO DAILY Qty: 90 1RF clopidogrel 75 mg tablet 75 mg PO DAILY Qty: 30 3RF losartan 100 mg tablet 100 mg PO DAILY Qty: 90 1RF isosorbide mononitrate 60 mg tablet extended release 24 hr 60 mg PO DAILY Qty: 30 5RF nystatin-triamcinolone 100,000-0.1 unit/g-% cream 1 appl topical BID 10 Days Qty: 30 1RF multivitamin Tablet 1 tab PO DAILY clobetasol 0.05 % cream 1 appl topical BID PRN (Reason: rash) Qty: 60 1RF rosuvastatin 40 mg tablet 40 mg PO DAILY Qty: 90 1RF aspirin [Adult Low Dose Aspirin] 81 mg tablet,delayed release (DR/EC) 81 mg PO DAILY (DME) pen needle, diabetic 32 gauge x 5/32 needle See Rx Instructions subcut TID Qty: 150 11RF Rx Instructions: As directed five times a day tamsulosin 0.4 mg capsule 0.4 mg PO BEDTIME Mounjaro 2.5 mg/0.5 mL pen injector 2.5 mg subcut QWEEK 28 Days Qty: 2 0RF Stand Alone Forms: Work/School Release Interventions: ED Discharge Assessment Last Done: 05/02/23 03:42 Discharge Date/Time: 05/02/23 03:30
[2023-05-02 02:46] VITALS: PULSE 90
[2023-05-02 02:51] LABS: C Reactive Protein 0.12 mg/dL (< or = 0.50)
[2023-05-02 02:52] VITALS: O2SAT 98
[2023-05-02] MEDS: Oseltamivir Phosphate 75 MG CAPSULE PO (03:24)
[2023-05-02 03:42] VITALS: BP 104/62; PULSE 100; RESP 20; TEMP 36.9; O2SAT 99
== END 2023-05-02 03:30 | disposition home or self-care (01) ==
PROVIDERS: Emergency Provider Emergency Medicine; PCP Internal Medicine
DX: J10.1 Influenza due to other identified influenza virus with other respiratory manifestations (principal); E11.9 Type 2 diabetes mellitus without complications; I10 Essential (primary) hypertension; Z11.52 Encounter for screening for COVID-19; Z20.828 Contact with and (suspected) exposure to other viral communicable diseases
CPT/HCPCS: 0241U; 36415; 71045; 80053; 81001; 82947; 83605; 84484; 85025; 86140; 87040; 93005; 99283; 99285

== ENCOUNTER → 2023-05-02 00:09 | Outpatient (BNV) | payer OTHER, SELFPAY ==
[2023-01-22 13:17] VITALS: BP 100/54; BP 104/54; BP 120/64; BMI 29.7
== END ==
PROVIDERS: Emergency Provider Emergency Medicine; PCP Internal Medicine; Visit Provider Internal Medicine
DX: R03.1 Nonspecific low blood-pressure reading (principal)
CPT/HCPCS: 93010

== ENCOUNTER 2023-05-25 09:24 | Outpatient (AMB) | payer OTHER, SELFPAY ==
[2022-11-19 14:25] VITALS: BP 126/68; BP 138/68
[2022-12-16 07:48] VITALS: BP 124/58; BMI 29.7
[2023-01-22 13:17] VITALS: BP 100/54; BP 104/54; BP 120/64; BMI 29.7
--- NOTE | 2023-05-25 09:29 | MHC.OFFVIS ---
Intake Vital Signs 05/25/23 09:31 Height 5 ft 4 in Weight 167 lb 8.821 oz BMI 28.8 BP 126/72 Blood Pressure Location Lt brachial Position Sitting Pulse 92 Pulse Source Pulse Oximeter Intake Visit Reasons: f/u Type 2 DM-confirmed Intake Note: Patient presents today to follow up on D2MT. Last Diabetic Eye exam: Patient is unsure of last visit. Last Podiatry Visit: Doesn't have one Random Glucose: 271 mg/dl HgA1c: 8.9% 04/10/23 [employer]ator Required: No Accompanied by: Spouse Allergies No Known Allergies [No Known Allergies*] Allergy (Verified 05/25/23 09:39) HPI HPI Comments History of Present Illness Details Patient is a 63 year old male with DM type 2 diagnosed approximately 15 years ago who presents for continued management of diabetes. Past medical history includes : HLD, vitamin D deficiency, GERD, hypertension, non-ST elevated CO. Micro and macrovascular complications: + retinopathy, + nephropathy, + neuropathy, + CAD, Diabetes medications: Lantus 22 units Humalog 10 units small meals, 12 units large meals , metformin 500 er 2 pills twice daily, Invokana 300mg,Mounjaro 2.5 mg Qwkly . Could not tolerate [employer] Senait download from - shows average glucose to be 258 with G mi of . 9.5 %. 18% are in range with82 % hyperglycemia and % very hyperglycemic and no hypoglycemia but tends to trend overnight downward with post-prandial increases after breakfast and supper Symptoms reported: no numbness, tingling and cramping in lower extremities Hypoglycemia: No Hyperglycemia: denies polyuria . 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 Eye exam: couple of mos a go - ou preproliferative diabetic retinopathy Laboratory Tests 01/21/21 05/05/21 05/05/21 14:28 08:02 08:25 Creatinine 0.83 Estimated GFR > 60 Hgb A1c (Clinic) 8.5 H Hemoglobin A1c % Triglycerides 93 Cholesterol 149 D LDL Cholesterol, C alc 84 HDL Cholesterol 47 25-OH Vitamin D To darrell 32.1 TSH 1.95 Microalb/Creat Rat io 554.8 05/05/21 08:28 Creatinine Estimated GFR Hgb A1c (Clinic) Hemoglobin A1c % 10.2 Triglycerides Cholesterol LDL Cholesterol, C alc HDL Cholesterol 25-OH Vitamin D To darrell TSH Microalb/Creat Rat io 08/13/20 08/13/20 08/13/20 08:16 08:16 Unknown Creatinine 0.82 Estimated GFR > 60 Hemoglobin A1c % 9.1 Triglycerides 67 Cholesterol 114 LDL Cholesterol, C alc 58 HDL Cholesterol 43 25-OH Vitamin D To darrell 42.4 TSH 1.19 Microalb/Creat Rat io 440.9 Was taking steroids up to 2 wks ago . . Insurance not paying for [facility] Medical History PVCs (premature ventricular contractions) Overweight (BMI 25.0-29.9) Cataract Obesity (BMI 30-39.9) Dermatosis GERD without esophagitis Benign essential hypertension Pure hypercholesterolemia Atherosclerotic heart disease of [place] coronary artery without angina pectoris Type 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 Mother Diabetes mellitus CVD (cardiovascular disease) Hypertension Social History Household Members: Spouse Housing: House Alcohol intake: never Patient Tobacco Use Status: Never used Tobacco e-Cigarette/Vaping Use: Never Used Second Hand Smoke Exposure: No service: No Current occupational status: employed Cognitive needs: No Hearing needs: No Vision needs: Yes Physical Exam Vital Signs: Last Vital Signs Pulse 92 05/25/23 09:31 BP 126/72 05/25/23 09:31 BMI result Body Mass Index 28.8 Absence of Cushingoid features. Absence of acromegalic features. Neck exam reveals nl size thyroid about 15 gms. No thyroid nodules palpable. No carotid bruits present. Lungs CTA. Heart S1 S2, Reg R/R. No M/R/ G. Skin exam reveals absence of vitiligo or acanthosis nigricans. Abdominal exam reveals Soft NT/ND with NA BS. No organomegaly present. Neck Other: . Extrem Other: Visual exam of foot performed. No ulcerations or open lesions. No onchomycosis, no callouses.Pulses 2 + distally Sensation intact to monofilament exam. Vibratory sensation sensed is intact with 128 Hz tuning fork Assessment & Plan Assessment & Plan (1) Type 2 diabetes with nephropathy: Comment: (+) proteinuria Code(s): E11.21 - Type 2 diabetes mellitus with diabetic nephropathy Plan: This 63-year-old male with history of type 2 diabetes being treated with metformin, Mounjaro , Jardiance and basal-bolus insulin with poor glycemic control and known microvascular and macrovascular complication namely: + retinopathy, + nephropathy, + neuropathy, + CAD, The plan is increase the Mounjaro to 5 mg Qwkly the Humalog to 16 units with small meals and 18 units with large meals. Patient should follow-up with the operations and intelligence assistant Medications: New tirzepatide (Mounjaro) 5 mg (0.5 mL) subcut QWEEK 2 mL 4RF Discontinued tirzepatide (Mounjaro) Discontinued Reason: Doctor's Order 2.5 mg (0.5 mL) subcut QWEEK 4 weeks 2 mL 0RF Coding Level of Care Code Est Pt Level 4 (03363) Diagnoses Type 2 diabetes with nephropathy E11.21
[2023-05-25 09:31] VITALS: BP 126/72; PULSE 92; BMI 28.8
[2023-05-25 09:47] LABS: Glucose, Whole Blood 271 mg/dL (60-115)
== END 2023-05-25 09:58 | disposition home or self-care (01) ==
PROVIDERS: PCP Internal Medicine; Visit Provider Internal Medicine Endocrinology, Diabetes & Metabolism
DX: E11.21 Type 2 diabetes mellitus with diabetic nephropathy (principal)
CPT/HCPCS: 99214

== ENCOUNTER → 2023-05-25 09:24 | Outpatient (BNVA) | payer OTHER, SELFPAY ==
[2023-01-22 13:17] VITALS: BP 100/54; BP 104/54; BP 120/64; BMI 29.7
== END ==
PROVIDERS: PCP Internal Medicine; Visit Provider Internal Medicine Endocrinology, Diabetes & Metabolism
DX: E11.21 Type 2 diabetes mellitus with diabetic nephropathy (principal); E11.319 Type 2 diabetes mellitus with unspecified diabetic retinopathy without macular edema; E11.40 Type 2 diabetes mellitus with diabetic neuropathy, unspecified; Z79.4 Long term (current) use of insulin
CPT/HCPCS: 82947

== ENCOUNTER 2023-06-02 10:59 | Outpatient (AMB) | payer OTHER, SELFPAY ==
[2023-05-25 10:03] VITALS: BP 100/54; BP 104/54; BP 120/64; BMI 29.7
--- NOTE | 2023-06-02 11:07 | MHC.PC.OV ---
Vital Signs 06/02/23 11:08 Height 5 ft 4 in Weight 168 lb BMI 28.8 BP 140/90 H Blood Pressure Location Lt brachial Position Sitting Pulse 92 Pulse Source Pulse Oximeter Pulse Oximetry (%) 96 Oxygen Delivery Method Room Air Intake Visit Reasons: changes in vision Intake Note: The patient is presenting with left eye floaters and appears to have blood in the retina for the past two years, causing blurred vision. 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 Accompanied by: Spouse Allergies No Known Allergies [No Known Allergies*] Allergy (Verified 06/02/23 11:48) Medication List - Last Reconciled 06/02/23 by Aram Murphy MD albuterol sulfate 90 mcg/actuation (Ventolin HFA) 2 puffs inhalation Q6H PRN 30 days amlodipine 2.5 mg PO DAILY aspirin (Adult Low Dose Aspirin) 81 mg PO DAILY clobetasol 0.05% 1 appl topical BID PRN clopidogrel 75 mg PO DAILY empagliflozin (Jardiance) 25 mg PO QAM ergocalciferol (vitamin D2) 1,250 mcg PO QWEEK flash glucose scanning reader ([place] EnergyStyle Senait 14 Day Bouse) As directed flash glucose sensor (FreeStyle Senait 14 Day Sensor kit) As directed Flexichamber (inhalational spacing device) use with Albuterol inhaler as directed NS Humalog KwikPen Insulin (insulin lispro) Inject 10 to 12 units as instructed 3 times a day with meals dosed per sliding scale subcutaneously; 30 days NS insulin glargine (Lantus Solostar U-100 Insulin) 28 units (0.28 mL) subcut QPM isosorbide mononitrate ER 60 mg PO DAILY losartan 100 mg PO DAILY metformin 1,000 mg PO BID metoprolol succinate ER 100 mg PO DAILY 90 days multivitamin 1 tab PO DAILY nitroglycerin 0.4 mg sublingual ONCE nystatin-triamcinolone 100,000-0.1 unit/g-% 1 appl topical BID 10 days oseltamivir 75 mg PO BID 5 days pen needle, diabetic As directed five times a day rosuvastatin 40 mg PO DAILY tamsulosin 0.4 mg PO BEDTIME tirzepatide (Mounjaro) 5 mg (0.5 mL) subcut QWEEK Tobacco use date assessed: 04/13/23 Dental Screening Dental Screen Date: 04/13/23 HPI changes in vision HPI Details Patient comes in today complaining of a significant decline in the vision of his left eye over the past few weeks States that he is also seeing a lot of floaters in his left eye's visual field multiple times a day lately; denies any eye pain States that he is concerned about the significant decline in his left eye vision recently and that he tried to get in to see [facility] but was reportedly advised that they do not schedule urgent appointment for blurry vision; he does have his regular appointment scheduled with Dr. Amor at the clinic on August 18, 2023 His most recent HgbA1c was still at 8.9% last month on 04/10/2023 He is supposed to be on Lantus 28 units Q HS, Humalog 10 to 12 units TID with meals per sliding scale, Mounjaro 5 mg SQ once a week, Metformin 1000 mg BID and Jardiance 25 mg QD but he is having trouble getting his Mounjaro and Jardiance Rx covered by his insurance and prior authorization requests to get these approved are still ongoing He denies any headaches or dizziness Denies any chest pains, no increased SOB No nausea/vomiting, no abdominal pain No change in bowel habits noted Needs a few of his Rx refilled today [facility] Medical History PVCs (premature ventricular contractions) Overweight (BMI 25.0-29.9) Cataract Obesity (BMI 30-39.9) Dermatosis GERD without esophagitis Benign essential hypertension Pure hypercholesterolemia 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 Mother Diabetes mellitus CVD (cardiovascular disease) Hypertension Social History Household Members: Spouse Housing: House Alcohol intake: never Patient Tobacco Use Status: Never used Tobacco e-Cigarette/Vaping Use: Never Used Second Hand Smoke Exposure: No service: No Current occupational status: employed Cognitive needs: No Hearing needs: No Vision needs: Yes Questionnaire Thrive Questionnaire Date Thrive assessed: 04/13/23 SHIREEN-7 AMB Questionnaire SHIREEN-7 Date SHIREEN - 7 assessed: 04/13/23 Source: Developed by Drs. Vargas Pope, Valerie Carpenter, Harjinder Erazo and colleagues, with an educational aubree from [employer]. Review of Systems Const Denies chills, Denies fatigue, Denies fever(s) and Denies headache(s) Eyes Reports as per HPI, Reports change in vision (reports (+) significant decline in his left eye vision lately), Reports floaters (increase in the left eye recently, occurring multiple times a day) and Denies eye pain ENT Denies dysphagia, Denies dizziness, Denies otalgia, Denies headache(s), Denies neck pain, Denies odynophagia and Denies sore throat Card Denies chest pain, Denies palpitations and Reports dyspnea on exertion (mild, chronic) Resp Denies chest congestion, Denies cough, Reports dyspnea on exertion (mild, chronic) and Denies wheezing GI Denies abdominal pain, Denies constipation, Denies dysphagia, Denies heartburn, Denies diarrhea, Denies nausea, Denies odynophagia and Denies vomiting Denies dysuria, Denies nocturia and Reports urinary frequency Musc Denies back pain and Denies neck pain Skin/Breast Denies rash Neuro Denies dizziness and Denies headache(s) Endo Denies fatigue and Denies palpitations Aller/Immun Denies wheezing Physical exam (Primary Care) Vital Signs: Last Vital Signs Pulse 92 06/02/23 11:08 BP 140/90 H 06/02/23 11:08 Pulse Ox 96 06/02/23 11:08 Oxygen Delivery Method Room Air 06/02/23 11:08 BMI result Body Mass Index 28.8 Tobacco/Smoking Status: Tobacco use Status Tobacco use date assessed 04/13/23 06/02/23 11:08 Patient Tobacco Use Status Never used Tobacco 06/02/23 11:08 e-Cigarette/Vaping Use Never Used 06/02/23 11:08 Thrive Assessment: Date of Thrive Assessment Date Thrive assessed 04/13/23 06/02/23 11:08 Const General: no acute distress and alert HENMT Throat: Yes posterior oropharynx normal and Yes tonsils normal (no TP congestion noted) Neck Neck: Yes no lymphadenopathy and Yes supple Resp Auscultation: clear to auscultation bilaterally, no rales and no wheezes Cardio Rate: regular rate Rhythm: regular rhythm Heart sounds: no murmurs GI Palpation (GI): Soft to palpation and nontender Auscultation: normal bowel sounds Extrem General: Yes no clubbing, cyanosis or edema Right upper extremity: Extremity exam: right hand Details: tenderness (over the fingers) and swelling (over the IP joints of several fingers) Left upper extremity: hand Details: tenderness (over the fingers) and swelling (over the IP joints of multiple fingers) Assessment and Plan Assessment & Plan (1) Vision loss of left eye: Code(s): H54.62 - Unqualified visual loss, left eye, normal vision right eye Plan: Have discussed with patient that his recent eye symptoms (significant decline in visual acuity and increase in the amount and frequency of floaters in his visual field), couple with the fact that he has preexisting diabetic retinopathy, raises concerns about acute bleeding into his eye and that he should ideally be seen and evaluated by ophthalmology for this urgently to see if they can get these acute changes stabilized IF he indeed is having some active bleeding going on at present Will try to send him to the [facility] for an urgent ophthalmology referral and have him seen MARSHALL Have reminded him again that the best way to slow down his eye changes/retinopathy is tight control of his diabetes but understandably, he is currently having a harder time getting this done as his insurance company is making it more difficult with all of the formulary restrictions that they have in place (2) Type 2 diabetes with nephropathy: Comment: (+) proteinuria Code(s): E11.21 - Type 2 diabetes mellitus with diabetic nephropathy Plan: His HgbA1c was at 8.9% on his labs done last month (was at 8.2% a few months ago) - goal is at least <7.0% Reinforced diabetic diet Continue Lantus 28 units Q HS, Humalog 10 units with small meals and 12 units with large meals, Metformin ER 1000 mg BID, Jardiance 25 mg QD and Mounjaro 5 mg once a week (could not tolerate Trulicity and failed to respond to Ozempic in the past) but his insurance is not cooperating and declining to cover hs Rx - prior authorization processes are currently still ongoing Follow up with endocrinology (Dr. 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 (3) Atherosclerotic heart disease of [place] coronary artery without angina pectoris: Comment: S/P STEMI in 2015 - cardiac cath showed a non-intervenable lesion and recommended aggressive medical Mx to modify risk factors as much as possible; S/P NSTEMI in September 2022 - was transferred from [facility] to [facility], where cardiac cath revealed severe stenosis at diagnonal 1 and he underwent PCI of culprit lesion Code(s): I25.10 - Atherosclerotic heart disease of [place] coronary artery without angina pectoris Qualifiers: [place] vs. transplanted heart: sh[place]bann[place] heart Qualified Code(s): I25.10 - Atherosclerotic heart disease of [place] coronary artery without angina pectoris Plan: S/P NSTEMI in September 2022 - patient was transferred from [facility] to [facility] and had coronary angiogram done which revealed (+) severe stenosis at diagonal 1 and he subsequently underwent PCI of the culprit lesion Continue low dose Aspirin 81 mg QD, Clopidogrel 75 mg QD, Isosorbide Mononitrate ER 60 mg QD and Metoprolol ER 100 mg QD Patient also has sublingual Nitroglycerin tablets that he takes as needed for chest pain He has been mostly asymptomatic for a while now Follow up with cardiology as scheduled (4) Diabetic nephropathy: Code(s): E11.21 - Type 2 diabetes mellitus with diabetic nephropathy Qualifiers: Diabetes mellitus type: type 2 Qualified Code(s): E11.21 - Type 2 diabetes mellitus with diabetic nephropathy Plan: Stable lately; follow up with nephrology as scheduled Reminded again that better control of his diabetes is the best way to slow down the progression of his kidney disease (5) Pure hypercholesterolemia: Code(s): E78.00 - Pure hypercholesterolemia, unspecified Plan: Reinforced low cholesterol diet Continue Rosuvastatin 40 mg QD - goal is LDL of less than 70 mg/dl due to his CAD (6) Benign essential hypertension: Code(s): I10 - Essential (primary) hypertension Plan: Reinforced low sodium diet - goal is systolic BP of at least 130 mm or less Continue Losartan 100 mg QD and Amlodipine 2.5 mg QD; is also on Metoprolol ER 100 mg QD (7) Overweight (BMI 25.0-29.9): Code(s): E66.3 - Overweight Plan: Reinforced diet /exercise as tolerated /lose weight Plan To return as scheduled next month for his annual physical examination Orders: Referrals Ophthalmology Referral E11.319 - Type 2 diabetes mellitus with unspecified diabetic retinopathy without macular edema, H43.399 - Other vitreous opacities, unspecified eye, H54.62 - Unqualified visual loss, left eye, normal vision right eye Medications: Changed From tamsulosin 0.4 mg PO BEDTIME To tamsulosin 0.4 mg PO BEDTIME 90 days 90 caps 1RF Refilled rosuvastatin 40 mg PO DAILY 90 tabs 1RF empagliflozin (Jardiance) 25 mg PO QAM 90 tabs 1RF Coding Level of Care Code Est Pt Level 4 (08525) Diagnoses Vision loss of left eye H54.62 Type 2 diabetes with nephropathy E11.21 Atherosclerosis of [place] coronary artery of sh[place]ann[place] heart without angina pectoris I25.10 [place] vs. transplanted heart: sh[place]bann[place] heart Diabetic nephropathy associated with type 2 diabetes mellitus E11.21 Diabetes mellitus type: type 2 Pure hypercholesterolemia E78.00 Benign essential hypertension I10 Overweight (BMI 25.0-29.9) E66.3
[2023-06-02 11:08] VITALS: BP 140/90; PULSE 92; O2SAT 96; BMI 28.8
== END 2023-06-02 12:15 | disposition home or self-care (01) ==
PROVIDERS: PCP Internal Medicine; Visit Provider Internal Medicine
DX: H54.62 Unqualified visual loss, left eye, normal vision right eye (principal); E11.21 Type 2 diabetes mellitus with diabetic nephropathy; I25.10 Atherosclerotic heart disease of native coronary artery without angina pectoris; E78.00 Pure hypercholesterolemia, unspecified; I10 Essential (primary) hypertension; E66.3 Overweight
CPT/HCPCS: 99214

== ENCOUNTER 2023-08-11 10:02 | Outpatient (AMB) | payer BC, SELFPAY ==
[2023-01-22 13:17] VITALS: BP 100/54; BP 104/54; BP 120/64; BMI 29.7
[2023-05-25 10:03] VITALS: BP 100/54; BP 104/54; BP 120/64; BMI 29.7
[2023-08-11 10:06] VITALS: BP 116/70; PULSE 56; O2SAT 96; BMI 30.2
--- NOTE | 2023-08-11 10:06 | MHC.PC.OV ---
Vital Signs 08/11/23 10:06 Height 5 ft 4 in Weight 176 lb BMI 30.2 BP 116/70 Blood Pressure Location Lt brachial Position Sitting Pulse 56 Pulse Source Pulse Oximeter Pulse Oximetry (%) 96 Oxygen Delivery Method Room Air Intake Visit Reasons: DM, CAD, hyperlipidemia, HTN Inspector Final Assembly Conveyor Line Required: No Allergies No Known Allergies [No Known Allergies*] Allergy (Verified 08/11/23 11:06) Medication List - Last Reconciled 08/11/23 by Aram Murphy MD albuterol sulfate 90 mcg/actuation (Ventolin HFA) 2 puffs inhalation Q6H PRN 30 days amlodipine 2.5 mg PO DAILY aspirin (Adult Low Dose Aspirin) 81 mg PO DAILY clobetasol 0.05% 1 appl topical BID PRN clopidogrel 75 mg PO DAILY empagliflozin (Jardiance) 25 mg PO QAM ergocalciferol (vitamin D2) 1,250 mcg PO QWEEK flash glucose scanning reader (memloom Senait 14 Day Ross) As directed flash glucose sensor (mySkinStyle Senait 14 Day Sensor kit) As directed Flexichamber (inhalational spacing device) use with Albuterol inhaler as directed NS Humalog KwikPen Insulin (insulin lispro) Inject 10 to 12 units as instructed 3 times a day with meals dosed per sliding scale subcutaneously; 30 days NS insulin glargine (Lantus Solostar U-100 Insulin) 28 units (0.28 mL) subcut QPM isosorbide mononitrate ER 60 mg PO DAILY losartan 100 mg PO DAILY metformin 1,000 mg PO BID metoprolol succinate ER 100 mg PO DAILY 90 days multivitamin 1 tab PO DAILY nitroglycerin 0.4 mg sublingual ONCE nystatin-triamcinolone 100,000-0.1 unit/g-% 1 appl topical BID 10 days pen needle, diabetic As directed five times a day rosuvastatin 40 mg PO DAILY tamsulosin 0.4 mg PO BEDTIME 90 days tirzepatide (Mounjaro) 5 mg (0.5 mL) subcut QWEEK Tobacco use date assessed: 04/13/23 Fall risk assessment: No Falls in past year Last assessed Fall Risk: 08/11/23 Dental Screening Dental Screen Date: 04/13/23 HPI DM, CAD, hyperlipidemia, HTN HPI Details Patient comes in today for his follow up visit States that he feels okay He denies any headaches or dizziness Denies any chest pains, no increased SOB No nausea/vomiting, no abdominal pain No change in bowel habits noted He was not able to get his follow up labs done prior to his visit today - states that he will try to get these done [facility] His states that patient has not been taking his Moujaro lately - when patient is asked why, he could not really give me a reason and eventually states that he just does not like to keep taking / injecting so many medicines His also relates that he has been forgetting to take his meds at times and tends to get upset with her when she tries to help him by reminding him about his meds He recently changed health insurance and will need all of his Rx refilled and resubmitted to his pharmacy He is also still following up with ophthalmology and retina specialists for his eyes and his states that the eye doctors are planning to do cataract surgery on him sometime this year - will be reevaluated in October 2023 and they will have a better idea by then as to when his surgery will take place [facility] Medical History Nonproliferative diabetic retinopathy PVCs (premature ventricular contractions) Overweight (BMI 25.0-29.9) Cataract Obesity (BMI 30-39.9) Dermatosis GERD without esophagitis Benign essential hypertension Pure hypercholesterolemia Atherosclerotic heart disease of [place] coronary artery without angina pectoris Type 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 Mother Diabetes mellitus CVD (cardiovascular disease) Hypertension Social History Household Members: Spouse Housing: House Alcohol intake: never Patient Tobacco Use Status: Never used Tobacco e-Cigarette/Vaping Use: Never Used Second Hand Smoke Exposure: No service: No Current occupational status: employed Cognitive needs: No Hearing needs: No Vision needs: Yes Questionnaire Thrive Questionnaire Date Thrive assessed: 08/11/23 I am a: Patient What is your living situation today?: I have a steady place to live Within the past 12 months, did the food you bought not last and you didn't have the money to get more?: Never true Within the past 12 months, did you worry whether your food would run out before you got money to buy more?: Never true Do you have trouble paying for medicines?: No Do you have trouble getting transportation to medical appointments?: No Do you have trouble paying your heating and electricity bill?: No Do you have trouble taking care of your child, family member or friend?: No Do you have trouble with day-to-day activities such as bathing, preparing meals, shopping, managing finances, etc.?: No Are you currently unemployed and looking for a job?: No Are you interested in more education?: No Please select the resources that you would like help with: None Currently or been in a relationship where the following occur: No concerns reported THRIVE Score: 0 SHIREEN-7 AMB Questionnaire SHIREEN-7 Date SHIREEN - 7 assessed: 04/13/23 Source: Developed by Drs. Vargas Pope, Valerie Carpenter, Harjinder Erazo and colleagues, with an educational aubree from [employer]. Review of Systems Const Denies chills, Denies fatigue, Denies fever(s) and Denies headache(s) Eyes Reports change in vision (reports (+) significant decline in his left eye vision lately), Reports floaters (increase in the left eye recently, occurring multiple times a day) and Denies eye pain ENT Denies dysphagia, Denies dizziness, Denies otalgia, Denies headache(s), Denies neck pain, Denies odynophagia and Denies sore throat Card Denies chest pain, Denies palpitations and Reports dyspnea on exertion (mild, chronic) Resp Denies chest congestion, Denies cough, Reports dyspnea on exertion (mild, chronic) and Denies wheezing GI Denies abdominal pain, Denies constipation, Denies dysphagia, Denies heartburn, Denies diarrhea, Denies nausea, Denies odynophagia and Denies vomiting Denies dysuria, Denies nocturia and Reports urinary frequency Musc Denies back pain and Denies neck pain Skin/Breast Denies rash Neuro Denies dizziness and Denies headache(s) Endo Denies fatigue and Denies palpitations Aller/Immun Denies wheezing Physical exam (Primary Care) Vital Signs: Last Vital Signs Pulse 56 08/11/23 10:06 BP 116/70 08/11/23 10:06 Pulse Ox 96 08/11/23 10:06 Oxygen Delivery Method Room Air 08/11/23 10:06 BMI result Body Mass Index 30.2 Tobacco/Smoking Status: Tobacco use Status Tobacco use date assessed 04/13/23 08/11/23 10:13 Patient Tobacco Use Status Never used Tobacco 08/11/23 10:13 e-Cigarette/Vaping Use Never Used 08/11/23 10:13 Thrive Assessment: Date of Thrive Assessment Date Thrive assessed 08/11/23 08/11/23 11:31 Currently or been in a relationship where the following occur: No concerns reported Const General: no acute distress and alert HENMT Ears: TM's normal bilaterally and EAC's normal Throat: Yes posterior oropharynx normal and Yes tonsils normal (no TP congestion noted) Neck Neck: Yes no lymphadenopathy and Yes supple Thyroid: Thyroid normal Resp Auscultation: clear to auscultation bilaterally, no rales and no wheezes Cardio Rate: regular rate Rhythm: regular rhythm Heart sounds: no murmurs GI Palpation (GI): Soft to palpation and nontender Auscultation: normal bowel sounds General: Yes no CVA tenderness Back/Spine/Pelvis Back: no CVA tenderness Thoracic/Lumbar Spine: No lumbar spinal tenderness Skin Rashes: no rashes Extrem General: Yes no clubbing, cyanosis or edema Right upper extremity: Extremity exam: right hand Details: tenderness (over the fingers) and swelling (over the IP joints of several fingers) Left upper extremity: hand Details: tenderness (over the fingers) and swelling (over the IP joints of multiple fingers) Results AMB Hemoglobin A1c AMB Hemoglobin A1c 9.8 % Last Edit by BOBBY Briceño on 08/11/23 10:30 Results Reviewed Results Reviewed: Laboratory Last Values Hgb A1c (Clinic) 9.8 % (4.0-6.0) H 08/11/23 08:48 Assessment and Plan Assessment & Plan (1) Type 2 diabetes with nephropathy: Comment: (+) proteinuria Code(s): E11.21 - Type 2 diabetes mellitus with diabetic nephropathy Plan: His in-office HgbA1c today is at 9.8% (his HgbA1c was at 8.9% a few months ago and at 8.2% earlier this year) - goal is at least <7.0% Reinforced diabetic diet Continue Lantus 28 units Q HS, Humalog 10 units with small meals and 12 units with large meals, Metformin ER 1000 mg BID, Jardiance 25 mg QD and Mounjaro 5 mg once a week (could not tolerate Trulicity and failed to respond to Ozempic in the past) His now states that patient has NOT been taking his Mounjaro (see HPI) and also has a tendency to forget to take his meds at times Have advised patient that if compliance is the main issue here, then irregardless of how many more prescriptions we write for him or how many specialists we send him to will not matter and we will NEVER succeed in getting his diabetes under control Have reminded him that he already had an AR and also has most of the long-term complications of uncontrolled diabetes and they will only get worse from here if he does not get his issues taken care of Have emphasized to him again that he should take all of his meds as prescribed and the decision here is now on him - have reminded him that there is no shame in asking for help if he needs help in taking his meds and his is more than willing to help remind him about these Follow up with endocrinology (Dr. Calvillo) and diabetic second worker as scheduled (2) Vision loss of left eye: Code(s): H54.62 - Unqualified visual loss, left eye, normal vision right eye Plan: Have reminded patient again that the best way to slow down his eye changes/retinopathy is by tight control of his diabetes Follow up with ophthalmology / retina specialists as scheduled (3) Atherosclerotic heart disease of [place] coronary artery without angina pectoris: Comment: S/P STEMI in 2015 - cardiac cath showed a non-intervenable lesion and recommended aggressive medical Mx to modify risk factors as much as possible; S/P NSTEMI in September 2022 - was transferred from [facility] to [facility], where cardiac cath revealed severe stenosis at diagnonal 1 and he underwent PCI of culprit lesion Code(s): I25.10 - Atherosclerotic heart disease of [place] coronary artery without angina pectoris Qualifiers: Three Affiliated vs. transplanted heart: [place] heart Qualified Code(s): I25.10 - Atherosclerotic heart disease of [place] coronary artery without angina pectoris Plan: S/P NSTEMI in September 2022 - patient was transferred from [facility] to [facility] and had coronary angiogram done which revealed (+) severe stenosis at diagonal 1 and he subsequently underwent PCI of the culprit lesion Continue low dose Aspirin 81 mg QD, Clopidogrel 75 mg QD, Isosorbide Mononitrate ER 60 mg QD and Metoprolol ER 100 mg QD Patient also has sublingual Nitroglycerin tablets that he takes as needed for chest pain He has been mostly asymptomatic for a while now but advised that as long as his diabetes is not controlled, his risks for another coronary event is significantly much higher than average Follow up with cardiology as scheduled (4) Diabetic nephropathy: Code(s): E11.21 - Type 2 diabetes mellitus with diabetic nephropathy Qualifiers: Diabetes mellitus type: type 2 Qualified Code(s): E11.21 - Type 2 diabetes mellitus with diabetic nephropathy Plan: Stable lately; follow up with nephrology as scheduled Reminded again that better control of his diabetes is the best way to slow down the progression of his kidney disease (5) Pure hypercholesterolemia: Code(s): E78.00 - Pure hypercholesterolemia, unspecified Plan: He was not able to get his follow up labs done prior to his appointment today - states that he will try to get them done [facility] Reinforced low cholesterol diet Continue Rosuvastatin 40 mg QD - goal is LDL of less than 70 mg/dl due to his CAD Will recheck his labs and fasting lipids in 3 months for follow up (6) Benign essential hypertension: Code(s): I10 - Essential (primary) hypertension Plan: Reinforced low sodium diet - goal is systolic BP of at least 130 mm or less Continue Losartan 100 mg QD and Amlodipine 2.5 mg QD; is also on Metoprolol ER 100 mg QD (7) GERD without esophagitis: Code(s): K21.9 - Gastro-esophageal reflux disease without esophagitis Plan: Dietary restrictions reinforced (8) Vitamin D deficiency: Code(s): E55.9 - Vitamin D deficiency, unspecified Plan: Continue Vitamin D2 [id number] once a week (9) Obesity (BMI 30-39.9): Code(s): E66.9 - Obesity, unspecified Plan: Reinforced diet /exercise as tolerated /lose weight Have cautioned patient that he has gained a good amount of weight since his last visit and he should be more cognizant of this Plan Follow up in 3 months Orders: Orders AMB Hemoglobin A1c 08/11/23 E11.21 - Type 2 diabetes mellitus with diabetic nephropathy Hemoglobin A1c 3 Months E11.9 - Type 2 diabetes mellitus without complications Comprehensive [place]. Panel Fast 3 Months E78.00 - Pure hypercholesterolemia, unspecified Vitamin B12 and Folate 3 Months E53.8 - Deficiency of other specified B group vitamins Vitamin D 25-OH Total 3 Months E55.9 - Vitamin D deficiency, unspecified Lipid Panel 3 Months E78.00 - Pure hypercholesterolemia, unspecified Complete Blood Count Auto Diff 3 Months D64.9 - Anemia, unspecified Microalbumin, Random (w Creat) 3 Months E11.9 - Type 2 diabetes mellitus without complications TSH reflex Free T4 3 Months E78.00 - Pure hypercholesterolemia, unspecified UA CC w/rflx Micro + Cult 3 Months R30.0 - Dysuria Medications: Refilled albuterol sulfate 90 mcg/actuation (Ventolin HFA) SHOULD NOT BE USED MORE THAN 4 TIMES A DAY - can cause tachycardia and jitteriness 2 puffs inhalation Q6H 30 days PRN 8.5 grams 5RF shortness of breath or wheezing amlodipine 2.5 mg PO DAILY 90 tabs 1RF I10 - Essential (primary) hypertension clopidogrel 75 mg PO DAILY 90 tabs 1RF ergocalciferol (vitamin D2) 1,250 mcg PO QWEEK 12 caps 3RF losartan 100 mg PO DAILY 90 tabs 1RF metoprolol succinate ER 100 mg PO DAILY 90 days 90 tabs 3RF tamsulosin 0.4 mg PO BEDTIME 90 days 90 caps 1RF clobetasol 0.05% 1 appl topical BID PRN 60 grams 1RF rash empagliflozin (Jardiance) 25 mg PO QAM 90 tabs 1RF Humalog KwikPen Insulin (insulin lispro) Inject 10 to 12 units as instructed 3 times a day with meals dosed per sliding scale subcutaneously; 30 days 15 mL 3RF NS E11.21 - Type 2 diabetes mellitus with diabetic nephropathy insulin glargine (Lantus Solostar U-100 Insulin) 28 units (0.28 mL) subcut QPM 15 mL 3RF E11.21 - Type 2 diabetes mellitus with diabetic nephropathy isosorbide mononitrate ER 60 mg PO DAILY 90 tabs 1RF metformin 1,000 mg PO BID 180 tabs 1RF rosuvastatin 40 mg PO DAILY 90 tabs 1RF tirzepatide (Mounjaro) 5 mg (0.5 mL) subcut QWEEK 2 mL 4RF Coding Level of Care Code Est Pt Level 4 (76956) Diagnoses Type 2 diabetes with nephropathy E11.21 Vision loss of left eye H54.62 Atherosclerosis of [place] coronary artery of [place] heart without angina pectoris I25.10 Three Aff[employer] vs. transplanted heart: [place] heart Diabetic nephropathy associated with type 2 diabetes mellitus E11.21 Diabetes mellitus type: type 2 Pure hypercholesterolemia E78.00 Benign essential hypertension I10 GERD without esophagitis K21.9 Vitamin D deficiency E55.9 Obesity (BMI 30-39.9) E66.9
== END 2023-08-11 11:16 | disposition home or self-care (01) ==
PROVIDERS: PCP Internal Medicine; Visit Provider Internal Medicine
DX: E11.21 Type 2 diabetes mellitus with diabetic nephropathy (principal)
CPT/HCPCS: 83036; 99214

== ENCOUNTER 2023-09-13 08:07 | Outpatient (REF) | payer BC, SELFPAY ==
[2023-05-25 10:03] VITALS: BP 100/54; BP 104/54; BP 120/64; BMI 29.7
[2023-09-13 08:32] LABS: MANUAL DIFF FLAG NO
[2023-09-13 08:53] LABS: Basophils Percent Auto 0.5 % (0-2); Eosinophils Absolute Auto 0.2 X10*3/uL (0.0-0.4); Eosinophils Percent Auto 2.2 % (0-4); Hematocrit 41.4 % (42.0-52.0); Hemoglobin 14.1 g/dl (14.0-18.0); Imm Gran Abs Auto 0.02 X10*3/uL (0.00-0.03); Imm Gran Pct Auto 0.2 % (0.0-0.4); Lymphocytes Absolute Auto 2.5 X10*3/uL (1.2-4.9); Lymphocytes Percent Auto 30.4 % (20-40); Mean Corpuscular HGB Conc 34.1 g/dl (31.0-36.0); Mean Corpuscular Volume 85.2 fL (80.0-98.0); Mean Platelet Volume 10.3 fL (9.4-12.4); Monocytes Absolute Auto 0.6 X10*3/uL (0.1-1.2); Monocytes Percent Auto 7.9 % (2-11); Neutrophils Absolute Auto 4.7 x10*3/uL (2.0-8.3); Neutrophils Percent Auto 58.8 % (45-73); Platelet Count 225 X10*3/uL (160-400); Red Blood Count 4.86 X10*6/uL (4.60-5.80); White Blood Count 8.1 X10*3/uL (4.8-10.8)
[2023-09-13 08:57] LABS: Estimated Average Glucose 223 mg/dL; Hemoglobin A1c % 9.4 % (<6.0)
[2023-09-13 09:34] LABS: Alanine Aminotransferase 39 U/L (0-40); Albumin Level 4.2 g/dL (3.5-5.0); Alkaline Phosphatase 48 U/L (39-117); Anion Gap 12 (12-20); Aspartate Amino Transferase 25 U/L (5-37); Bilirubin Total 0.6 mg/dL (0.0-1.0); Blood Urea Nitrogen 14 mg/dL (9-16); Calcium 9.5 mg/dL (8.4-10.2); Carbon Dioxide 26 mmol/L (22-29); Chloride 103 mmol/L (96-108); Cholesterol 130 mg/dL (<200); Estimated Glomerular Filt Rate > 60; Glucose Fasting 155 mg/dL (60-99); HDL Cholesterol 58 mg/dL (>40); LDL Cholesterol Calculated 42 mg/dL (<100); Potassium 4.3 mmol/L (3.3-5.1); Sodium 137 mmol/L (135-145); Total Protein 7.3 g/dL (6.5-8.0); Triglycerides 150 mg/dL (<150)
[2023-09-13 09:49] LABS: Folate 8.2 ng/mL (> or = 4.0); Vitamin B12 290 pg/mL (200-900)
[2023-09-13 09:51] LABS: TSH reflex Free T4 3.72 uIU/mL (0.32-4.0); Vitamin D 25-OH Total 24.3 ng/mL (>30)
[2023-09-13 10:50] LABS: Appearance Urine Clear; Color Urine Yellow; Glucose Urine UA Negative (Negative); Leukocyte Esterase Urine Negative (Negative); Nitrite Urine Negative (Negative); UMIC TRIGGER UACC YES; Urine Blood Negative (Negative); Urine Ketones Negative (Negative); Urine Protein 100 (2+) mg/dL (Neg-Trace)
[2023-09-13 10:58] LABS: Bacteria Urine None Seen (None Seen); Hyaline Casts Urine 0-2 /LPF (0-2); RBC Urine 0-2 /HPF (0-2); Squamous Epithelial Cell Urine 0-2 /HPF (0-2); WBC Urine 0-5 /HPF (0-5)
[2023-09-13 11:05] LABS: Creatinine Urine 40.93 mg/dL; Microalbum/Creatinine Ratio Ur 1016.3 ug/mg cr (<30)
== END 2023-09-13 08:08 | disposition home or self-care (01) ==
LOC: HO.LAB 08:07
PROVIDERS: PCP Internal Medicine; Visit Provider Internal Medicine
DX: E78.00 Pure hypercholesterolemia, unspecified (principal); E11.9 Type 2 diabetes mellitus without complications; E53.8 Deficiency of other specified B group vitamins; E55.9 Vitamin D deficiency, unspecified; D64.9 Anemia, unspecified
CPT/HCPCS: 36415; 80053; 80061; 81001; 82043; 82306; 82570; 82607; 82746; 83036; 84443; 85025

== ENCOUNTER 2023-09-22 09:50 | Outpatient (AMB) | payer BC, SELFPAY ==
[2023-05-25 10:03] VITALS: BP 100/54; BP 104/54; BP 120/64; BMI 29.7
--- NOTE | 2023-09-22 09:52 | A.OFFVIS_ITS ---
Vital Signs 09/22/23 09:54 Height 5 ft 4 in Weight 176 lb 5.917 oz BMI 30.3 BP 128/68 Blood Pressure Location Rt brachial Position Sitting Pulse 103 H Pulse Source Pulse Oximeter Intake Visit Reasons: T2DM/CONFIRMED Intake Note: Patient presents today to re-establish treatment on Type 2 Diabetes Mellitus: Last Diabetic Eye exam: 06/03/2023 Last Podiatry Exam: Does not see a Occupational Health Rn Most recent HbA1c: 9.4%, 09/13/2023 Random Glucose- 235 mg/dL, Today Associate Theatre Professor Required: No Accompanied by: Self / Same As Patient Allergies No Known Allergies [No Known Allergies*] Allergy (Verified 08/11/23 11:06) Medication List - Last Reconciled 09/22/23 by Brenda Murray MD albuterol sulfate 90 mcg/actuation (Ventolin HFA) 2 puffs inhalation Q6H PRN 30 days amlodipine 2.5 mg PO DAILY aspirin (Adult Low Dose Aspirin) 81 mg PO DAILY clobetasol 0.05% 1 appl topical BID PRN clopidogrel 75 mg PO DAILY empagliflozin (Jardiance) 25 mg PO QAM ergocalciferol (vitamin D2) 1,250 mcg PO QWEEK flash glucose scanning reader ([employer] Senait 14 Day [place]) As directed flash glucose sensor (FreeStyle Senait 14 Day Sensor kit) As directed Flexichamber (inhalational spacing device) use with Albuterol inhaler as directed NS Humalog KwikPen Insulin (insulin lispro) Inject 10 to 12 units as instructed 3 times a day with meals dosed per sliding scale subcutaneously; 30 days NS insulin glargine (Lantus Solostar U-100 Insulin) 28 units (0.28 mL) subcut QPM isosorbide mononitrate ER 60 mg PO DAILY losartan 100 mg PO DAILY metformin 1,000 mg PO BID metoprolol succinate ER 100 mg PO DAILY 90 days multivitamin 1 tab PO DAILY nitroglycerin 0.4 mg sublingual ONCE nystatin-triamcinolone 100,000-0.1 unit/g-% 1 appl topical BID 10 days pen needle, diabetic As directed five times a day rosuvastatin 40 mg PO DAILY tamsulosin 0.4 mg PO BEDTIME 90 days tirzepatide (Mounjaro) 5 mg (0.5 mL) subcut QWEEK HPI Comments Details: Patient is a 63 year old male with DM type 2 diagnosed approximately 15 years ago who presents for continued management of diabetes. Past medical history includes : HLD, vitamin D deficiency, GERD, hypertension, non-ST elevated NH. Micro and macrovascular complications: + retinopathy, + nephropathy, + neuropathy, + CAD Diabetes medications: Lantus 28 units (taking 100% doses), Humalog 12 units 3 times daily (forgets ~50% doses) , metformin 1000mg twice daily (misses once in a while), on Mounjaro 5 mg Qwkly (misses sometimes). Does admit the mounjaro decreases his appetite and sometimes does not eat breakfast and he is scared of getting low. If he feels low he drinks some soda. There are no signficant lows on CGM. Could not tolerate TrShibumi Senait download from - shows average glucose of 197, GMI 8.0%, high 61% time, TGT 39% time, 0% lows. 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 Eye exam: May 2023 preproliferative diabetic retinopathy ROS see HPI PHYSICAL EXAM: GENERAL: Alert and oriented x 3. NAD EYES: EOMI. Anicteric. HENT: Moist mucous membranes. No scleral icterus. No cervical lymphadenopathy. LUNGS: Clear to auscultation bilaterally. CARDIOVASCULAR: Regular rate and rhythm. No murmur. No JVD. ABDOMEN: Soft, non-tender +bs EXTREMITIES: No edema. Non-tender. SKIN: No rashes or lesions. Warm. NEUROLOGIC: No focal neurological deficits. PSYCHIATRIC: Cooperative. 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 Mother Diabetes mellitus CVD (cardiovascular disease) Hypertension Social History Household Members: Spouse Housing: House Alcohol intake: never Patient Tobacco Use Status: Never used Tobacco e-Cigarette/Vaping Use: Never Used Second Hand Smoke Exposure: No service: No Current occupational status: employed Cognitive needs: No Hearing needs: No Vision needs: Yes Physical Exam Vital Signs: Last Vital Signs Pulse 103 H 09/22/23 09:54 BP 128/68 09/22/23 09:54 BMI result Body Mass Index 30.3 Assessment & Plan Assessment & Plan (1) Type 2 diabetes mellitus with other diabetic kidney complication: Code(s): E11.29 - Type 2 diabetes mellitus with other diabetic kidney complication Category: Medical Plan: Improved glucose but still with hyperglycemia and suboptimal A1C control Missing signifiicant amount of short acting insulin doses and sometimes oral meds as well. there seems to be some fear of hypoglycemia in addition to just forgetting Discussed importance of taking 100% metformin doses, taking humalog every time he eats and continuing 100% of lantus doses. As he is most consistent with the latter will increase this to 32 units from 28. (2) Atherosclerotic heart disease of [place] coronary artery without angina pectoris: Comment: S/P STEMI in 2015 - cardiac cath showed a non-intervenable lesion and recommended aggressive medical Mx to modify risk factors as much as possible; S/P NSTEMI in September 2022 - was transferred [place] [facility] [place] to [facility], where cardiac cath revealed severe stenosis at diagnonal 1 and he underwent PCI of culprit lesion Code(s): I25.10 - Atherosclerotic heart disease of [place] coronary artery without angina pectoris Category: Medical Qualifiers: [place] vs. transplanted heart: [place] heart Qualified Code(s): I25.10 - Atherosclerotic heart disease of [place] coronary artery without angina pectoris Plan: continue f/up cardiology (3) Coronary artery disease due to type 2 diabetes mellitus: Code(s): E11.59 - Type 2 diabetes mellitus with other circulatory complications; I25.10 - Atherosclerotic heart disease of [place] coronary artery without angina pectoris Category: Medical Plan: LDL goal <70. continue crestor (4) Diabetes mellitus with retinopathy: Code(s): E11.319 - Type 2 diabetes mellitus with unspecified diabetic retinopathy without macular edema Category: Medical Qualifiers: Diabetes mellitus type: type 2 Diabetes mellitus chcf insulin use: with chcf use Diabetic retinopathy severity: with unspecified retinopathy severity Diabetes mellitus macular edema: macular edema presence unspecified Laterality: unspecified laterality Qualified Code(s): E11.319 - Type 2 diabetes mellitus with unspecified diabetic retinopathy without macular edema; Z79.4 - [facility] (current) use of insulin Plan: UTD eye exam (5) Type 2 diabetes with nephropathy: Comment: (+) proteinuria Code(s): E11.21 - Type 2 diabetes mellitus with diabetic nephropathy Category: Medical Plan: On ARB (6) Insulin use (long-term) in type 2 diabetes: Code(s): E11.9 - Type 2 diabetes mellitus without complications; Z79.4 - long term care social worker (current) use of insulin Category: Medical Qualifiers: Diabetes mellitus complication status: with hyperglycemia Qualified Code(s): E11.65 - Type 2 diabetes mellitus with hyperglycemia; Z79.4 - long term care social worker (current) use of insulin Plan: increase lantus to 32 units Medications: Changed From insulin glargine (Lantus Solostar U-100 Insulin) 28 units (0.28 mL) subcut QPM 15 mL 3RF E11.21 - Type 2 diabetes mellitus with diabetic nephropathy To Lantus Solostar U-100 Insulin (insulin glargine) 32 units (0.32 mL) subcut QPM 15 mL 3RF NS E11.21 - Type 2 diabetes mellitus with diabetic nephropathy Coding Level of Care Code Est Pt Level 5 (03588) Diagnoses Type 2 diabetes mellitus with other diabetic kidney complication E11.29 Atherosclerosis of [place] coronary artery of [place] heart without angina pectoris I25.10 [place] vs. transplanted heart: [place] heart Coronary artery disease due to type 2 diabetes mellitus E11.59; I25.10 Type 2 diabetes mellitus with retinopathy, with long-term current use of insulin, macular edema presence unspecified, unspecified laterality, unspecified retinopathy severity E11.319; Z79.4 Diabetes mellitus type: type 2 Diabetes mellitus director long term care insulin use: with chcf use Diabetic retinopathy severity: with unspecified retinopathy severity Diabetes mellitus macular edema: macular edema presence unspecified Laterality: unspecified laterality Type 2 diabetes with nephropathy E11.21 Type 2 diabetes mellitus with hyperglycemia, with long-term current use of insulin E11.65; Z79.4 Diabetes mellitus complication status: with hyperglycemia
[2023-09-22 09:54] VITALS: BP 128/68; PULSE 103; BMI 30.3
[2023-09-22 10:06] LABS: Glucose, Whole Blood 235 mg/dL (60-115)
== END 2023-09-22 10:37 | disposition home or self-care (01) ==
PROVIDERS: PCP Internal Medicine; Visit Provider Internal Medicine
DX: E11.29 Type 2 diabetes mellitus with other diabetic kidney complication (principal); I25.10 Atherosclerotic heart disease of native coronary artery without angina pectoris; E11.59 Type 2 diabetes mellitus with other circulatory complications; E11.319 Type 2 diabetes mellitus with unspecified diabetic retinopathy without macular edema; Z79.4 Long term (current) use of insulin; E11.21 Type 2 diabetes mellitus with diabetic nephropathy; E11.65 Type 2 diabetes mellitus with hyperglycemia
CPT/HCPCS: 99215

== ENCOUNTER → 2023-09-22 09:50 | Outpatient (BNVA) | payer BC, SELFPAY ==
[2023-05-25 10:03] VITALS: BP 100/54; BP 104/54; BP 120/64; BMI 29.7
== END ==
PROVIDERS: PCP Internal Medicine; Visit Provider Internal Medicine
DX: E11.29 Type 2 diabetes mellitus with other diabetic kidney complication (principal); E11.59 Type 2 diabetes mellitus with other circulatory complications; I25.10 Atherosclerotic heart disease of native coronary artery without angina pectoris; I25.2 Old myocardial infarction; E11.319 Type 2 diabetes mellitus with unspecified diabetic retinopathy without macular edema; E11.21 Type 2 diabetes mellitus with diabetic nephropathy; E11.65 Type 2 diabetes mellitus with hyperglycemia; Z79.4 Long term (current) use of insulin
CPT/HCPCS: 82947

== ENCOUNTER 2023-10-01 10:27 | Outpatient (AMB) | payer BC, SELFPAY ==
[2023-05-25 10:03] VITALS: BP 100/54; BP 104/54; BP 120/64; BMI 29.7
--- NOTE | 2023-10-01 10:28 | A.OFFVIS_ITS ---
Vital Signs 10/01/23 10:29 Height 5 ft 4 in Weight 175 lb 0.752 oz BMI 30.0 BP 130/80 Blood Pressure Location Lt brachial Position Sitting Pulse 85 Pulse Source Pulse Oximeter Intake Visit Reasons: followup dx: nstemi pcp requested [employer] Operator Required: No Accompanied by: Self / Same As Patient Allergies No Known Allergies [No Known Allergies*] Allergy (Verified 08/11/23 11:06) Medication List - Last Reconciled 10/01/23 by Karl Franco MD albuterol sulfate 90 mcg/actuation (Ventolin HFA) 2 puffs inhalation Q6H PRN 30 days amlodipine 2.5 mg PO DAILY aspirin (Adult Low Dose Aspirin) 81 mg PO DAILY clobetasol 0.05% 1 appl topical BID PRN clopidogrel 75 mg PO DAILY empagliflozin (Jardiance) 25 mg PO QAM ergocalciferol (vitamin D2) 1,250 mcg PO QWEEK flash glucose scanning reader ([employer]Style Senait 14 Day [place]) As directed flash glucose sensor ([employer]Style Senait 14 Day Sensor kit) As directed Flexichamber (inhalational spacing device) use with Albuterol inhaler as directed NS Humalog KwikPen Insulin (insulin lispro) Inject 10 to 12 units as instructed 3 times a day with meals dosed per sliding scale subcutaneously; 30 days NS isosorbide mononitrate ER 60 mg PO DAILY Lantus Solostar U-100 Insulin (insulin glargine) 32 units (0.32 mL) subcut QPM NS losartan 100 mg PO DAILY metformin 1,000 mg PO BID metoprolol succinate ER 100 mg PO DAILY 90 days multivitamin 1 tab PO DAILY nitroglycerin 0.4 mg sublingual ONCE nystatin-triamcinolone 100,000-0.1 unit/g-% 1 appl topical BID 10 days pen needle, diabetic As directed five times a day rosuvastatin 40 mg PO DAILY tamsulosin 0.4 mg PO BEDTIME 90 days tirzepatide (Mounjaro) 5 mg (0.5 mL) subcut QWEEK HPI Comments Details: Tomas comes for follow-up. He said while putting up fence in his home a brief episode of anginal sounding chest discomfort that lasted for few seconds. Symptoms then subsided when he rested. He has not had any worsening symptoms of angina. Takes all his medications. Denies any prolonged palpitation irregular heartbeat. No worsening shortness of breath, orthopnea, PND. He says he does get episodes of feeling cold and then is sweating profusely. Although he says when he checks his sugars there not too low. However he has uncontrolled diabetes. His last LDL was 44 mg/dL [facility] Medical History Nonproliferative diabetic retinopathy PVCs (premature ventricular contractions) Overweight (BMI 25.0-29.9) Cataract Obesity (BMI 30-39.9) Dermatosis GERD without esophagitis Benign essential hypertension Pure hypercholesterolemia Atherosclerotic heart disease of [place] coronary artery without angina pectoris Type 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 Mother Diabetes mellitus CVD (cardiovascular disease) Hypertension Social History Household Members: Spouse Housing: House Alcohol intake: never Patient Tobacco Use Status: Never used Tobacco e-Cigarette/Vaping Use: Never Used Second Hand Smoke Exposure: No service: No Current occupational status: employed Cognitive needs: No Hearing needs: No Vision needs: Yes Review of Systems Const Denies chills, Denies fatigue, Denies fever(s), Denies frequent falls, Denies weakness, Denies weight gain and Denies weight loss ENT Denies dizziness Card Denies chest pain, Denies leg edema, Denies lightheadedness, Denies palpitations, Denies dyspnea and Denies dyspnea on exertion Resp Denies cough, Denies dyspnea and Denies dyspnea on exertion GI Denies hematochezia Musc Denies abnormal gait, Denies muscle weakness, Denies numbness, Denies radiating pain into limb and Denies tingling Neuro Denies Abnormal speech present, Denies abnormal gait, Denies dizziness, Denies frequent falls, Denies numbness, Denies tingling and Denies weakness Endo Denies fatigue and Denies palpitations Physical Exam Vital Signs: Last Vital Signs Pulse 85 10/01/23 10:29 BP 130/80 10/01/23 10:29 BMI result Body Mass Index 30.0 Const General: cooperative, comfortable, no acute distress, well developed, alert, awake and Physically active Nutritional Appearance: overweight Orientation/consciousness: patient oriented x3 Limitations: no limitations Neck Neck: Yes trachea midline, Yes supple and Yes no JVD Carotids: no bruits Resp Effort & Inspection: normal respiratory effort Auscultation: clear to auscultation bilaterally Cardio Jugular venous distension: no JVD Palpation: normal PMI Rate: regular rate Rhythm: regular rhythm Heart sounds: S1 normal heart sound present, S2 normal heart sound present, no click, no gallops, no murmurs and no rubs GI Auscultation: normal bowel sounds Neuro General: patient oriented x3 and no focal motor deficits Speech: No Abnormal speech present Extrem General: Yes no clubbing, cyanosis or edema Assessment & Plan Assessment & Plan (1) Atherosclerotic heart disease of [place] coronary artery without angina pectoris: Comment: S/P STEMI in 2015 - cardiac cath showed a non-intervenable lesion and recommended aggressive medical Mx to modify risk factors as much as possible; S/P NSTEMI in September 2022 - [place] [facility] [place] [facility] [place] [facility] where cardiac cath revealed severe stenosis at diagnonal 1 and he underwent PCI of culprit lesion Code(s): I25.10 - Atherosclerotic heart disease of [place] coronary artery without angina pectoris Category: Medical Qualifiers: [place] vs. transplanted heart: [place] heart Qualified Code(s): I25.10 - Atherosclerotic heart disease of [place] coronary artery without angina pectoris Plan: Coronary artery disease with stenting of the diagonal branch for acute coronary syndrome last September. More than a year ago, can stop clopidogrel therapy. Continue lifelong aspirin therapy. Continue aggressive vascular risk factor modification. Diabetes needs to be aggressively managed with goal hemoglobin A1c less than 7%. Mibi the most difficult challenge. His LDL is well optimized at 44 mg/dL. Continue aggressive blood pressure control which appears to be well optimized encouraged to continue to participate in physical activity as tolerated. Advised to avoid sudden strenuous exertion. Discussed management of angina and to use sublingual nitroglycerin if he develops symptoms that are progressive and with rest. Seek emergency care at that point in time. He is advised to call me with worsening anginal symptoms. Will follow up in the clinic in 1 year's time, sooner p.r.n.. Thank you for allowing me to partake in his care Medications: Discontinued clopidogrel Discontinued Reason: Doctor's Order 75 mg PO DAILY 90 tabs 1RF Coding Level of Care Code Est Pt Level 4 (41487) Diagnoses Atherosclerosis of [place] coronary artery of [place] heart without angina pectoris I25.10 [place] vs. transplanted heart: [place] heart
[2023-10-01 10:29] VITALS: BP 130/80; PULSE 85
== END 2023-10-01 10:51 | disposition home or self-care (01) ==
PROVIDERS: PCP Internal Medicine; Visit Provider Internal Medicine Cardiovascular Disease
DX: I25.10 Atherosclerotic heart disease of native coronary artery without angina pectoris (principal)
CPT/HCPCS: 99214

== ENCOUNTER → 2023-10-01 10:27 | Outpatient (BNVA) | payer BC, SELFPAY ==
[2023-05-25 10:03] VITALS: BP 100/54; BP 104/54; BP 120/64; BMI 29.7
== END ==
PROVIDERS: PCP Internal Medicine; Visit Provider Internal Medicine Cardiovascular Disease

== ENCOUNTER 2023-11-11 08:57 | Outpatient (AMB) | payer BC, SELFPAY ==
[2023-05-25 10:03] VITALS: BP 100/54; BP 104/54; BP 120/64; BMI 29.7
[2023-11-11 08:58] VITALS: BP 130/64; PULSE 78; O2SAT 97
--- NOTE | 2023-11-11 08:58 | MHC.PC.OV ---
Vital Signs 11/11/23 08:58 Height 5 ft 4 in Weight 175 lb BMI 30.0 BP 130/64 Blood Pressure Location Lt brachial Position Sitting Pulse 78 Pulse Source Pulse Oximeter Pulse Oximetry (%) 97 Oxygen Delivery Method Room Air Intake Visit Reasons: [facility]/ [facility] Eye Cataract Surg 11/22 Intake Note: Patient is here for a Pre-op [facility] Required: No Allergies No Known Allergies [No Known Allergies*] Allergy (Verified 11/11/23 09:10) Medication List - Last Reconciled 11/11/23 by Crystal Merlos PA-C albuterol sulfate 90 mcg/actuation (Ventolin HFA) 2 puffs inhalation Q6H PRN 30 days amlodipine 2.5 mg PO DAILY aspirin (Adult Low Dose Aspirin) 81 mg PO DAILY clobetasol 0.05% 1 appl topical BID PRN empagliflozin (Jardiance) 25 mg PO QAM ergocalciferol (vitamin D2) 1,250 mcg PO QWEEK flash glucose scanning reader (KVK TEAMStyle Senait 14 Day [place]) As directed flash glucose sensor (KVK TEAMStyle Senait 14 Day Sensor kit) As directed Flexichamber (inhalational spacing device) use with Albuterol inhaler as directed NS Humalog KwikPen Insulin (insulin lispro) Inject 10 to 12 units as instructed 3 times a day with meals dosed per sliding scale subcutaneously; 30 days NS isosorbide mononitrate ER 60 mg PO DAILY Lantus Solostar U-100 Insulin (insulin glargine) 32 units (0.32 mL) subcut QPM NS losartan 100 mg PO DAILY metformin 1,000 mg PO BID metoprolol succinate ER 100 mg PO DAILY 90 days multivitamin 1 tab PO DAILY nitroglycerin 0.4 mg sublingual ONCE nystatin-triamcinolone 100,000-0.1 unit/g-% 1 appl topical BID 10 days pen needle, diabetic As directed five times a day rosuvastatin 40 mg PO DAILY tamsulosin 0.4 mg PO BEDTIME 90 days tirzepatide (Mounjaro) 5 mg (0.5 mL) subcut QWEEK Tobacco use date assessed: 04/13/23 Fall risk assessment: No Falls in past year Last assessed Fall Risk: 11/11/23 Dental Screening Dental Screen Date: 04/13/23 HPI [facility]/ LT Eye Cataract Surg 11/22 HPI Details 63-year-old male with past medical history of diabetes mellitus, coronary artery disease, history of non ST elevated myocardial infarction, GERD, hypertension, hypercholesterolemia last seen by Dr. Murphy August 2023 coming in for preop. Patient is scheduled to have left eye cataract surgery 11/23/2023 with [facility]. Previously had right eye done with [facility] and tolerated the procedure well without complications. He has not acute concerns today. Diabetes mellitus: Patient's A1c was 8 % currently on Mounjaro, insulin, metformin, and Jardiance. Hypertension: Blood pressure at goal today 130/64 currently on amlodipine and metoprolol Hyperlipidemia: Cholesterol at goal on last labs and currently on rosuvastatin 40 mg. Patient has history of NSTEMI, comorbidities well managed by Cardiology. No history of stroke or congestive heart failure. [facility] Medical History Nonproliferative diabetic retinopathy PVCs (premature ventricular contractions) Overweight (BMI 25.0-29.9) Cataract Obesity (BMI 30-39.9) Dermatosis GERD without esophagitis Benign essential hypertension Pure hypercholesterolemia Atherosclerotic heart disease of [place] coronary artery without angina pectoris Type 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 Mother Diabetes mellitus CVD (cardiovascular disease) Hypertension Social History Household Members: Spouse Housing: House Alcohol intake: never Patient Tobacco Use Status: Never used Tobacco e-Cigarette/Vaping Use: Never Used Second Hand Smoke Exposure: No service: No Current occupational status: employed Cognitive needs: No Hearing needs: No Vision needs: Yes Questionnaire Thrive Questionnaire Date Thrive assessed: 08/11/23 AUDIT C Alcohol Use Questionnaire (AUDIT-C) 1. How often do you have a drink containing alcohol?: Never 3. How often do you have six or more drinks on one occasion?: Never Total Score: 0 Score Reviewed/Action Taken: Yes SHIREEN-7 AMB Questionnaire SHIREEN-7 Date SHIREEN - 7 assessed: 04/13/23 Source: Developed by Drs. Vargas Pope, Valerie Carpenter, Harjinder Erazo and colleagues, with an educational aubree from [employer]. Review of Systems Const Denies body aches, Denies fatigue, Denies fever(s), Denies frequent falls, Denies headache(s) and Denies weakness Eyes Reports no additional complaints and Denies change in vision ENT Denies dysphagia, Denies dizziness, Denies facial pain, Denies headache(s), Denies nasal congestion and Denies odynophagia Card Denies chest pain, Denies syncope, Denies irregular heart rhythm, Denies leg edema, Denies lightheadedness and Denies dyspnea Resp Denies cough and Denies dyspnea GI Denies constipation, Denies dysphagia, Denies dyspepsia, Denies diarrhea, Denies nausea, Denies odynophagia and Denies vomiting Denies dysuria, Denies urinary frequency, Denies urinary hesitancy and Denies urinary urgency Musc Denies back pain and Denies myalgias Skin/Breast Reports system reviewed and no additional complaints, except as documented Neuro Denies dizziness, Denies syncope, Denies frequent falls, Denies headache(s) and Denies weakness Psych Reports no additional complaints Endo Denies fatigue Physical exam (Primary Care) Vital Signs: Last Vital Signs Pulse 78 11/11/23 08:58 BP 130/64 11/11/23 08:58 Pulse Ox 97 11/11/23 08:58 Oxygen Delivery Method Room Air 11/11/23 08:58 BMI result Body Mass Index 30.0 Tobacco/Smoking Status: Tobacco use Status Tobacco use date assessed 04/13/23 11/11/23 08:59 Patient Tobacco Use Status Never used Tobacco 11/11/23 08:59 e-Cigarette/Vaping Use Never Used 11/11/23 08:59 Thrive Assessment: Date of Thrive Assessment Date Thrive assessed 08/11/23 11/11/23 08:59 Const General: cooperative, healthy appearing, comfortable and no acute distress Orientation/consciousness: patient oriented x3 [facility] Head: Yes normocephalic Ears: hearing grossly normal bilaterally, TM's normal bilaterally and EAC's normal General nose exam: Normal external nose present Throat: Yes posterior oropharynx normal Eyes General: appearance normal, both eyes and all related structures Conjunctivae: conjunctivae normal Neck Neck: Yes full ROM and Yes no lymphadenopathy Resp Effort & Inspection: normal respiratory effort Auscultation: clear to auscultation bilaterally, no crackles, no rales, no rhonchi and no wheezes Cardio Rate: regular rate Rhythm: regular rhythm Skin General skin exam: no rashes or lesions noted Neuro General: patient oriented x3 Gait exam (Neuro): Normal gait present Extrem General: Yes normal to inspection, Yes full ROM and No edema Psych Affect: normal affect Attitude: cooperative Insight: Good insight present (Psych) Judgement: Good judgement present (Psych) Results AMB Hemoglobin A1c AMB Hemoglobin A1c 8.0 % Last Edit by BOBBY Briceño on 11/11/23 09:22 Coding Level of Care Code Est Pt Level 4 (09778) Diagnoses Type 2 diabetes mellitus with hyperglycemia, with long-term current use of insulin E11.65; Z79.4 Diabetes mellitus complication status: with hyperglycemia Preoperative examination Z01.818 Atherosclerosis of [place] coronary artery of [place] heart without angina pectoris I25.10 [place] vs. transplanted heart: [place] heart Hyperlipidemia E78.5 Essential hypertension I10 Hypertension type: essential hypertension Assessment & Plan Assessment & Plan (1) Insulin use (long-term) in type 2 diabetes: Code(s): E11.9 - Type 2 diabetes mellitus without complications; Z79.4 - [facility] (current) use of insulin Category: Medical Qualifiers: Diabetes mellitus complication status: with hyperglycemia Qualified Code(s): E11.65 - Type 2 diabetes mellitus with hyperglycemia; Z79.4 - manager terminal (current) use of insulin Plan: A1c 8.0% today which is not currently at goal but improved since last A1c. Decrease the amount of carbohydrates such as pasta, bread, rice, and potatoes and limit the amount of sweets. Although fruits are generally healthy they should be eaten in moderation as they are still high in sugar. Hemoglobin A1c goal of less than 7%. A1c of 8.0% is still acceptable for surgery at surgeon's discretion. (2) Preoperative examination: Code(s): Z01.818 - Encounter for other preprocedural examination Category: Medical Plan: Regarding preop clearance, the patient is at moderate risk for proposed surgery due to age and comorbidities. Reviewed with the patient that no surgery is completely free of risk and that this examination is to assist the surgeon in reviewing informed consent. Discussed with patient he would need to discontinue Mounjaro 1 week prior to surgery and Jardiance 4 days prior to surgery. Advised patient to take blood pressure medications the morning of the procedure and can hold all other medications until after the procedure is completed. As modern cataract surgeries rarely cause any bleeding, he is advised that he should continue on his low dose Aspirin 81 mg QD. Patient is not currently on any blood thinners and does not regularly take NSAIDs. (3) Atherosclerotic heart disease of [place] coronary artery without angina pectoris: Comment: S/P STEMI in 2015 - cardiac cath showed a non-intervenable lesion and recommended aggressive medical Mx to modify risk factors as much as possible; S/P NSTEMI in September 2022 - was transferred from [facility] to [facility], where cardiac cath revealed severe stenosis at diagnonal 1 and he underwent PCI of culprit lesion Code(s): I25.10 - Atherosclerotic heart disease of [place] coronary artery without angina pectoris Category: Medical Qualifiers: [place] vs. transplanted heart: [place] heart Qualified Code(s): I25.10 - Atherosclerotic heart disease of [place] coronary artery without angina pectoris Plan: Continue to follow with Cardiology. (4) Hyperlipidemia: Code(s): E78.5 - Hyperlipidemia, unspecified Category: Medical Plan: Cholesterol at goal on last blood work continue on rosuvastatin 40 mg. Avoid foods that are high in cholesterol such as red meat, fried foods, eggs and baked goods. Triglyceride goal of less than 150 and LDL goal of less than 70. (5) Hypertension: Code(s): I10 - Essential (primary) hypertension Category: Medical Qualifiers: Hypertension type: essential hypertension Qualified Code(s): I10 - Essential (primary) hypertension Plan: Blood pressure at goal today 130/64. Continue on current medication regimen and advised patient to take blood pressure medications the morning of the procedure. Plan This note was constructed using voice recognition software. While every effort has been made to ensure accuracy and pick remover, still areas may have been included sometimes these areas may affect the content or meeting of the given symptoms. Total time spent caring for the patient today was 30 minutes. This includes time spent before the visit reviewing the chart, time spent during the visit, and time spent after the visit and documentation. Orders: Orders AMB Hemoglobin A1c Today E11.65 - Type 2 diabetes mellitus with hyperglycemia, Z79.4 - [facility] (current) use of insulin
== END 2023-11-11 09:48 | disposition home or self-care (01) ==
PROVIDERS: PCP Internal Medicine
DX: E11.65 Type 2 diabetes mellitus with hyperglycemia (principal); Z79.4 Long term (current) use of insulin; Z01.818 Encounter for other preprocedural examination; I25.10 Atherosclerotic heart disease of native coronary artery without angina pectoris; E78.5 Hyperlipidemia, unspecified; I10 Essential (primary) hypertension

== ENCOUNTER → 2023-11-11 08:57 | Outpatient (BNVA) | payer BC, SELFPAY ==
[2023-05-25 10:03] VITALS: BP 100/54; BP 104/54; BP 120/64; BMI 29.7
== END ==
PROVIDERS: PCP Internal Medicine
DX: Z01.818 Encounter for other preprocedural examination (principal); E11.65 Type 2 diabetes mellitus with hyperglycemia; I25.10 Atherosclerotic heart disease of native coronary artery without angina pectoris; E78.5 Hyperlipidemia, unspecified; I10 Essential (primary) hypertension; I25.2 Old myocardial infarction; Z79.4 Long term (current) use of insulin; Z79.82 Long term (current) use of aspirin; Z79.899 Other long term (current) drug therapy
CPT/HCPCS: 83036

== ENCOUNTER 2023-12-11 08:07 | Outpatient (REF) | payer BC, SELFPAY ==
[2023-05-25 10:03] VITALS: BP 100/54; BP 104/54; BP 120/64; BMI 29.7
[2023-12-11 08:18] LABS: MANUAL DIFF FLAG NO
[2023-12-11 08:35] LABS: Basophils Percent Auto 0.4 % (0-2); Eosinophils Absolute Auto 0.1 X10*3/uL (0.0-0.4); Eosinophils Percent Auto 1.9 % (0-4); Hematocrit 39.7 % (42.0-52.0); Hemoglobin 13.6 g/dl (14.0-18.0); Imm Gran Abs Auto 0.01 X10*3/uL (0.00-0.03); Imm Gran Pct Auto 0.1 % (0.0-0.4); Lymphocytes Absolute Auto 2.7 X10*3/uL (1.2-4.9); Lymphocytes Percent Auto 36.8 % (20-40); Mean Corpuscular HGB Conc 34.3 g/dl (31.0-36.0); Mean Corpuscular Hemoglobin 29.2 pg (27.0-33.0); Mean Corpuscular Volume 85.4 fL (80.0-98.0); Mean Platelet Volume 10.6 fL (9.4-12.4); Monocytes Absolute Auto 0.7 X10*3/uL (0.1-1.2); Monocytes Percent Auto 8.9 % (2-11); Neutrophils Absolute Auto 3.9 x10*3/uL (2.0-8.3); Neutrophils Percent Auto 51.9 % (45-73); Platelet Count 185 X10*3/uL (160-400); Red Blood Count 4.65 X10*6/uL (4.60-5.80); Red Cell Distribution Width 13.6 % (11.0-16.0); White Blood Count 7.5 X10*3/uL (4.8-10.8)
[2023-12-11 08:43] LABS: Appearance Urine Clear; Color Urine Yellow; Glucose Urine UA >=1000 mg/dL (Negative); Leukocyte Esterase Urine Negative (Negative); Nitrite Urine Negative (Negative); PH 5.5 (5.0-9.0); UMIC TRIGGER UACC YES; Urine Blood Negative (Negative); Urine Ketones Negative (Negative); Urine Protein 30 (1+) mg/dL (Neg-Trace)
[2023-12-11 08:56] LABS: Bacteria Urine None Seen (None Seen); Hyaline Casts Urine 0-2 /LPF (0-2); RBC Urine 0-2 /HPF (0-2); Specific Gravity - Urine >= 1.030 (1.005-1.025); Squamous Epithelial Cell Urine 0-2 /HPF (0-2); WBC Urine 0-5 /HPF (0-5)
[2023-12-11 09:06] LABS: Creatinine Urine 79.47 mg/dL; Microalbum/Creatinine Ratio Ur 363.6 ug/mg cr (<30)
[2023-12-11 09:07] LABS: Estimated Average Glucose 192 mg/dL; Hemoglobin A1C 224.2321 umol/L; Hemoglobin A1c % 8.3 % (<6.0)
[2023-12-11 09:21] LABS: Alanine Aminotransferase 63 U/L (0-40); Albumin Level 4.2 g/dL (3.5-5.0); Alkaline Phosphatase 44 U/L (39-117); Anion Gap 14 (12-20); Aspartate Amino Transferase 35 U/L (5-37); Bilirubin Total 0.7 mg/dL (0.0-1.0); Blood Urea Nitrogen 23 mg/dL (9-16); Carbon Dioxide 26 mmol/L (22-29); Chloride 105 mmol/L (96-108); Cholesterol 106 mg/dL (<200); Estimated Glomerular Filt Rate > 60; Glucose Fasting 108 mg/dL (60-99); HDL Cholesterol 53 mg/dL (>40); LDL Cholesterol Calculated 33 mg/dL (<100); Sodium 141 mmol/L (135-145); Total Protein 7.2 g/dL (6.5-8.0); Triglycerides 101 mg/dL (<150)
[2023-12-11 09:30] LABS: TSH reflex Free T4 2.48 uIU/mL (0.32-4.0); Vitamin D 25-OH Total 23.4 ng/mL (>30)
[2023-12-11 09:42] LABS: Folate 12.2 ng/mL (> or = 4.0); Vitamin B12 314 pg/mL (200-900)
== END 2023-12-11 08:08 | disposition home or self-care (01) ==
LOC: HO.LAB 08:07
PROVIDERS: PCP Internal Medicine; Visit Provider Internal Medicine
DX: D64.9 Anemia, unspecified (principal); E78.00 Pure hypercholesterolemia, unspecified; E53.8 Deficiency of other specified B group vitamins; E11.9 Type 2 diabetes mellitus without complications; E55.9 Vitamin D deficiency, unspecified
CPT/HCPCS: 36415; 80053; 80061; 81001; 82043; 82306; 82570; 82607; 82746; 83036; 84443; 85025

== ENCOUNTER 2023-12-14 09:53 | Outpatient (AMB) | payer BC, SELFPAY ==
[2023-05-25 10:03] VITALS: BP 100/54; BP 104/54; BP 120/64; BMI 29.7
[2023-12-14 10:02] VITALS: BP 122/68; PULSE 77; O2SAT 98; BMI 30.1
--- NOTE | 2023-12-14 10:02 | A.OFFPC_ITS ---
Vital Signs 12/14/23 10:02 Height 5 ft 4 in Weight 175 lb 6 oz BMI 30.1 BP 122/68 Blood Pressure Location Lt brachial Position Sitting Pulse 77 Pulse Source Pulse Oximeter Pulse Oximetry (%) 98 Oxygen Delivery Method Room Air Intake Visit Reasons: DM, CAD Surgical Corsetier Required: No Accompanied by: Self / Same As Patient Allergies No Known Allergies [No Known Allergies*] Allergy (Verified 12/14/23 10:20) Medication List - Last Reconciled 12/14/23 by Aram Murphy MD albuterol sulfate 90 mcg/actuation (Ventolin HFA) 2 puffs inhalation Q6H PRN 30 days amlodipine 2.5 mg PO DAILY aspirin (Adult Low Dose Aspirin) 81 mg PO DAILY clobetasol 0.05% 1 appl topical BID PRN empagliflozin (Jardiance) 25 mg PO QAM ergocalciferol (vitamin D2) 1,250 mcg PO QWEEK flash glucose scanning reader ([employer] Figure[employer] Senait 14 Day [place]) As directed flash glucose sensor (Fashion [employer] FigureStyle Senait 14 Day Sensor kit) As directed Flexichamber (inhalational spacing device) use with Albuterol inhaler as directed NS Humalog KwikPen Insulin (insulin lispro) Inject 10 to 12 units as instructed 3 times a day with meals dosed per sliding scale subcutaneously; 30 days NS isosorbide mononitrate ER 60 mg PO DAILY Lantus Solostar U-100 Insulin (insulin glargine) 32 units (0.32 mL) subcut QPM NS losartan 100 mg PO DAILY metformin 1,000 mg PO BID metoprolol succinate ER 100 mg PO DAILY 90 days multivitamin 1 tab PO DAILY nitroglycerin 0.4 mg sublingual ONCE nystatin-triamcinolone 100,000-0.1 unit/g-% 1 appl topical BID 10 days pen needle, diabetic As directed five times a day rosuvastatin 40 mg PO DAILY tamsulosin 0.4 mg PO BEDTIME 90 days tirzepatide (Mounjaro) 5 mg (0.5 mL) subcut QWEEK Tobacco use date assessed: 12/14/23 Fall risk assessment: No Falls in past year Last assessed Fall Risk: 12/14/23 Dental Screening Dental Screen Date: 12/14/23 Did you have a dental visit in the last 12 months?: No Did you have a dental problem in the last 6 months where you did not have access to dental care?: No Was dental information given to patient?: No HPI DM, CAD HPI Details Patient comes in today for his follow up visit States that he feels okay He had cataract surgery done on his left eye about 2 weeks ago and states that he is still noticing a lot of floaters and is still having some issues with his vision - thinks that he has a follow up appointment with ophthalmology coming up later this month He denies any increased eye pain He denies any headaches or dizziness Denies any chest pains, no increased SOB No nausea/vomiting, no abdominal pain No change in bowel habits noted He had his follow up labs done a few days ago - to discuss his results [facility] Medical History Nonproliferative diabetic retinopathy PVCs (premature ventricular contractions) Overweight (BMI 25.0-29.9) Cataract Obesity (BMI 30-39.9) Dermatosis GERD without esophagitis Benign essential hypertension Pure hypercholesterolemia Atherosclerotic heart disease of [place] coronary artery without angina pectoris Type 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 Mother Diabetes mellitus CVD (cardiovascular disease) Hypertension Social History Household Members: Spouse Housing: House Alcohol intake: never Patient Tobacco Use Status: Never used Tobacco e-Cigarette/Vaping Use: Never Used Second Hand Smoke Exposure: No service: No Current occupational status: employed Cognitive needs: No Hearing needs: No Vision needs: Yes Questionnaire PHQ-9 Over the last 2 weeks, how often have you been bothered by any of the following problems? 1. Little interest or pleasure in doing things: not at all 2. Feeling down, depressed, or hopeless: not at all 3. Trouble falling or staying asleep, or sleeping too much: not at all 4. Feeling tired or having little energy: not at all 5. Poor appetite or overeating: not at all 6. Feeling bad about yourself - or that you are a failure or have let yourself or your family down: not at all 7. Trouble concentrating on things, such as reading the newspaper or watching television: not at all 8. Moving or speaking so slowly that other people could have noticed. Or the opposite - being so fidgety or restless that you have been moving around a lot more than usual: not at all 9. Thoughts that you would be better off or of hurting yourself in some way: not at all Total score: 0 Depression Screening Interpretation: Negative Depression Screening Done: Yes 82047 - PHQ-9 Billing: Yes Source: Developed by Drs. Vargas Pope, Valerie Carpenter, Harjinder Erazo and colleagues, with an educational aubree from [employer] Thrive Questionnaire Date Thrive assessed: 12/14/23 I am a: Patient What is your living situation today?: I have a steady place to live Within the past 12 months, did the food you bought not last and you didn't have the money to get more?: Never true Within the past 12 months, did you worry whether your food would run out before you got money to buy more?: Never true Do you have trouble paying for medicines?: No Do you have trouble getting transportation to medical appointments?: No Do you have trouble paying your heating and electricity bill?: No Do you have trouble taking care of your child, family member or friend?: No Do you have trouble with day-to-day activities such as bathing, preparing meals, shopping, managing finances, etc.?: No Are you currently unemployed and looking for a job?: No Are you interested in more education?: No Please select the resources that you would like help with: None Currently or been in a relationship where the following occur: No concerns reported THRIVE Score: 0 AUDIT C Alcohol Use Questionnaire (AUDIT-C) 1. How often do you have a drink containing alcohol?: Never 3. How often do you have six or more drinks on one occasion?: Never Total Score: 0 Score Reviewed/Action Taken: Yes SHIREEN-7 AMB Questionnaire SHIREEN-7 Date SHIREEN - 7 assessed: 12/14/23 Feeling nervous, anxious, or on edge: 0 = Not at all Not being able to stop or control worryin = Not at all Worrying too much about different things: 0 = Not at all Trouble relaxin = Not at all Being so restless that it is hard to sit still: 0 = Not at all Becoming easily annoyed or irritable: 0 = Not at all Feeling afraid as if something awful might happen: 0 = Not at all Total SHIREEN-7 score (0-4 normal; 5-9 mild; 10-14 moderate; 15-21 severe): 0 Source: Developed by Drs. Vargas Pope, Valerie Carpenter, Harjinder Erazo and colleagues, with an educational aubree from [employer] Review of Systems Const Denies chills, Denies fatigue, Denies fever(s) and Denies headache(s) Eyes Reports floaters (increase in the left eye recently, occurring multiple times a day) and Denies eye pain ENT Denies dysphagia, Denies dizziness, Denies otalgia, Denies headache(s), Denies neck pain, Denies odynophagia and Denies sore throat Card Denies chest pain, Denies palpitations and Reports dyspnea on exertion (mild, chronic) Resp Denies chest congestion, Denies cough, Reports dyspnea on exertion (mild, chronic) and Denies wheezing GI Denies abdominal pain, Denies constipation, Denies dysphagia, Denies heartburn, Denies diarrhea, Denies nausea, Denies odynophagia and Denies vomiting Denies dysuria, Denies nocturia and Reports urinary frequency Musc Denies back pain and Denies neck pain Skin/Breast Denies rash Neuro Denies dizziness and Denies headache(s) Endo Denies fatigue and Denies palpitations Aller/Immun Denies wheezing Physical exam (Primary Care) Vital Signs: Last Vital Signs Pulse 77 12/14/23 10:02 BP 122/68 12/14/23 10:02 Pulse Ox 98 12/14/23 10:02 Oxygen Delivery Method Room Air 12/14/23 10:02 BMI result Body Mass Index 30.1 Tobacco/Smoking Status: Tobacco use Status Tobacco use date assessed 12/14/23 12/14/23 10:07 Patient Tobacco Use Status Never used Tobacco 12/14/23 10:07 e-Cigarette/Vaping Use Never Used 12/14/23 10:07 PHQ-9: PHQ-9 Score PHQ-9: Total score 0 12/14/23 10:07 Depression Screening Interpretation: Negative Thrive Assessment: Date of Thrive Assessment Date Thrive assessed 12/14/23 12/14/23 10:07 Currently or been in a relationship where the following occur: No concerns reported Const General: no acute distress and alert HENMT Ears: TM's normal bilaterally and EAC's normal Throat: Yes posterior oropharynx normal and Yes tonsils normal (no TP congestion noted) Neck Neck: Yes no lymphadenopathy and Yes supple Thyroid: Thyroid normal Resp Auscultation: clear to auscultation bilaterally, no rales and no wheezes Cardio Rate: regular rate Rhythm: regular rhythm Heart sounds: no murmurs GI Palpation (GI): Soft to palpation and nontender Auscultation: normal bowel sounds General: Yes no CVA tenderness Back/Spine/Pelvis Back: no CVA tenderness Thoracic/Lumbar Spine: No lumbar spinal tenderness Skin Rashes: no rashes Extrem General: Yes no clubbing, cyanosis or edema Right upper extremity: Extremity exam: right hand Details: tenderness (over the fingers) and swelling (over the IP joints of several fingers) Left upper extremity: hand Details: tenderness (over the fingers) and swelling (over the IP joints of multiple fingers) Office Procedures Flu Questionnaire Does the patient have a severe egg allergy?: No Immunizations Fluarix Triv [id number] (PF) 45 mcg (15 mcg x 3)/0.5 mL IM syringe Performing Provider: Aram Murphy MD [place] [facility] [facility] Documented (not given) by: BOBBY Ross on 12/14/23 10:08 Reason Not Given: Patient Refused Results Reviewed Results Reviewed: Laboratory Tests 12/11/23 12/11/23 08:12 08:17 WBC 7.5 Hgb 13.6 L Hct 39.7 L Plt Count 185 Sodium 141 Potassium 4.0 Creatinine 0.82 Estimated GFR > 60 Fasting Glucose 108 H Hemoglobin A1c % 8.3 H Calcium 10.0 AST 35 ALT 63 H Triglycerides 101 Cholesterol 106 LDL Cholesterol, Calc 33 HDL Cholesterol 53 Vitamin B12 314 25-OH Vitamin D Total 23.4 L TSH 2.48 Ur Specific [place] >= 1.030 H Urine Protein 30 (1+) H Urine Glucose (UA) >=1000 H Urine Blood Negative Urine Nitrite Negative Ur Leukocyte Esterase Negative Microalb/Creat Ratio 363.6 H Coding Level of Care Code Est Pt Level 4 (86639) Diagnoses Type 2 diabetes with nephropathy E11.21 Diabetic nephropathy associated with type 2 diabetes mellitus E11.21 Diabetes mellitus type: type 2 Atherosclerosis of [place] coronary artery of [place] heart without angina pectoris I25.10 [place] vs. transplanted heart: [place] heart Pure hypercholesterolemia E78.00 Benign essential hypertension I10 GERD without esophagitis K21.9 Vitamin D deficiency E55.9 Obesity (BMI 30-39.9) E66.9 Assessment & Plan Assessment & Plan (1) Type 2 diabetes with nephropathy: Comment: (+) proteinuria Code(s): E11.21 - Type 2 diabetes mellitus with diabetic nephropathy Category: Medical Plan: His HgbA1c was at 8.3% on his labs done a few days ago (in-office HgbA1c was previously at 9.8% a few months ago) - goal is at least <7.0% Reinforced diabetic diet Continue Lantus 32 units Q HS, Humalog 10 units with small meals and 12 units with large meals, Metformin ER 1000 mg BID, Jardiance 25 mg QD and Mounjaro 5 mg once a week (could not tolerate Trulicity and failed to respond to Ozempic in the past) Follow up with endocrinology (Dr. Calvillo) and diabetic whipper as scheduled - he has an appointment coming up with endocrinology next week (2) Diabetic nephropathy: Code(s): E11.21 - Type 2 diabetes mellitus with diabetic nephropathy Category: Medical Qualifiers: Diabetes mellitus type: type 2 Qualified Code(s): E11.21 - Type 2 diabetes mellitus with diabetic nephropathy Plan: Stable lately; follow up with nephrology as scheduled Reminded again that better control of his diabetes is the best way to slow down the progression of his kidney disease (3) Atherosclerotic heart disease of [place] coronary artery without angina pectoris: Comment: S/P STEMI in 2015 - cardiac cath showed a non-intervenable lesion and recommended aggressive medical Mx to modify risk factors as much as possible; S/P NSTEMI in September 2022 - [place] [facility] [facility], where cardiac cath revealed severe stenosis at diagnonal 1 and he underwent PCI of culprit lesion Code(s): I25.10 - Atherosclerotic heart disease of [place] coronary artery without angina pectoris Category: Medical Qualifiers: [place] vs. transplanted heart: [place] heart Qualified Code(s): I25.10 - Atherosclerotic heart disease of [place] coronary artery without angina pectoris Plan: S/P NSTEMI in September 2022 - [place] [facility] [facility] and had coronary angiogram done which revealed (+) severe stenosis at diagonal 1 and he subsequently underwent PCI of the culprit lesion Continue low dose Aspirin 81 mg QD, Clopidogrel 75 mg QD, Isosorbide Mononitrate ER 60 mg QD and Metoprolol ER 100 mg QD Patient also has sublingual Nitroglycerin tablets that he takes as needed for chest pain Follow up with cardiology as scheduled (4) Pure hypercholesterolemia: Code(s): E78.00 - Pure hypercholesterolemia, unspecified Category: Medical Plan: Results of his labs done a few days ago reviewed and discussed with patient Reinforced low cholesterol diet Continue Rosuvastatin 40 mg QD - goal is LDL of less than 70 mg/dl due to his CAD Will recheck his labs and fasting lipids in 3 months for follow up (5) Benign essential hypertension: Code(s): I10 - Essential (primary) hypertension Category: Medical Plan: Reinforced low sodium diet - goal is systolic BP of at least 130 mm or less Continue Losartan 100 mg QD and Amlodipine 2.5 mg QD; he is also on Metoprolol ER 100 mg QD (6) GERD without esophagitis: Code(s): K21.9 - Gastro-esophageal reflux disease without esophagitis Category: Medical Plan: Dietary restrictions reinforced (7) Vitamin D deficiency: Code(s): E55.9 - Vitamin D deficiency, unspecified Category: Medical Plan: Continue Vitamin D2 75058 once a week (8) Obesity (BMI 30-39.9): Code(s): E66.9 - Obesity, unspecified Category: Medical Plan: Reinforced diet /exercise as tolerated /lose weight Plan Follow up in 3 months Orders: Orders Complete Blood Count Auto Diff 3 Months D64.9 - Anemia, unspecified Lipid Panel 3 Months E78.00 - Pure hypercholesterolemia, unspecified Hemoglobin A1c 3 Months E11.9 - Type 2 diabetes mellitus without complications TSH reflex Free T4 3 Months E78.00 - Pure hypercholesterolemia, unspecified UA CC w/rflx Micro + Cult 3 Months R30.0 - Dysuria Vitamin D 25-OH Total 3 Months E55.9 - Vitamin D deficiency, unspecified Microalbumin, Random (w Creat) 3 Months E11.9 - Type 2 diabetes mellitus without complications Influenza [id number] Immunization Today Z23 - Encounter for immunization Comprehensive [place]. Panel Fast 3 Months E78.00 - Pure hypercholesterolemia, unspecified
== END 2023-12-14 10:26 | disposition home or self-care (01) ==
LOC: HO.HMCH 09:53
PROVIDERS: PCP Internal Medicine; Visit Provider Internal Medicine
DX: E11.21 Type 2 diabetes mellitus with diabetic nephropathy (principal); I25.10 Atherosclerotic heart disease of native coronary artery without angina pectoris; E66.9 Obesity, unspecified; Z68.30 Body mass index [BMI] 30.0-30.9, adult; E78.00 Pure hypercholesterolemia, unspecified; I10 Essential (primary) hypertension; K21.9 Gastro-esophageal reflux disease without esophagitis; E55.9 Vitamin D deficiency, unspecified

== ENCOUNTER → 2023-12-14 09:53 | Outpatient (BNVA) | payer BC, SELFPAY ==
[2023-05-25 10:03] VITALS: BP 100/54; BP 104/54; BP 120/64; BMI 29.7
== END ==
PROVIDERS: PCP Internal Medicine; Visit Provider Internal Medicine
DX: E11.21 Type 2 diabetes mellitus with diabetic nephropathy (principal); I25.10 Atherosclerotic heart disease of native coronary artery without angina pectoris; E78.00 Pure hypercholesterolemia, unspecified; I10 Essential (primary) hypertension; K21.9 Gastro-esophageal reflux disease without esophagitis; E55.9 Vitamin D deficiency, unspecified; E66.9 Obesity, unspecified; Z68.30 Body mass index [BMI] 30.0-30.9, adult; I25.2 Old myocardial infarction; Z79.4 Long term (current) use of insulin; Z79.82 Long term (current) use of aspirin; Z79.899 Other long term (current) drug therapy
CPT/HCPCS: 90471; 96127

== ENCOUNTER 2023-12-23 09:29 | Outpatient (AMB) | payer BC, SELFPAY ==
[2023-05-25 10:03] VITALS: BP 100/54; BP 104/54; BP 120/64; BMI 29.7
--- NOTE | 2023-12-23 09:36 | MHC.OFFVIS ---
Vital Signs 12/23/23 09:37 Height 5 ft 4 in Weight 178 lb 2.136 oz BMI 30.6 BP 142/76 H Blood Pressure Location Rt brachial Position Sitting Pulse 82 Pulse Source Pulse Oximeter Intake Visit Reasons: DM/CONFIRMED Intake Note: Patient present today to follow up on Type 2 Diabetes Mellitus. 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 Required: No Accompanied by: Self / Same As Patient Allergies No Known Allergies [No Known Allergies*] Allergy (Verified 12/23/23 09:38) Medication List - Last Reconciled 12/23/23 by Brenda Murray MD albuterol sulfate 90 mcg/actuation (Ventolin HFA) 2 puffs inhalation Q6H PRN 30 days amlodipine 2.5 mg PO DAILY aspirin (Adult Low Dose Aspirin) 81 mg PO DAILY clobetasol 0.05% 1 appl topical BID PRN empagliflozin (Jardiance) 25 mg PO QAM ergocalciferol (vitamin D2) 1,250 mcg PO QWEEK flash glucose scanning reader ([employer] Senait 14 Day [place]) As directed flash glucose sensor (FreeStyle Senait 14 Day Sensor kit) As directed Flexichamber (inhalational spacing device) use with Albuterol inhaler as directed NS Humalog KwikPen Insulin (insulin lispro) Inject 10 to 12 units as instructed 3 times a day with meals dosed per sliding scale subcutaneously; 30 days NS isosorbide mononitrate ER 60 mg PO DAILY Lantus Solostar U-100 Insulin (insulin glargine) 32 units (0.32 mL) subcut QPM NS losartan 100 mg PO DAILY metformin 1,000 mg PO BID metoprolol succinate ER 100 mg PO DAILY 90 days multivitamin 1 tab PO DAILY nitroglycerin 0.4 mg sublingual ONCE nystatin-triamcinolone 100,000-0.1 unit/g-% 1 appl topical BID 10 days pen needle, diabetic As directed five times a day rosuvastatin 40 mg PO DAILY tamsulosin 0.4 mg PO BEDTIME 90 days tirzepatide (Mounjaro) 5 mg (0.5 mL) subcut QWEEK HPI Comments Details: Patient is a 63 year old male with DM type 2 diagnosed approximately 15 years ago who presents for continued management of diabetes. Past medical history includes : HLD, vitamin D deficiency, GERD, hypertension, non-ST elevated [place]. Micro and macrovascular complications: + retinopathy, + nephropathy, + neuropathy, + CAD Diabetes medications: Lantus 32 units (increased from 28 last visit), Humalog 12 units 3 times daily (forgets ~50% doses) , metformin 1000mg twice daily (misses once in a while), Jardiance 25mg daily on Mounjaro 5 mg Qwkly (misses sometimes). Does admit the mounjaro decreases his appetite and sometimes does not eat breakfast and he is scared of getting low. If he feels low he drinks some soda. There are no signficant lows on CGM. Could not tolerate Qumu Senait download from - shows average glucose of 203, GMI 8.2%, high 62% time, TGT 38% time, 0% lows though two lows noted over past 14 days a 69 at 2am and a 69 at 5am. 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 Eye exam: May 2023 preproliferative diabetic retinopathy ROS see HPI PHYSICAL EXAM: GENERAL: Alert and oriented x 3. NAD EYES: EOMI. Anicteric. HENT: Moist mucous membranes. No scleral icterus. No cervical lymphadenopathy. LUNGS: Clear to auscultation bilaterally. CARDIOVASCULAR: Regular rate and rhythm. No murmur. No JVD. ABDOMEN: Soft, non-tender +bs EXTREMITIES: No edema. Non-tender. SKIN: No rashes or lesions. Warm. NEUROLOGIC: No focal neurological deficits. PSYCHIATRIC: Cooperative. 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 Mother Diabetes mellitus CVD (cardiovascular disease) Hypertension Social History Household Members: Spouse Housing: House Alcohol intake: never Patient Tobacco Use Status: Never used Tobacco e-Cigarette/Vaping Use: Never Used Second Hand Smoke Exposure: No service: No Current occupational status: employed Cognitive needs: No Hearing needs: No Vision needs: Yes Physical Exam Vital Signs: Last Vital Signs Pulse 82 12/23/23 09:37 BP 142/76 H 12/23/23 09:37 BMI result Body Mass Index 30.6 Results Reviewed Results Reviewed: Laboratory Last Values Glucose (Clinic) 158 mg/dL (60-115) H 12/23/23 09:44 Assessment & Plan Assessment & Plan (1) Diabetes mellitus with retinopathy: Code(s): E11.319 - Type 2 diabetes mellitus with unspecified diabetic retinopathy without macular edema Category: Medical Qualifiers: Diabetes mellitus long-term insulin use: with termite technician use Diabetes mellitus macular edema: macular edema presence unspecified Diabetes mellitus type: type 2 Diabetic retinopathy severity: with unspecified retinopathy severity Laterality: unspecified laterality Qualified Code(s): E11.319 - Type 2 diabetes mellitus with unspecified diabetic retinopathy without macular edema; Z79.4 - [facility] (current) use of insulin Plan: Suboptimal A1C. Fear of hypoglycemia. Continue current medication. Hopefully decreased missed doses. Short term follow up (2) Insulin use (long-term) in type 2 diabetes: Code(s): E11.9 - Type 2 diabetes mellitus without complications; Z79.4 - terminal makeup operator (current) use of insulin Category: Medical Qualifiers: Diabetes mellitus complication status: with hyperglycemia Qualified Code(s): E11.65 - Type 2 diabetes mellitus with hyperglycemia; Z79.4 - [facility] (current) use of insulin Plan: see above Coding Level of Care Code Est Pt Level 4 (64241) Diagnoses Type 2 diabetes mellitus with retinopathy, with long-term current use of insulin, macular edema presence unspecified, unspecified laterality, unspecified retinopathy severity E11.319; Z79.4 Diabetes mellitus termite technician insulin use: with termite technician use Diabetes mellitus macular edema: macular edema presence unspecified Diabetes mellitus type: type 2 Diabetic retinopathy severity: with unspecified retinopathy severity Laterality: unspecified laterality Type 2 diabetes mellitus with hyperglycemia, with long-term current use of insulin E11.65; Z79.4 Diabetes mellitus complication status: with hyperglycemia
[2023-12-23 09:37] VITALS: BP 142/76; PULSE 82; BMI 30.6
[2023-12-23 09:49] LABS: Glucose, Whole Blood 158 mg/dL (60-115)
== END 2023-12-23 10:07 | disposition home or self-care (01) ==
PROVIDERS: PCP Internal Medicine; Visit Provider Internal Medicine
DX: E11.319 Type 2 diabetes mellitus with unspecified diabetic retinopathy without macular edema (principal); Z79.4 Long term (current) use of insulin; E11.65 Type 2 diabetes mellitus with hyperglycemia

== ENCOUNTER → 2023-12-23 09:29 | Outpatient (BNVA) | payer BC, SELFPAY ==
[2023-05-25 10:03] VITALS: BP 100/54; BP 104/54; BP 120/64; BMI 29.7
== END ==
PROVIDERS: PCP Internal Medicine; Visit Provider Internal Medicine
DX: E11.319 Type 2 diabetes mellitus with unspecified diabetic retinopathy without macular edema (principal); E11.65 Type 2 diabetes mellitus with hyperglycemia; Z79.4 Long term (current) use of insulin
CPT/HCPCS: 82947

== ENCOUNTER 2024-02-21 10:44 | Outpatient (AMB) | payer BC, SELFPAY ==
[2023-01-22 13:17] VITALS: BP 100/54; BP 104/54; BP 120/64; BMI 29.7
[2023-05-25 10:03] VITALS: BP 100/54; BP 104/54; BP 120/64; BMI 29.7
[2024-02-21 10:50] VITALS: BP 120/80; PULSE 95; BMI 28.4
--- NOTE | 2024-02-21 10:50 | A.OFFVIS_ITS ---
Vital Signs 02/21/24 10:50 Height 5 ft 4 in Weight 165 lb 5.547 oz BMI 28.4 BP 120/80 Blood Pressure Location Lt brachial Position Sitting Pulse 95 Intake Visit Reasons: 1 year after echo Intake Note: 1 year follow-up with ekg after echo feeling good Disability Insurance Hearing Officer Required: No Project Construction Manager: Project Construction Manager Present Accompanied by: Spouse Allergies No Known Allergies [No Known Allergies*] Allergy (Verified 12/23/23 09:38) Medication List - Last Reconciled 02/21/24 by Karl Franco MD albuterol sulfate 90 mcg/actuation (Ventolin HFA) 2 puffs inhalation Q6H PRN 30 days amlodipine 2.5 mg PO DAILY aspirin (Adult Low Dose Aspirin) 81 mg PO DAILY clobetasol 0.05% 1 appl topical BID PRN empagliflozin (Jardiance) 25 mg PO QAM ergocalciferol (vitamin D2) 1,250 mcg PO QWEEK flash glucose scanning reader (CytomX TherapeuticsStyle Senait 14 Day [place]) As directed flash glucose sensor (CytomX TherapeuticsStyle Senait 14 Day Sensor kit) As directed Flexichamber (inhalational spacing device) use with Albuterol inhaler as directed NS Humalog KwikPen Insulin (insulin lispro) Inject 10 to 12 units as instructed 3 times a day with meals dosed per sliding scale subcutaneously; 30 days NS isosorbide mononitrate ER 60 mg PO DAILY Lantus Solostar U-100 Insulin (insulin glargine) 32 units (0.32 mL) subcut QPM NS losartan 100 mg PO DAILY metformin 1,000 mg PO BID metoprolol succinate ER 100 mg PO DAILY 90 days multivitamin 1 tab PO DAILY nitroglycerin 0.4 mg sublingual ONCE nystatin-triamcinolone 100,000-0.1 unit/g-% 1 appl topical BID 10 days pen needle, diabetic As directed five times a day rosuvastatin 40 mg PO DAILY tamsulosin 0.4 mg PO BEDTIME 90 days tirzepatide (Mounjaro) 5 mg (0.5 mL) subcut QWEEK HPI Comments Details: Tomas comes for follow-up.. Patient denies any new symptoms. He is accompanied by his . He has been exerting and walking without any symptoms exertional chest pain. He has diabetes still remains difficult control. Denies any heart failure symptoms of orthopnea, PND, leg edema. Denies any claudication. No lightheadedness, syncope. No prolonged palpitations. Takes all his medications regularly. [facility] Medical History Nonproliferative diabetic retinopathy PVCs (premature ventricular contractions) Overweight (BMI 25.0-29.9) Cataract Obesity (BMI 30-39.9) Dermatosis GERD without esophagitis Benign essential hypertension Pure hypercholesterolemia Atherosclerotic heart disease of [place] coronary artery without angina pectoris Type 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 Mother Diabetes mellitus CVD (cardiovascular disease) Hypertension Social History Household Members: Spouse Housing: House Alcohol intake: never Patient Tobacco Use Status: Never used Tobacco e-Cigarette/Vaping Use: Never Used Second Hand Smoke Exposure: No service: No Current occupational status: employed Cognitive needs: No Hearing needs: No Vision needs: Yes Review of Systems Const Denies chills, Denies fatigue, Denies fever(s), Denies frequent falls, Denies weakness, Denies weight gain and Denies weight loss ENT Denies dizziness Card Denies chest pain, Denies leg edema, Denies lightheadedness, Denies palpitations, Denies dyspnea, Denies dyspnea on exertion, Denies orthopnea and Denies other (loss of consciousness) Resp Denies cough, Denies dyspnea and Denies dyspnea on exertion GI Denies hematochezia and Denies change in stool character Musc Denies abnormal gait, Denies muscle weakness, Denies numbness, Denies radiating pain into limb and Denies tingling Neuro Denies Abnormal speech present, Denies abnormal gait, Denies dizziness, Denies frequent falls, Denies numbness, Denies tingling and Denies weakness Endo Denies fatigue and Denies palpitations Physical Exam Vital Signs: Last Vital Signs Pulse 95 02/21/24 10:50 BP 120/80 02/21/24 10:50 BMI result Body Mass Index 28.4 Const General: cooperative, comfortable, no acute distress, well developed, alert, awake and Physically active Nutritional Appearance: overweight Orientation/consciousness: patient oriented x3 Limitations: no limitations Neck Neck: Yes trachea midline, Yes supple and Yes no JVD Carotids: no bruits Resp Effort & Inspection: normal respiratory effort Auscultation: clear to auscultation bilaterally Cardio Jugular venous distension: no JVD Palpation: normal PMI Rate: regular rate Rhythm: regular rhythm Heart sounds: S1 normal heart sound present, S2 normal heart sound present, no click, no gallops, no murmurs and no rubs GI Auscultation: normal bowel sounds Neuro General: patient oriented x3 and no focal motor deficits Speech: No Abnormal speech present Extrem General: Yes no clubbing, cyanosis or edema Office Procedures EKG Details: EKG shows normal sinus rhythm with nonspecific ST T wave changes diffusely [id number], Complete Assessment & Plan Assessment & Plan (1) Coronary artery disease due to type 2 diabetes mellitus: Code(s): E11.59 - Type 2 diabetes mellitus with other circulatory complications; I25.10 - Atherosclerotic heart disease of [place] coronary artery without angina pectoris Category: Medical Plan: Diffuse CAD with moderate disease in LAD, circumflex and RCA territory. Currently having no symptoms of angina on current medical therapy including iso sorbide and amlodipine. He was at high risk for vascular events given his uncontrolled diabetes and multiple risk factors. Strongly recommend to continue low-dose aspirin therapy which has been not taking recently. Importance of aspirin therapy was discussed. Continue aggressive blood pressure control. Continue current medical therapy. Continue high-intensity statin therapy. Target goal LDL closer to 50 mg/dL. Goal hemoglobin A1c less than 7%. Encouraged to maintain activity level as tolerated. Mild LV systolic dysfunction, continue neurohormonal modulation with losartan as well as m etoprolol therapy. No signs or symptoms heart failure. Follow up in the clinic in 1 year's time, sooner p.r.n.. Thank you allowing me to partake in his care Coding Level of Care Code Est Pt Level 4 (40921) Complex EM visit Add On G2211 Diagnoses Coronary artery disease due to type 2 diabetes mellitus E11.59; I25.10 CPT Codes EKG - CPT: 71574-[id number], Complete ([id number])
== END 2024-02-21 11:11 | disposition home or self-care (01) ==
PROVIDERS: PCP Internal Medicine; Visit Provider Internal Medicine Cardiovascular Disease
DX: E11.59 Type 2 diabetes mellitus with other circulatory complications (principal); I25.10 Atherosclerotic heart disease of native coronary artery without angina pectoris
CPT/HCPCS: 93010; 99214

== ENCOUNTER → 2024-02-21 10:44 | Outpatient (BNVA) | payer BC, SELFPAY ==
[2023-05-25 10:03] VITALS: BP 100/54; BP 104/54; BP 120/64; BMI 29.7
== END ==
PROVIDERS: PCP Internal Medicine; Visit Provider Internal Medicine Cardiovascular Disease
DX: E11.59 Type 2 diabetes mellitus with other circulatory complications (principal); I25.10 Atherosclerotic heart disease of native coronary artery without angina pectoris; Z79.899 Other long term (current) drug therapy
CPT/HCPCS: 93005

== ENCOUNTER 2024-03-20 08:13 | Outpatient (REF) | payer BC, SELFPAY ==
[2023-05-25 10:03] VITALS: BP 100/54; BP 104/54; BP 120/64; BMI 29.7
--- OUTSIDE RECORDS SUMMARY | 2024-03-20 08:27 | XMS_ITS | Clinical Summary ---
Author Organization [facility] Address [address] [address] Phone Care Team Providers Care Field Assembly Supervisor Name Role Phone Aram Murphy MD Primary Care Provider [phone] Allergies No known active allergies Medications amLODIPine (NORVASC) 2.5 MG tablet Take 2.5 mg by mouth 1 (one) time each day 07/05/19 22 Active Lantus SoloStar 100 UNIT/ML injection INJECT 28 UNITS SUBCUTANEOUSLY EVERY EVENING 08/19/19 22 Active isosorbide mononitrate (IMDUR) 30 MG 24 hr tablet Take 60 mg by mouth 1 (one) time each day 07/05/19 22 Active losartan (COZAAR) 100 MG tablet Take 100 mg by mouth 1 (one) time each day 08/19/19 22 Active metFORMIN (GLUCOPHAGE) 1000 MG tablet TAKE 1 TABLET BY MOUTH TWICE DAILY 90 DAYS 06/28/19 22 Active metoprolol succinate XL (TOPROL XL) 50 MG 24 hr tablet Take 100 mg by mouth 1 (one) time each day 08/19/19 22 Active rosuvastatin (CRESTOR) 40 MG tablet 08/23/19 22 Active Canagliflozin (Invokana) 300 MG tablet Take by mouth Active omeprazole (PriLOSEC) [address] capsule Take 20 mg by mouth 1 (one) time each day Do not crush or chew. Active aspirin (ST MITCHEL) 81 MG EC tablet Take 81 mg by mouth 1 (one) time each day Active tamsulosin (FLOMAX) 0.4 MG 24 hr capsule Take 1 capsule (0.4 mg total) by mouth at bed time 90 capsule 2 09/03/19 22 Active benzonatate (TESSALON) 100 MG capsule Take 100 mg by mouth 3 (three) times a day if needed for cough Do not crush or chew. Active Empagliflozin (Jardiance) 25 MG tablet Take 25 mg by mouth 1 (one) time each day in the morning Active insulin lispro (HumaLOG) 100 UNIT/ML patient supplied pump Inject under the skin 3 (three) times a day 10-12 units Active Active Problems Problem Noted Date Diagnosed Date Chronic kidney disease, stage 2 (mild) 3 Type 2 diabetes mellitus wit h diabetic autonomic (poly)neuropathy 09/02/2021 Essential (primary) hypertension 09/02/2021 Hyperlipidemia 09/02/2021 Obesity 09/02/2021 Chronic kidney disease, stage 2 (mild) 2 Proteinuria 09/02/2021 Type 2 diabetes mellitus wit h diabetic chronic kidney disease 09/02/2021 Family History Relation Status Comments Father Mother Social History Tobacco Use Types Packs/Day Years Used Date Smoking Tobacco: Never Assessed Tobacco Cessation:Counseling Given: Not Answered Alcohol Use Standard Drinks/Week Comments Never 0 (1 standard drink = 0.6 oz pur e alcohol) Sex and Gender Information Value Date Recorded Sex Assigned at Not on file Legal Sex Male 1:55 PM EDT Gender Identity Not on file Sexual Orientation Not on file Last Filed Vital Signs Vital Sign Reading Time Taken Comments Blood Pressure 124/65 01/12/2023 1:51 PM EST Pulse 92 01/12/2023 1:51 PM EST Temperature - - Respiratory Rate - - Oxygen Saturation 96% 01/12/2023 1:51 PM EST Inhaled Oxygen Concentration - - Weight 77.1 kg (170 lb) 01/12/2023 1:51 PM EST Height - - Body Mass Index - - Plan of Treatment Upcoming Encounters Date Type Department Care Team (Late st Contact Info) Description 06/19/2024 1:30 PM EDT Office Visit [facility] [address] [place] [address] [place] [address] Diaz Martino MD [address] [facility] [address] [place] [address] Health Maintenance Due Date Last Done Comments Pneumococcal Vaccine: 65+ Ye ars (1 of 2 - PCV) 02/02/1966 Colorectal Cancer Screening: Annual FOBT 2007 Colorectal Cancer Screening: Colonoscopy 2007 Colorectal Cancer Screening: Sigmoidoscopy 2007 Diabetes: Ophthalmology Exam 09/02/2021 Diabetes: Pedal Pulse Checked 09/02/2021 Diabetes: Sensory Foot Exam 09/02/2021 Diabetes: Visual Foot Exam 09/02/2021 Diabetes: Hemoglobin A1C 03/15/2022 12/13/2021 Influenza Vaccine (#1) 2023 Hepatitis B Vaccine Aged Out No longe r eligible based on patient's age to complete this topic Procedures Procedure Name Priority Date/Time Associated Diagnosis Comments EXT RESULT ENTRY Routine 12/13/2021 from Last 3 Months or Most Recently Relevant to Health Maintenance Results * (ABNORMAL) EXT RESULT ENTRY (12/13/2021) Sodium 140 137 - 147 Potassium 4.6 3.4 - 5.5 Chloride 105.0 99.0 - 108.0 Anion Gap 16 <=30 MMOL/L BUN 13 4 - 21 mg/dL Creatinine 0.83 0.60 - 1.30 mg/dL Hemoglobin A1C 8.6(A) 4.0 - 6.0 12/13/2021 Historical Provider LAB BLOOD ORDERABLES Loreto l Result from Last 3 Months or Most Recently Relevant to Health Maintenance Insurance [facility] Care Teams Field Assembly Supervisor Relationship Specialty Start Date End Date Aram Murphy MD [address] [place] [address] PCP - General Internal Medicine 06/11/21
[2024-03-20 08:33] LABS: MANUAL DIFF FLAG NO
[2024-03-20 08:54] LABS: Basophils Percent Auto 0.4 % (0-2); Eosinophils Absolute Auto 0.2 X10*3/uL (0.0-0.4); Eosinophils Percent Auto 2.2 % (0-4); Hematocrit 43.9 % (42.0-52.0); Hemoglobin 14.5 g/dl (14.0-18.0); Imm Gran Abs Auto 0.02 X10*3/uL (0.00-0.03); Imm Gran Pct Auto 0.3 % (0.0-0.4); Lymphocytes Absolute Auto 2.7 X10*3/uL (1.2-4.9); Mean Corpuscular Hemoglobin 29.1 pg (27.0-33.0); Mean Platelet Volume 10.1 fL (9.4-12.4); Monocytes Absolute Auto 0.7 X10*3/uL (0.1-1.2); Monocytes Percent Auto 10.1 % (2-11); Neutrophils Absolute Auto 3.7 x10*3/uL (2.0-8.3); Platelet Count 202 X10*3/uL (160-400); Red Blood Count 4.99 X10*6/uL (4.60-5.80); Red Cell Distribution Width 14.7 % (11.0-16.0); White Blood Count 7.3 X10*3/uL (4.8-10.8)
[2024-03-20 09:02] LABS: Estimated Average Glucose 186 mg/dL; Hemoglobin A1C 242.0152 umol/L; Hemoglobin A1c % 8.1 % (<6.0); Total Hemoglobin (HGBA1C) 3743.9716 umol/L
[2024-03-20 09:08] LABS: Appearance Urine Clear; Color Urine Yellow; Glucose Urine UA >=1000 mg/dL (Negative); Leukocyte Esterase Urine Negative (Negative); Nitrite Urine Negative (Negative); Specific Gravity - Urine 1.025 (1.005-1.025); UMIC TRIGGER UACC YES; Urine Blood Negative (Negative); Urine Ketones Negative (Negative); Urine Protein 30 (1+) mg/dL (Neg-Trace)
[2024-03-20 09:12] LABS: Bacteria Urine None Seen (None Seen); Hyaline Casts Urine 0-2 /LPF (0-2); RBC Urine 0-2 /HPF (0-2); Squamous Epithelial Cell Urine 0-2 /HPF (0-2); WBC Urine 0-5 /HPF (0-5)
[2024-03-20 09:26] LABS: Alanine Aminotransferase 26 U/L (0-40); Albumin Level 4.3 g/dL (3.5-5.0); Alkaline Phosphatase 53 U/L (39-117); Anion Gap 13 (12-20); Aspartate Amino Transferase 28 U/L (5-37); Bilirubin Total 0.4 mg/dL (0.0-1.0); Blood Urea Nitrogen 21 mg/dL (9-16); Calcium 9.9 mg/dL (8.4-10.2); Carbon Dioxide 25 mmol/L (22-29); Chloride 106 mmol/L (96-108); Cholesterol 241 mg/dL (<200); Estimated Glomerular Filt Rate > 60; Glucose Fasting 122 mg/dL (60-99); HDL Cholesterol 64 mg/dL (>40); LDL Cholesterol Calculated 147 mg/dL (<100); Potassium 4.3 mmol/L (3.3-5.1); Sodium 140 mmol/L (135-145); Total Protein 7.9 g/dL (6.5-8.0); Triglycerides 151 mg/dL (<150)
[2024-03-20 09:29] LABS: Creatinine Urine 55.15 mg/dL; Microalbum/Creatinine Ratio Ur 591.1 ug/mg cr (<30)
[2024-03-20 09:42] LABS: TSH reflex Free T4 3.44 uIU/mL (0.32-4.0); Vitamin D 25-OH Total 21.9 ng/mL (>30)
== END 2024-03-20 08:14 | disposition home or self-care (01) ==
LOC: HO.LAB 08:13
PROVIDERS: PCP Internal Medicine; Visit Provider Internal Medicine
DX: E78.00 Pure hypercholesterolemia, unspecified (principal); E11.9 Type 2 diabetes mellitus without complications; D64.9 Anemia, unspecified; E55.9 Vitamin D deficiency, unspecified; R30.0 Dysuria
CPT/HCPCS: 36415; 80053; 80061; 81001; 81003; 82043; 82306; 82570; 83036; 84443; 85025

== ENCOUNTER 2024-03-23 09:14 | Outpatient (AMB) | payer BC, SELFPAY ==
[2023-05-25 10:03] VITALS: BP 100/54; BP 104/54; BP 120/64; BMI 29.7
[2024-03-23 09:14] VITALS: BP 124/78; PULSE 74; BMI 30.3
--- NOTE | 2024-03-23 09:14 | A.OFFVIS_ITS ---
Vital Signs 03/23/24 09:14 Height 5 ft 4 in Weight 176 lb 5.917 oz BMI 30.3 BP 124/78 Blood Pressure Location Rt brachial Position Sitting Pulse 74 Pulse Source Pulse Oximeter Intake Visit Reasons: DM Intake Note: Patient presents today for a follow-up on Type 2 Diabetes Mellitus: Last Diabetic Eye exam: 06/03/2023 Last Podiatry Exam: Does not see a Painting And Coating Worker Most recent HbA1c: 8.1%, 03/20/2024 Random Glucose- 89 mg/dL, Today Body And Fender Mechanic Apprentice Required: No Accompanied by: Self / Same As Patient Allergies No Known Allergies [No Known Allergies*] Allergy (Verified 03/23/24 09:15) Medication List - Last Reconciled 03/23/24 by Brenda Murray MD albuterol sulfate 90 mcg/actuation (Ventolin HFA) 2 puffs inhalation Q6H PRN 30 days amlodipine 2.5 mg PO DAILY aspirin (Adult Low Dose Aspirin) 81 mg PO DAILY clobetasol 0.05% 1 appl topical BID PRN empagliflozin (Jardiance) 25 mg PO QAM ergocalciferol (vitamin D2) 1,250 mcg PO QWEEK flash glucose scanning reader (FreeStyle Senait 14 Day [place]) As directed flash glucose sensor (FreeStyle Senait 14 Day Sensor kit) As directed Flexichamber (inhalational spacing device) use with Albuterol inhaler as directed NS Humalog KwikPen Insulin (insulin lispro) Inject 10 to 12 units as instructed 3 times a day with meals dosed per sliding scale subcutaneously; 30 days NS isosorbide mononitrate ER 60 mg PO DAILY Lantus Solostar U-100 Insulin (insulin glargine) 32 units (0.32 mL) subcut QPM NS losartan 100 mg PO DAILY metformin 1,000 mg PO BID metoprolol succinate ER 100 mg PO DAILY 90 days multivitamin 1 tab PO DAILY nitroglycerin 0.4 mg sublingual ONCE nystatin-triamcinolone 100,000-0.1 unit/g-% 1 appl topical BID 10 days pen needle, diabetic As directed five times a day rosuvastatin 40 mg PO DAILY tamsulosin 0.4 mg PO BEDTIME 90 days tirzepatide (Mounjaro) 5 mg (0.5 mL) subcut QWEEK HPI Comments Details: Patient is a 64 year old male with DM type 2 diagnosed approximately 15 years ago who presents for continued management of diabetes. Past medical history includes : HLD, vitamin D deficiency, GERD, hypertension, non-ST elevated [place]. Micro and macrovascular complications: + retinopathy, + nephropathy, + neuropathy, + CAD Diabetes medications: Lantus 32 units, Humalog 12 units 3 times daily (forgetting less doses-usually missing am dose), metformin 1000mg twice daily (misses once in a while), Jardiance 25mg daily on Mounjaro 5 mg Qwkly. There are no signficant lows on CGM. Could not tolerate Trulicity Did not bring senait. Recent A1C 03/20 8.1% from 8.3%. 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 preproliferative diabetic retinopathy ROS see HPI PHYSICAL EXAM: GENERAL: Alert and oriented x 3. NAD EYES: EOMI. Anicteric. HENT: Moist mucous membranes. No scleral icterus. No cervical lymphadenopathy. LUNGS: Clear to auscultation bilaterally. CARDIOVASCULAR: Regular rate and rhythm. No murmur. No JVD. ABDOMEN: Soft, non-tender +bs EXTREMITIES: No edema. Non-tender. SKIN: No rashes or lesions. Warm. NEUROLOGIC: No focal neurological deficits. PSYCHIATRIC: Cooperative. Appropriate mood and affect [facility] Medical History Nonproliferative diabetic retinopathy PVCs (premature ventricular contractions) Overweight (BMI 25.0-29.9) Cataract Obesity (BMI 30-39.9) Dermatosis GERD without esophagitis Benign essential hypertension Pure hypercholesterolemia Atherosclerotic heart disease of [place] coronary artery without angina pectoris Type 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 Mother Diabetes mellitus CVD (cardiovascular disease) Hypertension Social History Household Members: Spouse Housing: House Alcohol intake: never Patient Tobacco Use Status: Never used Tobacco e-Cigarette/Vaping Use: Never Used Second Hand Smoke Exposure: No service: No Current occupational status: employed Cognitive needs: No Hearing needs: No Vision needs: Yes Physical Exam Vital Signs: Last Vital Signs Pulse 74 03/23/24 09:14 BP 124/78 03/23/24 09:14 BMI result Body Mass Index 30.3 Assessment & Plan Assessment & Plan (1) Insulin use (long-term) in type 2 diabetes: Code(s): E11.9 - Type 2 diabetes mellitus without complications; Z79.4 - shelter (current) use of insulin Category: Medical Qualifiers: Diabetes mellitus complication status: with hyperglycemia Qualified Code(s): E11.65 - Type 2 diabetes mellitus with hyperglycemia; Z79.4 - shelter (current) use of insulin Plan: Suboptimal A1C however do not have senait to download and patient does report hypoglycemia intermittently. Reports 60s 70s increases appropriately with juice. Aware of the rule of 15s-eating or drinking 15 grams of fast-acting carbohydrates, waiting 15 minutes, and then checking blood sugar again.?If blood sugar is still low, repeat the process.? (2) Diabetes mellitus with retinopathy: Code(s): E11.319 - Type 2 diabetes mellitus with unspecified diabetic retinopathy without macular edema Category: Medical Qualifiers: Diabetes mellitus type: type 2 Diabetes mellitus shelter insulin use: with termite control technician use Diabetic retinopathy severity: with unspecified retinopathy severity Diabetes mellitus macular edema: macular edema presence unspecified Laterality: unspecified laterality Qualified Code(s): E11.319 - Type 2 diabetes mellitus with unspecified diabetic retinopathy without macular edema; Z79.4 - joint terminal attack controller (current) use of insulin Plan: continue ophtho follow up Coding Level of Care Code Est Pt Level 4 (11553) Diagnoses Type 2 diabetes mellitus with hyperglycemia, with long-term current use of ins ulin E11.65; Z79.4 Diabetes mellitus complication status: with hyperglycemia Type 2 diabetes mellitus with retinopathy, with long-term current use of insulin, macular edema presence unspecified, unspecified laterality, unspecified retinopathy severity E11.319; Z79.4 Diabetes mellitus type: type 2 Diabetes mellitus termite control technician insulin use: with termite control technician use Diabetic retinopathy severity: with unspecified retinopathy severity Diabetes mellitus macular edema: macular edema presence unspecified Laterality: unspecified laterality
[2024-03-23 09:35] LABS: Glucose, Whole Blood 89 mg/dL (60-115)
--- OUTSIDE RECORDS SUMMARY | 2024-03-23 09:40 | XMS_ITS | Clinical Summary ---
Author Organization [facility] Address [address] [address] Phone Care Team Providers Care Loom Fixer Helper Name Role Phone Aram Murphy MD Primary Care Provider [phone]- [phone] Allergies No known active allergies Medications amLODIPine [...] Visit [facility] [address] [place] [address] [place] [address] Diaz Martino MD [address] [facility] [address] [place] [address] Health Maintenance Due Date Last [...] Most Recently Relevant to Health Maintenance Insurance [facility] Care Teams Loom Fixer Helper Relationship Specialty Start Date End Date Aram Murphy MD [address] [place] [address] PCP - General Internal Medicine 06/11/21
== END 2024-03-23 09:45 | disposition home or self-care (01) ==
PROVIDERS: PCP Internal Medicine; Visit Provider Internal Medicine
DX: E11.65 Type 2 diabetes mellitus with hyperglycemia (principal); Z79.4 Long term (current) use of insulin; E11.319 Type 2 diabetes mellitus with unspecified diabetic retinopathy without macular edema

== ENCOUNTER → 2024-03-23 09:14 | Outpatient (BNVA) | payer BC, SELFPAY ==
[2023-05-25 10:03] VITALS: BP 100/54; BP 104/54; BP 120/64; BMI 29.7
== END ==
PROVIDERS: PCP Internal Medicine; Visit Provider Internal Medicine
DX: E11.65 Type 2 diabetes mellitus with hyperglycemia (principal); E11.319 Type 2 diabetes mellitus with unspecified diabetic retinopathy without macular edema; E11.21 Type 2 diabetes mellitus with diabetic nephropathy; E11.40 Type 2 diabetes mellitus with diabetic neuropathy, unspecified; Z79.4 Long term (current) use of insulin
CPT/HCPCS: 82947

== ENCOUNTER 2024-03-30 10:04 | Outpatient (REF) | payer BC, SELFPAY ==
[2023-05-25 10:03] VITALS: BP 100/54; BP 104/54; BP 120/64; BMI 29.7
--- OUTSIDE RECORDS SUMMARY | 2024-03-30 12:32 | XMS_ITS | Clinical Summary ---
Author Organization [facility] Address [address] [address] Phone Care Team Providers Care Food And Beverage Assistant Name Role Phone Aram Murphy MD Primary Care Provider [phone]- [phone] Allergies No known active allergies Medications amLODIPine [...] Visit [facility] [address] [place] [address] [place] [phone] Diaz Martino MD [address] [facility] [address] [place] [address] Health Maintenance Due Date Last [...] Most Recently Relevant to Health Maintenance Insurance [facility] Care Teams Food And Beverage Assistant Relationship Specialty Start Date End Date Aram Murphy MD [address] [place] [address] PCP - General Internal Medicine 06/11/21
[2024-03-30 12:43] LABS: Influenza A PCR NEGATIVE (Negative); Influenza B PCR NEGATIVE (Negative); Resp Syncy Virus RNA Qual PCR NEGATIVE (Negative); SARS COV2 PCR INHOUSE NEGATIVE (Negative)
== END 2024-03-30 10:05 | disposition home or self-care (01) ==
LOC: HO.LAB 10:04
PROVIDERS: PCP Internal Medicine; Visit Provider Internal Medicine
DX: J98.8 Other specified respiratory disorders (principal); E11.21 Type 2 diabetes mellitus with diabetic nephropathy; I25.10 Atherosclerotic heart disease of native coronary artery without angina pectoris; E78.00 Pure hypercholesterolemia, unspecified; I10 Essential (primary) hypertension; K21.9 Gastro-esophageal reflux disease without esophagitis; E55.9 Vitamin D deficiency, unspecified; E66.9 Obesity, unspecified; Z68.30 Body mass index [BMI] 30.0-30.9, adult; I25.2 Old myocardial infarction; Z79.4 Long term (current) use of insulin; Z79.82 Long term (current) use of aspirin; Z79.84 Long term (current) use of oral hypoglycemic drugs; Z79.899 Other long term (current) drug therapy
CPT/HCPCS: 0241U; 96127

== ENCOUNTER 2024-03-30 10:04 | Outpatient (AMB) | payer BC, SELFPAY ==
[2023-05-25 10:03] VITALS: BP 100/54; BP 104/54; BP 120/64; BMI 29.7
[2024-03-30 10:05] VITALS: BP 142/98; PULSE 78; O2SAT 98; BMI 30.1
--- NOTE | 2024-03-30 10:05 | MHC.PC.OV ---
Vital Signs 03/30/24 10:05 Height 5 ft 4 in Weight 175 lb 2 oz BMI 30.1 BP 142/98 H Blood Pressure Location Lt brachial Position Sitting Pulse 78 Pulse Source Pulse Oximeter Pulse Oximetry (%) 98 Oxygen Delivery Method Room Air Intake Visit Reasons: 3mth f/u Access Services Assistant Required: No Accompanied by: Self / Same As Patient Allergies No Known Allergies [No Known Allergies*] Allergy (Verified 03/30/24 10:38) Medication List - Last Reconciled 03/30/24 by Aram Murphy MD albuterol sulfate 90 mcg/actuation (Ventolin HFA) 2 puffs inhalation Q6H PRN 30 days amlodipine 2.5 mg PO DAILY aspirin (Adult Low Dose Aspirin) 81 mg PO DAILY clobetasol 0.05% 1 appl topical BID PRN empagliflozin (Jardiance) 25 mg PO QAM ergocalciferol (vitamin D2) 1,250 mcg PO QWEEK flash glucose scanning reader ([employer] Senait 14 Day [place]) As directed flash glucose sensor ([employer] Senait 14 Day Sensor kit) As directed Flexichamber (inhalational spacing device) use with Albuterol inhaler as directed NS Humalog KwikPen Insulin (insulin lispro) Inject 10 to 12 units as instructed 3 times a day with meals dosed per sliding scale subcutaneously; 30 days NS isosorbide mononitrate ER 60 mg PO DAILY Lantus Solostar U-100 Insulin (insulin glargine) 32 units (0.32 mL) subcut QPM NS losartan 100 mg PO DAILY metformin 1,000 mg PO BID metoprolol succinate ER 100 mg PO DAILY 90 days multivitamin 1 tab PO DAILY nitroglycerin 0.4 mg sublingual ONCE nystatin-triamcinolone 100,000-0.1 unit/g-% 1 appl topical BID 10 days pen needle, diabetic As directed five times a day rosuvastatin 40 mg PO DAILY tamsulosin 0.4 mg PO BEDTIME 90 days tirzepatide (Mounjaro) 5 mg (0.5 mL) subcut QWEEK Tobacco use date assessed: 03/30/24 Fall risk assessment: No Falls in past year Last assessed Fall Risk: 03/30/24 Dental Screening Dental Screen Date: 03/30/24 Did you have a dental visit in the last 12 months?: No Did you have a dental problem in the last 6 months where you did not have access to dental care?: No Was dental information given to patient?: No HPI 3mth f/u HPI Details Patient comes in today for his follow-up visit States that he feels okay but reports (+) some nasal sinus congestion lately He denies any headaches or dizziness; denies any fever or sore throat Denies any chest pains, no shortness of breath although he states that he has had on and off cough and congestion for the past 2-3 days States that his cough is mostly nonproductive No nausea/vomiting, no abdominal pain No change in bowel habits noted He had his follow-up labs done last week - to discuss his results [facility] Medical History Nonproliferative diabetic retinopathy PVCs (premature ventricular contractions) Overweight (BMI 25.0-29.9) Cataract Obesity (BMI 30-39.9) Dermatosis GERD without esophagitis Benign essential hypertension Pure hypercholesterolemia Atherosclerotic heart disease of [place] coronary artery without angina pectoris Type 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 Mother Diabetes mellitus CVD (cardiovascular disease) Hypertension Social History Household Members: Spouse Housing: House Alcohol intake: never Patient Tobacco Use Status: Never used Tobacco e-Cigarette/Vaping Use: Never Used Second Hand Smoke Exposure: No service: No Current occupational status: employed Cognitive needs: No Hearing needs: No Vision needs: Yes Questionnaire PHQ-9 Over the last 2 weeks, how often have you been bothered by any of the following problems? 1. Little interest or pleasure in doing things: not at all 2. Feeling down, depressed, or hopeless: not at all 3. Trouble falling or staying asleep, or sleeping too much: not at all 4. Feeling tired or having little energy: not at all 5. Poor appetite or overeating: not at all 6. Feeling bad about yourself - or that you are a failure or have let yourself or your family down: not at all 7. Trouble concentrating on things, such as reading the newspaper or watching television: not at all 8. Moving or speaking so slowly that other people could have noticed. Or the opposite - being so fidgety or restless that you have been moving around a lot more than usual: not at all 9. Thoughts that you would be better off or of hurting yourself in some way: not at all Total score: 0 Depression Screening Interpretation: Negative Depression Screening Done: Yes 01487 - PHQ-9 Billing: Yes Source: Developed by Drs. Vargas Pope, Valerie Carpenter, Harjinder Erazo and colleagues, with an educational aubree from [employer]. Thrive Questionnaire Date Thrive assessed: 03/30/24 I am a: Patient What is your living situation today?: I have a steady place to live Within the past 12 months, did the food you bought not last and you didn't have the money to get more?: Never true Within the past 12 months, did you worry whether your food would run out before you got money to buy more?: Never true Do you have trouble paying for medicines?: No Do you have trouble getting transportation to medical appointments?: No Do you have trouble paying your heating and electricity bill?: No Do you have trouble taking care of your child, family member or friend?: No Do you have trouble with day-to-day activities such as bathing, preparing meals, shopping, managing finances, etc.?: No Are you currently unemployed and looking for a job?: No Are you interested in more education?: No Please select the resources that you would like help with: None Currently or been in a relationship where the following occur: No concerns reported THRIVE Score: 0 AUDIT C Alcohol Use Questionnaire (AUDIT-C) 1. How often do you have a drink containing alcohol?: Never 3. How often do you have six or more drinks on one occasion?: Never Total Score: 0 Score Reviewed/Action Taken: Yes SHIREEN-7 AMB Questionnaire SHIREEN-7 Date SHIREEN - 7 assessed: 03/30/24 Feeling nervous, anxious, or on edge: 0 = Not at all Not being able to stop or control worryin = Not at all Worrying too much about different things: 0 = Not at all Trouble relaxin = Not at all Being so restless that it is hard to sit still: 0 = Not at all Becoming easily annoyed or irritable: 0 = Not at all Feeling afraid as if something awful might happen: 0 = Not at all Total SHIREEN-7 score (0-4 normal; 5-9 mild; 10-14 moderate; 15-21 severe): 0 Source: Developed by Drs. Vargas Pope, Valerie Carpenter, Harjinder Erazo and colleagues, with an educational aubree from [employer]. Review of Systems Const Denies chills, Denies fatigue, Denies fever(s) and Denies headache(s) ENT Denies dysphagia, Denies dizziness, Denies otalgia, Denies headache(s), Reports nasal congestion (mild), Denies neck pain, Denies odynophagia and Denies sore throat Card Denies chest pain, Denies palpitations and Reports dyspnea on exertion (mild, chronic) Resp Reports chest congestion (mild), Reports cough (on and off, mostly nonproductive), Denies pain with cough, Reports dyspnea on exertion (mild, chronic) and Denies wheezing GI Denies abdominal pain, Denies constipation, Denies dysphagia, Denies heartburn, Denies diarrhea, Denies nausea, Denies odynophagia and Denies vomiting Denies dysuria, Denies nocturia and Reports urinary frequency Musc Denies back pain and Denies neck pain Skin/Breast Denies rash Neuro Denies dizziness and Denies headache(s) Endo Denies fatigue and Denies palpitations Aller/Immun Denies wheezing Physical exam (Primary Care) Vital Signs: Last Vital Signs Pulse 78 03/30/24 10:05 BP 142/98 H 03/30/24 10:05 Pulse Ox 98 03/30/24 10:05 Oxygen Delivery Method Room Air 03/30/24 10:05 BMI result Body Mass Index 30.1 Tobacco/Smoking Status: Tobacco use Status Tobacco use date assessed 03/30/24 03/30/24 10:10 Patient Tobacco Use Status Never used Tobacco 03/30/24 10:10 e-Cigarette/Vaping Use Never Used 03/30/24 10:10 PHQ-9: PHQ-9 Score PHQ-9: Total score 0 03/30/24 23:05 Depression Screening Interpretation: Negative Thrive Assessment: Date of Thrive Assessment Date Thrive assessed 03/30/24 03/30/24 10:10 Currently or been in a relationship where the following occur: No concerns reported Const General: no acute distress and alert HENMT Ears: TM's normal bilaterally and EAC's normal Throat: Yes posterior oropharynx normal and Yes tonsils normal (no TP congestion noted) Neck Neck: Yes no lymphadenopathy and Yes supple Thyroid: Thyroid normal Resp Auscultation: no rales, rhonchi (occasional) upper bilaterally and no wheezes Cardio Rate: regular rate Rhythm: regular rhythm Heart sounds: no murmurs GI Palpation (GI): Soft to palpation and nontender Auscultation: normal bowel sounds General: Yes no CVA tenderness Back/Spine/Pelvis Back: no CVA tenderness Thoracic/Lumbar Spine: No lumbar spinal tenderness Skin Rashes: no rashes Extrem General: Yes no clubbing, cyanosis or edema Right upper extremity: Extremity exam: right hand Details: tenderness (over the fingers) and swelling (over the IP joints of several fingers) Left upper extremity: hand Details: tenderness (over the fingers) and swelling (over the IP joints of multiple fingers) Results Reviewed Results Reviewed: Laboratory Tests 03/20/24 03/20/24 08:23 08:31 WBC 7.3 Hgb 14.5 Hct 43.9 Plt Count 202 Sodium 140 Potassium 4.3 Creatinine 0.84 Estimated GFR > 60 Fasting Glucose 122 H Hemoglobin A1c % 8.1 H Calcium 9.9 AST 28 ALT 26 Triglycerides 151 H Cholesterol 241 H LDL Cholesterol, Calc 147 H HDL Cholesterol 64 25-OH Vitamin D Total 21.9 L TSH 3.44 Ur Specific Diamond 1.025 Urine Protein 30 (1+) H Urine Glucose (UA) >=1000 H Urine Blood Negative Urine Nitrite Negative Ur Leukocyte Esterase Negative Microalb/Creat Ratio 591.1 H Coding Level of Care Code Est Pt Level 4 (40905) Complex EM visit Add On G2211 Diagnoses Respiratory tract infection J98.8 Type 2 diabetes with nephropathy E11.21 Diabetic nephropathy associated with type 2 diabetes mellitus E11.21 Diabetes mellitus type: type 2 Atherosclerosis of [place] coronary artery of [place] heart without angina pectoris I25.10 [place] vs. transplanted heart: [place] heart Pure hypercholesterolemia E78.00 Benign essential hypertension I10 GERD without esophagitis K21.9 Vitamin D deficiency E55.9 Obesity (BMI 30-39.9) E66.9 Additional Codes PHQ-9 - 68904 - PHQ-9 Billing: Yes ([id number]) Assessment & Plan Assessment & Plan (1) Respiratory tract infection: Code(s): J98.8 - Other specified respiratory disorders Category: Medical Plan: Discussed with the patient that his current respiratory tract infection is most likely viral in etiology but as we are in the midst of the flu season, we will send him for a viral panel for further evaluation He is advised that if he tests positive for influenza or COVID, we will reach out to him and let him know and send in the appropriate medication for him to his local pharmacy Otherwise, he can just take some OTC cough/cold medications as needed for symptomatic relief (2) Type 2 diabetes with nephropathy: Comment: (+) proteinuria Code(s): E11.21 - Type 2 diabetes mellitus with diabetic nephropathy Category: Medical Plan: His HgbA1c was at 8.1% on his labs done last week (HgbA1c was previously at 8.3% a few months ago) - goal is at least <7.0% Reinforced diabetic diet Continue Lantus 32 units Q HS, Humalog 10 units with small meals and 12 units with large meals, Metformin ER 1000 mg BID, Jardiance 25 mg QD and Mounjaro 5 mg once a week (he could not tolerate Trulicity in the past in Ozempic proved ineffective for him) Follow up with [facility] end[facility]ology and diabetic power digger operator as scheduled (3) Diabetic nephropathy: Code(s): E11.21 - Type 2 diabetes mellitus with diabetic nephropathy Category: Medical Qualifiers: Diabetes mellitus type: type 2 Qualified Code(s): E11.21 - Type 2 diabetes mellitus with diabetic nephropathy Plan: Stable lately; follow up with nephrology as scheduled He is reminded again that better control of his diabetes is the best way to slow down the progression of his kidney disease (4) Atherosclerotic heart disease of [place] coronary artery without angina pectoris: Comment: S/P STEMI in 2016 - cardiac cath showed a non-intervenable lesion and recommended aggressive medical Mx to modify risk factors as much as possible; S/P NSTEMI in September 2022 - was transferred from [facility] to [facility], where cardiac cath revealed severe stenosis at diagonal 1 and he underwent PCI of culprit lesion Code(s): I25.10 - Atherosclerotic heart disease of [place] coronary artery without angina pectoris Category: Medical Qualifiers: [place] vs. transplanted heart: [place] heart Qualified Code(s): I25.10 - Atherosclerotic heart disease of [place] coronary artery without angina pectoris Plan: S/P NSTEMI in September 2022 - patient was transferred from [facility] to [facility] and had coronary angiogram done which revealed (+) severe stenosis at diagonal 1 and he subsequently underwent PCI of the culprit lesion Continue low dose Aspirin 81 mg QD, Clopidogrel 75 mg QD, Isosorbide Mononitrate ER 60 mg QD and Metoprolol ER 100 mg QD Patient also has sublingual Nitroglycerin tablets that he takes as needed for chest pain He is advised to continue risk reduction by controlling his diabetes and hypertension Follow up with cardiology as scheduled (5) Pure hypercholesterolemia: Code(s): E78.00 - Pure hypercholesterolemia, unspecified Category: Medical Plan: Results of his labs done last week reviewed and discussed with patient - he is cautioned that his cholesterol levels have significantly increased from previous, with his total cholesterol now at 241 mg/dL and LDL cholesterol of 147 mg/dL (these were under excellent control at 106 mg/dL and 33 mg/dL respectively just a few months ago) Reinforced low cholesterol diet He is supposed to be on Rosuvastatin 40 mg QD, with LDL cholesterol goal of less than 70 mg/dl due to his CAD but I suspect that he may have ran out of his medication without realizing it as based on his prescription history, he would have been due for refill about a month ago but there were no request for refill either from the patient or from his pharmacy I will go ahead and refill his Rosuvastatin 40 mg QD today and have instructed him to start back on this [place] I have also discussed with patient's that she will likely need to help him manage his medications as patient does not appear to be over of what he is taking his multiple medications for - states that he just takes what he is given or prescribed when questioned about his medications during today's visit Will recheck his labs and fasting lipids in 3 months for follow up (6) Benign essential hypertension: Code(s): I10 - Essential (primary) hypertension Category: Medical Plan: Reinforced low sodium diet - goal is systolic BP of at least 130 mm or less Continue Losartan 100 mg QD and Amlodipine 2.5 mg QD; he is also on Metoprolol ER 100 mg QD (7) GERD without esophagitis: Code(s): K21.9 - Gastro-esophageal reflux disease without esophagitis Category: Medical Plan: Dietary restrictions reinforced (8) Vitamin D deficiency: Code(s): E55.9 - Vitamin D deficiency, unspecified Category: Medical Plan: Continue Vitamin D2 92277 once a week (9) Obesity (BMI 30-39.9): Code(s): E66.9 - Obesity, unspecified Category: Medical Plan: Reinforced diet /exercise as tolerated /lose weight Plan Follow-up in 3 months Orders: Orders Hemoglobin A1c 3 Months E11.9 - Type 2 diabetes mellitus without complications Comprehensive [place]. Panel Fast 3 Months E78.00 - Pure hypercholesterolemia, unspecified TSH reflex Free T4 3 Months E78.00 - Pure hypercholesterolemia, unspecified UA CC w/rflx Micro + Cult 3 Months R30.0 - Dysuria SARS-CoV2/FLU/RSV 03/30/24 J98.8 - Other specified respiratory disorders Lipid Panel 3 Months E78.00 - Pure hypercholesterolemia, unspecified Complete Blood Count Auto Diff 3 Months D64.9 - Anemia, unspecified Microalbumin, Random (w Creat) 3 Months E11.9 - Type 2 diabetes mellitus without complications Vitamin D 25-OH Total 3 Months E55.9 - Vitamin D deficiency, unspecified Medications: Refilled rosuvastatin 40 mg PO DAILY 90 tabs 1RF
--- OUTSIDE RECORDS SUMMARY | 2024-03-30 11:01 | XMS_ITS | Clinical Summary ---
Author Organization [facility] Address [address] [address] Phone Care Team Providers Care Road Freight Firer Name Role Phone Aram Murphy MD Primary Care Provider [phone]- [phone] Allergies No known active allergies Medications amLODIPine [...] Visit [facility] [address] [place] [address] [place] [phone] Diaz Martino MD [address] [facility] [address] [place] [address] Health Maintenance Due Date Last [...] Most Recently Relevant to Health Maintenance Insurance [facility] Care Teams Road Freight Firer Relationship Specialty Start Date End Date Aram Murphy MD [address] [place] [address] PCP - General Internal Medicine 06/11/21
== END 2024-03-30 10:53 | disposition home or self-care (01) ==
PROVIDERS: PCP Internal Medicine; Visit Provider Internal Medicine
DX: E11.21 Type 2 diabetes mellitus with diabetic nephropathy (principal); J98.8 Other specified respiratory disorders; Z68.30 Body mass index [BMI] 30.0-30.9, adult; E66.9 Obesity, unspecified; I25.10 Atherosclerotic heart disease of native coronary artery without angina pectoris; E78.00 Pure hypercholesterolemia, unspecified; I10 Essential (primary) hypertension; K21.9 Gastro-esophageal reflux disease without esophagitis; E55.9 Vitamin D deficiency, unspecified

== ENCOUNTER 2024-06-12 08:19 | Outpatient (REF) | payer BC, SELFPAY ==
[2023-05-25 10:03] VITALS: BP 100/54; BP 104/54; BP 120/64; BMI 29.7
--- OUTSIDE RECORDS SUMMARY | 2024-06-12 08:46 | XMS_ITS | Clinical Summary ---
Author Organization [employer] Address [address] [place] [address] [address] [place] [address] Care Team Providers Care Mural Painter Name Role Phone Unavailable Primary Care Provider Unavailabl e Social History Tobacco Use Types Packs/Day Years Used Date Smoking Tobacco: Never Assessed Sex and Gender Information Value Date Recorded Sex Assigned at Male 06/01/2024 11:09 AM EDT Legal Sex Male 9:56 AM EDT Gender Identity Male 06/01/2024 11:09 AM EDT Sexual Orientation Straight 06/01/2024 11 :09 AM EDT Plan of Treatment Upcoming Encounters Date Type Department Care Team (Late st Contact Info) Description 12/07/2024 10:00 AM EDT Office Visit [facility] [address] [place] [address] Priscilla Felder Health Maintenance Due Date Last Done Comments CT Colonography 1958 Colonoscopy 1958 Colorectal Cancer Screening 1958 Depression Screening 1958 FIT DNA/Cologuard 1958 FIT 1958 FOBT 1958 Lipid Panel 1958 SDOH Screening 1958 Sigmoidoscopy 1958 Alcohol/Substance Use Screening 1970 Tobacco Screening 1970 Hepatitis C Screening 02/02/1976 DTaP/Tdap/Td Vaccines (1 - Tdap) 1977 Pneumococcal Vaccine: 50+ Years (1 of 1 - PCV) 02/02/2008 Zoster Vaccines (1 of 2) 02/02/2008 COVID-19 Vaccine (2023-2 5 season) 2023 04/01/2021, 10/15/2020, 09/13/2020 Influenza Vaccine (#1) 2023 RSV Patients and Patients Aged 60 years or older (1 - 1-dose 75+ series) 2033 HIB Vaccines Aged Out No longer eligi ble based on patient's age to complete this topic HPV Vaccines Aged Out No longer eligi ble based on patient's age to complete this topic Hepatitis A Vaccines Aged Out No long er eligible based on patient's age to complete this topic Hepatitis B Vaccines Aged Out No long er eligible based on patient's age to complete this topic IPV Vaccines Aged Out No longer eligi ble based on patient's age to complete this topic Meningococcal Vaccine Aged Out No calvin juan pablo eligible based on patient's age to complete this topic RSV under 20 months Aged Out No longe r eligible based on patient's age to complete this topic Rotavirus Vaccines Aged Out No longer eligible based on patient's age to complete this topic Insurance DENTAL - BCBS DENTAL
--- OUTSIDE RECORDS SUMMARY | 2024-06-12 08:46 | XMS_ITS | Clinical Summary ---
Author Organization [facility] Address [address] [address] Phone Care Team Providers Care Circulator Name Role Phone Aram Murphy MD Primary Care Provider +1- [phone] Allergies No known active allergies Medications amLODIPine [...] Visit [facility] [address] [place] [address] [place] [phone] Diaz Martino MD [address] [facility] [address] [place] [address] Health Maintenance Due Date Last Done Comments Pneumococcal Vaccine: 50+ Ye ars (1 of 2 - PCV) 1977 Colorectal Cancer Screening: Annual FOBT 2007 Colorectal Cancer Screening: Colonoscopy 2007 Colorectal Cancer Screening: Sigmoidoscopy 2007 Diabetes: Ophthalmology Exam 09/02/2021 Diabetes: Pedal Pulse Checked 09/02/2021 Diabetes: Sensory Foot Exam 09/02/2021 Diabetes: Visual Foot Exam 09/02/2021 Diabetes: Hemoglobin A1C 03/15/2022 12/13/2021 Influenza Vaccine (Season Ended) 2024 Hepatitis B Vaccine Aged Out No longe [...] Most Recently Relevant to Health Maintenance Insurance [facility] Care Teams Circulator Relationship Specialty Start Date End Date Aram Murphy MD [address] [place] [address] PCP - General Internal Medicine 06/11/21
[2024-06-12 08:52] LABS: MANUAL DIFF FLAG NO
[2024-06-12 09:20] LABS: Basophils Percent Auto 0.4 % (0-2); Eosinophils Absolute Auto 0.2 X10*3/uL (0.0-0.4); Eosinophils Percent Auto 2.6 % (0-4); Hematocrit 43.9 % (42.0-52.0); Hemoglobin 14.8 g/dl (14.0-18.0); Imm Gran Abs Auto 0.01 X10*3/uL (0.00-0.03); Imm Gran Pct Auto 0.1 % (0.0-0.4); Lymphocytes Absolute Auto 2.3 X10*3/uL (1.2-4.9); Lymphocytes Percent Auto 30.6 % (20-40); Mean Corpuscular HGB Conc 33.7 g/dl (31.0-36.0); Mean Corpuscular Hemoglobin 29.8 pg (27.0-33.0); Mean Corpuscular Volume 88.5 fL (80.0-98.0); Mean Platelet Volume 10.5 fL (9.4-12.4); Monocytes Absolute Auto 0.7 X10*3/uL (0.1-1.2); Monocytes Percent Auto 8.7 % (2-11); Neutrophils Absolute Auto 4.3 x10*3/uL (2.0-8.3); Neutrophils Percent Auto 57.6 % (45-73); Platelet Count 188 X10*3/uL (160-400); Red Blood Count 4.96 X10*6/uL (4.60-5.80); Red Cell Distribution Width 13.9 % (11.0-16.0); White Blood Count 7.4 X10*3/uL (4.8-10.8)
[2024-06-12 09:30] LABS: Estimated Average Glucose 180 mg/dL; Hemoglobin A1C 240.6857 umol/L; Hemoglobin A1c % 7.9 % (<6.0); Total Hemoglobin (HGBA1C) 3844.0938 umol/L
[2024-06-12 09:37] LABS: Appearance Urine Clear; Color Urine Yellow; Glucose Urine UA >=1000 mg/dL (Negative); Leukocyte Esterase Urine Negative (Negative); Nitrite Urine Negative (Negative); PH 6.5 (5.0-9.0); Specific Gravity - Urine >= 1.030 (1.005-1.025); UMIC TRIGGER UACC YES; Urine Blood Negative (Negative); Urine Ketones Negative (Negative); Urine Protein 100 (2+) mg/dL (Neg-Trace)
[2024-06-12 09:50] LABS: Bacteria Urine None Seen (None Seen); Hyaline Casts Urine 0-2 /LPF (0-2); RBC Urine 0-2 /HPF (0-2); Squamous Epithelial Cell Urine 0-2 /HPF (0-2); WBC Urine 0-5 /HPF (0-5)
[2024-06-12 09:56] LABS: Alanine Aminotransferase 49 U/L (0-40); Albumin Level 4.4 g/dL (3.5-5.0); Alkaline Phosphatase 47 U/L (39-117); Anion Gap 14 (12-20); Aspartate Amino Transferase 37 U/L (5-37); Bilirubin Total 0.7 mg/dL (0.0-1.0); Blood Urea Nitrogen 16 mg/dL (9-16); Carbon Dioxide 27 mmol/L (22-29); Chloride 102 mmol/L (96-108); Cholesterol 119 mg/dL (<200); Estimated Glomerular Filt Rate > 60; Glucose Fasting 177 mg/dL (60-99); HDL Cholesterol 55 mg/dL (>40); LDL Cholesterol Calculated 46 mg/dL (<100); Potassium 4.3 mmol/L (3.3-5.1); Sodium 139 mmol/L (135-145); Total Protein 7.4 g/dL (6.5-8.0); Triglycerides 91 mg/dL (<150)
[2024-06-12 10:05] LABS: TSH reflex Free T4 3.38 uIU/mL (0.32-4.0); Vitamin D 25-OH Total 19.1 ng/mL (>30)
[2024-06-12 11:05] LABS: Creatinine Urine 56.46 mg/dL; Microalbum/Creatinine Ratio Ur 779.3 ug/mg cr (<30)
== END 2024-06-12 08:20 | disposition home or self-care (01) ==
LOC: HO.LAB 08:19
PROVIDERS: PCP Internal Medicine; Referring Provider Internal Medicine; Visit Provider Internal Medicine
DX: D64.9 Anemia, unspecified (principal); E78.00 Pure hypercholesterolemia, unspecified; E11.9 Type 2 diabetes mellitus without complications; E55.9 Vitamin D deficiency, unspecified
CPT/HCPCS: 36415; 80053; 80061; 81001; 82043; 82306; 82570; 83036; 84443; 85025

== ENCOUNTER 2024-06-21 09:49 | Outpatient (AMB) | payer BC, SELFPAY ==
[2023-05-25 10:03] VITALS: BP 100/54; BP 104/54; BP 120/64; BMI 29.7
--- NOTE | 2024-06-21 09:52 | A.OFFVIS_ITS ---
Vital Signs 06/21/24 09:53 Height 5 ft 4 in Weight 174 lb 2.643 oz BMI 29.9 BP 150/80 H Blood Pressure Location Rt brachial Position Sitting Pulse 91 Pulse Source Pulse Oximeter Pulse Oximetry (%) 97 Oxygen Delivery Method Room Air Intake Visit Reasons: DM Intake Note: Patient presents today for a follow-up on Type 2 Diabetes Mellitus: Last Diabetic Eye exam: 06/03/2023 Last Podiatry Exam: Does not see a Sole Layer Hand Most recent HbA1c: 7.9%, 06/12/2024 Random Glucose- 148 mg/dL, Today Search Lead Required: No Allergies No Known Allergies [No Known Allergies*] Allergy (Verified 03/30/24 10:38) HPI Comments Details: Patient is a 64 year old male with DM type 2 diagnosed approximately 15 years ago who presents for continued management of diabetes. Past medical history includes : HLD, vitamin D deficiency, GERD, hypertension, non-ST elevated IA. Micro and macrovascular complications: + retinopathy, + nephropathy, + neuropathy, + CAD Diabetes medications: Lantus 32 units, Humalog 12 units 3 times daily (forgetting less doses-usually missing am dose), metformin 1000mg twice daily (misses once in a while), Jardiance 25mg daily on Mounjaro 5 mg Qwkly (missed multiple doses since last visit). There are no signficant lows on CGM. Could not tolerate [employer] Senait downloaded TGT 53% 47% high 0% low GMI 7.7%. 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 preproliferative diabetic retinopathy ROS see HPI PHYSICAL EXAM: GENERAL: Alert and oriented x 3. NAD EYES: EOMI. Anicteric. HENT: Moist mucous membranes. No scleral icterus. No cervical lymphadenopathy. LUNGS: Clear to auscultation bilaterally. CARDIOVASCULAR: Regular rate and rhythm. No murmur. No JVD. ABDOMEN: Soft, non-tender +bs EXTREMITIES: No edema. Non-tender. SKIN: No rashes or lesions. Warm. NEUROLOGIC: No focal neurological deficits. PSYCHIATRIC: Cooperative. Appropriate mood and affect [facility] Medical History Nonproliferative diabetic retinopathy PVCs (premature ventricular contractions) Overweight (BMI 25.0-29.9) Cataract Obesity (BMI 30-39.9) Dermatosis GERD without esophagitis Benign essential hypertension Pure hypercholesterolemia Atherosclerotic heart disease of [place] coronary artery without angina pectoris Type 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 Mother Diabetes mellitus CVD (cardiovascular disease) Hypertension Social History Household Members: Spouse Housing: House Alcohol intake: never Patient Tobacco Use Status: Never used Tobacco e-Cigarette/Vaping Use: Never Used Second Hand Smoke Exposure: No service: No Current occupational status: employed Cognitive needs: No Hearing needs: No Vision needs: Yes Physical Exam Vital Signs: Last Vital Signs Pulse 69 06/21/24 09:53 BP 150/80 H 06/21/24 09:53 Pulse Ox 97 06/21/24 09:53 Oxygen Delivery Method Room Air 06/21/24 09:53 BMI result Body Mass Index 29.9 Assessment & Plan Assessment & Plan (1) Insulin use (long-term) in type 2 diabetes: Code(s): E11.9 - Type 2 diabetes mellitus without complications; Z79.4 - senior care (current) use of insulin Category: Medical Qualifiers: Diabetes mellitus complication status: with hyperglycemia Qualified Code(s): E11.65 - Type 2 diabetes mellitus with hyperglycemia; Z79.4 - senior care (current) use of insulin (2) Diabetes mellitus with retinopathy: Code(s): E11.319 - Type 2 diabetes mellitus with unspecified diabetic retinopathy without macular edema Category: Medical Qualifiers: Diabetes mellitus type: type 2 Diabetes mellitus shelter insulin use: with superintendent container terminal use Diabetic retinopathy severity: with unspecified retinopathy severity Diabetes mellitus macular edema: macular edema presence unspecified Laterality: unspecified laterality Qualified Code(s): E11.319 - Type 2 diabetes mellitus with unspecified diabetic retinopathy without macular edema; Z79.4 - senior care (current) use of insulin Plan 64 year old in follow up Diabetes improving control still slightly suboptimal. Still a few overnight lows over 90 days per patient and . Decrease dinnertime dose of humalog if small meal Improve compliance with mounjaro Rule of 15s for low glucose Return in 3 months or sooner as needed Coding Level of Care Code Est Pt Level 4 (99038) Diagnoses Type 2 diabetes mellitus with hyperglycemia, with long-term current use of insulin E11.65; Z79.4 Diabetes mellitus complication status: with hyperglycemia Type 2 diabetes mellitus with retinopathy, with long-term current use of insulin, macular edema presence unspecified, unspecified laterality, unspecified retinopathy severity E11.319; Z79.4 Diabetes mellitus type: type 2 Diabetes mellitus shelter insulin use: with superintendent container terminal use Diabetic retinopathy severity: with unspecified retinopathy severity Diabetes mellitus macular edema: macular edema presence unspecified Laterality: unspecified laterality
[2024-06-21 09:53] VITALS: BP 150/80; PULSE 91; O2SAT 97; BMI 29.9
[2024-06-21 10:04] LABS: Glucose, Whole Blood 148 mg/dL (60-115)
--- OUTSIDE RECORDS SUMMARY | 2024-06-21 10:34 | XMS_ITS | Clinical Summary ---
Author Organization [facility] Address [address] [address] Phone Care Team Providers Care Bilingual Executive Assistant Name Role Phone Aram Murphy MD Primary Care Provider [phone] Allergies No known active allergies Medications amLODIPine [...] (three) times a day 10-12 units Active Finerenone (Kerendia) 10 MG tablet Take 10 mg by mouth 1 (one) time each day 90 tablet 1 06/20/19 25 026 Active Active Problems Problem Noted Date Diagnosed Date Chronic kidney disease, stage 2 (mild) 3 Type 2 diabetes mellitus wit h diabetic autonomic (poly)neuropathy 09/02/2021 Essential (primary) hypertension 09/02/2021 Hyperlipidemia 09/02/2021 Obesity 09/02/2021 Chronic kidney disease, stage 2 (mild) 2 Proteinuria 09/02/2021 Type 2 diabetes mellitus wit h diabetic chronic kidney disease 09/02/2021 Encounters Date Type Department Care Team Description 06/19/2024 1:30 PM EDT Office Visit [facility] [address] [place] [address] Diaz Martino MD Persistent proteinuria (Primary Dx); Type 2 diabetes mellitus with diabetic chronic kidney disease (HCC); Essential (primary) hypertension; Chronic kidney disease, stage 2 (mild) from Last 3 Months Family History Relation Status Comments Father Mother [...] Sign Reading Time Taken Comments Blood Pressure 122/70 06/19/2024 1:32 PM EDT Pulse 96 06/19/2024 1:32 PM EDT Temperature - - Respiratory Rate - - Oxygen Saturation 97% 06/19/2024 1:32 PM EDT Inhaled Oxygen Concentration - - Weight 79.6 kg (175 lb 6.4 oz) 06/19/2024 1:32 P M EDT Height - - Body Mass Index - - Plan of Treatment Upcoming Encounters Date Type Department Care Team (Late st Contact Info) Description 06/25/2025 1:15 PM EDT Office Visit [facility] [address] [place] [address] Diaz Martino MD [address] [facility] [address] [place] [id number] Health Maintenance Due Date Last Done Comments [...] Hemoglobin A1C 8.6(A) 4.0 - 6.0 12/13/2021 us Historical Provider LAB BLOOD ORDERABLES Loreto l Result from Last 3 Months or Most Recently Relevant to Health Maintenance Insurance [facility] Care Teams Bilingual Executive Assistant Relationship Specialty Start Date End Date Aram Murphy MD [address] [place] [address] PCP - General Internal Medicine 06/11/21
--- OUTSIDE RECORDS SUMMARY | 2024-06-21 10:34 | XMS_ITS | Clinical Summary ---
Author Organization [employer] Address [address] [place] [address] [address] [place] [address] Care Team Providers Care Cement Cutter Name Role Phone Unavailable Primary Care Provider [...] Description 12/07/2024 10:00 AM EDT Office Visit [facility] [address] [place] [address] Priscilla Felder Health Maintenance Due Date Last [...]
== END 2024-06-21 10:19 | disposition home or self-care (01) ==
LOC: HO.ENCR 09:50
PROVIDERS: PCP Internal Medicine; Visit Provider Internal Medicine
DX: E11.65 Type 2 diabetes mellitus with hyperglycemia (principal); Z79.4 Long term (current) use of insulin; E11.319 Type 2 diabetes mellitus with unspecified diabetic retinopathy without macular edema

== ENCOUNTER → 2024-06-21 09:49 | Outpatient (BNVA) | payer BC, SELFPAY ==
[2023-05-25 10:03] VITALS: BP 100/54; BP 104/54; BP 120/64; BMI 29.7
== END ==
PROVIDERS: PCP Internal Medicine; Visit Provider Internal Medicine
DX: E11.65 Type 2 diabetes mellitus with hyperglycemia (principal); E11.319 Type 2 diabetes mellitus with unspecified diabetic retinopathy without macular edema; Z79.4 Long term (current) use of insulin
CPT/HCPCS: 82947

== ENCOUNTER 2024-06-30 15:47 | Outpatient (AMB) | payer BC, SELFPAY ==
[2023-05-25 10:03] VITALS: BP 100/54; BP 104/54; BP 120/64; BMI 29.7
--- NOTE | 2024-06-30 15:48 | A.OFFPC_ITS ---
Vital Signs 06/30/24 15:49 Height 5 ft 4 in Weight 175 lb 6 oz BMI 30.1 BP 116/72 Blood Pressure Location Lt brachial Position Sitting Pulse 83 Pulse Source Pulse Oximeter Temp 97.1 F Temp Source Temporal Artery Scan Pulse Oximetry (%) 97 Oxygen Delivery Method Room Air Intake Visit Reasons: DM, hyperlipidemia, HTN Accompanied by: Spouse Allergies No Known Allergies [No Known Allergies*] Allergy (Verified 06/30/24 16:20) Medication List - Last Reconciled 06/30/24 by Aram Murphy MD albuterol sulfate 90 mcg/actuation (Ventolin HFA) 2 puffs inhalation Q6H PRN 30 days amlodipine 2.5 mg PO DAILY aspirin (Adult Low Dose Aspirin) 81 mg PO DAILY clobetasol 0.05% 1 appl topical BID PRN empagliflozin (Jardiance) 25 mg PO QAM ergocalciferol (vitamin D2) 1,250 mcg PO QWEEK finerenone (Kerendia) 10 mg PO DAILY flash glucose scanning reader ([employer] Senait 14 Day Berkey) As directed flash glucose sensor ([employer] Senait 14 Day Sensor kit) As directed Flexichamber (inhalational spacing device) use with Albuterol inhaler as directed NS Humalog KwikPen Insulin (insulin lispro) Inject 10 to 12 units as instructed 3 times a day with meals dosed per sliding scale subcutaneously; 30 days NS isosorbide mononitrate ER 60 mg PO DAILY Lantus Solostar U-100 Insulin (insulin glargine) 32 units (0.32 mL) subcut QPM NS losartan 100 mg PO DAILY metformin 1,000 mg PO BID metoprolol succinate ER 100 mg PO DAILY 90 days multivitamin 1 tab PO DAILY nitroglycerin 0.4 mg sublingual ONCE nystatin-triamcinolone 100,000-0.1 unit/g-% 1 appl topical BID 10 days pen needle, diabetic As directed five times a day rosuvastatin 40 mg PO DAILY tamsulosin 0.4 mg PO BEDTIME 90 days tirzepatide (Mounjaro) 5 mg (0.5 mL) subcut QWEEK Tobacco use date assessed: 06/30/24 Fall risk assessment: No Falls in past year Last assessed Fall Risk: 06/30/24 Dental Screening Dental Screen Date: 06/30/24 Did you have a dental visit in the last 12 months?: Yes Did you have a dental problem in the last 6 months where you did not have access to dental care?: No Was dental information given to patient?: Patient has dentist HPI DM, hyperlipidemia, HTN HPI Details Patient comes in today for his follow-up visit States that he feels okay He denies any headaches or dizziness Denies any chest pains, no shortness of breath No nausea/vomiting, no abdominal pain No change in bowel habits noted Needs his Vitamin D Rx refilled He had his follow-up labs done a couple of weeks ago - to discuss his results [facility] Medical History Nonproliferative diabetic retinopathy PVCs (premature ventricular contractions) Overweight (BMI 25.0-29.9) Cataract Obesity (BMI 30-39.9) Dermatosis GERD without esophagitis Benign essential hypertension Pure hypercholesterolemia Atherosclerotic heart disease of [place] coronary artery without angina pectoris Type 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 Mother Diabetes mellitus CVD (cardiovascular disease) Hypertension Social History Household Members: Spouse Housing: House Alcohol intake: never Patient Tobacco Use Status: Never used Tobacco e-Cigarette/Vaping Use: Never Used Second Hand Smoke Exposure: No service: No Current occupational status: employed Cognitive needs: No Hearing needs: No Vision needs: Yes Questionnaire PHQ-9 Over the last 2 weeks, how often have you been bothered by any of the following problems? 1. Little interest or pleasure in doing things: not at all 2. Feeling down, depressed, or hopeless: not at all 3. Trouble falling or staying asleep, or sleeping too much: not at all 4. Feeling tired or having little energy: not at all 5. Poor appetite or overeating: not at all 6. Feeling bad about yourself - or that you are a failure or have let yourself or your family down: not at all 7. Trouble concentrating on things, such as reading the newspaper or watching television: not at all 8. Moving or speaking so slowly that other people could have noticed. Or the opposite - being so fidgety or restless that you have been moving around a lot more than usual: not at all 9. Thoughts that you would be better off or of hurting yourself in some way: not at all Total score: 0 Depression Screening Interpretation: Negative Depression Screening Done: Yes 63727 - PHQ-9 Billing: Yes Source: Developed by Drs. Vargas Pope, Valerie Carpenter, Harjinder Erazo and colleagues, with an educational aubree from [employer]. Thrive Questionnaire Date Thrive assessed: 06/30/24 I am a: Patient What is your living situation today?: I have a steady place to live Within the past 12 months, did the food you bought not last and you didn't have the money to get more?: Never true Within the past 12 months, did you worry whether your food would run out before you got money to buy more?: Never true Do you have trouble paying for medicines?: No Do you have trouble getting transportation to medical appointments?: No Do you have trouble paying your heating and electricity bill?: No Do you have trouble taking care of your child, family member or friend?: No Do you have trouble with day-to-day activities such as bathing, preparing meals, shopping, managing finances, etc.?: No Are you currently unemployed and looking for a job?: No Are you interested in more education?: No Please select the resources that you would like help with: None Currently or been in a relationship where the following occur: No concerns reported THRIVE Score: 0 AUDIT C Alcohol Use Questionnaire (AUDIT-C) 1. How often do you have a drink containing alcohol?: Never 3. How often do you have six or more drinks on one occasion?: Never Total Score: 0 Score Reviewed/Action Taken: Yes SHIREEN-7 AMB Questionnaire SHIREEN-7 Date SHIREEN - 7 assessed: 06/30/24 Feeling nervous, anxious, or on edge: 0 = Not at all Not being able to stop or control worryin = Not at all Worrying too much about different things: 0 = Not at all Trouble relaxin = Not at all Being so restless that it is hard to sit still: 0 = Not at all Becoming easily annoyed or irritable: 0 = Not at all Feeling afraid as if something awful might happen: 0 = Not at all Total SHIREEN-7 score (0-4 normal; 5-9 mild; 10-14 moderate; 15-21 severe): 0 Source: Developed by Drs. Vargas Pope, Valerie Carpenter, Harjinder Erazo and colleagues, with an educational aubree from [employer]. Review of Systems Const Denies chills, Denies fatigue, Denies fever(s) and Denies headache(s) ENT Denies dysphagia, Denies dizziness, Denies otalgia, Denies headache(s), Denies neck pain, Denies odynophagia and Denies sore throat Card Denies chest pain, Denies palpitations and Reports dyspnea on exertion (mild, chronic) Resp Denies chest congestion, Denies cough and Reports dyspnea on exertion (mild, chronic) GI Denies abdominal pain, Denies constipation, Denies dysphagia, Denies heartburn, Denies diarrhea, Denies nausea, Denies odynophagia and Denies vomiting Denies difficulty urinating, Denies dysuria, Denies nocturia and Reports urinary frequency Musc Denies back pain and Denies neck pain Skin/Breast Denies rash Neuro Denies dizziness and Denies headache(s) Endo Denies fatigue and Denies palpitations Physical exam (Primary Care) Vital Signs: Last Vital Signs Temp 97.1 F 06/30/24 15:49 Pulse 83 06/30/24 15:49 BP 116/72 06/30/24 15:49 Pulse Ox 97 06/30/24 15:49 Oxygen Delivery Method Room Air 06/30/24 15:49 BMI result Body Mass Index 30.1 Tobacco/Smoking Status: Tobacco use Status Tobacco use date assessed 06/30/24 06/30/24 15:54 Patient Tobacco Use Status Never used Tobacco 06/30/24 15:54 e-Cigarette/Vaping Use Never Used 06/30/24 15:54 PHQ-9: PHQ-9 Score PHQ-9: Total score 0 06/30/24 16:22 Depression Screening Interpretation: Negative Thrive Assessment: Date of Thrive Assessment Date Thrive assessed 06/30/24 06/30/24 15:54 Currently or been in a relationship where the following occur: No concerns reported Const General: no acute distress and alert HENMT Ears: TM's normal bilaterally and EAC's normal Throat: Yes posterior oropharynx normal and Yes tonsils normal (no TP congestion noted) Neck Neck: Yes supple and No lymphadenopathy Thyroid: Thyroid normal Resp Auscultation: no rales, rhonchi (occasional) upper bilaterally and no wheezes Cardio Rate: regular rate Rhythm: regular rhythm Heart sounds: no murmurs GI Palpation (GI): Soft to palpation and nontender Auscultation: normal bowel sounds General: Yes no CVA tenderness Back/Spine/Pelvis Back: no CVA tenderness Thoracic/Lumbar Spine: No lumbar spinal tenderness Skin Rashes: no rashes Extrem General: Yes no clubbing, cyanosis or edema Right upper extremity: Extremity exam: right hand Details: tenderness (over the fingers) and swelling (over the IP joints of several fingers) Left upper extremity: hand Details: tenderness (over the fingers) and swelling (over the IP joints of multiple fingers) Results Reviewed Results Reviewed: Laboratory Tests 06/12/24 06/12/24 08:46 08:50 WBC 7.4 Hgb 14.8 Hct 43.9 Plt Count 188 Sodium 139 Potassium 4.3 Creatinine 0.82 Estimated GFR > 60 Fasting Glucose 177 H Hemoglobin A1c % 7.9 H Calcium 10.0 AST 37 ALT 49 H Triglycerides 91 Cholesterol 119 LDL Cholesterol, Calc 46 HDL Cholesterol 55 25-OH Vitamin D Total 19.1 L TSH 3.38 Ur Specific [place] >= 1.030 H Urine Protein 100 (2+) H Urine Glucose (UA) >=1000 H Urine Blood Negative Urine Nitrite Negative Ur Leukocyte Esterase Negative Microalb/Creat Ratio 779.3 H Coding Level of Care Code Est Pt Level 4 (92527) Complex EM visit Add On G2211 Diagnoses Type 2 diabetes with nephropathy E11.21 Diabetic nephropathy associated with type 2 diabetes mellitus E11.21 Diabetes mellitus type: type 2 Atherosclerosis of [place] coronary artery of [place] heart without angina pectoris I25.10 [place] vs. transplanted heart: [place] heart Pure hypercholesterolemia E78.00 Benign essential hypertension I10 GERD without esophagitis K21.9 Vitamin D deficiency E55.9 Obesity (BMI 30-39.9) E66.9 Additional Codes PHQ-9 - 50014 - PHQ-9 Billing: Yes ([id number]) Assessment & Plan Assessment & Plan (1) Type 2 diabetes with nephropathy: Comment: (+) proteinuria Code(s): E11.21 - Type 2 diabetes mellitus with diabetic nephropathy Category: Medical Plan: His HgbA1c was at 7.9% on his labs done a couple of weeks ago (HgbA1c was previously at 8.1% a few months ago) - goal is at least <7.0% Reinforced diabetic diet Continue Lantus 32 units Q HS, Humalog 10 units with small meals and 12 units with large meals, Metformin ER 1000 mg BID, Jardiance 25 mg QD and Mounjaro 5 mg once a week (he could not tolerate Trulicity in the past in Ozempic was ineffective for him) Follow up with [facility] endocrinology and diabetic bench grinder as scheduled (2) Diabetic nephropathy: Code(s): E11.21 - Type 2 diabetes mellitus with diabetic nephropathy Category: Medical Qualifiers: Diabetes mellitus type: type 2 Qualified Code(s): E11.21 - Type 2 diabetes mellitus with diabetic nephropathy Plan: Stable lately Continue Kerendia 10 mg QD He is reminded again that better control of his diabetes is the best way to slow down the progression of his kidney disease Follow up with nephrology as scheduled (3) Atherosclerotic heart disease of [place] coronary artery without angina pectoris: Comment: S/P STEMI in 2015 - cardiac cath showed a non-intervenable lesion and recommended aggressive medical Mx to modify risk factors as much as possible; S/P NSTEMI in September 2022 - was transferred from [facility] to [facility], where cardiac cath revealed severe stenosis at diagonal 1 and he underwent PCI of culprit lesion Code(s): I25.10 - Atherosclerotic heart disease of [place] coronary artery without angina pectoris Category: Medical Qualifiers: [place] vs. transplanted heart: [place] heart Qualified Code(s): I25.10 - Atherosclerotic heart disease of [place] coronary artery without angina pectoris Plan: S/P NSTEMI in September 2022 - patient was transferred from [facility] to [facility] and had coronary angiogram done which revealed (+) severe stenosis at diagonal 1 and he subsequently underwent PCI of the culprit lesion Continue low dose Aspirin 81 mg QD, Clopidogrel 75 mg QD, Isosorbide Mononitrate ER 60 mg QD and Metoprolol ER 100 mg QD Patient also has sublingual Nitroglycerin tablets that he takes as needed for chest pain He is advised to continue aggressive risk reduction with better control of his diabetes and hypertension Follow up with cardiology as scheduled (4) Pure hypercholesterolemia: Code(s): E78.00 - Pure hypercholesterolemia, unspecified Category: Medical Plan: Results of his labs done a couple of weeks ago reviewed and discussed with patient - his cholesterol levels have improved significantly from previous Reinforced low cholesterol diet Continue Rosuvastatin 40 mg QD Will recheck his labs and fasting lipids in 3 months for follow up (5) Benign essential hypertension: Code(s): I10 - Essential (primary) hypertension Category: Medical Plan: Reinforced low sodium diet - goal is systolic BP of at least 130 mm or less Continue Losartan 100 mg QD and Amlodipine 2.5 mg QD; he is also on Metoprolol ER 100 mg QD (6) GERD without esophagitis: Code(s): K21.9 - Gastro-esophageal reflux disease without esophagitis Category: Medical Plan: Dietary restrictions reinforced Continue Omeprazole 20 mg QD (7) Vitamin D deficiency: Code(s): E55.9 - Vitamin D deficiency, unspecified Category: Medical Plan: Continue Vitamin D2 62732 once a week - Rx refilled (8) Obesity (BMI 30-39.9): Code(s): E66.9 - Obesity, unspecified Category: Medical Plan: Reinforced diet /exercise as tolerated /lose weight Plan Follow-up in 3 months Orders: Orders Lipid Panel 3 Months E78.00 - Pure hypercholesterolemia, unspecified Hemoglobin A1c 3 Months E11.9 - Type 2 diabetes mellitus without complications Vitamin D 25-OH Total 3 Months E55.9 - Vitamin D deficiency, unspecified Vitamin B12 and Folate 3 Months E53.8 - Deficiency of other specified B group vitamins Complete Blood Count Auto Diff 3 Months D64.9 - Anemia, unspecified Comprehensive [place]. Panel Fast 3 Months E78.00 - Pure hypercholesterolemia, unspecified Microalbumin, Random (w Creat) 3 Months E11.9 - Type 2 diabetes mellitus wit hout complications UA CC w/rflx Micro + Cult 3 Months R30.0 - Dysuria TSH reflex Free T4 3 Months E78.00 - Pure hypercholesterolemia, unspecified Medications: Changed From omeprazole 20 mg PO DAILY 90 caps 1RF To omeprazole 20 mg PO DAILY 90 days 90 caps 1RF Refilled ergocalciferol (vitamin D2) 1,250 mcg PO QWEEK 12 caps 3RF
[2024-06-30 15:49] VITALS: BP 116/72; PULSE 83; TEMP 36.2; O2SAT 97; BMI 30.1
--- OUTSIDE RECORDS SUMMARY | 2024-06-30 15:50 | XMS_ITS | Clinical Summary ---
Author Organization [facility] Address [address] [address] Phone Care Team Providers Care Barrel Header Name Role Phone Aram Murphy MD Primary Care Provider +1- [phone] Allergies No known active allergies Medications amLODIPine [...] Visit [facility] [address] [place] [address] Diaz Martino MD Persistent proteinuria (Primary [...] Visit [facility] [address] [place] [address] Diaz Martino MD [address] [facility] [address] [place] [id number] Health Maintenance Due Date Last Done Comments [...] Most Recently Relevant to Health Maintenance Insurance [facility] Care Teams Barrel Header Relationship Specialty Start Date End Date Aram Murphy MD [address] [place] [address] PCP - General Internal Medicine 06/11/21
== END 2024-06-30 16:33 | disposition home or self-care (01) ==
LOC: HO.HMCH 15:47
PROVIDERS: PCP Internal Medicine; Visit Provider Internal Medicine
DX: E11.21 Type 2 diabetes mellitus with diabetic nephropathy (principal); I25.10 Atherosclerotic heart disease of native coronary artery without angina pectoris; E66.9 Obesity, unspecified; Z68.30 Body mass index [BMI] 30.0-30.9, adult; E78.00 Pure hypercholesterolemia, unspecified; I10 Essential (primary) hypertension; K21.9 Gastro-esophageal reflux disease without esophagitis; E55.9 Vitamin D deficiency, unspecified

== ENCOUNTER → 2024-06-30 15:47 | Outpatient (BNVA) | payer BC, SELFPAY ==
[2023-05-25 10:03] VITALS: BP 100/54; BP 104/54; BP 120/64; BMI 29.7
== END ==
PROVIDERS: PCP Internal Medicine; Visit Provider Internal Medicine
DX: E11.21 Type 2 diabetes mellitus with diabetic nephropathy (principal); I25.10 Atherosclerotic heart disease of native coronary artery without angina pectoris; E78.00 Pure hypercholesterolemia, unspecified; I10 Essential (primary) hypertension; K21.9 Gastro-esophageal reflux disease without esophagitis; E55.9 Vitamin D deficiency, unspecified; E66.9 Obesity, unspecified; Z68.30 Body mass index [BMI] 30.0-30.9, adult; I25.2 Old myocardial infarction; Z79.4 Long term (current) use of insulin; Z79.82 Long term (current) use of aspirin; Z79.84 Long term (current) use of oral hypoglycemic drugs; Z79.85 Long-term (current) use of injectable non-insulin antidiabetic drugs; Z79.899 Other long term (current) drug therapy; Z13.30 Encounter for screening examination for mental health and behavioral disorders, unspecified
CPT/HCPCS: 96127

== ENCOUNTER 2024-09-08 09:24 | Outpatient (AMB) | payer BC, SELFPAY ==
[2023-05-25 10:03] VITALS: BP 100/54; BP 104/54; BP 120/64; BMI 29.7
--- NOTE | 2024-09-08 09:27 | A.OFFVIS_ITS ---
Vital Signs 09/08/24 09:28 Height 5 ft 4 in Weight 169 lb 8.568 oz BMI 29.1 BP 112/66 Blood Pressure Location Lt brachial Position Sitting Pulse 80 Pulse Source Pulse Oximeter Pulse Oximetry (%) 97 Oxygen Delivery Method Room Air Intake Visit Reasons: DM Intake Note: Patient presents today for a follow-up on Type 2 Diabetes Mellitus: Last Diabetic Eye exam: 08/2024 Last Podiatry Exam: Does not see a Feeder Operator Automatic Most recent HbA1c: Random Glucose- 226 mg/dL Furnace Caretaker Required: No Accompanied by: Self / Same As Patient Allergies No Known Allergies (No Known Allergies*) Allergy (Verified 09/08/24 09:34) Medication List - Last Reconciled 09/08/24 by Swathi Shannon PA-C albuterol sulfate 90 mcg/actuation (Ventolin HFA) 2 puffs inhalation Q6H PRN 30 days amlodipine 2.5 mg PO DAILY aspirin (Adult Low Dose Aspirin) 81 mg PO DAILY clobetasol 0.05% 1 appl topical BID PRN empagliflozin (Jardiance) 25 mg PO QAM ergocalciferol (vitamin D2) 1,250 mcg PO QWEEK finerenone (Kerendia) 10 mg PO DAILY flash glucose scanning reader (WilocityStyle Senait 14 Day [place]) As directed flash glucose sensor (FreeStyle Senait 14 Day Sensor kit) As directed Flexichamber (inhalational spacing device) use with Albuterol inhaler as directed NS Humalog KwikPen Insulin (insulin lispro) Inject 10 to 12 units as instructed 3 times a day with meals dosed per sliding scale subcutaneously; 30 days NS isosorbide mononitrate ER 60 mg PO DAILY Lantus Solostar U-100 Insulin (insulin glargine) 32 units (0.32 mL) subcut QPM NS losartan 100 mg PO DAILY metformin 1,000 mg PO BID metoprolol succinate ER 100 mg PO DAILY 90 days multivitamin 1 tab PO DAILY nitroglycerin 0.4 mg sublingual ONCE nystatin-triamcinolone 100,000-0.1 unit/g-% 1 appl topical BID 10 days omeprazole 20 mg PO DAILY 90 days pen needle, diabetic As directed five times a day rosuvastatin 40 mg PO DAILY tamsulosin 0.4 mg PO BEDTIME 90 days tirzepatide (Mounjaro) 5 mg (0.5 mL) subcut QWEEK HPI HPI DM: Details: Patient is a 64 year old male with DM type 2 diagnosed approximately 15 years ago who presents for continued management of diabetes. Past medical history includes : HLD, vitamin D deficiency, GERD, hypertension, non-ST elevated AL. Micro and macrovascular complications: + retinopathy, + nephropathy, + neuropathy, + CAD Diabetes medications: Lantus 32 units, Humalog 12 units 3 times daily, metformin 1000mg twice daily (misses once in a while), Jardiance 25mg daily, on Mounjaro 5 mg Qwkly . -he misses the mounjaro at least monthly. He states that he also sometimes misses the Lantus and Humalog dosing. He states when he takes the medications as directed his blood sugars are very well-controlled. He states it is an issue with himself and not with the medications and he does not want to make any adjustments today. We did review that the A1c is elevated above goal and has increased and he states that he is going to work harder on compliance. He also reports a diet high in carbohydrates and sugars. He states that he likes to eat toast and butter at night and ice cream and does not give himself any insulin for this. Could not tolerate Trulicity, ozempic caused nausea Senait downloaded TGT 43% 57% high 0% low GMI 8.1%. His A1c today is 9.3. 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 Mother Diabetes mellitus CVD (cardiovascular disease) Hypertension Social History Household Members: Spouse Housing: House Alcohol intake: never Patient Tobacco Use Status: Never used Tobacco e-Cigarette/Vaping Use: Never Used Second Hand Smoke Exposure: No service: No Current occupational status: employed Cognitive needs: No Hearing needs: No Vision needs: Yes Physical Exam Vital Signs: Last Vital Signs Pulse 80 09/08/24 09:28 BP 112/66 09/08/24 09:28 Pulse Ox 97 09/08/24 09:28 Oxygen Delivery Method Room Air 09/08/24 09:28 BMI result Body Mass Index 29.1 Const Orientation/consciousness: patient oriented x3 HEENT Ears: hearing grossly normal bilaterally Neck Thyroid: Thyroid normal Lymphatic: no lymphadenopathy noted Resp Auscultation: clear to auscultation bilaterally Cardio Rate: regular rate Rhythm: regular rhythm Heart sounds: S1 normal heart sound present and S2 normal heart sound present Skin General skin exam: no rashes or lesions noted Neuro General: patient oriented x3, gait normal and no focal motor deficits Results Reviewed Results Reviewed: Laboratory Last Values Glucose (Clinic) 226 mg/dL (60-115) H 09/08/24 09:36 Assessment & Plan Assessment & Plan (1) Type 2 diabetes mellitus with other diabetic kidney complication: Code(s): E11.29 - Type 2 diabetes mellitus with other diabetic kidney complication Category: Medical Plan: We discussed making medication adjustments today but he refuses. Advised him to take 3 units of the Humalog with nighttime snacks. I have encouraged compliance. We discussed adverse effects and complications of diabetes including but not limited to kidney disease, blindness, amputations, infection, increased risk of heart attack and stroke. (2) Hypertension: Code(s): I10 - Essential (primary) hypertension Category: Medical Qualifiers: Hypertension type: essential hypertension Qualified Code(s): I10 - Essential (primary) hypertension Plan: BP WNL today. Continue current regimen Orders: Orders AMB Hemoglobin A1c Today E11.21 - Type 2 diabetes mellitus with diabetic nephropathy, E11.29 - Type 2 diabetes mellitus with other diabetic kidney complication, Z13.9 - Encounter for screening, unspecified Medications: New blood-glucose,electric freight car operator,cont (FreeStyle Senait 3 [place]) Use daily As directed to monitor blood glucose 1 ea 0RF E11.65 - Type 2 diabetes mellitus with hyperglycemia, Z79.4 - capacity planning analyst (current) use of insulin blood-glucose sensor (FreeStyle Senait 3 Plus Sensor device) Use daily As directed to monitor glucose 2 ea 5RF E08.29 - Diabetes mellitus due to underlying condition with other diabetic kidney complication, R80.9 - Proteinuria, unspecified, Z79.4 - capacity planning analyst (current) use of insulin Refilled tirzepatide (Mounjaro) 5 mg (0.5 mL) subcut QWEEK 2 mL 4RF Discontinued flash glucose sensor (FreeStyle Senait 14 Day Sensor kit) Discontinued Reason: Doctor's Order As directed 1 ea 5RF E11.29 - Type 2 diabetes mellitus with other diabetic kidney complication flash glucose scanning reader (FreeStyle Senait 14 Day [place]) Discontinued Reason: Doctor's Order As directed 1 ea 5RF E11.29 - Type 2 diabetes mellitus with other diabetic kidney complication Coding Level of Care Code Est Pt Level 4 (76666) Complex EM visit Add On G2211 Diagnoses Type 2 diabetes mellitus with other diabetic kidney complication E11.29 Essential hypertension I10 Hypertension type: essential hypertension
[2024-09-08 09:28] VITALS: BP 112/66; PULSE 80; O2SAT 97; BMI 29.1
--- OUTSIDE RECORDS SUMMARY | 2024-09-08 09:37 | XMS_ITS | Clinical Summary ---
Author Organization [facility] Address [address] [address] Phone Care Team Providers Care Electron Gun Assembler Name Role Phone Aram Murphy MD Primary Care Provider +1- [phone] Allergies No known active allergies Medications amLODIPine [...] Visit [facility] [address] [place] [address] Diaz Martino MD Persistent proteinuria (Primary [...] Visit [facility] [address] [place] [address] Diaz Martino MD [address] [facility] [address] [place] [id number] Health Maintenance Due Date Last Done Comments Pneumococcal Vaccine: 50+ Ye ars (1 of 2 - PCV) 1977 Colorectal Cancer Screening: Annual FOBT 2007 Colorectal Cancer Screening: Colonoscopy 2007 Colorectal Cancer Screening: Sigmoidoscopy 2007 Diabetes: Ophthalmology Exam 09/02/2021 Diabetes: Pedal Pulse Checked 09/02/2021 Diabetes: Sensory Foot Exam 09/02/2021 Diabetes: Visual Foot Exam 09/02/2021 Diabetes: Hemoglobin A1C 03/15/2022 12/13/2021 Influenza Vaccine (#1) 2024 Hepatitis B Vaccine Aged Out No [...] Most Recently Relevant to Health Maintenance Insurance [facility] Care Teams Electron Gun Assembler Relationship Specialty Start Date End Date Aram Murphy MD [address] [place] [address] PCP - General Internal Medicine 06/11/21
--- OUTSIDE RECORDS SUMMARY | 2024-09-08 09:37 | XMS_ITS | Clinical Summary ---
Author Organization [employer] Address [address] [place] [address] [address] [place] [address] Care Team Providers Care Accounts Receivable Analyst Name Role Phone Unavailable Primary Care Provider [...] Description 12/07/2024 10:00 AM EDT Office Visit [facility] [address] [place] [address] Priscilla Felder Health Maintenance Due Date Last [...] 2023 04/01/2021, 10/15/2020, 09/13/2020 Influenza Vaccine (#1) 2024 RSV Patients and Patients Aged 60 years [...] patient's age to complete this topic Meningococcal B Vaccine Aged Out No l onger eligible based on patient's age to complete [...]
[2024-09-08 09:41] LABS: Glucose, Whole Blood 226 mg/dL (60-115)
== END 2024-09-08 09:55 | disposition home or self-care (01) ==
LOC: HO.ENCR 09:25
PROVIDERS: PCP Internal Medicine; Visit Provider Physician Assistant
DX: Z13.9 Encounter for screening, unspecified (principal); E11.21 Type 2 diabetes mellitus with diabetic nephropathy; E11.29 Type 2 diabetes mellitus with other diabetic kidney complication; I10 Essential (primary) hypertension

== ENCOUNTER → 2024-09-08 09:24 | Outpatient (BNVA) | payer BC, SELFPAY ==
[2023-05-25 10:03] VITALS: BP 100/54; BP 104/54; BP 120/64; BMI 29.7
== END ==
PROVIDERS: PCP Internal Medicine; Visit Provider Physician Assistant
DX: E11.29 Type 2 diabetes mellitus with other diabetic kidney complication (principal); E11.319 Type 2 diabetes mellitus with unspecified diabetic retinopathy without macular edema; E11.40 Type 2 diabetes mellitus with diabetic neuropathy, unspecified; I10 Essential (primary) hypertension; Z79.4 Long term (current) use of insulin; Z79.84 Long term (current) use of oral hypoglycemic drugs
CPT/HCPCS: 82947; 83036

== ENCOUNTER 2024-11-07 07:55 | Outpatient (REF) | payer BC, SELFPAY ==
[2023-05-25 10:03] VITALS: BP 100/54; BP 104/54; BP 120/64; BMI 29.7
--- OUTSIDE RECORDS SUMMARY | 2024-11-07 08:02 | XMS_ITS | Clinical Summary ---
Author Organization [facility] Address [address] [address] Phone Care Team Providers Care Crown Ceramist Name Role Phone Aram Murphy MD Primary Care Provider +1- [phone] Allergies No known active allergies Medications amLODIPine [...] Visit [facility] [address] [place] [address] [place] [address] Diaz Martino MD [address] [facility] [address] [place] [address] Health Maintenance Due Date Last [...] to Health Maintenance Insurance [facility] Member Subscriber Plan / Payer (Ef fective 2023-Present) Name:Tomas Flroes Relation to Subscriber:Self Name:Tomas Flores Payer ID:[id number] (NAIC) Type:Not on file Address: [facility] [id number] [place] [phone] Care Teams Crown Ceramist Relationship Specialty Start Date End Date Aram Murphy MD [address] [place] [address] PCP - General Internal Medicine 06/11/21
--- OUTSIDE RECORDS SUMMARY | 2024-11-07 08:02 | XMS_ITS | Clinical Summary ---
Author Organization [employer] Address [address] [place] [address] [address] [place] [address] Care Team Providers Care Shampoo Assistant Name Role Phone Unavailable Primary Care Provider [...] Team (Late st Contact Info) Description 12/07/2024 10:15 AM EDT Office Visit [facility] [address] [place] [address] Priscilla Felder Health Maintenance Due Date Last [...] Vaccines (1 of 2) 02/02/2008 COVID-19 Vaccine (4 2024-2 6 season) 2024 04/01/2021, 10/15/2020, 09/13/2020 Influenza Vaccine (#1) 2024 [...]
[2024-11-07 08:12] LABS: MANUAL DIFF FLAG NO
[2024-11-07 08:54] LABS: Hematocrit 40.0 % (42.0-52.0); Hemoglobin 13.2 g/dl (14.0-18.0); Imm Gran Abs Auto 0.01 X10*3/uL (0.00-0.03); Imm Gran Pct Auto 0.1 % (0.0-0.4); Lymphocytes Absolute Auto 2.6 X10*3/uL (1.2-4.9); Mean Corpuscular HGB Conc 33.0 g/dl (31.0-36.0); Mean Corpuscular Hemoglobin 28.8 pg (27.0-33.0); Mean Corpuscular Volume 87.3 fL (80.0-98.0); NRBC Abs Auto 0.000 X10*3/uL (0.0-0.012); NRBC Pct Auto 0.0 /100WBC (0.0-0.2); Platelet Count 197 X10*3/uL (160-400); Red Blood Count 4.58 X10*6/uL (4.60-5.80); White Blood Count 7.1 X10*3/uL (4.8-10.8)
[2024-11-07 09:00] LABS: Appearance Urine Clear; Glucose Urine UA >=1000 mg/dL (Negative); PH 6.0 (5.0-9.0); Specific Gravity - Urine 1.025 (1.005-1.025); UMIC TRIGGER UACC YES
[2024-11-07 09:24] LABS: Microalbum/Creatinine Ratio Ur 570.7 ug/mg cr (<30)
[2024-11-07 09:32] LABS: Alanine Aminotransferase 39 U/L (0-40); Albumin Level 4.6 g/dL (3.5-5.0); Alkaline Phosphatase 43 U/L (39-117); Anion Gap 13 (12-20); Aspartate Amino Transferase 36 U/L (5-37); Blood Urea Nitrogen 17 mg/dL (9-16); Calcium 9.9 mg/dL (8.4-10.2); Carbon Dioxide 26 mmol/L (22-29); Chloride 106 mmol/L (96-108); Cholesterol 106 mg/dL (<200); Estimated Glomerular Filt Rate > 60; HDL Cholesterol 46 mg/dL (>40); Potassium 4.4 mmol/L (3.3-5.1); Sodium 141 mmol/L (135-145); Total Protein 7.1 g/dL (6.5-8.0); Triglycerides 85 mg/dL (<150)
[2024-11-07 09:33] LABS: Total Hemoglobin (HGBA1C) 3483.7044 umol/L
[2024-11-07 09:49] LABS: Folate 9.1 ng/mL (> or = 4.0); Vitamin B12 246 pg/mL (200-900)
== END 2024-11-07 07:56 | disposition home or self-care (01) ==
LOC: HO.LAB 07:55
PROVIDERS: PCP Internal Medicine; Visit Provider Internal Medicine
DX: E78.00 Pure hypercholesterolemia, unspecified (principal); E11.9 Type 2 diabetes mellitus without complications; E55.9 Vitamin D deficiency, unspecified; E53.8 Deficiency of other specified B group vitamins; D64.9 Anemia, unspecified
CPT/HCPCS: 36415; 80053; 80061; 81001; 81003; 82043; 82306; 82570; 82607; 82746; 83036; 84443; 85025

== ENCOUNTER 2024-11-08 09:42 | Outpatient (AMB) | payer BC, SELFPAY ==
[2023-05-25 10:03] VITALS: BP 100/54; BP 104/54; BP 120/64; BMI 29.7
--- NOTE | 2024-11-08 09:45 | A.OFFPC_ITS ---
Vital Signs 11/08/24 09:46 Height 5 ft 4 in Weight 172 lb 8 oz BMI 29.6 BP 114/70 Blood Pressure Location Lt brachial Position Sitting Pulse 87 Pulse Source Pulse Oximeter Temp 97.1 F Temp Source Temporal Artery Scan Pulse Oximetry (%) 96 Oxygen Delivery Method Room Air Intake Visit Reasons: 3mth f/u Accompanied by: Spouse Allergies No Known Allergies (No Known Allergies*) Allergy (Verified 11/08/24 09:49) Medication List - Last Reconciled 11/08/24 by Aram Murphy MD albuterol sulfate 90 mcg/actuation (Ventolin HFA) 2 puffs inhalation Q6H PRN 30 days amlodipine 2.5 mg PO DAILY aspirin (Adult Low Dose Aspirin) 81 mg PO DAILY blood-glucose sensor (TripviStyle Senait 3 Plus Sensor device) Use daily As directed to monitor glucose blood-glucose,grievance and appeals coordinator,cont (FreeStyle Senait 3 [place]) Use daily As directed to monitor blood glucose clobetasol 0.05% 1 appl topical BID PRN empagliflozin (Jardiance) 25 mg PO QAM ergocalciferol (vitamin D2) 1,250 mcg PO QWEEK finerenone (Kerendia) 10 mg PO DAILY Flexichamber (inhalational spacing device) use with Albuterol inhaler as directed NS Humalog KwikPen Insulin (insulin lispro) Inject 10 to 12 units as instructed 3 times a day with meals dosed per sliding scale subcutaneously; 30 days NS isosorbide mononitrate ER 60 mg PO DAILY Lantus Solostar U-100 Insulin (insulin glargine) 32 units (0.32 mL) subcut QPM NS losartan 100 mg PO DAILY metformin 1,000 mg PO BID metoprolol succinate ER 100 mg PO DAILY 90 days multivitamin 1 tab PO DAILY nitroglycerin 0.4 mg sublingual ONCE nystatin-triamcinolone 100,000-0.1 unit/g-% 1 appl topical BID 10 days omeprazole 20 mg PO DAILY 90 days pen needle, diabetic As directed five times a day rosuvastatin 40 mg PO DAILY tamsulosin 0.4 mg PO BEDTIME 90 days tirzepatide (Mounjaro) 5 mg (0.5 mL) subcut QWEEK Tobacco use date assessed: 11/08/24 Fall risk assessment: No Falls in past year Last assessed Fall Risk: 11/08/24 Dental Screening Dental Screen Date: 11/08/24 Did you have a dental visit in the last 12 months?: Yes Did you have a dental problem in the last 6 months where you did not have access to dental care?: No Was dental information given to patient?: Patient has dentist HPI 3mth f/u HPI Details Patient comes in today for his follow up visit States that he feels okay He denies any headaches or dizziness Denies any chest pains, no SOB No nausea/vomiting, no abdominal pain No change in bowel habits noted He had his follow up labs done yesterday - to discuss his results [facility] Medical History (Updated 11/08/24 @ 09:58 by Aram Murphy MD) Nonproliferative diabetic retinopathy PVCs (premature ventricular contractions) Overweight (BMI 25.0-29.9) Cataract Dermatosis GERD without esophagitis Benign essential hypertension Pure hypercholesterolemia 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 Mother Diabetes mellitus CVD (cardiovascular disease) Hypertension Social History Household Members: Spouse Housing: House Alcohol intake: never Patient Tobacco Use Status: Never used Tobacco e-Cigarette/Vaping Use: Never Used Second Hand Smoke Exposure: No service: No Current occupational status: employed Cognitive needs: No Hearing needs: No Vision needs: Yes Questionnaire PHQ-9 Over the last 2 weeks, how often have you been bothered by any of the following problems? 1. Little interest or pleasure in doing things: not at all 2. Feeling down, depressed, or hopeless: not at all 3. Trouble falling or staying asleep, or sleeping too much: not at all 4. Feeling tired or having little energy: not at all 5. Poor appetite or overeating: not at all 6. Feeling bad about yourself - or that you are a failure or have let yourself or your family down: not at all 7. Trouble concentrating on things, such as reading the newspaper or watching television: not at all 8. Moving or speaking so slowly that other people could have noticed. Or the opposite - being so fidgety or restless that you have been moving around a lot more than usual: not at all 9. Thoughts that you would be better off or of hurting yourself in some way: not at all Total score: 0 Depression Screening Interpretation: Negative Depression Screening Done: Yes 84265 - PHQ-9 Billing: Yes Source: Developed by Drs. Vargas Pope, Valerie Carpenter, Harjinder Erazo and colleagues, with an educational aubree from [email or web address]. Thrive Questionnaire Date Thrive assessed: 06/30/24 I am a: Patient What is your living situation today?: I have a steady place to live Within the past 12 months, did the food you bought not last and you didn't have the money to get more?: Never true Within the past 12 months, did you worry whether your food would run out before you got money to buy more?: Never true Do you have trouble paying for medicines?: No Do you have trouble getting transportation to medical appointments?: No Do you have trouble paying your heating and electricity bill?: No Do you have trouble taking care of your child, family member or friend?: No Do you have trouble with day-to-day activities such as bathing, preparing meals, shopping, managing finances, etc.?: No Are you currently unemployed and looking for a job?: No Are you interested in more education?: No Please select the resources that you would like help with: None Currently or been in a relationship where the following occur: No concerns reported THRIVE Score: 0 AUDIT C Alcohol Use Questionnaire (AUDIT-C) 1. How often do you have a drink containing alcohol?: Never 3. How often do you have six or more drinks on one occasion?: Never Total Score: 0 Score Reviewed/Action Taken: Yes SHIREEN-7 AMB Questionnaire SHIREEN-7 Date SHIREEN - 7 assessed: 06/30/24 Feeling nervous, anxious, or on edge: 0 = Not at all Not being able to stop or control worryin = Not at all Worrying too much about different things: 0 = Not at all Trouble relaxin = Not at all Being so restless that it is hard to sit still: 0 = Not at all Becoming easily annoyed or irritable: 0 = Not at all Feeling afraid as if something awful might happen: 0 = Not at all Total SHIREEN-7 score (0-4 normal; 5-9 mild; 10-14 moderate; 15-21 severe): 0 Source: Developed by Drs. Vargas Pope, Valerie Carpenter, Harjinder Erazo and colleagues, with an educational aubree from [email or web address]. Review of Systems Const Denies chills, Denies fatigue, Denies fever(s) and Denies headache(s) ENT Denies dysphagia, Denies dizziness, Denies otalgia, Denies headache(s), Denies neck pain, Denies odynophagia and Denies sore throat Card Denies chest pain, Denies palpitations and Reports dyspnea on exertion (mild, chronic) Resp Denies chest congestion, Denies cough and Reports dyspnea on exertion (mild, chronic) GI Denies abdominal pain, Denies constipation, Denies dysphagia, Denies heartburn, Denies diarrhea, Denies nausea, Denies odynophagia and Denies vomiting Denies difficulty urinating, Denies dysuria, Denies nocturia and Reports urinary frequency Musc Denies back pain and Denies neck pain Skin/Breast Denies rash Neuro Denies dizziness and Denies headache(s) Endo Denies fatigue and Denies palpitations Physical exam (Primary Care) Vital Signs: Last Vital Signs Temp 97.1 F 11/08/24 09:46 Pulse 87 11/08/24 09:46 BP 114/70 11/08/24 09:46 Pulse Ox 96 11/08/24 09:46 Oxygen Delivery Method Room Air 11/08/24 09:46 BMI result Body Mass Index 29.6 Tobacco/Smoking Status: Tobacco use Status Tobacco use date assessed 11/08/24 11/08/24 09:49 Patient Tobacco Use Status Never used Tobacco 11/08/24 09:45 e-Cigarette/Vaping Use Never Used 11/08/24 09:45 PHQ-9: PHQ-9 Score PHQ-9: Total score 0 11/08/24 09:49 Depression Screening Interpretation: Negative Thrive Assessment: Date of Thrive Assessment Date Thrive assessed 06/30/24 11/08/24 09:45 Currently or been in a relationship where the following occur: No concerns reported Const General: no acute distress and alert HENMT Ears: TM's normal bilaterally and EAC's normal Throat: Yes posterior oropharynx normal and Yes tonsils normal (no TP congestion noted) Neck Neck: Yes supple and No lymphadenopathy Thyroid: Thyroid normal Resp Auscultation: no rales, rhonchi (occasional) upper bilaterally and no wheezes Cardio Rate: regular rate Rhythm: regular rhythm Heart sounds: no murmurs GI Palpation (GI): Soft to palpation and nontender Auscultation: normal bowel sounds General: Yes no CVA tenderness Back/Spine/Pelvis Back: no CVA tenderness Thoracic/Lumbar Spine: No lumbar spinal tenderness Skin Rashes: no rashes Extrem General: Yes no clubbing, cyanosis or edema Results Reviewed Results Reviewed: Laboratory Tests 11/07/24 11/07/24 08:04 08:11 WBC 7.1 Hgb 13.2 L Hct 40.0 L Plt Count 197 Sodium 141 Potassium 4.4 Creatinine 0.79 Estimated GFR > 60 Fasting Glucose 129 H Hemoglobin A1c % 8.6 H Calcium 9.9 AST 36 ALT 39 Triglycerides 85 Cholesterol 106 LDL Cholesterol, Calc 43 HDL Cholesterol 46 Vitamin B12 246 25-OH Vitamin D Total 21.5 L TSH 2.86 Ur Specific [place] 1.025 Urine Protein 30 (1+) H Urine Glucose (UA) >=1000 H Urine Blood Negative Urine Nitrite Negative Ur Leukocyte Esterase Negative Microalb/Creat Ratio 570.7 H Coding Level of Care Code Est Pt Level 4 (96937) Diagnoses Type 2 diabetes with nephropathy E11.21 Diabetic nephropathy associated with type 2 diabetes mellitus E11.21 Diabetes mellitus type: type 2 Atherosclerosis of three affiliated coronary artery of three affiliated heart without angina pectoris I25.10 [place] vs. transplanted heart: three affiliated heart Pure hypercholesterolemia E78.00 Benign essential hypertension I10 GERD without esophagitis K21.9 Vitamin D deficiency E55.9 Obesity (BMI 30-39.9) E66.9 Additional Codes PHQ-9 - 38488 - PHQ-9 Billing: Yes ([id number]) Assessment & Plan Assessment & Plan (1) Type 2 diabetes with nephropathy: Comment: (+) proteinuria Code(s): E11.21 - Type 2 diabetes mellitus with diabetic nephropathy Category: Medical Plan: His HgbA1c was at 8.6% on his labs done yesterday although his in-office HgbA1c went up to 9.3% a couple of months ago when it was checked at the endocrinology office (HgbA1c was previously at 7.9% back in June 2024) - goal is at least <7.0% Reinforced diabetic diet Continue Lantus 32 units Q HS, Humalog 10 units with small meals and 12 units with large meals and additional 3 units with bedtime snacks, Metformin ER 1000 mg BID, Jardiance 25 mg QD and Mounjaro 5 mg once a week (he could not tolerate Trulicity in the past and Ozempic was ineffective for him) Follow up with [facility] endocrinology and diabetic proof operator as scheduled - he already has appt scheduled for early next month (December 2024) (2) Diabetic nephropathy: Code(s): E11.21 - Type 2 diabetes mellitus with diabetic nephropathy Category: Medical Qualifiers: Diabetes mellitus type: type 2 Qualified Code(s): E11.21 - Type 2 diabetes mellitus with diabetic nephropathy Plan: Stable lately Continue Kerendia 10 mg QD He is reminded again that better control of his diabetes is the best way to slow down the progression of his kidney disease Follow up with nephrology as scheduled (3) Atherosclerotic heart disease of three affiliated coronary artery without angina pectoris: Comment: S/P STEMI in 2015 - cardiac cath showed a non-intervenable lesion and recommended aggressive medical Mx to modify risk factors as much as possible; S/P NSTEMI in September 2022 - was transferred from [facility], where cardiac cath revealed severe stenosis at diagonal 1 and he underwent PCI of culprit lesion Code(s): I25.10 - Atherosclerotic heart disease of three affiliated coronary artery without angina pectoris Category: Medical Qualifiers: [place] vs. transplanted heart: three affiliated heart Qualified Code(s): I25.10 - Atherosclerotic heart disease of three affiliated coronary artery without angina pectoris Plan: S/P NSTEMI in September 2022 - patient was transferred from [facility] to [facility] and had coronary angiogram done, which revealed (+) severe stenosis at diagonal 1 and he subsequently underwent PCI of the culprit lesion Continue low dose Aspirin 81 mg QD, Clopidogrel 75 mg QD, Isosorbide Mononitrate ER 60 mg QD and Metoprolol ER 100 mg QD Patient also has sublingual Nitroglycerin tablets that he takes as needed for chest pain He is advised to continue aggressive risk reduction with better control of his diabetes and hypertension Follow up with cardiology as scheduled (4) Pure hypercholesterolemia: Code(s): E78.00 - Pure hypercholesterolemia, unspecified Category: Medical Plan: Results of his labs done yesterday reviewed and discussed with patient - his cholesterol levels remain at goal Reinforced low cholesterol diet Continue Rosuvastatin 40 mg QD Will recheck his labs and fasting lipids in 3 months for follow up (5) Benign essential hypertension: Code(s): I10 - Essential (primary) hypertension Category: Medical Plan: Reinforced low sodium diet - goal is systolic BP of at least 130 mm or less Continue Losartan 100 mg QD and Amlodipine 2.5 mg QD; he is also on Metoprolol ER 100 mg QD (6) GERD without esophagitis: Code(s): K21.9 - Gastro-esophageal reflux disease without esophagitis Category: Medical Plan: Dietary restrictions reinforced Continue Omeprazole 20 mg QD (7) Vitamin D deficiency: Code(s): E55.9 - Vitamin D deficiency, unspecified Category: Medical Plan: He is advised that his Vitamin D level is still low on his recent labs Continue Vitamin D2 62530 once a week (8) Obesity (BMI 30-39.9): Code(s): E66.9 - Obesity, unspecified Category: Medical Plan: Reinforced diet /exercise as tolerated /lose weight Plan Follow-up in 3 months Orders: Orders Hemoglobin A1c 3 Months E11.9 - Type 2 diabetes mellitus without complications Complete Blood Count Auto Diff 3 Months D64.9 - Anemia, unspecified Comprehensive [place]. Panel Fast 3 Months E78.00 - Pure hypercholesterolemia, unspecified TSH reflex Free T4 3 Months E78.00 - Pure hypercholesterolemia, unspecified UA CC w/rflx Micro + Cult 3 Months R30.0 - Dysuria Vitamin D 25-OH Total 3 Months E55.9 - Vitamin D deficiency, unspecified Lipid Panel 3 Months E78.00 - Pure hypercholesterolemia, unspecified Microalbumin, Random (w Creat) 3 Months E11.9 - Type 2 diabetes mellitus without complications Vitamin B12 and Folate 3 Months E53.8 - Deficiency of other specified B group vitamins
[2024-11-08 09:46] VITALS: BP 114/70; PULSE 87; TEMP 36.2; O2SAT 96; BMI 29.6
--- OUTSIDE RECORDS SUMMARY | 2024-11-08 10:36 | XMS_ITS | Clinical Summary ---
Author Organization [employer] Address [address] [place] [address] [address] [place] [address] Care Team Providers Care Identification And Records Commander Name Role Phone Unavailable Primary Care Provider [...] Description 12/07/2024 10:15 AM EDT Office Visit [facility] [address] [place] [address] Priscilla Felder Health Maintenance Due Date Last [...]
--- OUTSIDE RECORDS SUMMARY | 2024-11-08 10:36 | XMS_ITS | Clinical Summary ---
Author Organization [facility] Address [address] [address] Phone Care Team Providers Care Blue Crabber Name Role Phone Aram Murphy MD Primary Care Provider [phone] Allergies No known active allergies Medications amLODIPine [...] Visit [facility] [address] [place] [address] [place] [id number] Diaz Martino MD [address] [facility] [address] [place] [address] Health Maintenance Due Date Last [...] Most Recently Relevant to Health Maintenance Insurance [facility] Member Subscriber Plan / Payer (Ef fective 2023-Present) Name:Tomas Flores Relation to Subscriber:Self Name:Tomas Flores Payer ID:[id number] (NAIC) Type:Not on file Address: [facility] [address] [place] [phone] Care Teams Blue Crabber Relationship Specialty Start Date End Date Aram Murphy MD [address] [place] [address] PCP - General Internal Medicine 06/11/21
== END 2024-11-08 10:19 | disposition home or self-care (01) ==
LOC: HO.HMCH 09:43
PROVIDERS: PCP Internal Medicine; Visit Provider Internal Medicine
DX: E11.21 Type 2 diabetes mellitus with diabetic nephropathy (principal); I25.10 Atherosclerotic heart disease of native coronary artery without angina pectoris; E66.9 Obesity, unspecified; Z68.29 Body mass index [BMI] 29.0-29.9, adult; I10 Essential (primary) hypertension; E78.00 Pure hypercholesterolemia, unspecified; K21.9 Gastro-esophageal reflux disease without esophagitis; E55.9 Vitamin D deficiency, unspecified

== ENCOUNTER → 2024-11-08 09:42 | Outpatient (BNVA) | payer BC, SELFPAY ==
[2023-05-25 10:03] VITALS: BP 100/54; BP 104/54; BP 120/64; BMI 29.7
== END ==
PROVIDERS: PCP Internal Medicine; Visit Provider Internal Medicine
DX: E11.21 Type 2 diabetes mellitus with diabetic nephropathy (principal); I25.10 Atherosclerotic heart disease of native coronary artery without angina pectoris; E78.00 Pure hypercholesterolemia, unspecified; I10 Essential (primary) hypertension; K21.9 Gastro-esophageal reflux disease without esophagitis; E55.9 Vitamin D deficiency, unspecified; E66.9 Obesity, unspecified; D64.9 Anemia, unspecified; R30.0 Dysuria; E11.9 Type 2 diabetes mellitus without complications; E53.8 Deficiency of other specified B group vitamins; Z68.29 Body mass index [BMI] 29.0-29.9, adult
CPT/HCPCS: 96127

== ENCOUNTER 2024-12-11 09:42 | Outpatient (AMB) | payer BC, SELFPAY ==
[2023-05-25 10:03] VITALS: BP 100/54; BP 104/54; BP 120/64; BMI 29.7
--- NOTE | 2024-12-11 09:45 | MHC.OFFVIS ---
Vital Signs 12/11/24 09:46 Height 5 ft 4 in Weight 174 lb 9.698 oz BMI 30.0 BP 122/82 Blood Pressure Location Rt brachial Position Sitting Pulse 82 Pulse Source Pulse Oximeter Pulse Oximetry (%) 98 Oxygen Delivery Method Room Air Intake Visit Reasons: DM Intake Note: Patient present today for Type 2 Diabetes Mellitus Last Diabetic eye exam: Last exam was about a month ago. 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 Accompanied by: Spouse Allergies No Known Allergies (No Known Allergies*) Allergy (Verified 12/11/24 09:52) Medication List - Last Reconciled 12/11/24 by Swathi Shannon PA-C albuterol sulfate 90 mcg/actuation (Ventolin HFA) 2 puffs inhalation Q6H PRN 30 days amlodipine 2.5 mg PO DAILY aspirin (Adult Low Dose Aspirin) 81 mg PO DAILY blood-glucose sensor (Coherent Pathyle Senait 3 Plus Sensor device) Use daily As directed to monitor glucose blood-glucose,formula clerk,cont (FreeStyle Senait 3 Marydel) Use daily As directed to monitor blood glucose clobetasol 0.05% 1 appl topical BID PRN empagliflozin (Jardiance) 25 mg PO QAM ergocalciferol (vitamin D2) 1,250 mcg PO QWEEK finerenone (Kerendia) 10 mg PO DAILY Flexichamber (inhalational spacing device) use with Albuterol inhaler as directed NS Humalog KwikPen Insulin (insulin lispro) Inject 10 to 12 units as instructed 3 times a day with meals dosed per sliding scale subcutaneously; 30 days NS isosorbide mononitrate ER 60 mg PO DAILY Lantus Solostar U-100 Insulin (insulin glargine) 32 units (0.32 mL) subcut QPM NS losartan 100 mg PO DAILY metformin 1,000 mg PO BID metoprolol succinate ER 100 mg PO DAILY 90 days multivitamin 1 tab PO DAILY nitroglycerin 0.4 mg sublingual ONCE nystatin-triamcinolone 100,000-0.1 unit/g-% 1 appl topical BID 10 days omeprazole 20 mg PO DAILY 90 days pen needle, diabetic As directed five times a day rosuvastatin 40 mg PO DAILY tamsulosin 0.4 mg PO BEDTIME 90 days HPI HPI DM: Details: Patient is a 64 year old male with DM type 2 diagnosed approximately 2009 who presents for continued management of diabetes. Past medical history includes : HLD, vitamin D deficiency, GERD, hypertension, non-ST elevated [place]. Micro and macrovascular complications: + retinopathy, + nephropathy, + neuropathy, + CAD Endo: Dm- Most recent A1c is 8.6. Previously 9.2. Diabetes medications: Lantus 32 units, Humalog 12 units 3 times daily, metformin 1000mg twice daily (misses once in a while), Jardiance 25mg daily, on Mounjaro 5 mg Qwkly -States blood sugars sometimes run on the lower side so he will reduce his dosing of the Lantus to 26 units in his often times skipping Humalog. -he does missed the Mounjaro dosing every couple weeks and when he injects he has does feel sick for a day. He did not feel any symptoms of the lower dose. -he states that he has issues with compliance because he does not like being on so many medications. He is aware of the complications associated with uncontrolled diabetes including but not limited to increased risk of stroke, heart attack, amputation, blindness, kidney disease etc.. He is able to recite all of these. Could not tolerate Trulicity, ozempic caused nausea Senait downloaded: Usage 82%, G mi 7.7%, average glucose 184. 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 preproliferative diabetic retinopathy CV: Blood pressure today in the office is 122/82. He is managed on metoprolol 100 mg daily, losartan 100 mg daily, isosorbide 60 mg daily, amlodipine 2.5 mg daily. Cholesterol is managed with rosuvastatin 40 mg. Last LDL was 43. [facility] Medical History (Updated 11/08/24 @ 09:58 by Aram Murphy MD) Nonproliferative diabetic retinopathy PVCs (premature ventricular contractions) Overweight (BMI 25.0-29.9) Cataract Dermatosis GERD without esophagitis Benign essential hypertension Pure hypercholesterolemia Atherosclerotic heart disease of [place] coronary artery without angina pectoris Type 2 diabetes mellitus with other diabetic kidney complication External hemorrhoid Coronary artery disease Vitamin D deficiency Hyperlipidemia LDL goal <70 NSTEMI (non-ST elevated myocardial infarction) Depression Psoriasis GERD (gastroesophageal reflux disease) Hyperlipidemia Hypertension Type 2 diabetes with nephropathy Surgical History Hx of cataract surgery H/O heart surgery Hx of right cataract extraction Hx of cardiac catheterization Hx of colonoscopy Hx of circumcision Family History Father No problems noted. Mother Diabetes mellitus CVD (cardiovascular disease) Hypertension Social History Household Members: Spouse Housing: House Alcohol intake: never Patient Tobacco Use Status: Never used Tobacco e-Cigarette/Vaping Use: Never Used Second Hand Smoke Exposure: No service: No Current occupational status: employed Cognitive needs: No Hearing needs: No Vision needs: Yes Physical Exam Vital Signs: Last Vital Signs Pulse 82 12/11/24 09:46 BP 122/82 12/11/24 09:46 Pulse Ox 98 12/11/24 09:46 Oxygen Delivery Method Room Air 12/11/24 09:46 BMI result Body Mass Index 30.0 Const Orientation/consciousness: patient oriented x3 HEENT Ears: hearing grossly normal bilaterally Neck Thyroid: Thyroid normal Lymphatic: no lymphadenopathy noted Resp Auscultation: clear to auscultation bilaterally Cardio Rate: regular rate Rhythm: regular rhythm Heart sounds: S1 normal heart sound present and S2 normal heart sound present Skin General skin exam: no rashes or lesions noted Neuro General: patient oriented x3, gait normal and no focal motor deficits Results Reviewed Results Reviewed: Laboratory Tests 06/12/24 11/07/24 11/07/24 08:50 08:04 08:11 Creatinine 0.82 0.79 Estimated GFR > 60 > 60 Fasting Glucose 129 H Hemoglobin A1c % 7.9 H 8.6 H AST 36 ALT 39 Triglycerides 91 85 Cholesterol 119 106 LDL Cholesterol, Calc 46 43 HDL Cholesterol 55 46 Urine Creatinine 53.09 Urine Microalbumin 303.0 Microalb/Creat Ratio 570.7 H Assessment & Plan Assessment & Plan (1) Type 2 diabetes mellitus with other diabetic kidney complication: Code(s): E11.29 - Type 2 diabetes mellitus with other diabetic kidney complication Category: Medical Plan: I will reduce Lantus to 26 units Reduce Humalog to 8 units as he states he goes low sometimes a few hours after eating We will start Mounjaro 2.5 mg weekly Continue Jardiance and metformin Labs ordered They will send me an update in the next few weeks as they do pay co-pay for every office visit. Follow up in 3 months. Sooner if needed. Patient understands and agrees with the plan.. (2) Hypertension: Code(s): I10 - Essential (primary) hypertension Category: Medical Qualifiers: Hypertension type: essential hypertension Qualified Code(s): I10 - Essential (primary) hypertension Plan: BP WNL today. Continue current regimen Orders: Orders Hemoglobin A1c Today E11.29 - Type 2 diabetes mellitus with other diabetic kidney complication, I10 - Essential (primary) hypertension, R73.01 - Impaired fasting glucose Basic Metabolic Panel Today E11.29 - Type 2 diabetes mellitus with other diabetic kidney complication, I10 - Essential (primary) hypertension Medications: New tirzepatide (Mounjaro) for 4 weeks 2.5 mg (0.5 mL) subcut QWEEK 2 mL 1RF Changed From Lantus Solostar U-100 Insulin (insulin glargine) 32 units (0.32 mL) subcut QPM 15 mL 3RF NS E11.21 - Type 2 diabetes mellitus with diabetic nephropathy To Lantus Solostar U-100 Insulin (insulin glargine) 26 units (0.26 mL) subcut QPM 15 mL 3RF NS E11.21 - Type 2 diabetes mellitus with diabetic nephropathy From Humalog KwikPen Insulin (insulin lispro) Inject 10 to 12 units as instructed 3 times a day with meals dosed per sliding scale subcutaneously; 30 days 15 mL 3RF NS E11.21 - Type 2 diabetes mellitus with diabetic nephropathy To Humalog KwikPen Insulin (insulin lispro) with meals 8 units (0.08 mL) subcut TID 15 mL 3RF 30 days NS E11.21 - Type 2 diabetes mellitus with diabetic nephropathy Refilled blood-glucose sensor (FreeStyle Senait 3 Plus Sensor device) Use daily As directed to monitor glucose 6 ea 3RF E08.29 - Diabetes mellitus due to underlying condition with other diabetic kidney complication, R80.9 - Proteinuria, unspecified, 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
[2024-12-11 09:46] VITALS: BP 122/82; PULSE 82; O2SAT 98
[2024-12-11 10:00] LABS: Glucose, Whole Blood 244 mg/dL (60-115)
== END 2024-12-11 10:22 | disposition home or self-care (01) ==
LOC: HO.ENCR 09:43
PROVIDERS: PCP Internal Medicine; Visit Provider Physician Assistant
DX: E11.29 Type 2 diabetes mellitus with other diabetic kidney complication (principal); I10 Essential (primary) hypertension

== ENCOUNTER → 2024-12-11 09:42 | Outpatient (BNVA) | payer BC, SELFPAY ==
[2023-05-25 10:03] VITALS: BP 100/54; BP 104/54; BP 120/64; BMI 29.7
== END ==
PROVIDERS: PCP Internal Medicine; Visit Provider Physician Assistant
DX: E11.21 Type 2 diabetes mellitus with diabetic nephropathy (principal); E11.40 Type 2 diabetes mellitus with diabetic neuropathy, unspecified; E11.319 Type 2 diabetes mellitus with unspecified diabetic retinopathy without macular edema; E11.29 Type 2 diabetes mellitus with other diabetic kidney complication; I25.10 Atherosclerotic heart disease of native coronary artery without angina pectoris; I10 Essential (primary) hypertension; Z79.4 Long term (current) use of insulin; Z79.899 Other long term (current) drug therapy
CPT/HCPCS: 82947